=== PATIENT | female | born 1970 | race Caucasian/White ===

== ENCOUNTER 2018-04-16 10:32 | Day surgery (SDC) | payer OTHER, SELFPAY ==
[2018-04-16] VITALS (7 sets, daily range): BP systolic 108–130; BP diastolic 72–88; PULSE 58–79; RESP 14–18; TEMP 36.5–37.2; O2SAT 98–100; BMI 19.9
[2018-04-16 11:06] LABS: Mean Corp Hgb Conc 34.2 g/gl (32-36); Mean Corpuscular Hgb 32.3 pg (27.0-32.0); Mean Corpuscular Volume 94.3 fL (81-99); Mean Platelet Vol. 10.4 fl (6.2-12.0); Platelet Count 204 K/mm3 (150-450); RBC Distribution Width CV 12.5 % (11.6-14.6); RBC Distribution Width SD 42.7 fl (35.1-43.9); Red Blood Count 4.03 M/mm3 (4.2-5.4); Scan Indicated on CBC? Y/N NO; White Blood Count 3.3 K/mm3 (4.4-11.0)
[2018-04-16 11:07] LABS: Internal QC Validated? YES +Cl - CLEAR BKGD; Pregnancy, Urine Negative Negative
[2018-04-16 11:29] LABS: Free T3 2.4 pg/mL (2.18-3.98); T4 Free Direct 0.84 ng/dL (0.76-1.46); Thyroid Stim Hormone (TSH) 2.23 uIU/mL (0.358-3.74)
[2018-04-16] MEDS: Cefazolin 2 GM in 0.9% Normal Saline 100 ML IV (13:00)
--- NOTE | 2018-04-16 13:54 | PCM.DC.D&C ---
Discharge Diet: No Restrictions Discharge Activity: Return to Normal Activity, May Shower May resume sexual activity in: 6 weeks Lifting Restrictions: 20-25 Call your doctor if your incision/area has: Continuous Slow Oozing, Increased Pain/ Swelling, Increased Redness, Foul Smelling Discharge, Swelling at the incision site Call your doctor if you observe: Fever of 101 or Higher, Inability to urinate, Using more than one pad per hour Cleanse incision/area with: Soap & Water, - - do not pick off skin glue- ok to shower and let soap and water run over incision sites Allergies/Adverse Reactions: Allergies nickel Allergy (Verified 04/09/18 12:06) Rash Penicillins Allergy (Verified 04/09/18 12:06) Rash Medications to take at Discharge Ascorbic Acid [Vitamin C] 1,000 mg PO DAILY 04/09/18 Cholecalciferol (Vitamin D3) [Vitamin D3] 2,000 unit PO DAILY 04/09/18 Turmeric/Turmeric Root Extract [Turmeric 500 mg Capsule] 1 each PO DAILY 04/09/18 Nitrofurantoin Monohyd/M-Cryst [Macrobid 100 mg Capsule] 100 mg PO BID #6 cap 04/16/18 The following prescriptions were given: Nitrofurantoin Monohyd/M-Cryst [Macrobid 100 mg Capsule] 100 mg PO BID #6 cap Primary Care Physician: Lianne Cheema [Primary Care Provider] - Test Results: Test results from this visit will be discussed in further detail at your follow-up appointment, if applicable. Please Follow Up With: Reba Nelson MD When: as scheduled in 2 weeks
--- NOTE | 2018-04-16 13:59 | OP.PCM_ITS ---
Operative Report Date of Procedure: 04/16/18 Surgeon: Dr. Reba Nelson Senior National Account Manager: None Preop diagnosis: AUB Post op diagnosis: Same Procedure performed: Hysteroscopy, Merced Ablation (retropubic sling placement and cystoscopy- please see her dictation) Drains: None Implantable devices: none Complications: none EBL: minimal anesthesia: general After informed consent was obtained patient taken to the operating room she is placed in supine position she is given anesthesia simply self insert she is prepped draped normal sterile fashion. Bladder was drained prior to the start of the procedure- 430cc clear yellow urine. At this time the weighted speculum was placed the posterior fornix of the vagina then a single-tooth tenaculum was used to grasp the anterior lip of the cervix. At this time the uterus was sounded to approximately 8.5 cm the endocervical canal sounded to 4.5 cm. Next cervix was dilated in incremental fashion. Once adequate dilatation was achieved the hysteroscope was inserted using normal saline as distention medium. On hysteroscopy there were no gross abnormalities. Both tubal ostia were visualized. At this time the Merced device was opened. The Merced was set at 4.5 cm. The device was activated. Prior to activation the field test was performed and cavity was intact. The device was then fired and activated for 120 seconds. Once the 120 seconds was completed the device was removed intact and the tenaculum was removed. Good hemostasis was appreciated. Weighted speculum was removed. Vaginal sweep was performed is negative. There were no complications. Anticipated normal postoperative course for this patient. Instrument and lap count were correct ?2. - Retropubic sling then placed by Dr. Magda Finn with my assistance- please see separate dictation for this procedure. Vaginal sweep negative.
--- NOTE | 2018-04-16 16:01 | SUR.PHASEII ---
PT VOIDED 300CC WITHOUT DIFFICULTY
--- NOTE | 2018-04-16 16:29 | OP.PCM_ITS ---
Report of Operation Date of Procedure: 04/16/18 Pre-Operative Diagnosis: Stress urinary incontinence Post-Operative Diagnosis: same Surgery/Procedure Performed:: Tension free retropubic midurethral sling with Brando mesh Description of Surgical Findings:: Normal vagina and bladder and uretral meatus language tutor: Reba Nelson Type of Anesthesia:: General Anesthesiologist: Kathy Nick Special Medications: none Specimen's removed: none Drains: iraheta Estimated Blood Loss (mL): 20 cc Fluids Replaced: LR Description of Procedure: The tension-free vaginal tape mid urethral sling procedure was then performed by me after the completion of Dr. López is portion of the case. The mid urethra was identified and the vaginal epithelium under it was grasped with Tracie clamps and the vaginal epithelium was infiltrated with 1% Xylocaine with dilute epinephrine solution. An incision was made under the mid urethra and dissected laterally under the pubic ramus on both sides. The midline at the symphysis pubis was marked and then 2 cm on each side was marked with a marking pen. I hydrodissected behind the symphysis with 30 cc of injectable saline on both sides of the midline. A catheter guide was used to shift the bladder to the patient's left side and the right trocar was placed with the retropubic trocar. This was walked up behind the symphysis aiming towards the ipsilateral shoulder until I exited in the skin 2 cm to left of the midline directly cephalad to the pubic ramus. The bladder was taken to the opposite side and the left trocar was advanced in a similar fashion behind the symphysis pubis and out through the skin where it had been marked with a marker. A cystoscopy was then performed at this time. The bladder was intact. There were no perforations. Both ureteral jets were noted. Cystoscopy was ended and the Iraheta placed to straight drain. The sling was secured up against the mid urethra using the Metzenbaum scissors as a spacer so as not to impinge upon the urethra. The protective sheath was removed from the mesh. The excess mesh was trimmed at the suprapubic incisions and those incisions were closed with skin glue. The vaginal epithelium overlying the mesh was reapproximated with 2- 0 Vicryl suture. The mesh was lying flat against the mid urethra and no buttonholing of the vagina in either vaginal fornix was noted. Vagina was packed with iodoform gauze after a vaginal sweep was completed by me. Grafts/Implants Used: Caldara midurethral sling mesh - Complications none - Admit VTE Documentation VTE Present on Admission: No VTE Mechan Device Prophylaxis: SCD's VTE Pharm Prophylaxis ordered?: No Reason prophylaxis not ordered:: Procedure Not Indicated
== END 2018-04-16 15:59 | disposition home or self-care (01) ==
LOC: SDC 10:33 → AC 10:35
PROVIDERS: Obstetrics & Gynecology; Family Provider Nurse Practitioner; PCP Nurse Practitioner; Visit Provider Obstetrics & Gynecology
PROC: 0U5B8ZZ Destruction of Endometrium, Via Natural or Artificial Opening Endoscopic (ICD-10-PCS; CPT 58558; principal; 2018-04-16 12:40)
PROC: 0TJB8ZZ Inspection of Bladder, Via Natural or Artificial Opening Endoscopic (ICD-10-PCS; CPT 57288; 2018-04-16 12:40)
DX: N39.3 Stress incontinence (female) (male) (principal); N93.9 Abnormal uterine and vaginal bleeding, unspecified
CPT/HCPCS: 57288; 58563; 81025; 84439; 84443; 84481; 85027; J7120; C1771; J2405

== ENCOUNTER 2019-09-24 15:47 | Emergency (ER) | payer OTHER, SELFPAY ==
[2019-09-24 15:48] VITALS: BP 96/64; PULSE 104; RESP 16; TEMP 37.2; O2SAT 98; BMI 19.5
--- NOTE | 2019-09-24 16:39 | ED.DCSUM_ITS ---
- ER Visit Summary Date of Service: 09/24/19 Chief Complaint: Nausea and vomiting History of Present Illness: The patient is a 48 F who presents with nausea and vomiting that began today. Patient states she woke up and felt nauseated. Patient states she started vomiting shortly after. Patient denies any hematemesis or coffee-ground emesis. Patient denies any diarrhea, melena, or hematochezia. Patient states she took a Zofran at home which has helped with her vomiting. Patient states she does have some mild diffuse abdominal pain. Patient describes it as aching. Patient also admits to some low back pain. Physical Examination: Vital signs are stable. Patient is afebrile. Patient is in no acute distress. Oral mucosa is pink and moist. Neck is supple. Trachea is midline. There is no JVD. Heart was regular rate and rhythm. Lungs are clear and equal bilaterally. Abdomen is soft. Bowel sounds are normal. There is mild diffuse tenderness. There is no rebound or guarding noted. There is no lumbar spine or paraspinal tenderness. There is good range of motion. Strength is 5/5 bilateral knee upper and lower extremities. There are no sensory deficits noted. Test Results: CBC and comprehensive metabolic profile were within normal limits. Serum hCG was negative. Urinalysis does not show any evidence of urinary tract infection. Emergency Department Course and Treatment: Patient was given IV fluids and Toradol here. Patient was feeling better on reevaluation. Patient was instructed to start with liquid diet and advance to a bland diet and then to a regular diet as she starts to feel better. Patient and her spouse understood and were agreeable with the plan. All questions were answered. Disposition: Discharge home Impression: Nausea and vomiting This note was generated with Aledade dictation software. It may contain incorrect words, spelling, and punctuation that were not noted in review of the chart prior to signing ED Disposition - Plan for ED Patient: Disposition: Home or Assisted Living Diagnosis: Nausea and vomiting Instructions: VOMITING (7y-Adult) Prescriptions: Ondansetron [Zofran Odt] 4 mg PO Q8H PRN PRN #10 tab PRN Reason: Nausea Prescription Printed Referrals: Lianne Cheema, [employer]MENT RENTAL CLERK-C [Primary Care Provider] - 5-7 Days
[2019-09-24] MEDS: Ketorolac 30 MG/ML Syringe IV (16:59)
[2019-09-24] MEDS: 0.9% Normal Saline 1,000 ML 1000 ML IV (16:59)
[2019-09-24 17:27] LABS: Absolute Lymphocyte Count 0.17 X10^3/uL (0.83-4.51); Absolute Neutrophil Count 9.3 X10^3/uL (2.0-7.7); Basophil# 0.02 X10^3/uL; Basophil% 0.2 % (0-1); Eosinophil# 0.01 X10^3/uL; Eosinophils% 0.1 % (0-5); Hemoglobin 14.3 g/dL (12.0-15.0); Lymphocyte # 0.17 X10^3/ul (4.0); Lymphocyte % 1.7 % (19-41); Mean Corpuscular Hgb 31.8 pg (27.0-32.0); Mean Corpuscular Volume 93.5 fL (81-99); Mean Platelet Vol. 10.3 fl (6.2-12.0); Monocyte# 0.22 X10^3/uL; Monocyte% 2.3 % (0-10); NRBC Flagged by Analyzer 0 % (0-5); Neutrophil # 9.29 X10^3/uL (2.7-7.7); Neutrophil % 95.3 % (47-70); POSITIVE DIFFERENTIAL YES; Platelet Count 226 K/mm3 (150-450); RBC Distribution Width CV 11.8 % (11.6-14.6); RBC Distribution Width SD 40.5 fl (35.1-43.9); Red Blood Count 4.49 M/mm3 (4.2-5.4); White Blood Count 9.8 K/mm3 (4.4-11.0)
[2019-09-24 17:34] LABS: Differential Indicated SCAN CRITERIA MET
[2019-09-24 17:35] LABS: AST(SGOT) 16 U/L (15-37); Alanine Aminotransfer ALT/SGPT 29 U/L (13-56); Albumin, Serum 3.6 g/dL (3.2-5.0); Alkaline Phosphatase 47 U/L (45-117); Anion Gap 1 (5-15); BUN 18 mg/dL (7-18); BUN/Creat Ratio 21.3 RATIO (10-20); Calcium,Total 8.2 mg/dL (8.5-10.1); Chloride 106 mmol/L (98-107); Creatinine, Serum 0.85 mg/dL (0.55-1.02); EST Glomerular Filtration Rate 76 mL/min (>60); Est Glom Filt Rate - Afr Amer 92 mL/min (>60); Estimated Creatinine Clearance 62.69 ml/min; Globulin 3.5 g/dL (2.2-4.2); Glucose 104 mg/dL (74-106); Potassium 3.5 mmol/L (3.5-5.1); Protein, Total 7.1 g/dL (6.4-8.2); Sodium Level 139 mmol/L (136-145)
[2019-09-24 17:54] LABS: Internal QC Validated? YES +Cl - CLEAR BKGD; Pregnancy, Serum, hCG Quali. NEGATIVE Negative
[2019-09-24 18:12] LABS: Platelet Estimate ADEQUATE (ADEQ); Red Cell Morphology NORM C+C NORMAL (NORM C&C)
[2019-09-24 18:22] LABS: Bacteria 0 SEEN /hpf (None Seen); Red Blood Cells-Urine 0 SEEN /hpf (0-5)
[2019-09-24 18:32] LABS: Color, Urine Yellow (Yellow); Glucose, Dipstick Normal (Normal); Ketone-Dipstick Negative (Negative); Leukocyte Esterase-Dipstick 100 /ul (Negative); Nitrite-Dipstick Negative (Negative); Occult Blood-Urine Negative /ul (Negative); Protein-Dipstick Negative (Negative); Urine Clarity Sl. Cloudy (Clear); Urine Urobilinogen Normal (Normal)
[2019-09-24 18:39] LABS: Urine Bilirubin Dipstick 1 mg/dL (Negative)
[2019-09-24 18:46] LABS: Mucous, Urine 1+ /hpf (<or=2+); Squamous Epithelial Cells - UA 0-5 SEEN /hpf (5-10); White Blood Cells 0-5 SEEN /hpf (0-5)
[2019-09-24 19:16] VITALS: BP 91/62; PULSE 86; RESP 16; TEMP 37; O2SAT 98
== END 2019-09-24 19:18 | disposition home or self-care (01) ==
PROVIDERS: Emergency Provider Emergency Medicine; Family Provider Nurse Practitioner; PCP Nurse Practitioner
DX: R11.2 Nausea with vomiting, unspecified (principal); M54.9 Dorsalgia, unspecified; R51 Headache; R53.1 Weakness; R10.9 Unspecified abdominal pain
CPT/HCPCS: 80053; 81001; 84703; 85025; 96361; 96374; 99283; J7030

== ENCOUNTER 2021-12-05 08:54 | Outpatient (CLI) | payer OTHER, SELFPAY ==
[2021-12-05 10:23] LABS: Hematocrit 38.5 % (37-47); Hemoglobin 13.6 g/dL (12.0-15.0); Mean Corp Hgb Conc 35.3 g/dL (32-36); Mean Corpuscular Hgb 32.8 pg (27.0-32.0); Mean Corpuscular Volume 92.8 fL (81-99); Mean Platelet Vol. 10.8 fl (6.2-12.0); Platelet Count 230 K/mm3 (150-450); RBC Distribution Width CV 12.4 % (11.6-14.6); RBC Distribution Width SD 42.5 fl (35.1-43.9); Red Blood Count 4.15 M/mm3 (4.2-5.4); White Blood Count 4.3 K/mm3 (4.4-11.0)
[2021-12-05 11:12] LABS: Vitamin D,25 Hydroxy 71.7 ng/mL
[2021-12-05 11:14] LABS: ALB/GLOB Ratio 1.2 RATIO (0.9-2.4); AST(SGOT) 18 U/L (15-37); Alanine Aminotransfer ALT/SGPT 25 U/L (13-56); Albumin, Serum 3.7 g/dL (3.2-5.0); Alkaline Phosphatase 47 U/L (45-117); Anion Gap 3 (5-15); BUN 10 mg/dL (7-18); Calcium,Total 9.2 mg/dL (8.5-10.1); Chloride 105 mmol/L (98-107); Cholesterol 148 mg/dL (200); Creatinine, Serum 0.71 mg/dL (0.55-1.02); EST Glomerular Filtration Rate 92 mL/min (>60); Est Glom Filt Rate - Afr Amer 111 mL/min (>60); Globulin 3.1 g/dL (2.2-4.2); Glucose 87 mg/dL (74-106); High Density Lipoprotein 68 mg/dL; Potassium 4.1 mmol/L (3.5-5.1); Protein, Total 6.8 g/dL (6.4-8.2); Sodium Level 140 mmol/L (136-145); Thyroid Stim Hormone (TSH) 2.09 uIU/mL (0.358-3.74); Triglycerides 47 mg/dL; Very Low Density Lipoprotein 9 mg/dL (5-40)
== END 2021-12-05 23:59 | disposition home or self-care (01) ==
LOC: MTLAB 08:56
PROVIDERS: PCP Nurse Practitioner; Referring Provider Nurse Practitioner; Visit Provider Nurse Practitioner
DX: Z00.00 Encounter for general adult medical examination without abnormal findings (principal); Z13.29 Encounter for screening for other suspected endocrine disorder; Z13.220 Encounter for screening for lipoid disorders; Z13.0 Encounter for screening for diseases of the blood and blood-forming organs and certain disorders involving the immune mechanism; E55.9 Vitamin D deficiency, unspecified
CPT/HCPCS: 36415; 80053; 80061; 82306; 84443; 85027

== ENCOUNTER → 2024-06-23 | Outpatient (CLI) | payer OTHER, SELFPAY ==
[2024-06-29 10:09] LABS: HPV APTIMA, High Risk Negative (Negative)
== END | disposition home or self-care (01) ==
LOC: LABSPEC 10:48
PROVIDERS: PCP Nurse Practitioner Family; Referring Provider Nurse Practitioner Family; Visit Provider Nurse Practitioner Family
DX: Z12.4 Encounter for screening for malignant neoplasm of cervix (principal)
CPT/HCPCS: 87624; 88175; G0145

== ENCOUNTER → 2024-12-24 | Outpatient (CLI) | payer OTHER, SELFPAY ==
--- NOTE | 2024-12-24 12:38 | BI_ITS ---
EXAM: SCRN MAMM (CAD)W/MICKEY BILAT DATE: 12/24/2024 CLINICAL HISTORY: F, Age 54 y/o , SCREENING MAMMOGRAM FOR BREAST CANCER No family history. BREAST CANCER RISK ASSESSMENT: Not assessed. TECHNIQUE: Bilateral screening digital breast tomosynthesis with 2D and 3D images. Computer aided detection. COMPARISON: Prior exam(s) dated May 22, 2023.. FINDINGS: TISSUE DENSITY: The breast tissue is heterogenously dense, which may obscure small masses. Bilateral Breast Mammographic Findings: No significant masses, calcifications or other abnormalities are identified. No suspicious masses, areas of developing architectural distortion, or suspicious calcifications. There has been no significant interval change. BI/SCRN MAMM (CAD)W/MICKEY BILAT IMPRESSION: Right Breast: BIRADS 1 NEGATIVE. Left Breast: BIRADS 1 NEGATIVE. OVERALL FINAL ASSESSMENT: BIRADS 1 NEGATIVE RECOMMENDATION: Routine annual follow-up in 1 Year A letter with findings and recommendations will be mailed to the patient. Reading Location: [place] [id number]
== END | disposition home or self-care (01) ==
LOC: OPBI 12:37
PROVIDERS: PCP Nurse Practitioner Family; Referring Provider Nurse Practitioner Family; Visit Provider Nurse Practitioner Family
DX: Z12.31 Encounter for screening mammogram for malignant neoplasm of breast (principal)
CPT/HCPCS: 77063; 77067

== ENCOUNTER → 2025-01-13 | Outpatient (CLI) | payer OTHER, SELFPAY ==
--- NOTE | 2025-01-13 16:15 | BD_ITS ---
PROCEDURE: DEXA BONE DENSITY STUDY REASON FOR EXAM: None provided TECHNIQUE: DEXA scan of the lumbar spine and bilateral hips, using a Hologic Horizon W unit. REFERENCE LINKS: ISCD Adult Positions COMPARISON: None FINDINGS: LUMBAR SPINE: Bone mineral denisty, L1-L4: 0.925 g/cm??? T-score: -1.1 LEFT FEMORAL NECK: Bone mineral denisty: 0.621 g/cm??? T-score: -2.1 LEFT TOTAL HIP: Bone mineral denisty: 0.808 g/cm??? T-score: -1.1 RIGHT FEMORAL NECK: Bone mineral denisty: 0.634 g/cm??? T-score: -1.9 RIGHT TOTAL HIP: Bone mineral denisty: 0.832 g/cm??? T-score: -0.9 FRAX*: 10 Year Probability of Fracture: Major Osteoporotic Fracture(1): 12.0% Hip Fracture(2): 0.9% *FRAX is a trademark of the [employer]'s [place] for Metabolic Bone Disease, World Health Organization (WHO) Collaborating [place]. 1-Major Osteoporotic Fracture: Clinical Spine, Forearm, Hip or Shoulder. 2-The 10-year probability of fracture may be lower than reported if the patient has received treatment. The National Osteoporosis Foundation recommends that medical therapy be considered in postmenopausal women and men, age 50 and older, with a: * hip or vertebral fracture * T-score less than or equal to -2.5 in the spine or hip * T-score between -1.0 and -2.5 and FRAX equal to or less than 3 percent for hip fracture or equal to or less than 20 percent for major osteoporotic fracture. World Health Organization criteria for BMD interpretation classify patients as Normal (T-score at or above -1.0), Osteopenic (T-score between -1.0 and -2.5), or Osteoporotic (T-score at or below -2.5). BD/Dexa Bone Density Study IMPRESSION: 1. Osteopenia. 2. No prior exams are available for comparison. 3. Additional description as above. Reading Location: [id number]
== END | disposition home or self-care (01) ==
LOC: OPBD 16:14
PROVIDERS: PCP Nurse Practitioner Family; Referring Provider Nurse Practitioner Family; Visit Provider Nurse Practitioner Family
DX: Z78.0 Asymptomatic menopausal state (principal)
CPT/HCPCS: 77080

== ENCOUNTER 2025-04-07 08:45 | Day surgery (SDC) | payer OTHER, SELFPAY ==
[2025-04-07] VITALS (7 sets, daily range): BP systolic 94–115; BP diastolic 58–85; PULSE 57–67; RESP 16; TEMP 36.4–36.6; O2SAT 100; BMI 22.6
--- NOTE | 2025-04-07 08:57 | PCM.HP.STD ---
[facility] - General General Date of Admission: 04/07/25 Date of Service: 04/07/25 Chief Complaint: Personal history of polyps HPI Narrative IVANNA LACY, is a 54 F who presents today for surveillance colonoscopy. She had a colonoscopy back in 2021 in which she had 1 adenomatous polyp removed at that time. Is a very large adenomatous polyps that is why she is coming back in 3 years. [facility] Medical History Wears glasses Post-menopausal Home Medications Medication Instructions Recorded Last Taken Type ascorbic acid (vitamin C) 1,000 mg 1,000 mg PO DAILY 04/09/18 Unknown History tablet (Vitamin C) cholecalciferol (vitamin D3) 50 2,000 unit PO DAILY 04/09/18 Unknown History mcg (2,000 unit) capsule (Vitamin D3) magnesium sulfate 100 mg capsule 500 mg PO DAILY 02/23/24 Unknown History vitamin K2 45 mcg capsule 45 mcg PO DAILY 02/23/24 Unknown History estradiol 0.075 mg/24 hr weekly 1 patch transdermal QWEEK #12 04/16/24 Unknown Rx transdermal patch patches progesterone micronized 100 mg 100 mg PO QPM #90 caps 04/16/24 Unknown Rx capsule (Prometrium) Allergy/AdvReac Type Severity Reaction Status Date / Time nickel Allergy Rash Verified 04/05/25 10:54 Penicillins Allergy Rash Verified 04/05/25 10:54 Family History Father COPD (chronic obstructive pulmonary disease) Mother CVA (cerebral vascular accident) Hypertension Surgical History History of bunionectomy H/O section H/O prior ablation treatment Social History adopted: No household members: spouse number of children: 2 current occupational status: employed and unemployed sexually active: Yes Smoking Status: Never smoker alcohol intake: current alcohol intake frequency: a few times a month substance use type: does not use what type of physical activity do you participate in: running and weight training seatbelt use: always do you feel safe at home: Yes 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[employer], [employer] ROS Constitutional Constitutional: Denies fatigue, fever(s), poor appetite, weight gain or weight loss Gastrointestinal Gastrointestinal: Denies belching, bloating, change in bowel habits, change in stool character, chewing difficulty, coffee ground emesis, constipation, cramping, diarrhea, dyspepsia, dysphagia, early satiety, excessive flatus, fecal incontinence, heartburn, hematemesis, hematochezia, hemorrhoids, loose stools, melena, nausea, odynophagia, rectal bleeding, tenesmus, vomiting or weight changes Physical Exam Const alert, oriented x3, no apparent distress and healthy appearing General Appearance: cooperative GI normal to inspection, nondistended, normoactive bowel sounds, soft to palpation, non-tender and non-distended Percussion: normal to percussion Rectal Exam: deferred Assessment & Plan Assessment/Plan (1) Encounter for screening colonoscopy: PLAN: She will undergo colonoscopy. She was explained alternatives, risk and benefits include not withstanding bleeding, infection, sepsis, perforation, need for emergent urgent . She will have an ASA of 3.
[2025-04-07] MEDS: Lactated Ringers 1,000 ML 15 ML IV (09:21)
--- NOTE | 2025-04-07 09:48 | PRE.ANES_ITS ---
ASA Classification* ASA Classification ASA Classification: 1 Assessment & Plan Anesthesia* Anesthesia Assessment Anesthesia Assessment: Discussed sedation and/or anesthesia options, risks, benefits, and alternatives with patient/parents/legal guardian/POA. Questions invited. The patient/parents/legal guardian/POA seems to understand and agrees to proceed with anesthesia plan. Reviewed the physical assessment, medical history, allergy history and patient home medications list prior to surgery/procedure/anesthetic and documented any changes. Performed airway and anesthesia risk assessments. Anesthesia Type Anesthesia Type: MAC History Source History Obtained from:: Patient and Chart Anesthesia Focused Assessment* Temperature: 97.9 F Pulse Rate: 61 Blood Pressure: 115/85 Respiratory Rate: 16 Pulse Ox: 100 Airway Assessment Mouth opens: >3 cm Mallampati Score: II Teeth Condition: Intact Neck Range of motion (ROM): Full ROM Labs Anesthesia Preop lab: CBC WBC 4.3 K/mm3 (4.4-11.0) L 12/05/21 09:18 12/05/21 RBC 4.15 M/mm3 (4.2-5.4) L 12/05/21 09:18 12/05/21 Hgb 13.6 g/dL (12.0-15.0) 12/05/21 09:18 12/05/21 Hct 38.5 % (37-47) 12/05/21 09:18 12/05/21 Plt Count 230 K/mm3 (150-450) 12/05/21 09:18 12/05/21 CHEMISTRY Potassium 4.1 mmol/L (3.5-5.1) 12/05/21 09:18 12/05/21 Sodium 140 mmol/L (136-145) 12/05/21 09:18 12/05/21 BUN 10 mg/dL (7-18) 12/05/21 09:18 12/05/21 Creatinine 0.71 mg/dL (0.55-1.02) 12/05/21 09:18 12/05/21 Glucose 87 mg/dL (74-106) 12/05/21 09:18 12/05/21 TSH 2.09 uIU/mL (0.358-3.74) 12/05/21 09:18 COAG Urine Test Negative Negative 04/16/18 10:46 04/16/18 Pre-Assessment Diagnosis/Proposed Procedure Planned Operative Procedure(s): COLONOSCOPY Anesthesia History Anesthesia History - photoresist contact printer: 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 When Was Last Pacemaker Check QUESTION #4 FULL TEXT: You/Your Family Experience fever (hyperthermia) with Anesthesia Last Oral Intake Last Oral intake: Last Oral Intake NPO since 05:45 04/07/25 09:14 Meds taken in AM with sips of water? Meds patient instructed to take am of surgery PONV PONV - photoresist contact printer: PONV - photoresist contact printer Female Yes 04/05/25 10:55 HX of Motion Sickness No 04/05/25 10:55 HX of N/V After Surgery Yes 04/05/25 10:55 Non-Smoker Yes 04/05/25 10:55 Duration of Surgery greater No 04/05/25 10:55 than 60 minutes Number of Risk Factors 3 04/05/25 10:55 PONV Score Moderate Risk 04/05/25 10:55 Height & Weight Height & Weight: Anesthesia: Height & Weight Height 5 ft 2 in 04/07/25 09:14 Weight: 56.245 kg 04/07/25 09:14 Body Mass Index (BMI) 22.6 04/07/25 09:14 Respiratory Assessment Respiratory Assessment - photoresist contact printer: Respiratory Tract Infection Hx - photoresist contact printer Hx Respiratory Tract Infection No 04/05/25 10:55 STOP Sleep Apnea STOP Sleep Apnea - photoresist contact printer: STOP Sleep Apnea - photoresist contact printer Hx Hypertension No 04/05/25 10:55 Hx Sleep Apnea No 04/05/25 10:55 CPAP BIPAP Do you snore loudly (louder No 04/05/25 10:55 than talking or can be heard Do you often feel tired/ No 04/05/25 10:55 fatigued/ sleepy during daytime? Has anyone observed you stop No 04/05/25 10:55 breathing during sleep? STOP Results Negative 04/05/25 10:55 QUESTION #5 FULL TEXT : Do you snore loudly (louder than talking or can be heard through closed doors)? Tobacco Use History Tobacco Use History - photoresist contact printer: Tobacco Use History - photoresist contact printer Tobacco Use Smoking Status Never smoker 04/05/25 10:55 Hx Tobacco Use No 04/05/25 10:55 Years Smoking Packs Smoked per Day Smoking Cessation Date was within the last 15 years Hx Smoking Cessation Date Hx Smoking Cessation Counseling Hematologic Medial History Hematologic Hx - photoresist contact printer: Hematologic Medical Hx - stores despatch hand Hx of Blood Transfusion No 04/05/25 10:55 Hx of Transfusion in last 3 No 04/05/25 10:55 Months Date of Last Transfusion (if within last 3 months) Ever experience any problems No 04/05/25 10:55 with transfusion(s)? Specify any problems Hx of Preganancy in last 3 No 04/05/25 10:55 Months Nurse Filling Out Transfusion [email or web address] 04/05/25 10:55 & Questions: Date: 04/05/25 04/05/25 10:55 Time: 10:58 04/05/25 10:55 Patient unable to answer at this time (ie. confused, unrespo /Reproduction History /Reproductive History - photoresist contact printer: /Reproductive Hx- photoresist contact printer Hx Now No 04/05/25 10:55 Gestational Age (in weeks): EDC: Hx Hx Para Hx Section SAB No 04/05/25 10:55 Active Medications Active Medications: Current Medications Generic Name Dose Route Start Last Admin Trade Name Freq PRN Reason Stop Dose Admin Lactated Ringer's 1,000 mls @ 15 mls/hr 04/07/25 09:00 04/07/25 09:21 IV 15 mls/hr .Q48H ZIGGY Administration PFSH Medical History Wears glasses Post-menopausal Home Medications Medication Instructions Recorded Last Taken Type ascorbic acid (vitamin C) 1,000 mg 1,000 mg PO DAILY 0 04/09/18 Unknown History tablet (Vitamin C) cholecalciferol (vitamin D3) 50 2,000 unit PO DAILY Unknown History mcg (2,000 unit) capsule (Vitamin D3) magnesium sulfate 100 mg capsule 500 mg PO DAILY 02/22 Unknown History vitamin K2 45 mcg capsule 45 mcg PO DAILY 02/23/24 Unk nown History estradiol 0.075 mg/24 hr weekly 1 patch transdermal QW UNALAKLEET #12 04/16/24 Unknown Rx transdermal patch patches progesterone micronized 100 mg 100 mg PO QPM #90 caps 04/16/24 Unknown Rx capsule (Prometrium) Allergy/AdvReac Type Severity Reaction Status Date / Time nickel Allergy Rash Verified 04/07/25 09:14 Penicillins Allergy Rash Verified 04/07/25 09:14 Family History Father COPD (chronic obstructive pulmonary disease) Mother CVA (cerebral vascular accident) Hypertension Surgical History History of bunionectomy H/O section H/O prior ablation treatment Social History adopted: No household members: spouse number of children: 2 current occupational status: employed and unemployed sexually active: Yes Smoking Status: Never smoker alcohol intake: current alcohol intake frequency: a few times a month substance use type: does not use what type of physical activity do you participate in: running and weight training seatbelt use: always do you feel safe at home: Yes 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[employer] Review of Systems (Anesthesia) ROS Narrative System reviewed and no additional complaints, except as documented.
--- NOTE | 2025-04-07 09:58 | PCM.PRE.AN2 ---
ASA Classification* ASA Classification ASA Classification: 2 Assessment & Plan Anesthesia* Anesthesia Assessment Anesthesia Assessment: Discussed sedation and/or anesthesia options, risks, benefits, and alternatives with patient/parents/legal guardian/POA. Questions invited. The patient/parents/legal guardian/POA seems to understand and agrees to proceed with anesthesia plan. Reviewed the physical assessment, medical history, allergy history and patient home medications list prior to surgery/procedure/anesthetic and documented any changes. Performed airway and anesthesia risk assessments. Anesthesia Type Anesthesia Type: General and MAC History Source History Obtained from:: Patient and Chart Anesthesia Focused Assessment* Temperature: 97.9 F Pulse Rate: 61 Blood Pressure: 115/85 Respiratory Rate: 16 Pulse Ox: 100 Airway Assessment Mouth opens: >3 cm Mallampati Score: II Teeth Condition: Intact Neck Range of motion (ROM): Full ROM Labs Anesthesia Preop lab: CBC WBC 4.3 K/mm3 (4.4-11.0) L 12/05/21 09:18 12/05/21 RBC 4.15 M/mm3 (4.2-5.4) L 12/05/21 09:18 12/05/21 Hgb 13.6 g/dL (12.0-15.0) 12/05/21 09:18 12/05/21 Hct 38.5 % (37-47) 12/05/21 09:18 12/05/21 Plt Count 230 K/mm3 (150-450) 12/05/21 09:18 12/05/21 CHEMISTRY Potassium 4.1 mmol/L (3.5-5.1) 12/05/21 09:18 12/05/21 Sodium 140 mmol/L (136-145) 12/05/21 09:18 12/05/21 BUN 10 mg/dL (7-18) 12/05/21 09:18 12/05/21 Creatinine 0.71 mg/dL (0.55-1.02) 12/05/21 09:18 12/05/21 Glucose 87 mg/dL (74-106) 12/05/21 09:18 12/05/21 TSH 2.09 uIU/mL (0.358-3.74) 12/05/21 09:18 12/05/21 COAG Urine Test Negative Negative 04/16/18 10:46 04/16/18 Pre-Assessment Diagnosis/Proposed Procedure Planned Operative Procedure(s): COLONOSCOPY Anesthesia History Anesthesia History - netezza developer: Anesthesia History - netezza developer Hx Hospitalization No 04/05/25 10:55 Any Problems With Anesthesia Yes: NAUSEA 04/05/25 10:55 Cholinesterase deficiency No 04/05/25 10:55 You/Your Family Experience No 04/05/25 10:55 fever (hyperthermia) with Relationship Recent Exposure to Contagious No 04/07/25 09:14 Disease Does patient have nerve No 04/05/25 10:55 stimulator Patient instructed to have device shut off --Does patient have Pacemaker No 04/07/25 09:14 or ICD? When Was Last Pacemaker Check QUESTION #4 FULL TEXT: You/Your Family Experience fever (hyperthermia) with Anesthesia Last Oral Intake Last Oral intake: Last Oral Intake NPO since 05:45 04/07/25 09:14 Meds taken in AM with sips of water? Meds patient instructed to take am of surgery PONV PONV - netezza developer: PONV - netezza developer Female Yes 04/05/25 10:55 HX of Motion Sickness No 04/05/25 10:55 HX of N/V After Surgery Yes 04/05/25 10:55 Non-Smoker Yes 04/05/25 10:55 Duration of Surgery greater No 04/05/25 10:55 than 60 minutes Number of Risk Factors 3 04/05/25 10:55 PONV Score Moderate Risk 04/05/25 10:55 Height & Weight Height & Weight: Anesthesia: Height & Weight Height 5 ft 2 in 04/07/25 09:14 Weight: 56.245 kg 04/07/25 09:14 Body Mass Index (BMI) 22.6 04/07/25 09:14 Respiratory Assessment Respiratory Assessment - netezza developer: Respiratory Tract Infection Hx - netezza developer Hx Respiratory Tract Infection No 04/05/25 10:55 STOP Sleep Apnea STOP Sleep Apnea - netezza developer: STOP Sleep Apnea - netezza developer Hx Hypertension No 04/05/25 10:55 Hx Sleep Apnea No 04/05/25 10:55 CPAP BIPAP Do you snore loudly (louder No 04/05/25 10:55 than talking or can be heard Do you often feel tired/ No 04/05/25 10:55 fatigued/ sleepy during daytime? Has anyone observed you stop No 04/05/25 10:55 breathing during sleep? STOP Results Negative 04/05/25 10:55 QUESTION #5 FULL TEXT : Do you snore loudly (louder than talking or can be heard through closed doors)? 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 Specify any problems Hx of Preganancy in last 3 No 04/05/25 10:55 Months Nurse Filling Out Transfusion [email or web address] 04/05/25 10:55 & Questions: Date: 04/05/25 04/05/25 10:55 Time: 10:58 04/05/25 10:55 Patient unable to answer at this time (ie. confused, unrespo /Reproduction History /Reproductive History - netezza developer: /Reproductive Hx- netezza developer Hx Now No 04/05/25 10:55 Gestational Age (in weeks): EDC: Hx Hx Para Hx Section SAB No 04/05/25 10:55 Active Medications Active Medications: Current Medications Generic Name Dose Route Start Last Admin Trade Name Freq PRN Reason Stop Dose Admin Lactated Ringer's 1,000 mls @ 15 mls/hr 04/07/25 09:00 04/07/25 09:21 IV 15 mls/hr .Q48H ZIGGY Administration PFSH Medical History Wears glasses Post-menopausal Home Medications Medication Instructions Recorded Last Taken Type ascorbic acid (vitamin C) 1,000 mg 1,000 mg PO DAILY 04/09/18 Unknown History tablet (Vitamin C) cholecalciferol (vitamin D3) 50 2,000 unit PO DAILY 04/09/18 Unknown History mcg (2,000 unit) capsule (Vitamin D3) magnesium sulfate 100 mg capsule 500 mg PO DAILY 02/23/24 Unknown History vitamin K2 45 mcg capsule 45 mcg PO DAILY 02/23/24 Unknown History estradiol 0.075 mg/24 hr weekly 1 patch transdermal QWEEK #12 04/16/24 Unknown Rx transdermal patch patches progesterone micronized 100 mg 100 mg PO QPM #90 caps 04/16/24 Unknown Rx capsule (Prometrium) Allergy/AdvReac Type Severity Reaction Status Date / Time nickel Allergy Rash Verified 04/07/25 09:14 Penicillins Allergy Rash Verified 04/07/25 09:14 Family History Father COPD (chronic obstructive pulmonary disease) Mother CVA (cerebral vascular accident) Hypertension Surgical History History of bunionectomy H/O section H/O prior ablation treatment Social History adopted: No household members: spouse number of children: 2 current occupational status: employed and unemployed sexually active: Yes Smoking Status: Never smoker alcohol intake: current alcohol intake frequency: a few times a month substance use type: does not use what type of physical activity do you participate in: running and weight training seatbelt use: always do you feel safe at home: Yes 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[employer] Review of Systems (Anesthesia) ROS Narrative System reviewed and no additional complaints, except as documented.
--- NOTE | 2025-04-07 10:27 | OP.COLON_ITS ---
Patient Name: Judith Siddiqi Procedure Date: 04/07/2025 9:47 AM Date of : 1970 Age: 54 Procedure: Colonoscopy Indications: High risk colon cancer surveillance: Personal history of colonic polyps Providers: Gavino Medina DO Medicines: Monitored Anesthesia Care Patient Profile: This is a 54 year old female. Refer to note in patient chart for documentation of history and physical. Last Colonoscopy: 3 years ago. Complications: No immediate complications. Procedure: Pre-Anesthesia Assessment: - Prior to the procedure, a History and Physical was performed, and patient medications and allergies were reviewed. The patient is competent. The risks and benefits of the procedure and the sedation options and risks were discussed with the patient. All questions were answered and informed consent was obtained. Patient identification and proposed procedure were verified by the physician in the pre-procedure area. Mental Status Examination: alert and oriented. Airway Examination: normal oropharyngeal airway and neck mobility. Respiratory Examination: clear to auscultation. CV Examination: normal. Prophylactic Antibiotics: The patient does not require prophylactic antibiotics. Prior Anticoagulants: The patient has taken no anticoagulant or antiplatelet agents. ASA Grade Assessment: II - A patient with mild systemic disease. After reviewing the risks and benefits, the patient was deemed in satisfactory condition to undergo the procedure. The anesthesia plan was to use monitored anesthesia care (MAC). Immediately prior to administration of medications, the patient was re-assessed for adequacy to receive sedatives. The heart rate, respiratory rate, oxygen saturations, blood pressure, adequacy of pulmonary ventilation, and response to care were monitored throughout the procedure. The physical status of the patient was re-assessed after the procedure. After I obtained informed consent, the scope was passed under direct vision. Throughout the procedure, the patient's blood pressure, pulse, and oxygen saturations were monitored continuously. The adult colonoscope was introduced through the anus and advanced to the cecum, identified by appendiceal orifice and ileocecal valve. The colonoscopy was performed without difficulty. The patient tolerated the procedure well. The quality of the bowel preparation was adequate. The ileocecal valve, appendiceal orifice, and rectum were photographed. Scope In: 10:05:56 AM Scope Withdrawal Time 0 hours 7 minutes 28 seconds Scope Out: 10:23:02 AM Total Procedure Duration Time 0 hours 17 minutes 6 seconds Findings: The perianal and digital rectal examinations were normal. The colon (entire examined portion) appeared normal. No additional abnormalities were found on retroflexion. Impression: - The entire examined colon is normal. - No specimens collected. Recommendation: - Discharge patient to home. - Resume previous diet. - Repeat colonoscopy in 5 years for surveillance. - Continue present medications. Procedure Code(s): --- Professional --- G0105, Colorectal cancer screening; colonoscopy on individual at high risk CPT copyright 2021 [employer]. All rights reserved. The codes documented in this report are preliminary and upon mammal keeper review may be revised to meet current compliance requirements. Gavino Medina DO 04/07/2025 10:27:15 AM This report has been signed electronically. Number of Addenda: 0 Note Initiated On: 04/07/2025 9:47 AM
--- NOTE | 2025-04-07 10:28 | OP.CCLET_ITS ---
04/07/2025 Merry Yadav Re : Colonoscopy procedure for Judith Siddiqi Dear Jermain This procedure was performed on March. My impressions and recommendations are as follows: Impressions : - The entire examined colon is normal. - No specimens collected. Recommendations : - Discharge patient to home. - Resume previous diet. - Repeat colonoscopy in 5 years for surveillance. - Continue present medications. My findings are described in the full procedure note, which is enclosed. If I can be of further assistance, please feel free to contact me at . Sincerely, Gavino Medina, 04/07/2025 10:27:15 AM This report has been signed electronically.
--- NOTE | 2025-04-07 10:29 | PCM.POST.ANE ---
Anesthesia: Postop Eval I Current Vital Signs Temperature: 97.6 F Pulse Rate: 67 Blood Pressure: 103/64 Respiratory Rate: 16 Pulse Ox: 100 Oxygen Delivery Method: Room Air Assessment Airway patent: Yes Spontaneous unlabored respirations: Yes Mental status: Asleep nausea: No Vomiting: No Anesthesia Complication: No Fluid Hydration Crystalloid volume administer (ml): 500 Total IV fluid infused: 500 Progress Note Anesthesia document: Postop Eval 1 completed: Yes
--- NOTE | 2025-04-07 10:39 | PCM.POSTANE2 ---
Anesthesia Postop Eval I Sum Postop Eval Completion status Anesthesia document: Postop Eval 1 completed: Yes Anesthesia Postop Eval I Summary Anesthesia Postop Eval I Summary: Anesthesia Postop Eval I: Assessment Summary Airway patent Yes 04/07/25 10:30 [email or web address] Spontaneous unlabored Yes 04/07/25 10:30 [email or web address] respirations Mental status Asleep 04/07/25 10:30 [email or web address] nausea No 04/07/25 10:30 [email or web address] Vomiting No 04/07/25 10:30 [email or web address] Anesthesia Postop Eval I: Fluid Summary Crystalloid volume administer 500 04/07/25 10:30 [email or web address] (ml) Colloids volume administered ( ml) Blood Product volume administered (ml) Total IV fluid infused 500 04/07/25 10:30 [email or web address] Anesthesia Postop Eval I: Summary Notes Anesthesia Complication No 04/07/25 10:30 [email or web address] Anesthesia Complication Comment: Post-operative progress note Anesthesia: Postop Eval II Evaluation Mental status: Awake and Calm Pain Level: 1 nausea: No Vomiting: No Complications Anesthesia Complication: No
--- OUTSIDE RECORDS SUMMARY | 2025-04-07 10:51 | XMS RPT_ITS | CCD ---
Author Organization [facility] CliniSywv Care Team Providers Care Garment Folder Name Role Phone Lianne Glaser E Unavailable Eric Dejesus Unavailable Unavailable Aristides Irenea Unavailable Unavailable Unavailable Unavailable EditaAnsonen Unavailable Lianne Glaser CNP E Unavailable Edita Danielito Unavailable Eric Gayle LPN Unavailable Unavailable Unavailable Unavailable Ciesa Lianne Unavailable Ciesa OFFICE SERVICE COORDINATOR, Sejal Primary Care Provider Ciesa OFFICE SERVICE COORDINATOR, Sejal Primary Care Provider Ciesa OFFICE SERVICE COORDINATOR, Sejal Primary Care Provider REBA MULLINS Referring Unavail able CIESA, SEJAL Primary Care Unavailable CIESA, SEJAL Primary Care Unavailable REBA MULLINS Attending Unavail able CIESA, SEJAL Primary Care Unavailable CIESA, SEJAL Primary Care Unavailable SNOW COKER Attending Unavailable Madeleine Aly CNP Unavailable Madeleine Aly CNP Unavailable Camryn Gresham LPN Unavailable Unavailable Ciesa, Lianne Unavailable Jermain CAR SERVICER-CMadeleine Primary Care Provider Marina ADAIR-Eryn Henry Attending Provider Marina CAR SERVICER-CEryn Referring Provider Jermain ADAIR-Madeleine Henry Attending Provider Jermain ADAIR-Madeleine Henry Referring Provider Madeleine Aly Referring Unavailable JermainMadeleine toledo Primary Care Unavailable Karon Mackay Attending Unavailable Jermain, Madeleine Primary Care Unavailable Eryn Gray Attending Unavailable Lianne Glaser NP Referring Unavailable Madeleine Aly Referring Unavailable JermainZoyn Attending Unavailable Jermain, Madeleine Primary Care Unavailable Eryn Gray Referring Unavailable Eryn Gray Attending Unavailable Jermain, Madeleine Primary Care Unavailable Jermain, Madeleine Primary Care Unavailable Eryn Gray Referring Unavailable Eryn Gray Attending Unavailable Jermain Madeleine Primary Care Unavailable Jermain Madeleine Referring Unavailable AdamGavino Attending Unavailable Allergies Allergy Classification Reported Allergen(s) Allergy Type Date of Onset Reaction(s) Facility (20 sources) nickel; Translations: [Nickel] Drug Allergy 4 Rash [facility] Work Phone: (8 sources) Penicillin G; Translations: [Penicillin G Sodium *PENICILLINS*] Drug Allergy [facility] Work Phone: Comment on above: rash (13 sources) Penicillins; Translations: [PENICILLINS] Allergy to substance 2 Rash [facility] Work Phone: Medications Current Medications Medication Drug Class(es) Dates Sig (Normalized) Sig (Original) ascorbic acid 1000 mg oral tablet (19 sources) Vitamin C Start: 04-09-2018 take 1 tablet by mouth once daily Ascorbic Acid (Vitamin C) (Vitamin C) 1,000 MG tablet Active 1000 mg PO DAILY April 09, 2018 12:00am Start: 04-07-2017 take 2 tablets by mo [facility] once daily Vitamin C 1000 MG Oral Tablet 2 (two) Tablet daily for 0 days Quantity: 60 {Tablet} Refills: 0 Ordered: 07-Apr-2017 Lianne Glaser Start : 07-Apr-2017 Active take 1 tablet by [facility] three times daily ascorbic acid, vitamin C, (VITAMIN C) 500 mg tablet Take 500 mg by mouth three times daily. 0 Active Comment on above: Take 500 mg by mouth three times daily. 168 hr estradiol 0.58755 mg/hr transdermal system (4 sources) Estrogen Start: 02-23-20 End: 04-16-20 24 Estradiol 0.075 mg/24 hr patch weekly Active 1 NMA TD EVERY WEEK April 16, 2024 3:25pm fluconazole 150 mg oral tablet (1 source) Azole Antifungal Start: 02-14-20 End: 02-14-20 take 1 tablet by mouth once fluconazole (DIFLUCAN) 150 mg tablet Indications: Vaginal itching , Vaginal burning Take 1 tablet by mouth one time only for 1 dose. 1 tablet 0 02/13/2023 02/13/2023 Active Comment on above: Take 1 tablet by [facility] one time only for 1 dose. magnesium sulfate 100 mg oral capsule (2 sources) Start: 02-23-20 take 5 capsules by mouth once daily Magnesium Sulfate 100 mg capsule Active 500 mg PO DAILY February 23, 2024 12:00am progesterone 100 mg oral capsule (4 sources) Progesterone Start: 02-23-20 End: 04-16-20 take 1 capsule by mouth once daily in the evening Progesterone Micronized (Prometrium) 100 mg capsule Active 100 mg PO EVERY EVENING April 16, 2024 3:24pm Turmeric-Turmeric Root Extract (3 sources) Start: 04-09-20 Turmeric-Turmeric Root Extract Active 1 EACH PO DAILY April 09, 2018 12:06pm Start: 04-09-2018 take 1 capsule by mo [facility] once daily Turmeric-Turmeric Root Extract 1 EACH capsule Active 1 NMA PO DAILY April 09, 2018 12:00am valACYclovir 1000 mg oral tablet (3 sources) Herpesvirus Nucleoside Analog DNA Polymerase Inhibitor, Herpes Simplex Virus Nucleoside Analog DNA Polymerase Inhibitor, Herpes Zoster Virus Nucleoside Analog DNA Polymerase Inhibitor Start: 02-24-2024 End: 01-04-2025 Valacyclovir (Valtrex) 1 gram tablet Active 1000 mg PO TWICE A DAY 6 January 04, 2025 8:49am Vitamin K2 45 mcg capsule (2 sources) Start: 02-23-2024 Vitamin K2 45 mcg capsule Active 45 ug PO DAILY February 23, 2024 12:00am Completed/Discontinued Medications Medication Drug Class(es) Dates Sig (Normalized) Sig (Original) acyclovir 400 mg oral tablet (6 sources) Herpesvirus Nucleoside Analog DNA Polymerase Inhibitor, Herpes Simplex Virus Nucleoside Analog DNA Polymerase Inhibitor, Herpes Zoster Virus Nucleoside Analog DNA Polymerase Inhibitor Start: 08-05-2022 take 1 tablet by mouth twice daily acyclovir (ZOVIRAX) 400 mg tablet Take 1 tablet by mouth twice daily. 60 tablet 0 08/05/2022 Active Comment on above: Take 1 tablet by [facility] twice daily. cholecalciferol 0.025 mg oral capsule (14 sources) Vitamin D Start: 12-12-2021 take 1 capsule by mouth every week cholecalciferol (vitamin D3) 25 mcg (1,000 unit) oral capsule 1 (one) Capsule 3x per week for 0 days Quantity: 30 {Capsule} Refills: 0 Ordered: 09-Jul-2023 Camryn Gresham LPN Start : 12-Dec-2021 Active Start: 12-14-2019 End: 12-12-2021 take 1 capsule by mouth two times weekly Vitamin D3 Super Strength 50 MCG (2000 UT) Oral Capsule 1 (one) Capsule twice weekly for 0 days Quantity: 30 {Capsule} Refills: 0 Ordered: 12-Dec-2021 Lianne Glaser Start : 14-Dec-2019 End : 12-Dec-2021 Inactive Start: 06-18-2019 take 1 capsule by [facility] two times weekly Vitamin D3 Super Strength 2000 UNIT Oral Capsule 1 (one) Capsule twice weekly for 0 days Quantity: 30 {Capsule} Refills: 0 Ordered: 18-Jun-2019 Lianne Glaser CNP, CNP, Mary E Start : 18-Jun-2019 Active Start: 04-22-2017 take 1 capsule by [facility] once daily Cholecalciferol (Vitamin D3) (Vitamin D3) 2,000 UNIT capsule Active 2000 U PO DAILY April 09, 2018 12:00am cholecalciferol, vitamin D3, (VITAMIN D3 ORAL) (8 sources) cholecalciferol, vitamin D3, (VITAMIN D3 ORAL) Take by mouth once daily. 0 Active Comment on above: Take by mouth once d aily. clobetasol propionate 0.5 mg/ml topical cream (3 sources) Corticosteroid Start: 022 Clobetasol Propionate 0.05 % External Cream 1 (one) Application bid for 0 days Quantity: 1 {Each} Refills: 0 Ordered: 28-Nov-2021 Eric Gayle LPN Start : 28-Nov-2021 Active Comments: 1 large tube Comment on above: 1 large tube HERBAL DRUGS ORAL (8 sources) HERBAL DRUGS ORA L Take by mouth. Elderberry 0 Active Comment on above: Take by mouth. Elder higgins Lactobacillus acidophilus (8 sources) Lactobacillus acidophilus (PROBIOTIC ORAL) Take by mouth once daily. 0 Active Comment on above: Take by mouth once d aily. norethindrone acetate 5 mg oral tablet (8 sources) Start: End: take 1 tablet by mouth once daily Norethindrone Acetate 5 MG Oral Tablet 1 (one) Tablet daily for 0 days Quantity: 30 {Tablet} Refills: 0 Ordered: 15-Jun-2019 Eric Gayle LPN Start : 07-Apr-2017 End : 15-Jun-2019 Inactive ondansetron 4 mg disintegrating oral tablet (3 sources) Serotonin-3 Receptor Antagonist Start: End: take 1 tablet by mouth every eight hours as needed for nausea Ondansetron 4 MG tablet Discontinued 4 mg PO EVERY 8 HOURS NEEDED as needed for Nausea September 24, 2019 1:00am June 23, 2024 9:35am polyethylene glycol 3350 67495 mg powder for oral solution (8 sources) Osmotic Laxative Start: take 0.5 dose by mouth once daily MiraLax Oral Powder 1 (one) Gram 1/2 dose daily for 0 days Quantity: 1 {QS} Refills: 0 Ordered: 07-Apr-2017 Lianne Glaser Start : 07-Apr-2017 Active Tumeric (6 sources) Tumeric daily Ac tive TURMERIC ROOT EXTRACT ORAL (8 sources) TURMERIC ROOT EX TRACT ORAL Indications: Post-op pain Take by mouth. 0 Active Comment on above: Take by mouth. 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 Immunizations and screening for infectious disease (15 sources) Need for prophylactic vaccination and inoculation against influenza; Translations: [Needs influenza immunization] 12-14-2019 Episodic Malaise and fatigue (20 sources) Fatigue; Translations: [Fatigue] Resolved: 12-14-2019 10-27-2017 Episodic Menopausal disorders (12 sources) Perimenopausal state; Translations: [Perimenopause] 12-14-2019 Chronic Comment on above: discussed options, s upport given. plan HRT with patch and prometrium. Nausea and vomiting (3 sources) Nausea and vomiting; Translations: [Nausea with vomiting, unspecified] 09-25-2019 Episodic Nutritional deficiencies (20 sources) Vitamin D deficiency; Translations: [Vitamin D insufficiency] 10-27-2017 Chronic Other and unspecified benign neoplasm (4 sources) Tubular adenoma of colon; Translations: [Tubular adenoma of colon] 07-09-2023 Episodic Comment on above: colonoscopy Dr. Shaw 09/2021, repeat in 3 yrs (due 09/2024) Other circulatory disease (20 sources) Raynaud's phenomenon ; Translations: [Raynaud's phenomenon] 10-27-2017 Chronic Other complications of ; puerperium affecting management of mother (3 sources) Advanced maternal age ; Translations: [ with maternal age 40 years or more] 04-21-2024 Episodic Other female genital disorders (2 sources) Dyspareunia; Translations: [Dyspareunia] 02-24-2024 Chronic Comment on above: likely secondary to atrophy, if no improvement recommend PFPT Other female genital disorders (1 source) Pruritus of vagina; Translations: [Other specified noninflammatory disorders of vagina] Episodic Other female genital disorders (1 source) Burning sensation of vagina; Translations: [Unspecified condition associated with female genital organs and menstrual cycle] Episodic Other liver diseases (10 sources) Elevated liver enzymes level; Translations: [Elevated liver enzymes] Resolved: 10-27-2017 06-15-2019 Episodic Comment on above: elevated slightly , denies etho, tylenol or nsaid overuse, will repeat if elevated consider Live US, hepatitis, alpha feto prot labs Other non-traumatic joint disorders (3 sources) Knee pain; Translations: [Bilateral knee pain] 06-15-2019 Episodic Other non-traumatic joint disorders (8 sources) Pain in right knee; Translations: [Bilateral knee pain] Resolved: 07-09-2023 12-14-2019 Episodic Comment on above: Saw Edita steroid p atch, this helped, uses aspercreme Other nutritional; endocrine; and metabolic disorders (20 sources) Body mass index less than 20; Translations: [BMI less than 19,adult] Resolved: 10-27-2017 06-15-2019 Episodic Other skin disorders (16 sources) Night sweats; Translations: [Night sweats] Resolved: 12-14-2019 10-27-2017 Episodic Polyhydramnios and other problems of amniotic cavity (3 sources) Oligohydramnios; Translations: [Oligohydramnios, unspecified trimester, not applicable or unspecified] 04-21-2024 Episodic Residual codes; unclassified (3 sources) Needs influenza immunization; Translations: [Need for prophylactic vaccination and inoculation against influenza (Renamed from Need for immunization against influenza)] 06-15-2019 Episodic Residual codes; unclassified (3 sources) Perimenopausal state; Translations: [Perimenopause] 06-15-2019 Episodic Residual codes; unclassified (20 sources) Non-smoker; Translations: [Nonsmoker] 12-14-2019 Episodic Residual codes; unclassified (4 sources) Flushing; Translations: [Hot flashes] 07-09-2023 Episodic Comment on above: Dr. Quick - has a ppt 09/2023night sweats, few times per month. irreg periods. Residual codes; unclassified (1 source) Asymptomatic menopausal state; Translations: [Asymptomatic menopausal state] Onset: 01-20-2025 Episodic Respiratory failure; insufficiency; arrest (adult) (10 sources) Respiratory failure; insufficiency; arrest (adult) Unclassified (20 sources) Body mass index (BMI) of 19.0-19.9 in adult Unclassified (20 sources) Nonsmoker; Translations: [Non-smoker] 06-15-2019 Unclassified (20 sources) Unclassified (11 sources) Vitamin D insufficiency Unclassified (7 sources) Perimenopause Unclassified (7 sources) Bilateral knee pain Past or Other Problems Problem Classification Problem Date Documented Date Episodic/Chronic Coronary atherosclerosis and other heart disease (3 sources) Coronary atherosclerosis and other heart disease Deficiency and other anemia (6 sources) Deficiency and other anemia Other infections; including parasitic (8 sources) History of sexually transmitted disease; Translations: [Personal history of other infectious and parasitic diseases] Onset: 07-25-2012 09-10-2021 Episodic Other screening for suspected conditions (not mental disorders or infectious disease) (20 sources) Patient encounter status; Translations: [Encounter for screening for lipid disorder (Renamed from Screening for hyperlipidemia)] Onset: 05-22-2023 12-14-2019 Episodic Other upper respiratory infections (2 sources) Sore throat symptom; Translations: [Acute pharyngitis, unspecified] Onset: 07-22-2022 Episodic Unclassified (7 sources) Nickel allergy Unclassified (20 sources) Patient encounter status; Translations: [Encounter for routine adult physical exam with abnormal findings] 04-07-2017 Unclassified (6 sources) BMI less than 19,adult Unclassified (8 sources) Live births 06-15-2019 Comment on above: 2 Unclassified (8 sources) miscarriage/abortions 06-15-2019 Comment on above: 3 Unclassified (8 sources) Pregnancies 06-15-2019 Comment on above: 5 Unclassified (6 sources) Elevated liver enzymes Unclassified (5 sources) Encounter for general adult medical examination with abnormal findings Unclassified (6 sources) Screening for endocrine disorder Unclassified (3 sources) Encounter for screening for lipid disorder (Renamed from Screening for hyperlipidemia) Unclassified (1 source) Physical exam Results Test Name Value Interpretation Reference Range Facility Bone density reportOrdered B y: José Miguel Galilea on 01-14-2025 Study report Skeletal system DXA [facility] Imaging Services [address] [place] [address] [id number] Dexa Bone Density Study MR#: [id number] Acct: [id number] Name: JUDITH LACY Rep #: [id number] : 1970 F 54 From: Sydnee Calero MD PCP: SCOT Yadav Status: JOCELYNE PORTER Study:Dexa Bone Density Study Date of Exam: 01/13/25 Exam# [id number] Ordering Dr: Elaine Aly PROCEDURE: DEXA BONE DENSITY STUDY REASON FOR EXAM: None provided TECHNIQUE: DEXA scan of the lumbar spine and bilateral hips, using a HoloReferMe Horizon W unit. REFERENCE LINKS: ISCD Adult Positions COMPARISON: None FINDINGS: LUMBAR SPINE: Bone mineral denisty, L1-L4: 0.925 g/cm? T-score: -1.1 LEFT FEMORAL NECK: Bone mineral denisty: 0.621 g/cm? T-score: -2.1 LEFT TOTAL HIP: Bone mineral denisty: 0.808 g/cm? T-score: -1.1 RIGHT FEMORAL NECK: Bone mineral denisty: 0.634 g/cm? T-score: -1.9 RIGHT TOTAL HIP: Bone mineral denisty: 0.832 g/cm? T-score: -0.9 FRAX*: 10 Year Probability of Fracture: Major Osteoporotic Fracture(1): 12.0% Hip Fracture(2): 0.9% *FRAX is a trademark of the [employer]'s [place] for Metabolic Bone Disease, World Health Organization (WHO) Collaborating [place]. 1-Major Osteoporotic Fracture: Clinical Spine, Forearm, Hip or Shoulder. 2-The 10-year probability of fracture may be lower than reported if the patient has received treatment. The National Osteoporosis Foundation recommends that medical therapy be considered in postmenopausal women and men, age 50 and older, with a: * hip or vertebral fracture * T-score less than or equal to -2.5 in the spine or hip * T-score between -1.0 and -2.5 and FRAX equal to or less than 3 percent for hipfracture or equal to or less than 20 percent for major osteoporotic fracture. World Health Organization criteria for BMD interpretation classify patients as Normal (T-score at or above -1.0), Osteopenic (T-score between -1.0 and -2.5), or Osteoporotic (T-score at or below -2.5). BD/Dexa Bone Density Study IMPRESSION: 1. Osteopenia. 2. No prior exams are available for comparison. 3. Additional description as above. Reading Location: [id number] CC: SCOT Aly ~ Tire Changer: Signed [facility] Dexa Bone Density Studyon Dexa Bone Density Study [facility] Imaging Services [address] [place] [address] [id number] Dexa Bone Density Study MR#: [id number] Acct: [id number] Name: SHEYLA LACYBARRY Munoz Rep #: [id number] : 1970 F 54 From: José Miguel Calero MD PCP: SCOT Yadav Status: REG CLI Study: Dexa Bone Density Study Date of Exam: 01/13/25 Exam# [id number] Ordering Dr: Madeleine Aly PROCEDURE: DEXA BONE DENSITY STUDY REASON FOR EXAM: None provided TECHNIQUE: DEXA scan of the lumbar spine and bilateral hips, using a Hologic Horizon W unit. REFERENCE LINKS: ISCD Adult Positions COMPARISON: None FINDINGS: LUMBAR SPINE: Bone mineral denisty, L1-L4: 0.925 g/cm??? T-score: -1.1 LEFT FEMORAL NECK: Bone mineral denisty: 0.621 g/cm??? T-score: -2.1 LEFT TOTAL HIP: Bone mineral denisty: 0.808 g/cm??? T-score: -1.1 RIGHT FEMORAL NECK: Bone mineral denisty: 0.634 g/cm??? T-score: -1.9 RIGHT TOTAL HIP: Bone mineral denisty: 0.832 g/cm??? T-score: -0.9 FRAX*: 10 Year Probability of Fracture: Major Osteoporotic Fracture(1): 12.0% Hip Fracture(2): 0.9% *FRAX is a trademark of the [employer]'s [place] for Metabolic Bone Disease, World Health Organization (WHO) Collaborating [place]. 1-Major Osteoporotic Fracture: Clinical Spine, Forearm, Hip or Shoulder. 2-The 10-year probability of fracture may be lower than reported if the patient has received treatment. The National Osteoporosis Foundation recommends that medical therapy be considered in postmenopausal women and men, age 50 and older, with a: * hip or vertebral fracture * T-score less than or equal to -2.5 in the spine or hip * T-score between -1.0 and -2.5 and FRAX equal to or less than 3 percent for hip fracture or equal to or less than 20 percent for major osteoporotic fracture. World Health Organization criteria for BMD interpretation classify patients as Normal (T-score at or above -1.0), Osteopenic (T-score between -1.0 and -2.5), or Osteoporotic (T-score at or below -2.5). BD/Dexa Bone Density Study IMPRESSION: 1. Osteopenia. 2. No prior exams are available for comparison. 3. Additional description as above. Reading Location: [id number] CC: SCOT Aly Tire Changer: Signed Normal [facility] Breast imaging reportOrdered By: Terrence Moreno on 12-29-2024 Study report [facility] Imaging Services [address] [place] [address] SCRN MAMM (CAD)W/MICKEY BILAT MR#: [id number] Acct: [id number] Name: JUDITH LACY Rep #: [id number] : 1970 F 54 From: Magan Moreno MD PCP: SCOT Yadav Status: REG C LI Study:SCRN MAMM (CAD)W/MICKEY BILAT Date of Exa m: 12/24/24 Exam# [id number] Ordering Dr: Eryn Gray EXAM: SCRN MAMM (CAD)W/MICKEY BILAT DATE: 12/24/2024 CLINICAL HISTORY: F, Age 54 y/o , SCREENING MAMMOGRAM FOR BREAST CANCER No family history. BREAST CANCER RISK ASSESSMENT: Not assessed. TECHNIQUE: Bilateral screening digital breast tomosynthesis with 2D and 3D images. Computeraided detection. COMPARISON: Prior exam(s) dated May 22, 2023.. FINDINGS: TISSUE DENSITY: The breast tissue is heterogenously dense, which may obscure small masses. Bilateral Breast Mammographic Findings: No significant masses, calcifications or other abnormalities are identified. No suspicious masses, areas of developing architectural distortion, or suspicious calcifications. There has been no significant interval change. BI/SCRN MAMM (CAD)W/MICKEY BILAT IMPRESSION: Right Breast: BIRADS 1 NEGATIVE. Left Breast: BIRADS 1 NEGATIVE. OVERALL FINAL ASSESSMENT: BIRADS 1 NEGATIVE RECOMMENDATION: Routine annual follow-up in 1 Year A letter with findings and recommendations will be mailed to the patient. Reading Location: [facility] CC: SCOT Gray; SCOT Aly ~ Tire Changer: Signed [facility] SCRN MAMM (CAD)W/MICKEY BILATo n 12-24-2024 SCRN MAMM (CAD)W/MICKEY BILAT [facility] Imaging Services [address] [place] [address] SCRN MAMM (CAD)W/MICKEY BILAT MR#: [id number] Acct: [id number] Name: JUDITH LACY Rep #: [id number] : 1970 F 54 From: Terrence sandhu MD PCP: SCOT Yadav Status: REG CLI Study: SCRN MAMM (CAD)W/MICKEY BILAT Date of Exam: 12/14 10/09 Exam# [id number] Ordering Dr: Eryn Gray EXAM: SCRN MAMM (CAD)W/MICKEY BILAT DATE: 12/24/2024 CLINICAL HISTORY: F, Age 54 y/o , SCREENING MAMMOGRAM FOR BREAST CANCER No family history. BREAST CANCER RISK ASSESSMENT: Not assessed. TECHNIQUE: Bilateral screening digital breast tomosynthesis with 2D and 3D images. Computer aided detection. COMPARISON: Prior exam(s) dated May 22, 2023.. FINDINGS: TISSUE DENSITY: The breast tissue is heterogenously dense, which may obscure small masses. Bilateral Breast Mammographic Findings: No significant masses, calcifications or other abnormalities are identified. No suspicious masses, areas of developing architectural distortion, or suspicious calcifications. There has been no significant interval change. BI/SCRN MAMM (CAD)W/MICKEY BILAT IMPRESSION: Right Breast: BIRADS 1 NEGATIVE. Left Breast: BIRADS 1 NEGATIVE. OVERALL FINAL ASSESSMENT: BIRADS 1 NEGATIVE RECOMMENDATION: Routine annual follow-up in 1 Year A letter with findings and recommendations will be mailed to the patient. Reading Location: [facility] CC: SCOT Gray; SCOT Aly Tire Changer: Signed Normal [facility] PAP IG HPV APTIMA 16/18,45on 10-15-2024 ADEQ Comment Normal . [facility] Comment on above: Order Comment: Speci men Comment: [id number] Specimen Comment: Source.............Cervix;Endocervix Specimen Comment: Other..............Post Menopausal Specimen Comment: No. of containers..01 ThinPrep Vial Result Comment: Sati sfactory for evaluation. Endocervical and/or squamous metaplastic cells (endocervical component) are present. Performed By: #### L [id number] #### [facility] [address] [place], [address] COMM . Normal . [facility] Comment on above: Order Comment: Speci men Comment: [id number] Specimen Comment: Source.............Cervix;Endocervix Specimen Comment: Other..............Post Menopausal Specimen Comment: No. of containers..01 ThinPrep Vial Performed By: #### L [id number] #### [facility] [address] [place], [place], [id number] COMMENT Comment Normal . [facility] Comment on above: Order Comment: Speci men Comment: [id number] Specimen Comment: Source.............Cervix;Endocervix Specimen Comment: Other..............Post Menopausal Specimen Comment: No. of containers..01 ThinPrep Vial Result Comment: This liquid based ThinPrep(R) pap test was screened with the use of an image guided system. Performed By: #### L [id number] #### [facility] [address] [place], [place], [id number] DIAG Comment Normal . [facility] Comment on above: Order Comment: Speci men Comment: [id number] Specimen Comment: Source.............Cervix;Endocervix Specimen Comment: Other..............Post Menopausal Specimen Comment: No. of containers..01 ThinPrep Vial Result Comment: NEGA TIVE FOR INTRAEPITHELIAL LESION OR MALIGNANCY. Performed By: #### L 7400.0280 #### [facility] [address] [place], [place], [address] HPV APTIMA, HR Negative Normal Negative [facility] Comment on above: Order Comment: Speci men Comment: [id number] Specimen Comment: Source.............Cervix;Endocervix Specimen Comment: Other..............Post Menopausal Specimen Comment: No. of containers..01 ThinPrep Vial Result Comment: This nucleic acid amplification test detects fourteen high- risk HPV types (16,18,31,33,35,39,45,51,52,56,58,59,66,68) without differentiation. Performed By: #### L 7400.0280 #### [facility] [address] [place], [place], [address] HPV Tammie Rfx Comment Normal . [facility] Comment on above: Order Comment: Speci men Comment: [id number] Specimen Comment: Source.............Cervix;Endocervix Specimen Comment: Other..............Post Menopausal Specimen Comment: No. of containers..01 ThinPrep Vial Result Comment: Crit erkim not met, HPV Genotype not performed. Performed at: - [address] [id number] Warehouse Packaging Supervisor: Georgia Elliott MD, Phone: [phone] Performed at: =[facility] [id number] Warehouse Packaging Supervisor: Georgia Elliott MD, Phone: [phone] Performed By: #### L 7400.0280 #### [facility] [address] [place], [address] PAPSMR Comment Normal . [facility] Comment on above: Order Comment: Speci men Comment: [id number] Specimen Comment: Source.............Cervix;Endocervix Specimen Comment: Other..............Post Menopausal Specimen Comment: No. of containers..01 ThinPrep Vial Result Comment: The Pap smear is a screening test designed to aid in the detection of premalignant and malignant conditions of the uterine cervix. It is not a diagnostic procedure and should not be used as the sole means of detecting cervical cancer. Both false-positive and false-negative reports do occur. Performed By: #### L 7400.0280 #### [facility] [address] [place], [address] PERFORM Comment Normal . [facility] Comment on above: Order Comment: Speci men Comment: [id number] Specimen Comment: Source.............Cervix;Endocervix Specimen Comment: Other..............Post Menopausal Specimen Comment: No. of containers..01 ThinPrep Vial Result Comment: Ginna White, [employer] (ASCP) Performed By: #### L 7400.0280 #### [facility] [address] [place], [address] Filer Helper Office Visit Reporton 06-23-2024 Filer Helper Office Visit Report [facility] [address], [address] [place] [address] OFFICE VISIT Date of Service: 06/23/24 MR#: [id number] Acct: [id number] Name: JUDITH LACY Rep #: [id number] : 1970 Provider: SCOT Ruelas Age/Sex: 53/F [facility] Status: Signed Intake Vital Signs 09/24/19 15:48 04/16/24 15:05 06/23/24 08:25 Height 5 ft 2 in 5 ft 2 in 5 ft 2 in Weight: 113 lb BMI 20.6 BP 115/73 Intake Visit Reasons: Annual (PATIENT SERVICES REP) Chief Complaint: annual Scenic Designer Required: No Is patient in pain?: No Allergies nickel Allergy (Verified 06/23/24 09:33) Rash Penicillins Allergy (Verified 06/23/24 09:33) Rash Medications ???Medication ???Instructions ???Recorded ???Confirmed ???Type ascorbic acid (vitamin C) 1,000 mg 1,000 mg PO DAILY 04/09/18 06/23/24 History tablet (Vitamin C) cholecalciferol (vitamin D3) 50 2,000 unit PO DAILY 04/09/18 06/23/24 History mcg (2,000 unit) capsule (Vitamin D3) turmeric 450 mg-turmeric root 1 ea PO DAILY 04/09/18 06/23/24 History extract 50 mg capsule magnesium sulfate 100 mg capsule 500 mg PO DAILY 02/23/24 06/23/24 History vitamin K2 45 mcg capsule 45 mcg PO DAILY 02/23/24 06/23/24 History valacyclovir 1 gram tablet 1,000 mg PO BID 3 days #6 tabs 02/24/24 06/23/24 Rx (Valtrex) estradiol 0.075 mg/24 hr weekly 1 patch transdermal QWEEK #12 04/16/24 06/23/24 Rx transdermal patch patches progesterone micronized 100 mg 100 mg PO QPM #90 caps 04/16/24 06/23/24 Rx capsule (Prometrium) Is last menstrual period known: No Post menopausal: Yes Date of menopause: 01/13/23 Patient : No : No Control Method: menopause PFSH Surgical History H/O section H/O prior ablation treatment Family History Father COPD (chronic obstructive pulmonary disease) Mother CVA (cerebral vascular accident) Hypertension Social History adopted: No household members: spouse number of children: 2 current occupational status: employed and unemployed sexually active: Yes Smoking Status: Never smoker alcohol intake: current alcohol intake frequency: a few times a month substance use type: does not use what type of physical activity do you participate in: running and weight training seatbelt use: always do you feel safe at home: Yes 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[employer], [place] History 4 Elective abortions Hx Para 2 Spontaneous abortions Hx # Term Pregnancies Ectopic pregnancies Hx # Pregnancies Multiple births # of living children 2 Past Pregnancies Del. Date Name GA/Weeks Outcome Route Bth Weight Infant Gen Labor Lgth Anesthesia Del Locatn Provider FOB Unknown Luz - [address] [facility] [address] Mackay Unknown Reynold [address] [facility] [address] Quick [facility] Encounter for routine gynecological examination Details: JUDITH LACY is a 53 year old who presents for annual exam. She reports no issues or concerns today. Previous patient of [facility]. Last PAP: 2018; Negative Cytology/Negative HPV. (+) HPV in 2010. Negative since. S/P ablation. No menses since 01/2023. History of abnormal PAP: no Last mammogram: 05/2023; negative History of abnormal mammogram: no Colon cancer screening: Yes; 3 years ago-5 year follow up d/t polyp. Other preventative health care screenings: Madeleine Aly PCP- [facility] Female Reproductive History Questions: metorrhagia: No, sexually active: Yes (vasectomy), dyspareunia: No and PCB: No Date of menopause: 01/13/23 Menopausal Symptoms: No hot flashes, No night sweats, No weight change, No mood changes, No difficulty concentrating, No sleep problems and No change in libido Menopausal Treatment: Yes HRT ROS Const Constitutional: Denies night sweats Eyes Eyes: Denies change in vision ENT ENT: Denies dizziness Resp Resp: Denies cough GI GI: Denies abdominal pain, constipation or nausea : Denies difficulty voiding, dysuria, hematuria, hot flashes, menorrhagia, nipple discharge, pelvic pain, sexual dysfunction, urinary urgency, vaginal discharge, vaginal dryness, vaginal odor or vaginal pruritus Skin Skin/Breast: Denies alopecia, rash, breast mass, breast pain, breast skin changes or nipple discharge Neuro Neuro: Denies dizziness Psych Psych: Denies anxiety, change in libido, depression or difficulty concentrating Endo Endo: Denies cold intolerance, excessive sweating or heat intolerance Exam Const General: cooperative, healthy appearing, comfortable, no acute distress, well groomed and well hydrated Nutritional Appearance: well nourished (more content not included)... Normal [facility] Filer Helper Office Visit Reporton 04-16-2024 Filer Helper Office Visit Report [facility] [address] [place] [address] OFFICE VISIT Date of Service: 04/16/24 MR#: [id number] Acct: [id number] Name: JUDITH LACY Rep #: [id number] : 1970 Provider: Dr. Karon motley MD Age/Sex: 53/F Location[facility] Status: Signed Intake Vital Signs 02/23/24 15:14 04/16/24 15:02 04/16/24 15:05 Height 5 ft 2 in 5 ft 2 in 5 ft 2 in Weight: 108 lb 2 oz BMI 19.8 BP 118/72 Intake Visit Reasons: 2 M FU Chief Complaint: 2Mo f/u Scenic Designer Required: No Is patient in pain?: No Allergies nickel Allergy (Verified 04/16/24 15:01) Rash Penicillins Allergy (Verified 04/16/24 15:01) Rash Medications ???Medication ???Instructions ???Recorded ???Confirmed ???Type ascorbic acid (vitamin C) 1,000 mg 1,000 mg PO DAILY 04/09/18 04/16/24 History tablet (Vitamin C) cholecalciferol (vitamin D3) 50 2,000 unit PO DAILY 04/09/18 04/16/24 History mcg (2,000 unit) capsule (Vitamin D3) turmeric 450 mg-turmeric root 1 ea PO DAILY 04/09/18 04/16/24 History extract 50 mg capsule ondansetron 4 mg disintegrating 4 mg PO Q8H PRN PRN Nausea #10 tabs 09/24/19 04/16/24 Rx tablet magnesium sulfate 100 mg capsule 500 mg PO DAILY 02/23/24 04/16/24 History vitamin K2 45 mcg capsule 45 mcg PO DAILY 02/23/24 04/16/24 History valacyclovir 1 gram tablet 1,000 mg PO BID 3 days #6 tabs 02/24/24 04/16/24 Rx (Valtrex) estradiol 0.075 mg/24 hr weekly 1 patch transdermal QWEEK #12 04/16/24 04/16/24 Rx transdermal patch patches progesterone micronized 100 mg 100 mg PO QPM #90 caps 04/16/24 04/16/24 Rx capsule (Prometrium) Is last menstrual period known: No Post menopausal: Yes Patient : No : No PFSH Surgical History H/O section H/O prior ablation treatment Family History Father COPD (chronic obstructive pulmonary disease) Mother CVA (cerebral vascular accident) Hypertension Social History adopted: No household members: spouse number of children: 2 current occupational status: employed and unemployed sexually active: Yes Smoking Status: Never smoker alcohol intake: current alcohol intake frequency: a few times a month substance use type: does not use what type of physical activity do you participate in: running and weight training seatbelt use: always do you feel safe at home: Yes 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[employer], [place] [facility] 2 M FU Details: JUDITH LACY is a 53 year old who presents for follow-up with climacteric. She has had a resolution of hot flashes and night sweats and overall improvement in mood and energy and dyspareunia is also improving. She has felt a significant [id number] improvement and is overall very happy and satisfied with treatment. She denies any significant side effects. History 4 Elective abortions Hx Para 2 Spontaneous abortions Hx # Term Pregnancies Ectopic pregnancies Hx # Pregnancies Multiple births # of living children 2 Past Pregnancies Del. Date Name GA/Weeks Outcome Route Bth Weight Gen Labor Lgth Anesthesia Del Locatn Provider FOB Unknown Luz - 2012 Unknown Reynold 2014 ROS Const Constitutional: Denies fatigue, fever(s), headache(s), increased appetite, poor appetite, weight gain or weight loss GI GI: Reports as per HPI; Denies abdominal pain, constipation, nausea or vomiting : Reports as per HPI; Denies difficulty voiding, dysuria, hematuria, pelvic pain, urinary frequency, urinary incontinence, urinary hesitancy, urinary urgency, vaginal discharge, vaginal dryness, vaginal odor, vaginal pruritus or other Exam Const General: cooperative, healthy appearing, comfortable, no acute distress and well developed Orientation: alert HENNM Head: normal to inspection and normocephalic Ears: hearing grossly normal bilaterally and external ears normal Nose: external nose normal and nares normal Face and sinus: normal facial exam Neck Neck: normal visual inspection, no lymphadenopathy and trachea midline Thyroid: thyroid normal Resp Effort Inspection: normal respiratory effort Musc Other: gross motor intact no deficits, full bilateral strength Skin General: no rashes or lesions noted Neuro Motor: muscle tone normal throughout Coding Level of Care Code Off vis,est,level 3 Diagnoses Dyspareunia Climacteric N95.1 Assessment and Plan Assessment and Plan (1) Dyspareunia: Status: Acute Comment: likely secondary to atrophy, if no improvement recommend PFPT (2) Cli (more content not included)... Normal [facility] CALCIFEDIOL (01700)Ordered B y: Family Consumer Science Fcs Teacher on 07-09-2023 25-hydroxyvitamin D [Mass/Vol] 72.5 ng/mL Normal 30.0-100.0 [facility]; [facility] Work Phone: Comment on above: Vitamin D deficiency has been defined by the [place] ofMedicine and an Endocrine Society practice guideline as alevel of serum 25-OH vitamin D less than 20 ng/mL (1,2).The Endocrine Society went on to further define vitamin Dinsufficiency as a level between 21 and 29 ng/mL (2).1. IOM ([place] of Medicine). 2010. Dietary reference intakes for calcium and D. [place]: The National Academies Press.2. Kash MF, Donya NC, Miranda LLOYD, et al. Evaluation, treatment, and prevention of vitamin D deficiency: an Endocrine Society clinical practice guideline. JCEM. 2010; 96(7):1911-30. PATIENT WAS FASTINGP ERFORMED BY: [facility] Suzqst9078 [facility] [id number] CBC, PLATELETS & AUT DIFF (9 [id number])Ordered By: Family Consumer Science Fcs Teacher on 07-09-2023 Basophils (Bld) [#/Vol] 0.1 10*3/uL Normal 0.0-0.2 [facility]; [facility] Work Phone: Comment on above: PATIENT WAS FASTINGP ERFORMED BY: ARDEN Labcoabdi CarballoYhfwoj8653 [address]ara RoadDublin [place] [id number] Basophils/100 WBC (Bld) 1 % Normal [facility]; [facility] Work Phone: Comment on above: PATIENT WAS FASTINGP ERFORMED BY: CB [facility] Adgcor2872 [address]Dublin [place] [id number] Eosinophils (Bld) [#/Vol] 0.1 10*3/uL Normal 0.0-0.4 [facility]; [facility] Work Phone: Comment on above: PATIENT WAS FASTINGP ERFORMED BY: [facility] Briqch2992 [address] RoadDublin [place] [id number] Eosinophils/100 WBC (Bld) 2 % Normal [facility]; [facility] Work Phone: Comment on above: PATIENT WAS FASTINGP ERFORMED BY: [facility] Xqfmgt4207 [address]Dublin [place] [id number] Erythrocyte distribution width (RBC) [Ratio] 12.1 % Normal 11.7-15.4 [facility]; [facility] Work Phone: Comment on above: PATIENT WAS FASTINGP ERFORMED BY: [facility] Paghaj1273 [address] RoadDublin [place] [id number] Hematocrit (Bld) [Volume fraction] 43.3 % Normal 34.0-46.6 [facility]; [facility] Work Phone: Comment on above: PATIENT WAS FASTINGP ERFORMED BY: [facility] Jmnkcg3001 [address] RoadDublin [place] [id number] Hemoglobin (Bld) [Mass/Vol] 14.7 g/dL Normal 11.1-15.9 [facility]; [facility] Work Phone: Comment on above: PATIENT WAS FASTINGP ERFORMED BY: CB [facility] Tdpwko6071 [address]Dublin [place] [id number] Immature granulocytes (Bld) [#/Vol] 0.0 10*3/uL Normal 0.0-0.1 [facility]; [facility] Work Phone: Comment on above: PATIENT WAS FASTINGP ERFORMED BY: ARDEN Wolfgang Carballolin6370 [address]blin [place] [id number] Immature granulocytes/100 WBC (Bld) 0 % Normal [facility]; [facility] Work Phone: Comment on above: PATIENT WAS FASTINGP ERFORMED BY: [facility] [facility] [place] [id number] Lymphocytes (Bld) [#/Vol] 1.6 10*3/uL Normal 0.7-3.1 [facility]; [facility] Work Phone: Comment on above: PATIENT WAS FASTINGP ERFORMED BY: ARDEN [facility] Ayelau[address] [facility] [id number] Lymphocytes/100 WBC (Bld) 38 % Normal [facility]; [facility] Work Phone: Comment on above: PATIENT WAS FASTINGP ERFORMED BY: [facility] [facility] [id number] MCH (RBC) [Entitic mass] 31.4 pg Normal 26.6-33.0 [facility]; [facility] Work Phone: Comment on above: PATIENT WAS FASTINGP ERFORMED BY: [facility] [facility] [place] [id number] MCHC (RBC) [Mass/Vol] 33.9 g/dL Normal 31.5-35.7 [facility]; [facility] Work Phone: Comment on above: PATIENT WAS FASTINGP ERFORMED BY: [facility] [facility] [place] [id number] MCV (RBC) [Entitic vol] 93 fL Normal 79-97 [facility]; [facility] Work Phone: Comment on above: PATIENT WAS FASTINGP ERFORMED BY: [facility] [facility] [place] [id number] Monocytes (Bld) [#/Vol] 0.2 10*3/uL Normal 0.1-0.9 [facility]; [facility] Work Phone: Comment on above: PATIENT WAS FASTINGP ERFORMED BY: ARDEN Michaelmomo Oujnvm3215 [address] RoadDublin [place] [id number] Monocytes/100 WBC (Bld) 5 % Normal [facility]; [facility] Work Phone: Comment on above: PATIENT WAS FASTINGP ERFORMED BY: ARDEN [facility] Mlghro6149 [address]Dublin [place] [id number] Neutrophils (Bld) [#/Vol] 2.3 10*3/uL Normal 1.4-7.0 [facility]; [facility] Work Phone: Comment on above: PATIENT WAS FASTINGP ERFORMED BY: ARDEN Edouard6[address]Dublin [place] [id number] Neutrophils/100 WBC (Bld) 54 % Normal [facility]; [facility] Work Phone: Comment on above: PATIENT WAS FASTINGP ERFORMED BY: ARDEN Robertson Qszfrp7957 [address]Dublin [place] [id number] Platelets (Bld) [#/Vol] 250 10*3/uL Normal 150-450 [facility]; [facility] Work Phone: Comment on above: PATIENT WAS FASTINGP ERFORMED BY: ARDEN Lab[facility] Winsdn3559 [address]Dublin [place] [id number] RBC (Bld) [#/Vol] 4.68 10*6/uL Normal 3.77-5.28 Compr ehens[facility]; [facility] Work Phone: Comment on above: PATIENT WAS FASTINGP ERFORMED BY: ARDEN [facility] Bxtqwj4601 [address] RoadDublin [place] [id number] WBC (Bld) [#/Vol] 4.3 10*3/uL Normal 3.4-10.8 Compre hens[facility]; [facility] Work Phone: Comment on above: PATIENT WAS FASTINGP ERFORMED BY: ARDEN [facility] Lxnxik7384 [address] RoadDublin [place] [id number] LIPID PANEL (50929)Ordered B y: Family [employer] Fcs Teacher on 07-09-2023 Cholesterol [Mass/Vol] 180 mg/dL Normal 100-199 [facility]; [facility] Work Phone: Comment on above: PATIENT WAS FASTINGP ERFORMED BY: ARDEN Labcoabdi CarballoCyisle37[address] RoadDublin [place] [id number] Cholesterol in HDL [Mass/Vol] 73 mg/dL Normal [facility]; [facility] Work Phone: Comment on above: PATIENT WAS FASTINGP ERFORMED BY: ARDEN Labcoabdi CarballoKpucvc7433 [address] RoadDublin [place] [id number] Triglyceride [Mass/Vol] 42 mg/dL Normal 0-149 [facility]; [facility] Work Phone: Comment on above: PATIENT WAS FASTINGP ERFORMED BY: ARDEN Labmomo CarballoFeazvl4011 [address]Dublin [place] [id number] LIPID PANEL (37871) 9 mg/dL Normal 5-40 [facility]; [facility] Work Phone: Comment on above: PATIENT WAS FASTINGP ERFORMED BY: ARDEN Labmomo CarballoSfnxtl8669 [address] RoadDublin [place] [id number] LIPID PANEL (19657) 98 mg/dL Normal 0-99 [facility]; [facility] Work Phone: Comment on above: PATIENT WAS FASTINGP ERFORMED BY: ARDEN Labcoabdi Gcwzqx2120 [address] RoadDublin [place] [id number] LIPID PANEL (24040) 1.3 {ratio} Normal 0.0-3.2 [facility]; [facility] Work Phone: Comment on above: LDL/HDL Ratio Men Wo men 1/2 Avg.Risk 1.0 1.5 Avg.Risk 3.6 3.2 2X Avg.Risk 6.2 5.0 3X Avg.Risk 8.0 6.1 PATIENT WAS FASTINGP ERFORMED BY: ARDEN Labcoabdi Zihdqz[address] [facility] CenterDublin [place] [id number] METABOLIC PANEL, COMPREHENSI VE (59430)Ordered By: Family Consumer Science Fcs Teacher on 07-09-2023 Albumin [Mass/Vol] 4.9 g/dL Normal 3.8-4.9 [facility]; [facility] Work Phone: Comment on above: PATIENT WAS FASTINGP ERFORMED BY: ARDEN [facility] Elpfmd3633 [address]Dublin [place] [id number] Albumin/Globulin [Mass ratio] 1.9 {ratio} Normal 1.2-2.2 [facility]; [facility] Work Phone: Comment on above: PATIENT WAS FASTINGP ERFORMED BY: ARDEN [facility] Swwlne6385 [address] RoadDublin [place] [id number] ALP [Catalytic activity/Vol] 59 U/L Normal 44-121 [facility]; [facility] Work Phone: Comment on above: PATIENT WAS FASTINGP ERFORMED BY: ARDEN [facility] Binvdj4371 [address] RoadDublin [place] [id number] ALT [Catalytic activity/Vol] 23 U/L Normal 0-32 [facility]; [facility] Work Phone: Comment on above: PATIENT WAS FASTINGP ERFORMED BY: ARDEN [facility] Tyltof4938 [address] RoadDublin [place] [id number] AST [Catalytic activity/Vol] 22 U/L Normal 0-40 [facility]; [facility] Work Phone: Comment on above: PATIENT WAS FASTINGP ERFORMED BY: ARDEN [facility] Lexipo8[address]Dublin [place] [id number] Bilirubin [Mass/Vol] 0.9 mg/dL Normal 0.0-1.2 [facility]; [facility] Work Phone: Comment on above: PATIENT WAS FASTINGP ERFORMED BY: ARDEN [facility] Xmdjje4238 [address] RoadDublin [place] [id number] Calcium [Mass/Vol] 9.9 mg/dL Normal 8.7-10.2 [facility]; [facility] Work Phone: Comment on above: PATIENT WAS FASTINGP ERFORMED BY: [facility] Yyhuce0635 [address] RoadDublin [place] [id number] Chloride [Moles/Vol] 101 mmol/L Normal 96-106 [facility]; [facility] Work Phone: Comment on above: PATIENT WAS FASTINGP ERFORMED BY: [facility] Mbipun2904 [address]Dublin [place] [id number] CO2 [Moles/Vol] 27 mmol/L Normal 20-29 Comprehen sive [facility]; [facility] Work Phone: Comment on above: PATIENT WAS FASTINGP ERFORMED BY: [facility] Fabwvs7939 [address] Roadblin [place] [id number] Creatinine [Mass/Vol] 0.86 mg/dL Normal 0.57-1.00 [facility]; [facility] Work Phone: Comment on above: PATIENT WAS FASTINGP ERFORMED BY: [facility] Ccttht7[address] RoadCommunity Healthin [place] [id number] GFR/1.73 sq M.predicted among non-blacks MDRD (S/P/Bld) [Vol rate/Area] 82 mL/min/{1.73_m2} Normal Comprehensiv [facility]; [facility] Work Phone: Comment on above: PATIENT WAS FASTINGP ERFORMED BY: [facility] Rhmeud[address] [facility] Hospitalblin [place] [id number] Globulin (S) [Mass/Vol] 2.6 g/dL Normal 1.5-4.5 [facility]; [facility] Work Phone: Comment on above: PATIENT WAS FASTINGP ERFORMED BY: [facility] Zsjnmr8858 [address] RoadDublin [place] [id number] Glucose [Mass/Vol] 87 mg/dL Normal 70-99 [facility]; [facility] Work Phone: Comment on above: PATIENT WAS FASTINGP ERFORMED BY: [facility] Ttuukl3641 [address] RoadDublin [place] [id number] Potassium [Moles/Vol] 4.5 mmol/L Normal 3.5-5.2 [facility]; [facility] Work Phone: Comment on above: PATIENT WAS FASTINGP ERFORMED BY: ARDEN [facility] Rdbhov7443 [address] RoadDublin [place] [id number] Protein [Mass/Vol] 7.5 g/dL Normal 6.0-8.5 [facility]; [facility] Work Phone: Comment on above: PATIENT WAS FASTINGP ERFORMED BY: CB [facility] Ggbtzy7208 [address] RoadDublin [place] [id number] Sodium [Moles/Vol] 142 mmol/L Normal 134-144 [facility]; [facility] Work Phone: Comment on above: PATIENT WAS FASTINGP ERFORMED BY: CB [facility] [id number] Jara RoadDublin [place] [id number] Urea nitrogen [Mass/Vol] 13 mg/dL Normal 6-24 [facility]; [facility] Work Phone: Comment on above: PATIENT WAS FASTINGP ERFORMED BY: CB [facility] [id number] Jara RoadDublin [place] [id number] Urea nitrogen/Creatini ne [Mass ratio] 15 mg/mg Normal 9-23 [facility]; [facility] Work Phone: Comment on above: PATIENT WAS FASTINGP ERFORMED BY: ARDEN [facility] [id number] Jara RoadDublin [place] [id number] TSH (THYROID STIMULATING HOR BETTINA) ([id number])Ordered By: Family [employer] Fcs Teacher on 07-09-2023 TSH Qn 2.200 {uIU/mL} Normal 0.450-4.500 Comprehen sive [facility]; [facility] Work Phone: Comment on above: PATIENT WAS FASTINGP ERFORMED BY: CB [facility] [id number] Jara RoadDublin [place] [id number] URINALYSIS ([id number])Ordered By : Family Consumer [employer] Fcs Teacher on 07-09-2023 Appearance (U) Clear Normal Comprehens [facility]; [facility] Work Phone: Comment on above: PATIENT WAS FASTINGP ERFORMED BY: CB [facility] [id number] [address]Dublin [place] [id number] Bilirubin Ql (U) Negative Normal Comprehe nsive [facility]; [facility] Work Phone: Comment on above: PATIENT WAS FASTINGP ERFORMED BY: ARDEN Edouard6[address] [facility] [id number] Color (U) Yellow Normal [facility]; [facility] Work Phone: Comment on above: PATIENT WAS FASTINGP ERFORMED BY: ARDEN Edouard6[address] [facility] [id number] Glucose Ql (U) Negative Normal Comprehens [facility]; [facility] Work Phone: Comment on above: PATIENT WAS FASTINGP ERFORMED BY: ARDEN Edouard6[address] [facility] [id number] Hemoglobin Ql (U) Negative Normal Compreh ens[facility]; [facility] Work Phone: Comment on above: PATIENT WAS FASTINGP ERFORMED BY: ARDEN Edouard6[address] [facility] [id number] Ketones Ql (U) Negative Normal Comprehens [facility]; [facility] Work Phone: Comment on above: PATIENT WAS FASTINGP ERFORMED BY: ARDEN Carballolin6370 [facility] [id number] Leukocyte esterase Test strip Ql (U) Negative Normal [facility]; [facility] Work Phone: Comment on above: PATIENT WAS FASTINGP ERFORMED BY: ARDEN Carballolin6370 [facility] [id number] Microscopic observation LM Nom (Urine sed) MICNIP Normal [facility]; [facility] Work Phone: Comment on above: Microscopic not hakan cated and not performed. PATIENT WAS FASTINGP ERFORMED BY: ARDEN Goss [id number] [facility] [id number] Nitrite Ql (U) Negative Normal Comprehens [facility]; [facility] Work Phone: Comment on above: PATIENT WAS FASTINGP ERFORMED BY: ARDEN Carballolin6[address]Dublin [place] [id number] pH (U) 7.0 [pH] Normal 5.0-7.5 [facility]; [facility] Work Phone: Comment on above: PATIENT WAS FASTINGP ERFORMED BY: ARDEN [facility] [id number] J[address] RoadDublin [place] [id number] Protein Ql (U) Negative Normal Comprehens [facility]; [facility] Work Phone: Comment on above: PATIENT WAS FASTINGP ERFORMED BY: RADEN [facility] [id number] [address] RoadDublin [place] [id number] Specific gravity (U) [Rel density] 1.009 1 Normal 1.005-1.030 [facility]; [facility] Work Phone: Comment on above: PATIENT WAS FASTINGP ERFORMED BY: [facility] [id number] [address]Dublin [place] [id number] Urobilinogen (U) [Mass/Vol] 0.2 mg/dL Normal 0.2-1.0 [facility]; [facility] Work Phone: Comment on above: PATIENT WAS FASTINGP ERFORMED BY: [facility] [id number] J[address] RoadDublin [place] [id number] VITAMIN B12 AND FOLATES (826 07)Ordered By: Family [employer] Fcs Teacher on 07-09-2023 Cobalamin (Vitamin B12) [Mass/Vol] 679 pg/mL Normal 232-1245 [facility]; [facility] Work Phone: Comment on above: PATIENT WAS FASTINGP ERFORMED BY: [facility] Ayempb7046 J[address] RoadDublin [place] [id number] Folate [Mass/Vol] ng/mL Normal Compreh ensive [facility]; [facility] Work Phone: Comment on above: A serum folate ever ntration of less than 3.1 ng/mL isconsidered to represent clinical deficiency. PATIENT WAS FASTINGP ERFORMED BY: [facility] Hjcufu4819 [address] RoadDublin [place] [id number] [facility] [facility] [id number] Author: Coordinator, Mammography Service: ? Author Type: Physician Type: Letter Filed: 05/26/2023 11:35 PM Note Text: May 23, 2023 PID: [id number] Judith Lacy [address] [place] [address] Dear Ms. Lacy, We are pleased to inform you that the results of your recent breast imaging exam on 05/22/2023 are normal. Your mammogram demonstrates that you have dense breast tissue, which could hide abnormalities. Dense breast tissue, in and of itself, is a relatively common condition. Therefore, this information is not provided to cause undue concern; rather, it is to raise your awareness and promote discussion with your health care provider regarding the presence of dense breast tissue in addition to other risk factors. Early detection of cancer is very important. We also understand recommendations regarding breast cancer screening are controversial. Please discuss with your primary care provider which strategy is best for you and whether a mammogram is right for you. Your imaging studies and report will be kept on file at [facility] as part of your permanent medical record and are available for your continuing care. Thank you for allowing us to help in meeting your health care needs. Sincerely, Dr. Wilosn Interpreting Radiologist [facility] (Normal over 40) Normal [facility] SCREENING W TOMOon 05-22 [facility] SCREENING W MICKEY * * *Final Report* * * DATE OF EXAM: May 22 2023 10:18AM [id number] [id number] - [facility] SCREENING W MICKEY / PROCEDURE REASON: Encounter for screening mammogram for malignant neoplasm of breast * * * * Physician Interpretation * * * * RESULT: #[id number] - [facility] SCREENING W MICKEY BILATERAL DIGITAL SCREENING MAMMOGRAM TOMOSYNTHESIS WITH CAD: 05/22/2023 HISTORY: Encounter For Screening Mammogram For Malignant Neoplasm Of Breast / /Screening Mammogram with MICKEY - patient reports NO breast symptoms /priors available for comparison. RESULT: TECHNIQUE: The study was acquired using full field digital technology and interpreted from soft copy. Digital Breast Tomosynthesis (DBT) images were obtained and used to assist in the interpretation of this examination. Current study was also evaluated with a Computer Aided Detection (CAD). Comparison is made to exams dated: 04/11/2022 mammogram, 01/26/2021 mammogram - [facility], 06/28/2019 mammogram, and 06/01/2018 mammogram - [facility]. The tissue of both breasts is heterogeneously dense. This may lower the sensitivity of mammography. No significant masses, calcifications, or other findings are seen in either breast. There has been no significant interval change. IMPRESSION: NEGATIVE There is no mammographic evidence of malignancy. A 1 year screening mammogram is recommended. Demetris wong/marine:05/23/2023 08:59:29 [employer] Team Leader(s): RT Galina(R)(M), [facility] letter sent: Normal over 40 Mammogram BI-RADS: 1 Negative Multiple national specialty organizations have released breast cancer screening guidelines for women at average risk for developing breast cancer - guidelines that are based on both evidence and opinion, yet differ on when to start and how often to screen for breast cancer. With representation from Breast Imaging, Internal Medicine, Women's Health, Family Medicine, and Medical/Surgical Oncology, the [facility] has carefully reviewed the data and reached the following consensus: 1) All women should engage in shared decision-making with their providers to decide when to start and how often to screen; 2) All women should have the opportunity to start screening mammography at age 40; 3) For women ages 45-55, we recommend annual screening mammograms; 4) For women ages 55 and over, we support both the transition from an annual to a biennial interval if this aligns more with patient's values and preferences, or continuation with annual screening; 5) All women should discuss with their providers when to stop screening mammograms. Tire Changer: Marine Transcribe Date/Time: May 22 2023 9:52A Dictated by: DEMETRIS WILSON MD This examination was interpreted and the report reviewed and electronically signed by: DEMETRIS WILSON MD on May 23 2023 8:59AM EST [id number] Normal [facility] ic CNOVon 02-20-2023 CNOV Office Visit (UCWSTR ) JUDITH LACY ([id number]) 1970 F Date Time Provider Department 02/20/23 7:45 AM GEOVANY RAMIREZ UCWSTR During your visit today, we recorded the following information about you: Temperature Pulse Respiration Blood pressure 97.3 degrees 58/minute 18/minute 110/78 Weight 51.4 kg Geovany Ramirez MD 02/20/2023 8:02 AM Signed Patient presents with: Sore Throat: ST x 1 day HPI: Feeling sore throat since yesterday. Has seasonal allergies. Positive symptoms: sore throat, sneezing, Negative symptoms: Cough, Nasal Congestion, Rhinorrhea, Fever, Body Aches, OTC: routine nasonex and claritin MEDICATIONS: Current Outpatient Medications Medication Sig acyclovir (ZOVIRAX) 400 mg tablet Take 1 tablet by mouth twice daily. HERBAL DRUGS ORAL Take by mouth. Elderberry cholecalciferol, vitamin D3, (VITAMIN D3 ORAL) Take by mouth once daily. Lactobacillus acidophilus (PROBIOTIC ORAL) Take by mouth once daily. TURMERIC ROOT EXTRACT ORAL Take by mouth. ascorbic acid, vitamin C, (VITAMIN C) 500 mg tablet Take 500 mg by mouth three times daily. No current facility-administered medications for this visit. ALLERGIES: ALLERGIES Allergen Reactions Nickel Rash Penicillins Rash VITALS: BP 110/78 Pulse (!) 58 Temp 36.3 ?C (97.3 ?F) (Tympanic) Resp 18 Wt 51.4 kg (113 lb 6.4 oz) LMP 03/24/2018 SpO2 99% BMI 20.74 kg/m? PHYSICAL EXAM: GEN: Pleasant, in no acute distress. HEENT: PERRL, EOMI, conjunctiva clear Ears: canals clear. TMs without erythema, bulge, or effusion Sinuses: non-tender frontal sinus, non-tender maxillary sinuses Throat: moist mucous membranes, posterior pharyngeal erythema, no exudate Neck: supple, no thyromegaly, no lymphadenopathy HEART: regular rate and rhythm, no murmurs LUNGS: clear to auscultation, no wheezes or crackles, no increased WOB ASSESSMENT/PLAN: 1. Sore throat - ICD9: 462, ICD10: J02.9 - STREP A MOLECULAR (POC) - negative. - suspect viral pharyngitis - Discussed supportive care treatment with lozenges, gargles, and analgesia. Geovany Ramirez MD Allergies As of Date: 02/20/2023 Noted Allergy Reaction NICKEL 04/14/2014 2 - Rash PENICILLINS 07/25/2012 2 - Rash Date Reviewed: 02/20/2023 Reviewed by: Faye House LPN - Fully Assessed Reason for Visit: Sore Throat [200] Cmt: ST x 1 day Primary Visit Diagnosis:Sore throat [J02.9] Order(s):STREP A MOLECULAR (POC) [[id number]] Order #: [id number]. #:[id number] Prescriptions as of 02/20/2023 - acyclovir (ZOVIRAX) 400 mg tablet Take 1 tablet by mouth twice daily. - HERBAL DRUGS ORAL Take by mouth. Elderberry - cholecalciferol, vitamin D3, (VITAMIN D3 ORAL) Take by mouth once daily. - Lactobacillus acidophilus (PROBIOTIC ORAL) Take by mouth once daily. - TURMERIC ROOT EXTRACT ORAL Take by mouth. - ascorbic acid, vitamin C, (VITAMIN C) 500 mg tablet Take 500 mg by mouth three times daily. Problem List As Of Date 02/20/2023 Noted Resolved Advanced maternal age in [POF3864] 07/25/2012 08/21/2015 History of herpes genitalis [Z86.19] 07/25/2012 History of asthma [Z87.09] 07/25/2012 08/21/2015 Immunization due [Z23] 07/25/2012 02/25/2013 Group B streptococcus urinary tract infection c*02/25/2013 12/20/2014 Short interval between pregnancies complicating*04/14/2014 12/20/2014 History of prior with IUGR [Z*04/14/2014 08/21/2015 History of maternal third degree perineal lacer*04/14/2014 08/21/2015 Advanced maternal age in multigravida [O09.529] 06/28/2015 08/21/2015 Encounter Status:Closed by GEOVANY RAMIREZ on 02/20/23 Normal [facility] STREP A MOLECULAR (POC)on Procedural Control Valid [facility] Strep A (POCT) Negative Negative [facility] CNOVon 08-12-2022 CNOV Office Visit (OBGYWM ) JUDITH LACY ([id number]) 1970 F Date Time Provider Department 08/12/22 1:20 PM REBA MULLINS OBGYWM During your visit today, we recorded the following information about you: Blood pressure Weight 104/64 49.4 kg Reba Nelson MD 08/12/2022 1:49 PM Signed Risk Control Product Liability Director offered: Patient declinesTrinity Carrillo is a 51 year old who presents for an annual gynecologic exam with complaints, concerns she is going through menopause. . Menses: irregular. LMP April 2022 Contraception: vasectomy HPV vaccine: No Last Pap: 06/30/2019 normal HPV: 06/30/2019 negative History of abnormal pap: yes Last mammogram: 2021normal Sexually active: Yes History of STDS: HSV Patient concerns for STD exposure: No. Pain with intercourse: No Postcoital bleeding: No Hot flashes: No Night sweats: occasionally Vaginal dryness: Yes Exercise: runs Diet: balanced OB History T2 L2 SAB2 IAB0 Ectopic0 Multiple0 Live Births2 Seam Stay Stitcher History LMP: 03/24/2018, Ablation Age at Menarche: Age at First : Age at Menopause: Seam Stay Stitcher History Comments: Sexual Activity: Yes; Male Contraception: No contraception data on record PAST MEDICAL HISTORY Diagnosis Date Abnormal Pap smear of cervix 2010 +HPV Asthma NO ASTHMA ATTACKS SINCE AGE 19 FRACTURE 1985 COLLARBONE Herpes simplex without mention of complication PAST SURGICAL HISTORY Procedure Laterality Date BUNIONECTOMY, [place]-TYPE LEFT FOOT DELIVERY ONLY 07/12/2015 , low transverse COLONOSCOPY FLX DX W/COLLJ SPEC WHEN PFRMD 09/26/2021 tubular adenoma >10 mm, repeat in 3 years COLPOSCOPY CERVIX UPPER/ADJACENT VAGINA 09/15/2010 Colposcopy FAMILY HISTORY Problem Relation Age of Onset Arthritis Mother Asthma Mother Heart Mother Hypertension Mother Osteoporosis Mother Alzheimer's Disease Maternal Grandmother Emphysema Paternal Grandfather SOCIAL HISTORY Social History Tobacco Use Smoking status: Never Smokeless tobacco: Never Vaping Use Vaping Use: Never used Substance Use Topics Alcohol use: No Drug use: No REVIEW OF SYSTEMS Abdomen: No abdominal pain, nausea, vomiting, diarrhea, or constipation. No bloating, early satiety, indigestion, or increased flatulence. Bladder: No dysuria, gross hematuria, urinary frequency, urinary urgency, or incontinence. Breast: No breast lumps, nipple d/c, overlying skin changes, redness or skin retraction. Allergies and current medication updated:Yes EXAM: BP 104/64 Wt 109 lb (49.4kg) LMP 03/24/2018 GENERAL: pleasant, female in no apparent distress HEENT: Normocephalic, atraumatic, mucus membranes moist, and no lesions NECK: Supple, full range of motion, no adenopathy, and thyroid normal DERMATOLOGY: Normal, without lesions, non-icteric, and non-hirsute BREAST: soft, non-tender, symmetric, no dominant mass, normal nipple-areolar complex, no lymphadenopathy, and no nipple discharge ABDOMEN: soft, non-tender, and no masses PELVIC: external genitalia normal, normal Bartholin's glands, urethra, [place]'s glands, no vulvar lesions, no cervical lesions, good vaginal support, physiologic discharge present, normal appearing perineal body and perianal region BIMANUAL: uterus normal size, shape and consistency, no adnexal masses, and non-tender RECTOVAGINAL: deferred. NEURO: alert and oriented x3,exam grossly non-focal EXTREMITIES: normal ASSESSMENT/PLAN: 1) Health maintenance: Pap/HPV up to date. Mammogram up to date . Nutrition, exercise and routine health maintenance exams reviewed. Calcium/Vitamin D supplementation information provided. 2) Contraception: vasectomy. Contraceptive options reviewed and information provided. 3) STD screening: Declined STD check. 4) Follow up one year or sooner as needed Reba Nelson MD Allergies As of Date: 08/12/2022 Noted Allergy Reaction NICKEL 04/14/2014 2 - Rash PENICILLINS 07/25/2012 2 - Rash Date Reviewed: 08/12/2022 Reviewed by: Alexsandra Wright Ma - Fully Assessed Reason for Visit: Yearly Exam [187] Primary Visit Diagnosis:Encounter for gynecological examination (general) (routine) without abnormal findings [Z01.419] Other Visit Diagnosis:Encounter for screening mammogram for malignant neoplasm of breast [Z12.31] Order(s):[facility] SCREENING W MICKEY [[id number]] Order #: [id number] FUTURE Prescriptions as of 08/12/2022 - acyclovir (ZOVIRAX) 400 mg tablet Take 1 tablet by mouth twice daily. - HERBAL DRUGS ORAL Take by mouth. Elderberry - cholecalciferol, vitamin D3, (VITAMIN D3 ORAL) Take by mouth once daily. - Lactobacillus acidophilus (PROBIOTIC ORAL) Take by mouth once daily. - TURMERIC ROOT EXTRACT ORAL Take by mouth. - ascorbic acid, vitamin C, (VITAMIN C) 500 mg tablet Take 500 mg by mouth three t (more content not included)... Normal [facility] CNOVon 07-22-2022 CNOV Office Visit (UCWSTR ) JUDITH LACY ([id number]) 1970 F Date Time Provider Department 07/22/22 10:45 AM SNOW COKER [facility] During your visit today, we recorded the following information about you: Temperature Pulse Respiration Blood pressure 97.7 degrees 75/minute 20/minute 100/64 Weight 50.7 kg Snow Coker APRN.CNP 07/22/2022 10:58 AM Signed Subjective The history is provided by the patient. No senior editor was used. MICHAEL Judith Lacy is a 51 year old female who presents today for CC of post nasal drainage, sinus congestion and pressure for a month. She also has a scartchy throat, worse at night. She has used allergy meds otc cough and cold medications without relief. BP 100/64 Pulse 75 Temp 36.5 ?C (97.7 ?F) Resp 20 Wt 50.7 kg (111 lb 12.8 oz) LMP 03/24/2018 SpO2 98% BMI 20.45 kg/m? Social History Tobacco Use Smoking status: Never Smokeless tobacco: Never Vaping Use Vaping Use: Never used Substance Use Topics Alcohol use: No Drug use: No PAST MEDICAL HISTORY Diagnosis Date Abnormal Pap smear of cervix 2010 +HPV Asthma NO ASTHMA ATTACKS SINCE AGE 19 FRACTURE 1985 COLLARBONE Herpes simplex without mention of complication I have confirmed and edited as necessary, the [facility] Review of Systems Constitutional: Negative for chills and fever. HENT: Positive for congestion, sinus pain and sore throat. Negative for ear pain. Facial pain Respiratory: Negative for cough, sputum production, shortness of breath and wheezing. Cardiovascular: Negative for chest pain. Musculoskeletal: Negative for myalgias. Neurological: Positive for headaches (sinus). Objective Physical Exam Vitals and nursing note reviewed. HENT: Head: Normocephalic and atraumatic. Right Ear: Ear canal and external ear normal. A middle ear effusion is present. Tympanic membrane is bulging. Left Ear: Tympanic membrane, ear canal and external ear normal. Nose: No mucosal edema, congestion or rhinorrhea. Right Sinus: Maxillary sinus tenderness and frontal sinus tenderness present. Left Sinus: No maxillary sinus tenderness or frontal sinus tenderness. Mouth/Throat: Pharynx: Uvula midline. No oropharyngeal exudate or posterior oropharyngeal erythema. Cardiovascular: Rate and Rhythm: Normal rate and regular rhythm. Heart sounds: Normal heart sounds. Pulmonary: Effort: Pulmonary effort is normal. Breath sounds: Normal breath sounds. Lymphadenopathy: Head: Right side of head: No submental, submandibular or tonsillar adenopathy. Left side of head: No submental, submandibular or tonsillar adenopathy. Cervical: No cervical adenopathy. Skin: General: Skin is warm and dry. Neurological: Mental Status: She is alert. Psychiatric: Mood and Affect: Affect normal. ASSESSMENT/PLAN: 1. Acute non-recurrent pansinusitis - ICD9: 461.8, ICD10: J01.40 - Will begin treatment with Doxycycline - Supportive care with plenty of fluids, rest, and analgesia prn. - Follow up in one week if symptoms persist or worsen. Diagnosis and treatment plan were discussed and questions were answered to the patient's satisfaction. Pt acknowledged understanding of concepts and follow up plan. Specific signs and symptoms that would indicate the need for higher level of care were discussed in detail warranting prompt ER evaluation. VIDHI Bergman APRN.CNP 07/22/2022 10:53 AM Signed -Increase fluid intake. --Rest as much as possible. - Nasal saline spray, peter pot, flonase Take the entire course of antibiotics as prescribed. DO NOT stop taking it early, even if you are feeling better. -Monitor for signs of worsening infection: increased temperature, pain in face, ear pain or headaches or increase in nasal congestion/mucous that is not improving. -Educated patient on side effects of medication. Doxycycline as ordered, take with food, can upset stomach Allergies As of Date: 07/22/2022 Noted Allergy Reaction NICKEL 04/14/2014 2 - Rash PENICILLINS 07/25/2012 2 - Rash Date Reviewed: 07/22/2022 Reviewed by: Daisy Townsend MA - Fully Assessed Reason for Visit: Sore Throat [200] Cmt: Sinus x 1 month Primary Visit Diagnosis:Acute non-recurrent pansinusitis [J01.40] Order(s):doxycycline monohydrate 100 mg tabletTake 1 tablet by mouth twice daily for 5 days.Disp: 10 tabletRfl: 0 Prescriptions as of 07/22/2022 - doxycycline monohydrate 100 mg tablet Take 1 tablet by mouth twice daily for 5 days. - HERBAL DRUGS ORAL Take by mouth. Elderberry - cholecalciferol, vitamin D3, (VITAMIN D3 ORAL) Take by mouth once daily. - Lactobacillus acidophilus (PROBIOTIC ORAL) Take by mouth once daily. - TURMERIC ROOT EXTRACT ORAL Take by mouth. - ascorbic acid, vitamin C, (VITAMIN C) 500 mg tablet Take 500 mg by mouth three times daily. Problem List As (more content not included)... Normal [facility] SHELBY SCREENING W TOMOon 04-11 [facility] ic Basophil percentageon 2021 Bilirubin [Mass/Vol] 0.80 mg/dL 0.20-1.00 [facility] Work Phone: Comment on above: For patients on eltr ombopag therapy, use of Dimension [place] TBIL is not recommended. Chloride [Moles/Vol] 105 mmol/L 98-107 [facility] Work Phone: Cholesterol [Mass/Vol] 148 mg/dL <200 [facility] Work Phone: Comment on above: <200 mg/dL Desirable 200-240 mg/dL Borderline >240 mg/dL High Risk Glucose [Mass/Vol] 87 mg/dL 74-106 [facility] Work Phone: Potassium [Moles/Vol] 4.1 mmol/L 3.5-5.1 [facility] Work Phone: Protein [Mass/Vol] 6.8 g/dL 6.4-8.2 [facility] Work Phone: Sodium [Moles/Vol] 140 mmol/L 136-145 [facility] Work Phone: Triglyceride [Mass/Vol] 47 mg/dL [facility] Work Phone: Comment on above: The drugs N-Acetylcy steine and Metamizole may falsely depress this assay.Serum Triglycerides Reference Interval Normal <150 mg/dL Borderline high 150 - 199 mg/dL High 200 - 499 mg/dL Very High > or = 500 mg/dL WBC (Bld) [#/Vol] 4.3 10*3/uL 4.4-11.0 [facility] Work Phone: Blood erythrocytes count (nu mber/volume)on 12-05-2021 RBC (Bld) [#/Vol] 4.15 10*6/uL 4.2-5.4 [facility] Work Phone: Blood hemoglobin measurement (mass/volume)on 12-05-2021 Hemoglobin (Bld) [Mass/Vol] 13.6 g/dL 12.0-15.0 [facility] Work Phone: Blood platelet mean volumeon 12-05-2021 Platelet mean volume (Bld) [Entitic vol] 10.8 fL 6.2-12.0 [facility] Work Phone: Determination of erythrocyte mean corpuscular volume (MCV)on 12-05-2021 MCV (RBC) [Entitic vol] 92.8 fL 81-99 [facility] Work Phone: Hematocrit Auto (Bld) [Volum e fraction]on 12-05-2021 Hematocrit (Bld) [Volume fraction] 38.5 % 37-47 [facility] Work Phone: Laboratory - Chemistry and C hemistry - challengeon 12-05-2021 ALP [Catalytic activity/Vol] 47 U/L 45-117 [facility] Work Phone: ALT [Catalytic activity/Vol] 25 U/L 13-56 [facility] Work Phone: CO2 [Moles/Vol] 32.0 mmol/L 21.0-32.0 [facility] Work Phone: Globulin (S) [Mass/Vol] 3.1 g/dL 2.2-4.2 [facility] Work Phone: Urea nitrogen/Creatini ne [Mass ratio] 14.0 mg/mg 10-20 [facility] Work Phone: Laboratory - Hematology and Cell countson 12-05-2021 Erythrocyte distribution width (RBC) [Entitic vol] 42.5 fL 35.1-43.9 [facility] Work Phone: Erythrocyte distribution width (RBC) [Ratio] 12.4 % 11.6-14.6 [facility] Work Phone: MCH (RBC) [Entitic mass] 32.8 pg 27.0-32.0 [facility] Work Phone: MCHC Auto (RBC) [Mass/Vol]on 12-05-2021 MCHC (RBC) [Mass/Vol] 35.3 g/dL 32-36 [facility] Work Phone: No Panel Informationon 12-05 Estimated GFR (MDRD) Amer 111 mL/min >60 [facility] Work Phone: Comment on above: GFR Calc Estimated GFR (MDRD) Non-Af Amer 92 mL/min >60 [facility] Work Phone: Comment on above: Non- GFR Calc Thyroid Stimulating Hormone (TSH) 2.09 uIU/mL 0.358-3.74 [facility] Work Phone: Vitamin D 25-Hydroxy 71.7 ng/mL [facility] Work Phone: Comment on above: Vitamin D 25(OH) Sta tus Range Deficiency <20 ng/mL (50nmol/L) Insufficiency 20 - 30 ng/mL (50 - 75 nmol/L) Sufficiency 30 - 100 ng/mL (75 - 250 nmol/L) Toxicity >100 ng/mL (>250 nmol/L) Platelets bldon 12-05-2021 Platelets (Bld) [#/Vol] 230 10*3/uL 150-450 [facility] Work Phone: Serum or plasma albumin karlie urement (mass/volume)on 12-05-2021 Albumin [Mass/Vol] 3.7 g/dL 3.2-5.0 [facility] Work Phone: Serum or plasma albumin/glob ulin mass ratioon 12-05-2021 Albumin/Globulin [Mass ratio] 1.2 {ratio} 0.9-2.4 [facility] Work Phone: Serum or plasma calcium karlie urement (mass/volume)on 12-05-2021 Calcium [Mass/Vol] 9.2 mg/dL 8.5-10.1 [facility] Work Phone: Serum or plasma cholesterol in HDL measurement (mass/volume)on 12-05-2021 Cholesterol in HDL [Mass/Vol] 68 mg/dL [facility] Work Phone: Comment on above: The drugs N-Acetylcy steine and Metamizole may falsely depress this assay. Reference Range HDL <40 mg/dL Low HDL Cholesterol HDL >or= 60 mg/dL High HDL Cholesterol Serum or plasma cholesterol in VLDL measurement (mass/volume)on 12-05-2021 Cholesterol in VLDL [Mass/Vol] 9 mg/dL 5-40 [facility] Work Phone: Serum or plasma creatinine m easurement (mass/volume)on 12-05-2021 Creatinine [Mass/Vol] 0.71 mg/dL 0.55-1.02 [facility] Work Phone: Comment on above: The validity of the calculated GFR & GFRAA in patients over 70 years has not been determined. Clinical correlation is essential. Serum or plasma low density lipoprotein (LDL) cholesterol measurement (mass/volume)on 12-05-2021 Cholesterol in LDL [Mass/Vol] 71 mg/dL 0-130 [facility] Work Phone: Serum or plasma urea nitroge n measurement (mass/volume)on 12-05-2021 Urea nitrogen [Mass/Vol] 10 mg/dL 7-18 [facility] Work Phone: Thin prep Papanicolaou smear with manual screeningon 12-05-2021 Thin prep Papanicolaou smear with manual screening 18 U/L 15-37 [facility] Work Phone: Thin prep Papanicolaou smear with manual screening 3 5-15 [facility] Work Phone: CALCIFEDIOL ([id number])Ordered B y: Family [employer] Fcs Teacher on 06-16-2019 25-Hydroxyvitamin D2+25-Hydroxyvita min D3 [Mass/Vol] 110.0 ng/mL Abnormal 30.0-100.0 [facility] Work Phone: Comment on above: Vitamin D deficiency has been defined by the [place] ofMedicine and an Endocrine Society practice guideline as alevel of serum 25-OH vitamin D less than 20 ng/mL (1,2).The Endocrine Society went on to further define vitamin Dinsufficiency as a level between 21 and 29 ng/mL (2).1. IOM ([place] of Medicine). 2010. Dietary reference intakes for calcium and D. [place]: The National Academies Press.2. Kash MF, Donya NC, Miranda LLOYD, et al. Evaluation, treatment, and prevention of vitamin D deficiency: an Endocrine Society clinical practice guideline. JCEM. 2010; 96(7):1911-30. PATIENT WAS FASTINGP ERFORMED BY: [facility] Abcjtb7372 [address] RoadDublin [place] [id number] CBC & PLATELETS (AUTO) ([id number])Ordered By: Family Consumer Science Fcs Teacher on 06-16-2019 Erythrocyte distribution width (RBC) [Ratio] 13.0 % Normal 12.3-15.4 [facility] Work Phone: Comment on above: PATIENT WAS FASTINGP ERFORMED BY: [facility] Gaincc4504 [address] RoadDublin [place] [id number] Hematocrit (Bld) [Volume fraction] 41.3 % Normal 34.0-46.6 [facility] Work Phone: Comment on above: PATIENT WAS FASTINGP ERFORMED BY: [facility] Dhtfsv3136 [address] RoadDublin [place] [id number] Hemoglobin (Bld) [Mass/Vol] 14.1 g/dL Normal 11.1-15.9 [facility] Work Phone: Comment on above: PATIENT WAS FASTINGP ERFORMED BY: [facility] Ulndel1904 [address] RoadDublin [place] [id number] MCH (RBC) [Entitic mass] 31.5 pg Normal 26.6-33.0 [facility] Work Phone: Comment on above: PATIENT WAS FASTINGP ERFORMED BY: [facility] Wygcky8746 [address] RoadDublin [place] [id number] MCHC (RBC) [Mass/Vol] 34.1 g/dL Normal 31.5-35.7 [facility] Work Phone: Comment on above: PATIENT WAS FASTINGP ERFORMED BY: [facility] Ofgbat5557 [address] RoadDublin [place] [id number] MCV (RBC) [Entitic vol] 92 fL Normal 79-97 [facility] Work Phone: Comment on above: PATIENT WAS FASTINGP ERFORMED BY: CB [facility] Kuzitp5170 [address] RoadDublin [place] [id number] Platelets (Bld) [#/Vol] 210 {x10E3/uL} Normal 150-450 [facility] Work Phone: Comment on above: PATIENT WAS FASTINGP ERFORMED BY: CB [facility] Ttvnsd5705 [address] RoadDublin [place] [id number] Platelets (Bld) [#/Vol] 210 10*3/uL Normal 150-450 [facility]; [facility] Work Phone: Comment on above: PATIENT WAS FASTINGP ERFORMED BY: CB [facility] Cfpbmt3312 [address] RoadDublin [place] [id number] RBC (Bld) [#/Vol] 4.48 {x10E6/uL} Normal 3.77-5.28 [facility] Work Phone: Comment on above: PATIENT WAS FASTINGP ERFORMED BY: CB [facility] Xgvoww2012 [address]Dublin [place] [id number] RBC (Bld) [#/Vol] 4.48 10*6/uL Normal 3.77-5.28 [facility]; [facility] Work Phone: Comment on above: PATIENT WAS FASTINGP ERFORMED BY: CB [facility] Lguklz5570 [address] RoadDublin [place] [id number] WBC (Bld) [#/Vol] 4.5 {x10E3/uL} Normal 3.4-10.8 [facility] Work Phone: Comment on above: PATIENT WAS FASTINGP ERFORMED BY: CB [facility] Lcwppv1907 [address] RoadDublin [place] [id number] WBC (Bld) [#/Vol] 4.5 10*3/uL Normal 3.4-10.8 [facility]; [facility] Work Phone: Comment on above: PATIENT WAS FASTINGP ERFORMED BY: CB [facility] Rntrje3039 [address] RoadDublin [place] [id number] LIPID PANEL ([id number])Ordered B y: Family [employer] Fcs Teacher on 06-16-2019 Cholesterol [Mass/Vol] 167 mg/dL Normal 100-199 [facility] Work Phone: Comment on above: PATIENT WAS FASTINGP ERFORMED BY: ARDEN [facility] Ykjkdi1171 [address] RoadDublin [place] [id number] Cholesterol in HDL [Mass/Vol] 66 mg/dL Normal [facility] Work Phone: Comment on above: PATIENT WAS FASTINGP ERFORMED BY: ARDEN [facility] Pygubn1667 [address] RoadDublin [place] [id number] Cholesterol in LDL [Mass/Vol] 90 mg/dL Normal 0-99 [facility] Work Phone: Comment on above: PATIENT WAS FASTINGP ERFORMED BY: ARDEN LabCoabdi CarballoFcusph5619 [address] RoadDublin [place] [id number] Cholesterol in LDL/Cholesterol in HDL [Mass ratio] 1.4 {ratio} Normal 0.0-3.2 [facility] Work Phone: Comment on above: LDL/HDL Ratio Men Wo men 1/2 Avg.Risk 1.0 1.5 Avg.Risk 3.6 3.2 2X Avg.Risk 6.2 5.0 3X Avg.Risk 8.0 6.1 PATIENT WAS FASTINGP ERFORMED BY: ARDEN LabCoabdi Zuomhq[address] [facility]in [place] [id number] Cholesterol in VLDL [Mass/Vol] 11 mg/dL Normal 5-40 [facility] Work Phone: Comment on above: PATIENT WAS FASTINGP ERFORMED BY: ARDEN [facility] Nnylkc5576 [address] RoadDublin [place] [id number] Triglyceride [Mass/Vol] 53 mg/dL Normal 0-149 [facility] Work Phone: Comment on above: PATIENT WAS FASTINGP ERFORMED BY: ARDEN [facility] Obygxz5255 [address]Dublin [place] [id number] Metabolic Panel, Comprehensi ve ([id number])Ordered By: Family [employer] Fcs Teacher on 06-16-2019 Albumin [Mass/Vol] 4.5 g/dL Normal 3.5-5.5 [facility] Work Phone: Comment on above: PATIENT WAS FASTINGP ERFORMED BY: ARDEN Edouard6370 [address]Dublin [place] [id number] Albumin/Globulin [Mass ratio] 1.9 {ratio} Normal 1.2-2.2 [facility] Work Phone: Comment on above: PATIENT WAS FASTINGP ERFORMED BY: ARDEN Edouard6370 [address]Dublin [place] [id number] ALP [Catalytic activity/Vol] 42 [iU]/L Normal 39-117 [facility] Work Phone: Comment on above: PATIENT WAS FASTINGP ERFORMED BY: ARDEN Edouard6[address] [place] [id number] ALP [Catalytic activity/Vol] 42 U/L Normal 39-117 [facility]; [facility] Work Phone: Comment on above: PATIENT WAS FASTINGP ERFORMED BY: ARDEN Edouard6[address] [place] [id number] ALT [Catalytic activity/Vol] 17 [iU]/L Normal 0-32 [facility] Work Phone: Comment on above: PATIENT WAS FASTINGP ERFORMED BY: ARDEN Carballolin6370 [address]Dublin [place] [id number] ALT [Catalytic activity/Vol] 17 U/L Normal 0-32 [facility]; [facility] Work Phone: Comment on above: PATIENT WAS FASTINGP ERFORMED BY: ADREN Robertson Kjfyos0315 [address]Dublin [place] [id number] AST [Catalytic activity/Vol] 20 [iU]/L Normal 0-40 [facility] Work Phone: Comment on above: PATIENT WAS FASTINGP ERFORMED BY: ARDEN Carballolin6370 [address] [place] [id number] AST [Catalytic activity/Vol] 20 U/L Normal 0-40 [facility]; [facility] Work Phone: Comment on above: PATIENT WAS FASTINGP ERFORMED BY: [facility] Mephlr2388 [address] RoadDublin [place] [id number] Bilirubin [Mass/Vol] 0.7 mg/dL Normal 0.0-1.2 [facility] Work Phone: Comment on above: PATIENT WAS FASTINGP ERFORMED BY: [facility] Keahyl3077 [address] RoadDublin [place] [id number] Calcium [Mass/Vol] 9.0 mg/dL Normal 8.7-10.2 [facility] Work Phone: Comment on above: PATIENT WAS FASTINGP ERFORMED BY: [facility] Jniysz6300 [address] RoadDublin [place] [id number] Chloride [Moles/Vol] 102 mmol/L Normal 96-106 [facility] Work Phone: Comment on above: PATIENT WAS FASTINGP ERFORMED BY: [facility] Jlkayd6969 [address] RoadDublin [place] [id number] CO2 [Moles/Vol] 27 mmol/L Normal 20-29 [facility] Work Phone: Comment on above: PATIENT WAS FASTINGP ERFORMED BY: [facility] Lxpxqw0072 [address] RoadDublin [place] [id number] Creatinine [Mass/Vol] 0.77 mg/dL Normal 0.57-1.00 [facility] Work Phone: Comment on above: PATIENT WAS FASTINGP ERFORMED BY: [facility] Kbvhol6310 [address] [place] [id number] GFR/1.73 sq M predicted among blacks CKD-EPI (S/P/Bld) [Vol rate/Area] 106 mL/min/1.73 Normal [facility] Work Phone: Comment on above: PATIENT WAS FASTINGP ERFORMED BY: CB [facility] Uuqbeh7391 [address]Dublin [place] [id number] GFR/1.73 sq M predicted among non-blacks CKD-EPI (S/P/Bld) [Vol rate/Area] 92 mL/min/1.73 Normal [facility] Work Phone: Comment on above: PATIENT WAS FASTINGP ERFORMED BY: ARDEN LabCoabdi Xelgto1974 [address] RoadDublin [place] [id number] Globulin (S) [Mass/Vol] 2.4 g/dL Normal 1.5-4.5 [facility] Work Phone: Comment on above: PATIENT WAS FASTINGP ERFORMED BY: ARDEN [facility] Taxdgi8243 [address] [facility]blin [place] [id number] Glucose [Mass/Vol] 82 mg/dL Normal 65-99 [facility] Work Phone: Comment on above: PATIENT WAS FASTINGP ERFORMED BY: ARDEN LabMomo CarballoLltpzu8484 Jara RoadCommunity Healthin [place] [id number] Potassium [Moles/Vol] 4.4 mmol/L Normal 3.5-5.2 [facility] Work Phone: Comment on above: PATIENT WAS FASTINGP ERFORMED BY: ARDEN LabMomo CarballoGejcjo5304 [address] [facility] [id number] Protein [Mass/Vol] 6.9 g/dL Normal 6.0-8.5 [facility] Work Phone: Comment on above: PATIENT WAS FASTINGP ERFORMED BY: ARDEN LabCoabdi Tmiycm7743 [address] [facility] Hospitalblin [place] [id number] Sodium [Moles/Vol] 142 mmol/L Normal 134-144 [facility] Work Phone: Comment on above: PATIENT WAS FASTINGP ERFORMED BY: ARDEN LabCoabdi CarballoUzfekf7942 [address] [facility]in [place] [id number] Urea nitrogen [Mass/Vol] 15 mg/dL Normal 6-24 [facility] Work Phone: Comment on above: PATIENT WAS FASTINGP ERFORMED BY: ARDEN [facility] Gixclc8400 [address] RoadDublin [place] [id number] Urea nitrogen/Creatini ne [Mass ratio] 19 mg/mg Normal 9-23 [facility] Work Phone: Comment on above: PATIENT WAS FASTINGP ERFORMED BY: ARDEN [facility] Jzooth6683 [facility] [id number] TSH (THYROID STIMULATING HOR BETTINA) ([id number])Ordered By: Family [employer] Fcs Teacher on 06-16-2019 TSH Qn 2.050 {uIU/mL} Normal 0.450-4.500 [facility] Work Phone: Comment on above: PATIENT WAS FASTINGP ERFORMED BY: ARDEN [facility] Nqqjxr4822 [address] [facility] [id number] CALCIFEDIOL ([id number])Ordered B y: Family [employer] Fcs Teacher on 10-27-2017 25-Hydroxyvitamin D2+25-Hydroxyvita min D3 [Mass/Vol] 34.2 ng/mL Normal 30.0-100.0 [facility] Work Phone: Comment on above: Vitamin D deficiency has been defined by the [place] of[facility] and an Endocrine Society practice guideline as alevel of serum 25-OH vitamin D less than 20 ng/mL (1,2).The Endocrine Society went on to further define vitamin Dinsufficiency as a level between 21 and 29 ng/mL (2).1. IOM ([place] of Medicine). 2010. Dietary reference intakes for calcium and D. [place]: The National Academies Press.2. Kash MF, Donya NC, Miranda LLOYD, et al. Evaluation, treatment, and prevention of vitamin D deficiency: an Endocrine Society clinical practice guideline. JCEM. 2010; 96(7):1911-30. PATIENT NOT FASTINGP ERFORMED BY: ARDEN [facility] Yejide2331 [facility] [id number] Metabolic Panel, Comprehensi ve ([id number])Ordered By: Family Consumer [employer] Fcs Teacher on 10-27-2017 Albumin [Mass/Vol] 4.7 g/dL Normal 3.5-5.5 [facility] Work Phone: Comment on above: PATIENT NOT FASTINGP ERFORMED BY: ARDEN [facility] Fhgqbw4350 [facility] [id number] Albumin/Globulin [Mass ratio] 1.9 {ratio} Normal 1.2-2.2 [facility] Work Phone: Comment on above: PATIENT NOT FASTINGP ERFORMED BY: CB [facility] Mdesoz3824 [address] RoadDublin [place] [id number] ALP [Catalytic activity/Vol] 42 [iU]/L Normal 39-117 [facility] Work Phone: Comment on above: PATIENT NOT FASTINGP ERFORMED BY: ARDEN LabCarrp Atiqgf1719 [address] RoadDublin [place] [id number] ALP [Catalytic activity/Vol] 42 U/L Normal 39-117 [facility]; [facility] Work Phone: Comment on above: PATIENT NOT FASTINGP ERFORMED BY: ARDEN [facility] Zjhpis6782 [address] RoadDublin [place] [id number] ALT [Catalytic activity/Vol] 11 [iU]/L Normal 0-32 [facility] Work Phone: Comment on above: PATIENT NOT FASTINGP ERFORMED BY: ARDEN LabCarrp Jzhxqf2277 [address] RoadDublin [place] [id number] ALT [Catalytic activity/Vol] 11 U/L Normal 0-32 [facility]; [facility] Work Phone: Comment on above: PATIENT NOT FASTINGP ERFORMED BY: [facility] Lmztbj7817 [address] RoadDublin [place] [id number] AST [Catalytic activity/Vol] 17 [iU]/L Normal 0-40 [facility] Work Phone: Comment on above: PATIENT NOT FASTINGP ERFORMED BY: [facility] Ucwmbk5435 [address] RoadDublin [place] [id number] AST [Catalytic activity/Vol] 17 U/L Normal 0-40 [facility]; [facility] Work Phone: Comment on above: PATIENT NOT FASTINGP ERFORMED BY: CB [facility] Zznvrk9564 [address] RoadDublin [place] [id number] Bilirubin [Mass/Vol] 0.9 mg/dL Normal 0.0-1.2 [facility] Work Phone: Comment on above: PATIENT NOT FASTINGP ERFORMED BY: [facility] Jlxkqx8047 [address] RoadDublin [place] [id number] Calcium [Mass/Vol] 9.3 mg/dL Normal 8.7-10.2 [facility] Work Phone: Comment on above: PATIENT NOT FASTINGP ERFORMED BY: CB [facility] Bjxxyi6694 [address] RoadDublin [place] [id number] Chloride [Moles/Vol] 104 mmol/L Normal 96-106 [facility] Work Phone: Comment on above: PATIENT NOT FASTINGP ERFORMED BY: CB [facility] Efcelw6620 [address] RoadDublin [place] [id number] CO2 [Moles/Vol] 24 mmol/L Normal 18-29 [facility] Work Phone: Comment on above: PATIENT NOT FASTINGP ERFORMED BY: CB [facility] Ismavn4239 [address] RoadDublin [place] [id number] Creatinine [Mass/Vol] 0.79 mg/dL Normal 0.57-1.00 [facility] Work Phone: Comment on above: PATIENT NOT FASTINGP ERFORMED BY: CB [facility] Fsmibc1307 [address] RoadDublin [place] [id number] GFR/1.73 sq M predicted among blacks CKD-EPI (S/P/Bld) [Vol rate/Area] 105 mL/min/1.73 Normal [facility] Work Phone: Comment on above: PATIENT NOT FASTINGP ERFORMED BY: CB [facility] Drxomn9745 [address] RoadDublin [place] [id number] GFR/1.73 sq M predicted among non-blacks CKD-EPI (S/P/Bld) [Vol rate/Area] 91 mL/min/1.73 Normal [facility] Work Phone: Comment on above: PATIENT NOT FASTINGP ERFORMED BY: CB [facility] Iqcelb0529 [address] RoadDublin [place] [id number] Globulin (S) [Mass/Vol] 2.5 g/dL Normal 1.5-4.5 [facility] Work Phone: Comment on above: PATIENT NOT FASTINGP ERFORMED BY: CB [facility] Exanfr9922 [address] RoadDublin [place] [id number] Glucose [Mass/Vol] 87 mg/dL Normal 65-99 [facility] Work Phone: Comment on above: PATIENT NOT FASTINGP ERFORMED BY: ARDEN [facility] Qukoid4851 [address] Roadbl[address] [place] [id number] Potassium [Moles/Vol] 4.0 mmol/L Normal 3.5-5.2 [facility] Work Phone: Comment on above: PATIENT NOT FASTINGP ERFORMED BY: ARDEN [facility] Hhcscw9381 [address] [facility]in [place] [id number] Protein [Mass/Vol] 7.2 g/dL Normal 6.0-8.5 [facility] Work Phone: Comment on above: PATIENT NOT FASTINGP ERFORMED BY: ARDEN [facility] Brsxyq0038 [address] RoadCommunity Healthin [place] [id number] Sodium [Moles/Vol] 142 mmol/L Normal 134-144 [facility] Work Phone: Comment on above: PATIENT NOT FASTINGP ERFORMED BY: ARDEN [facility] Hrhzlu9903 Ajra [facility]in [place] [id number] Urea nitrogen [Mass/Vol] 11 mg/dL Normal 6-24 [facility] Work Phone: Comment on above: PATIENT NOT FASTINGP ERFORMED BY: ARDEN [facility] Uuxigv7470 [address] [facility]in [place] [id number] Urea nitrogen/Creatini ne [Mass ratio] 14 mg/mg Normal 9-23 [facility] Work Phone: Comment on above: PATIENT NOT FASTINGP ERFORMED BY: [facility] Ojekro3452 [address] [facility] [place] [id number] FSH AND LH ([id number])Ordered By : Family Consumer Science Fcs Teacher on 04-22-2017 Follitropin Qn 9.0 m[IU]/mL Normal Comprehe nsive [facility] Work Phone: Comment on above: Adult Female: Follic ular phase 3.5 - 12.5 Ovulation phase 4.7 - 21.5 Luteal phase 1.7 - 7.7 Postmenopausal 25.8 - 134.8 PATIENT NOT FASTINGP ERFORMED BY: ARDEN [facility] Dgszdb4482 [address] RoadDublin [place] [id number] Lutropin Qn 4.9 m[IU]/mL Normal Comprehensi [facility] Work Phone: Comment on above: Adult Female: Follic ular phase 2.4 - 12.6 Ovulation phase 14.0 - 95.6 Luteal phase 1.0 - 11.4 Postmenopausal 7.7 - 58.5 PATIENT NOT FASTINGP ERFORMED BY: ARDEN [facility] Jaofwl3755 [address] RoadDublin [place] [id number] HEPATIC FUNCTION PANEL ([id number])Ordered By: Family Consumer Science Fcs Teacher on 04-22-2017 Albumin [Mass/Vol] 4.9 g/dL Normal 3.5-5.5 [facility] Work Phone: Comment on above: PATIENT NOT FASTINGP ERFORMED BY: ARDEN [facility] Bjvklg4416 [address] RoadDublin [place] [id number] ALP [Catalytic activity/Vol] 43 [iU]/L Normal 39-117 [facility] Work Phone: Comment on above: PATIENT NOT FASTINGP ERFORMED BY: [facility] Kfuysf8682 [address] RoadDublin [place] [id number] ALP [Catalytic activity/Vol] 43 U/L Normal 39-117 [facility]; [facility] Work Phone: Comment on above: PATIENT NOT FASTINGP ERFORMED BY: [facility] Vvvryz6607 [address]Dublin [place] [id number] ALT [Catalytic activity/Vol] 20 [iU]/L Normal 0-32 [facility] Work Phone: Comment on above: PATIENT NOT FASTINGP ERFORMED BY: CB [facility] Skvyjh1685 [address] RoadDublin [place] [id number] ALT [Catalytic activity/Vol] 20 U/L Normal 0-32 [facility]; [facility] Work Phone: Comment on above: PATIENT NOT FASTINGP ERFORMED BY: [facility] Srvvmz5836 [address] RoadDublin [place] [id number] AST [Catalytic activity/Vol] 23 [iU]/L Normal 0-40 [facility] Work Phone: Comment on above: PATIENT NOT FASTINGP ERFORMED BY: ARDEN LabCoabdi Bciexy2665 [address] RoadDublin [place] [id number] AST [Catalytic activity/Vol] 23 U/L Normal 0-40 [facility]; [facility] Work Phone: Comment on above: PATIENT NOT FASTINGP ERFORMED BY: ARDEN [facility] Azfvft7180 [address] RoadDublin [place] [id number] Bilirubin [Mass/Vol] 0.9 mg/dL Normal 0.0-1.2 [facility] Work Phone: Comment on above: PATIENT NOT FASTINGP ERFORMED BY: ARDEN [facility] Ozxqpm3570 [address] RoadDublin [place] [id number] Bilirubin.direct [Mass/Vol] 0.21 mg/dL Normal 0.00-0.40 [facility] Work Phone: Comment on above: PATIENT NOT FASTINGP ERFORMED BY: ARDEN [facility] Zhdveq7944 [address] RoadDublin [place] [id number] Protein [Mass/Vol] 7.5 g/dL Normal 6.0-8.5 [facility] Work Phone: Comment on above: PATIENT NOT FASTINGP ERFORMED BY: ARDEN [facility] Wvqous8896 [address] RoadDublin [place] [id number] AMMONIA ([id number])Ordered By: S ystem Driver [employer] on 04-07-2017 Ammonia (P) [Mass/Vol] 37 ug/dL Normal 19-87 [facility] Work Phone: Comment on above: PATIENT WAS FASTINGP ERFORMED BY: CB [facility] Weluhj2129 [address] RoadDublin [place] [id number] CALCIFEDIOL ([id number])Ordered B y: Family Consumer Science Fcs Teacher on 04-07-2017 25-Hydroxyvitamin D2+25-Hydroxyvita min D3 [Mass/Vol] 34.6 ng/mL Normal 30.0-100.0 [facility] Work Phone: Comment on above: Vitamin D deficiency has been defined by the [place] ofMedicine and an Endocrine Society practice guideline as alevel of serum 25-OH vitamin D less than 20 ng/mL (1,2).The Endocrine Society went on to further define vitamin Dinsufficiency as a level between 21 and 29 ng/mL (2).1. IOM ([place] of Medicine). 2010. Dietary reference intakes for calcium and D. [place]: The National Academies Press.2. Kash MF, Donya QUINTEROS, Miranda LLOYD, et al. Evaluation, treatment, and prevention of vitamin D deficiency: an Endocrine Society clinical practice guideline. JCEM. 2010; 96(7):1911-30. PATIENT WAS FASTINGP ERFORMED BY: [facility] Tseaio6997 [address]ara RoadDublin [place] [id number] CBC, Platelets & Auto Diff ( [id number])Ordered By: Family Consumer Science Fcs Teacher on 04-07-2017 Basophils (Bld) [#/Vol] 0.0 {x10E3/uL} Normal 0.0-0.2 [facility] Work Phone: Comment on above: PATIENT WAS FASTINGP ERFORMED BY: [facility] Ndlopc8078 Jara RoadDublin [place] [id number] Basophils (Bld) [#/Vol] 0.0 10*3/uL Normal 0.0-0.2 [facility]; [facility] Work Phone: Comment on above: PATIENT WAS FASTINGP ERFORMED BY: [facility] Nxcocj9084 [address]ara RoadDublin [place] [id number] Basophils/100 WBC (Bld) 0 % Normal [facility] Work Phone: Comment on above: PATIENT WAS FASTINGP ERFORMED BY: [employer] Hywlys1352 [address] RoadDublin [place] [id number] Eosinophils (Bld) [#/Vol] 0.1 {x10E3/uL} Normal 0.0-0.4 [facility] Work Phone: Comment on above: PATIENT WAS FASTINGP ERFORMED BY: [facility] Hccick2557 [address] RoadDublin [place] [id number] Eosinophils (Bld) [#/Vol] 0.1 10*3/uL Normal 0.0-0.4 [facility]; [facility] Work Phone: Comment on above: PATIENT WAS FASTINGP ERFORMED BY: ARDEN [facility] Jfuaxq3018 Jara RoadCommunity Healthin [place] [id number] Eosinophils/100 WBC (Bld) 2 % Normal [facility] Work Phone: Comment on above: PATIENT WAS FASTINGP ERFORMED BY: [facility] Utisdv3978 [address] [facility] [id number] Erythrocyte distribution width (RBC) [Ratio] 12.8 % Normal 12.3-15.4 [facility] Work Phone: Comment on above: PATIENT WAS FASTINGP ERFORMED BY: [facility] Eadxdq9036 [address] [facility] [id number] Hematocrit (Bld) [Volume fraction] 41.5 % Normal 34.0-46.6 [facility] Work Phone: Comment on above: PATIENT WAS FASTINGP ERFORMED BY: [facility] Ukfume3611 [address] [facility] [id number] Hemoglobin (Bld) [Mass/Vol] 14.0 g/dL Normal 11.1-15.9 [facility] Work Phone: Comment on above: PATIENT WAS FASTINGP ERFORMED BY: [facility] Ilieya9574 [address] [facility] [id number] Immature granulocytes (Bld) [#/Vol] 0.0 {x10E3/uL} Normal 0.0-0.1 [facility] Work Phone: Comment on above: PATIENT WAS FASTINGP ERFORMED BY: [facility] Jyyjvo4096 [address] [facility] [place] [id number] Immature granulocytes (Bld) [#/Vol] 0.0 10*3/uL Normal 0.0-0.1 [facility]; [facility] Work Phone: Comment on above: PATIENT WAS FASTINGP ERFORMED BY: [facility] Ihmmvt3854 Jara Roadblin [place] [id number] Immature granulocytes/100 WBC (Bld) 0 % Normal [facility] Work Phone: Comment on above: PATIENT WAS FASTINGP ERFORMED BY: [facility] Hsdrkr2826 [address] RoadDublin [place] [id number] Lymphocytes (Bld) [#/Vol] 1.4 {x10E3/uL} Normal 0.7-3.1 [facility] Work Phone: Comment on above: PATIENT WAS FASTINGP ERFORMED BY: [facility] Plvawa1746 [address] RoadDublin [place] [id number] Lymphocytes (Bld) [#/Vol] 1.4 10*3/uL Normal 0.7-3.1 [facility]; [facility] Work Phone: Comment on above: PATIENT WAS FASTINGP ERFORMED BY: [facility] HospitalZmdhbx4546 J[address] RoadDublin [place] [id number] Lymphocytes/100 WBC (Bld) 23 % Normal [facility] Work Phone: Comment on above: PATIENT WAS FASTINGP ERFORMED BY: [facility] HospitalXogqjw4036 J[address] RoadDublin [place] [id number] MCH (RBC) [Entitic mass] 31.9 pg Normal 26.6-33.0 [facility] Work Phone: Comment on above: PATIENT WAS FASTINGP ERFORMED BY: [facility] Lnshce9810 [address] RoadDublin [place] [id number] MCHC (RBC) [Mass/Vol] 33.7 g/dL Normal 31.5-35.7 [facility] Work Phone: Comment on above: PATIENT WAS FASTINGP ERFORMED BY: [facility] Yqfvge9670 [address] RoadDublin [place] [id number] MCV (RBC) [Entitic vol] 95 fL Normal 79-97 [facility] Work Phone: Comment on above: PATIENT WAS FASTINGP ERFORMED BY: [facility] Zntcjn7220 [address] RoadDublin [place] [id number] Monocytes (Bld) [#/Vol] 0.2 {x10E3/uL} Normal 0.1-0.9 [facility] Work Phone: Comment on above: PATIENT WAS FASTINGP ERFORMED BY: CB [facility] Xlzrhv8654 [address] RoadDublin [place] [id number] Monocytes (Bld) [#/Vol] 0.2 10*3/uL Normal 0.1-0.9 [facility]; [facility] Work Phone: Comment on above: PATIENT WAS FASTINGP ERFORMED BY: CB [facility] Lzxtpa7502 [address] RoadDublin [place] [id number] Monocytes/100 WBC (Bld) 4 % Normal [facility] Work Phone: Comment on above: PATIENT WAS FASTINGP ERFORMED BY: ARDEN [facility] Kdxzse7262 [address] RoadDublin [place] [id number] Neutrophils (Bld) [#/Vol] 4.1 {x10E3/uL} Normal 1.4-7.0 [facility] Work Phone: Comment on above: PATIENT WAS FASTINGP ERFORMED BY: [facility] Kddzjv4065 [address] RoadDublin [place] [id number] Neutrophils (Bld) [#/Vol] 4.1 10*3/uL Normal 1.4-7.0 [facility]; [facility] Work Phone: Comment on above: PATIENT WAS FASTINGP ERFORMED BY: [facility] Ahlomh1718 [address] RoadDublin [place] [id number] Neutrophils/100 WBC (Bld) 71 % Normal [facility] Work Phone: Comment on above: PATIENT WAS FASTINGP ERFORMED BY: CB [facility] Flonqi8424 [address] RoadDublin [place] [id number] Platelets (Bld) [#/Vol] 254 {x10E3/uL} Normal 150-379 [facility] Work Phone: Comment on above: PATIENT WAS FASTINGP ERFORMED BY: CB [facility] Scfjpr3031 [address] RoadDublin [place] [id number] Platelets (Bld) [#/Vol] 254 10*3/uL Normal 150-379 [facility]; [facility] Work Phone: Comment on above: PATIENT WAS FASTINGP ERFORMED BY: ARDEN LabCoabdi Nnetlt3190 J[address] RoadDublin [place] [id number] RBC (Bld) [#/Vol] 4.39 {x10E6/uL} Normal 3.77-5.28 [facility] Work Phone: Comment on above: PATIENT WAS FASTINGP ERFORMED BY: ARDEN [facility] Olnpxa0117 [address] RoadDublin [place] [id number] RBC (Bld) [#/Vol] 4.39 10*6/uL Normal 3.77-5.28 [facility]; [facility] Work Phone: Comment on above: PATIENT WAS FASTINGP ERFORMED BY: ARDEN LabCoabdi Icyscg3077 J[address] RoadDublin [place] [id number] WBC (Bld) [#/Vol] 5.8 {x10E3/uL} Normal 3.4-10.8 [facility] Work Phone: Comment on above: PATIENT WAS FASTINGP ERFORMED BY: ARDEN [facility] Enifyu8272 [address] RoadDublin [place] [id number] WBC (Bld) [#/Vol] 5.8 10*3/uL Normal 3.4-10.8 [facility]; [facility] Work Phone: Comment on above: PATIENT WAS FASTINGP ERFORMED BY: ARDEN [facility] Sgdbti6858 J[address] RoadDuin [place] [id number] Ferritin ([id number])Ordered By: Family Consumer Science Fcs Teacher on 04-07-2017 Ferritin [Mass/Vol] 31 ng/mL Normal 15-150 [facility] Work Phone: Comment on above: PATIENT WAS FASTINGP ERFORMED BY: ARDEN [facility] Bvedbr8894 [address] RoadDublin [place] [id number] Iron (33359)Ordered By: Syst em Driver [employer] on 04-07-2017 Iron [Mass/Vol] 105 ug/dL Normal 27-159 Comprehen [facility] Internal [facility] Work Phone: Comment on above: PATIENT WAS FASTINGP ERFORMED BY: ARDEN MichaelMomo CarballoBodriz7689 J[address] RoadDublin [place] [id number] Lipid Panel (07461)Ordered B y: Family Consumer Science Fcs Teacher on 04-07-2017 Cholesterol [Mass/Vol] 151 mg/dL Normal 100-199 [facility] Work Phone: Comment on above: PATIENT WAS FASTINGP ERFORMED BY: ARDEN Carballolin6370 [address] RoadDublin [place] [id number] Cholesterol in HDL [Mass/Vol] 52 mg/dL Normal [facility] Work Phone: Comment on above: PATIENT WAS FASTINGP ERFORMED BY: ARDEN Carballolin6370 [address] RoadDublin [place] [id number] Cholesterol in LDL [Mass/Vol] 88 mg/dL Normal 0-99 [facility] Work Phone: Comment on above: PATIENT WAS FASTINGP ERFORMED BY: ARDEN Carballolin6370 [address] RoadDublin [place] [id number] Cholesterol in LDL/Cholesterol in HDL [Mass ratio] 1.7 {ratio_units} Normal 0.0-3.2 [facility] Work Phone: Comment on above: LDL/HDL Ratio Men Wo men 1/2 Avg.Risk 1.0 1.5 Avg.Risk 3.6 3.2 2X Avg.Risk 6.2 5.0 3X Avg.Risk 8.0 6.1 PATIENT WAS FASTINGP ERFORMED BY: ARDEN Carballolin[address] [employer] SystemsDublin [place] [id number] Cholesterol in VLDL [Mass/Vol] 11 mg/dL Normal 5-40 [facility] Work Phone: Comment on above: PATIENT WAS FASTINGP ERFORMED BY: ARDEN LabMomo CarballoNqbffu6256 [address] RoadDublin [place] [id number] Triglyceride [Mass/Vol] 55 mg/dL Normal 0-149 [facility] Work Phone: Comment on above: PATIENT WAS FASTINGP ERFORMED BY: ARDEN Carballolin6370 [address] RoadDublin [place] [id number] Metabolic Panel, Comprehensi ve ([id number])Ordered By: Family Consumer Science Fcs Teacher on 04-07-2017 Albumin [Mass/Vol] 4.6 g/dL Normal 3.5-5.5 [facility] Work Phone: Comment on above: PATIENT WAS FASTINGP ERFORMED BY: ARDEN [facility] Mpqizd4373 [address] RoadDublin [place] [id number] Albumin/Globulin [Mass ratio] 1.8 {ratio} Normal 1.2-2.2 [facility] Work Phone: Comment on above: PATIENT WAS FASTINGP ERFORMED BY: ARDEN [facility] Uzfyhy1911 [address] RoadDublin [place] [id number] ALP [Catalytic activity/Vol] 33 [iU]/L Abnormal 39-117 [facility] Work Phone: Comment on above: PATIENT WAS FASTINGP ERFORMED BY: ARDEN LabCoabdi CarballoAubkcp4744 [address] RoadDublin [place] [id number] ALP [Catalytic activity/Vol] 33 U/L Abnormal 39-117 [facility]; [facility] Work Phone: Comment on above: PATIENT WAS FASTINGP ERFORMED BY: ARDEN [facility] Fotxbc8189 [address] RoadDublin [place] [id number] ALT [Catalytic activity/Vol] 57 [iU]/L Abnormal 0-32 [facility] Work Phone: Comment on above: PATIENT WAS FASTINGP ERFORMED BY: ARDEN [facility] Rzwjox1562 [address] RoadDublin [place] [id number] ALT [Catalytic activity/Vol] 57 U/L Abnormal 0-32 [facility]; [facility] Work Phone: Comment on above: PATIENT WAS FASTINGP ERFORMED BY: CB [facility] Rteizz5052 [address] RoadDublin [place] [id number] AST [Catalytic activity/Vol] 40 [iU]/L Normal 0-40 [facility] Work Phone: Comment on above: PATIENT WAS FASTINGP ERFORMED BY: ARDEN [facility] Ybwhji1822 [address] RoadDublin [place] [id number] AST [Catalytic activity/Vol] 40 U/L Normal 0-40 [facility]; [facility] Work Phone: Comment on above: PATIENT WAS FASTINGP ERFORMED BY: CB [facility] Fmtzrw5224 [address] RoadDublin [place] [id number] Bilirubin [Mass/Vol] 0.7 mg/dL Normal 0.0-1.2 [facility] Work Phone: Comment on above: PATIENT WAS FASTINGP ERFORMED BY: CB [facility] Srbarh6367 [address] RoadDublin [place] [id number] Calcium [Mass/Vol] 9.9 mg/dL Normal 8.7-10.2 [facility] Work Phone: Comment on above: PATIENT WAS FASTINGP ERFORMED BY: [facility] Shdynt8705 [address] RoadDublin [place] [id number] Chloride [Moles/Vol] 100 mmol/L Normal 96-106 [facility] Work Phone: Comment on above: PATIENT WAS FASTINGP ERFORMED BY: [facility] Txnzlv6116 [address] RoadDublin [place] [id number] CO2 [Moles/Vol] 24 mmol/L Normal 18-29 [facility] Internal Medicine Work Phone: Comment on above: PATIENT WAS FASTINGP ERFORMED BY: [facility] Mesmku6624 [address] RoadDublin [place] [id number] Creatinine [Mass/Vol] 0.84 mg/dL Normal 0.57-1.00 [facility] Work Phone: Comment on above: PATIENT WAS FASTINGP ERFORMED BY: CB [facility] Wtysar6316 [address] RoadDublin [place] [id number] GFR/1.73 sq M predicted among blacks CKD-EPI (S/P/Bld) [Vol rate/Area] 97 mL/min/1.73 Normal [facility] Work Phone: Comment on above: PATIENT WAS FASTINGP ERFORMED BY: [facility] Ylatru4154 [address] RoadDublin [place] [id number] GFR/1.73 sq M predicted among non-blacks CKD-EPI (S/P/Bld) [Vol rate/Area] 84 mL/min/1.73 Normal [facility] Work Phone: Comment on above: PATIENT WAS FASTINGP ERFORMED BY: ARDEN [facility] Hdftht1399 [address] RoadDublin [place] [id number] Globulin (S) [Mass/Vol] 2.5 g/dL Normal 1.5-4.5 [facility] Work Phone: Comment on above: PATIENT WAS FASTINGP ERFORMED BY: [facility] Gdecyn7636 [address] RoadDublin [place] [id number] Glucose [Mass/Vol] 82 mg/dL Normal 65-99 [facility] Work Phone: Comment on above: PATIENT WAS FASTINGP ERFORMED BY: [facility] Jnbucr5581 [address] RoadDublin [place] [id number] Potassium [Moles/Vol] 4.5 mmol/L Normal 3.5-5.2 [facility] Work Phone: Comment on above: PATIENT WAS FASTINGP ERFORMED BY: [facility] Wytwvb9810 [address] RoadDublin [place] [id number] Protein [Mass/Vol] 7.1 g/dL Normal 6.0-8.5 [facility] Work Phone: Comment on above: PATIENT WAS FASTINGP ERFORMED BY: [facility] Ryngah3633 [address] RoadDublin [place] [id number] Sodium [Moles/Vol] 142 mmol/L Normal 134-144 [facility] Work Phone: Comment on above: PATIENT WAS FASTINGP ERFORMED BY: [facility] Mobobs2687 [address] RoadDublin [place] [id number] Urea nitrogen [Mass/Vol] 9 mg/dL Normal 6-24 [facility] Work Phone: Comment on above: PATIENT WAS FASTINGP ERFORMED BY: [facility] Pwjxwn4319 [address] RoadDublin [place] [id number] Urea nitrogen/Creatini ne [Mass ratio] 11 mg/mg Normal 9-23 [facility] Work Phone: Comment on above: PATIENT WAS FASTINGP ERFORMED BY: [facility] Uccdyk8087 [facility] [id number] TSH ([id number])Ordered By: Ese munoz Driver [employer] on 04-07-2017 TSH Qn 1.370 {uIU/mL} Normal 0.450-4.500 [facility] Work Phone: Comment on above: PATIENT WAS FASTINGP ERFORMED BY: [facility] Vqnhzc1473 [facility] [id number] Vital Signs Date Time Vital Sign Value Performing Clinician Facility 07-09-2023 10:50-0400 Body height 157.48 cm Camryn Gresham LPN [facility]; [facility] Work Phone: 07-09-2023 10:50-0400 Body mass index (BMI) [Ratio] 20.16 kg/m2 Camryn Gresham LPN [facility]; [facility] Work Phone: 07-09-2023 10:50-0400 Body surface area Derived from formula 1.48 m2 Camryn Gresham LPN [facility]; [facility] Work Phone: 07-09-2023 10:50-0400 Body temperature 98.1 [degF] Camryn Gresham LPN [facility]; [facility] Work Phone: 07-09-2023 10:50-0400 Body weight 50.01 kg Camryn Gresham LPN [facility]; [facility] Work Phone: 07-09-2023 10:50-0400 Diastolic blood pressure 82 mm[Hg] Camryn Gresham MARKETING PROPOSAL COORDINATOR [facility]; [facility] Work Phone: Comment on above: Patient Position: Sitting; Cuff Location : Left Arm; Cuff Size: Standard 07-09-2023 10:50-0400 Heart rate 65 /min Camryn Gresham LPN [facility]; [facility] Work Phone: Comment on above: Pattern: Regular 07-09-2023 10:50-0400 Respiratory rate 16 /min Camryn Mp LAGUERRE [facility]; [facility] Work Phone: Comment on above: Pattern: Unlabored 07-09-2023 10:50-0400 SaO2% (BldA) [Mass fraction] 99 % Camryn Gresham SHADE [facility]; [facility] Work Phone: Comment on above: Room air 07-09-2023 10:50-0400 Systolic blood pressure 118 mm[Hg] Camrynjoel Gresham SHADE [facility]; [facility] Work Phone: Comment on above: Patient Position: Sitting; Cuff Location : Left Arm; Cuff Size: Standard 02-20-2023 07:46-0400 Body temperature 97.3 [degF] Geovany Ramirez MD Work Phone: [facility] 02-20-2023 07:46-0400 Body weight 51.44 kg Geovany Ramirez MD Work Phone: [facility] 02-20-2023 07:46-0400 Diastolic blood pressure 78 mm[Hg] Geovany Ramirez MD Work Phone: [facility] 02-20-2023 07:46-0400 Heart rate 58 /min Geovany Ramirez MD Work Phone: [facility] 02-20-2023 07:46-0400 Respiratory rate 18 /min Geovany Ramirez MD Work Phone: [facility] 02-20-2023 07:46-0400 SaO2% (BldA) [Mass fraction] 99 % Geovany Ramirez MD Work Phone: [facility] 02-20-2023 07:46-0400 Systolic blood pressure 110 mm[Hg] Geovany Ramirez MD Work Phone: [facility] 08-12-2022 13:06-0500 Body weight 49.44 kg Reba Quick MD Work Phone: [facility] 08-12-2022 13:06-0500 Diastolic blood pressure 64 mm[Hg] Reba Quick MD Work Phone: [facility] 08-12-2022 13:06-0500 Systolic blood pressure 104 mm[Hg] Reba Quick MD Work Phone: [facility] 12-12-2021 08:08-0400 Body height 157.48 cm Eric Gayle LPN [facility]; [facility] Work Phone: Comment on above: unable to check VS at home 12-12-2021 08:08-0400 Body mass index (BMI) [Ratio] 19.94 kg/m2 Eric Gayle LPN [facility]; [facility] Work Phone: Comment on above: unable to check VS at home 12-12-2021 08:08-0400 Body surface area Derived from formula 1.48 m2 Eric Gayle LPN [facility]; [facility] Work Phone: Comment on above: unable to check VS at home 12-12-2021 08:08-0400 Body weight 49.44 kg Eric Gayle LPN [facility]; [facility] Work Phone: Comment on above: unable to check VS at home 11-28-2021 12:27-0400 Body height 157.48 cm Camryn Gresham LPN [facility]; [facility] Work Phone: 11-28-2021 12:27-0400 Body mass index (BMI) [Ratio] 19.94 kg/m2 Camryn Gresham LPN [facility]; [facility] Work Phone: 11-28-2021 12:27-0400 Body surface area Derived from formula 1.48 m2 Camryn Gresham LPN [facility]; [facility] Work Phone: 11-28-2021 12:27-0400 Body temperature 97.1 [degF] Camryn Gresham LPN [facility]; [facility] Work Phone: 11-28-2021 12:27-0400 Body weight 49.44 kg Camryn Gresham LPN [facility]; [facility] Work Phone: 11-28-2021 12:27-0400 Diastolic blood pressure 68 mm[Hg] Camryn Mp SHADE [facility]; [facility] Work Phone: Comment on above: Patient Position: Sitting; Cuff Location : Left Arm; Cuff Size: Standard 11-28-2021 12:27-0400 Heart rate 59 /min Camryn Gresham LPN [facility]; [facility] Work Phone: Comment on above: Pattern: Regular 11-28-2021 12:27-0400 Respiratory rate 16 /min Camryn Mp LPN [facility]; [facility] Work Phone: Comment on above: Pattern: Unlabored 11-28-2021 12:27-0400 SaO2% (BldA) [Mass fraction] 99 % Camryn Mp LPN [facility]; [facility] Work Phone: Comment on above: Room air 11-28-2021 12:27-0400 Systolic blood pressure 96 mm[Hg] Camryn Gresham LPN [facility]; [facility] Work Phone: Comment on above: Patient Position: Sitting; Cuff Location : Left Arm; Cuff Size: Standard 12-14-2019 10:29-0400 Body height 157.48 cm Eric Gayle LPN [facility]; [facility] Work Phone: 12-14-2019 10:29-0400 Body mass index (BMI) [Ratio] 19.39 kg/m2 Eric Gayle LPN [facility]; [facility] Work Phone: 12-14-2019 10:29-0400 Body surface area Derived from formula 1.46 m2 Eric Gayle LPN [facility]; [facility] Work Phone: 12-14-2019 10:29-0400 Body temperature 98.4 [degF] Eric Gayle LPN [facility]; [facility] Work Phone: Comment on above: Method: Oral 12-14-2019 10:29-0400 Body weight 48.08 kg Eric Gayle LPN [facility]; [facility] Work Phone: 06-15-2019 11:05-0400 BMI (Body Mass Index) 19.78 kg/m2 Lianne Glaser [facility] Internal Medicine Work Phone: 06-15-2019 11:05-0400 BMI (Body Mass Index) 19.94 kg/m2 Eric Gayle LPN [facility] Internal Medicine Work Phone: 06-15-2019 11:05-0400 Body Temperature 97.9 [degF] Eric Gayle LPN [facility] Internal Medicine Work Phone: Comment on above: Method: Temporal 06-15-2019 11:05-0400 Body weight 49.05 kg Lianne Glaser [facility] Internal Medicine Work Phone: 06-15-2019 11:05-0400 Body weight 49.45 kg Eric Gayle LPN [facility] Internal [facility] Work Phone: 06-15-2019 11:05-0400 BP Diastolic 64 mm[Hg] Eric Gayle LPN [facility] Work Phone: Comment on above: Patient Position: Sitting; Cuff Location : Left Arm; Cuff Size: Standard 06-15-2019 11:05-0400 BP Systolic 106 mm[Hg] Eric Gayle LPN [facility] Work Phone: Comment on above: Patient Position: Sitting; Cuff Location : Left Arm; Cuff Size: Standard 06-15-2019 11:05-0400 BSA (Body Surface Area) 1.47 m2 Lianne Santiagoreina [facility] Work Phone: 06-15-2019 11:05-0400 BSA (Body Surface Area) 1.48 m2 Eric Gayle LPN [facility] Work Phone: 06-15-2019 11:05-0400 Height 157.48 cm Eric Gayle LPN [facility] Internal [facility] Work Phone: 06-15-2019 11:05-0400 Pulse (Heart Rate) 60 /min Eric Gayle LPN [facility] Work Phone: Comment on above: Pattern: Regular 06-15-2019 11:05-0400 Pulse Oximetry 99 % Lianne Baumantione [facility] Internal [facility] Work Phone: Comment on above: Room air 06-15-2019 11:05-0400 Respiratory Rate 16 /min Eric Gayle MARKETING PROPOSAL COORDINATOR [facility] Work Phone: Comment on above: Pattern: Unlabored 06-15-2019 11:05-0400 SaO2% (BldA) [Mass fraction] 99 % Eric Gayle MARKETING PROPOSAL COORDINATOR [facility]; [facility] Work Phone: Comment on above: Room air 10-27-2017 10:15-0500 BMI (Body Mass Index) 19.78 kg/m2 Marsha Slarb MARKETING PROPOSAL COORDINATOR [facility] Work Phone: 10-27-2017 10:15-0500 Body weight 49.05 kg Marsha Slarb MARKETING PROPOSAL COORDINATOR [facility] Work Phone: 10-27-2017 10:15-0500 BP Diastolic 72 mm[Hg] Marsha Slarb MARKETING PROPOSAL COORDINATOR [facility] Work Phone: Comment on above: Patient Position: Sitting; Cuff Location : Left Arm; Cuff Size: Standard 10-27-2017 10:15-0500 BP Systolic 106 mm[Hg] Marsha Slarb MARKETING PROPOSAL COORDINATOR [facility] Work Phone: Comment on above: Patient Position: Sitting; Cuff Location : Left Arm; Cuff Size: Standard 10-27-2017 10:15-0500 BSA (Body Surface Area) 1.47 m2 Marsha Slarb MARKETING PROPOSAL COORDINATOR [facility] Work Phone: 10-27-2017 10:15-0500 Height 157.48 cm Marsha Slarb MARKETING PROPOSAL COORDINATOR [facility] Work Phone: 10-27-2017 10:15-0500 Pulse (Heart Rate) 61 /min Marsha Slarb MARKETING PROPOSAL COORDINATOR [facility] Work Phone: Comment on above: Pattern: Regular 10-27-2017 10:15-0500 Pulse Oximetry 98 % Lianne Glaser [facility] Work Phone: Comment on above: Room air 10-27-2017 10:15-0500 Respiratory Rate 17 /min Marsha Slarb MARKETING PROPOSAL COORDINATOR [facility] Work Phone: Comment on above: Pattern: Unlabored 10-27-2017 10:15-0500 SaO2% (BldA) [Mass fraction] 98 % Marsha Slarb MARKETING PROPOSAL COORDINATOR [facility]; [facility] Work Phone: Comment on above: Room air 04-22-2017 08:42-0400 BMI (Body Mass Index) 19.62 kg/m2 Marsha Slarb MARKETING PROPOSAL COORDINATOR [facility] Work Phone: 04-22-2017 08:42-0400 Body Temperature 97.8 [degF] Marsha Slarb MARKETING PROPOSAL COORDINATOR [facility] Work Phone: 04-22-2017 08:42-0400 Body weight 48.65 kg Marsha Slarb MARKETING PROPOSAL COORDINATOR [facility] Work Phone: 04-22-2017 08:42-0400 BP Diastolic 72 mm[Hg] Marsha Slarb MARKETING PROPOSAL COORDINATOR [facility] Work Phone: Comment on above: Patient Position: Sitting; Cuff Location : Left Arm; Cuff Size: Standard 04-22-2017 08:42-0400 BP Systolic 110 mm[Hg] Marsha Slarb MARKETING PROPOSAL COORDINATOR [facility] Work Phone: Comment on above: Patient Position: Sitting; Cuff Location : Left Arm; Cuff Size: Standard 04-22-2017 08:42-0400 BSA (Body Surface Area) 1.47 m2 Marsha Slarb MARKETING PROPOSAL COORDINATOR [facility] Work Phone: 04-22-2017 08:42-0400 Height 157.48 cm Marsha Slarb MARKETING PROPOSAL COORDINATOR [facility] Work Phone: 04-22-2017 08:42-0400 Pulse (Heart Rate) 66 /min Marsha Slarb MARKETING PROPOSAL COORDINATOR [facility] Work Phone: Comment on above: Pattern: Regular 04-22-2017 08:42-0400 Pulse Oximetry 99 % Lianne Glaser [facility] Work Phone: Comment on above: Room air 04-22-2017 08:42-0400 Respiratory Rate 15 /min Marsha Slarb MARKETING PROPOSAL COORDINATOR [facility] Work Phone: Comment on above: Pattern: Unlabored 04-22-2017 08:42-0400 SaO2% (BldA) [Mass fraction] 99 % Marsha Slarb MARKETING PROPOSAL COORDINATOR [facility]; [facility] Work Phone: Comment on above: Room air 04-07-2017 10:45-0400 BMI (Body Mass Index) 19.39 kg/m2 Marsha Slarb MARKETING PROPOSAL COORDINATOR [facility] Work Phone: 04-07-2017 10:45-0400 Body Temperature 97.6 [degF] Marsha Slarb MARKETING PROPOSAL COORDINATOR [facility] Work Phone: 04-07-2017 10:45-0400 Body weight 48.08 kg Marsha Slarb MARKETING PROPOSAL COORDINATOR [facility] Work Phone: 04-07-2017 10:45-0400 BP Diastolic 68 mm[Hg] Marsha Slarb MARKETING PROPOSAL COORDINATOR [facility] Work Phone: Comment on above: Patient Position: Sitting; Cuff Location : Left Arm; Cuff Size: Standard 04-07-2017 10:45-0400 BP Systolic 110 mm[Hg] Marsha Slarb MARKETING PROPOSAL COORDINATOR [facility] Work Phone: Comment on above: Patient Position: Sitting; Cuff Location : Left Arm; Cuff Size: Standard 04-07-2017 10:45-0400 BSA (Body Surface Area) 1.46 m2 Marsha Slarb MARKETING PROPOSAL COORDINATOR [facility] Work Phone: 04-07-2017 10:45-0400 Height 157.48 cm Marsha Slarb MARKETING PROPOSAL COORDINATOR [facility] Work Phone: 04-07-2017 10:45-0400 Pulse (Heart Rate) 56 /min Marsha Slarb MARKETING PROPOSAL COORDINATOR [facility] Work Phone: Comment on above: Pattern: Regular 04-07-2017 10:45-0400 Pulse Oximetry 99 % Lianne Glaser [facility] Work Phone: Comment on above: Room air 04-07-2017 10:45-0400 Respiratory Rate 16 /min Marsha Slarb MARKETING PROPOSAL COORDINATOR [facility] Work Phone: Comment on above: Pattern: Unlabored 04-07-2017 10:45-4740 SaO2% (BldA) [Mass fraction] 99 % Marsha Irene LPN [facility]; [facility] Work Phone: Comment on above: Room air Encounters Encounter Date Encounter Type Care Provider Facility Start: 04-07-2025 ambulatory Madeleine Aly Facility :[facility] Start: 01-13-2025 End: 01-13-2025 ambulatory Madeleine Aly CAR SERVICER-C Work Phone: [facility] Work Phone: Start: 01-13-2025 End: 01-13-2025 Patient encounter procedure Madeleine Aly CAR SERVICER-C -Outpatient Bone Densitometry Work Phone: Start: 01-13-2025 End: 01-13-2025 ambulatory Madeleine Aly Facility:[facility] Start: 12-24-2024 End: 12-24-2024 ambulatory Madeleine Aly CAR SERVICER-C Work Phone: [facility] Work Phone: Start: 12-24-2024 End: 12-24-2024 Patient encounter procedure Eryn Gray CAR SERVICER-C -Outpatient Breast Imaging Work Phone: Start: 12-24-2024 End: 12-24-2024 ambulatory Eryn Gray Facility:[facility] Start: 06-23-2024 End: 06-23-2024 ambulatory Madeleine Aly Facility:[facility] Start: 06-23-2024 End: 06-23-2024 ambulatory Madeleine Aly Facility:[facility] Start: 04-16-2024 End: 04-16-2024 ambulatory Madeleine Aly Facility:[facility] Start: 07-09-2023 End: 07-09-2023 Office outpatient visit 15 minutes Madeleine Aly OFFICE SERVICE COORDINATOR Work Phone: [facility] Start: 05-23-2023 Documentation procedure Mammog kate Coordinator [facility] Start: 05-23-2023 Letter encounter Mammography Coordinator [facility] Start: 05-22-2023 End: 05-22-2023 ambulatory REBA QUICK Facility:[facility] Start: 05-22-2023 End: 05-22-2023 Subsequent hospital visit by physician Screen Mammo [facility] Mammogram Comment on above: Encounter for screen ing mammogram for malignant neoplasm of breast [Z12.31] Start: 02-20-2023 End: 02-20-2023 ambulatory LIANNE GLASER Facility:[facility] Start: 02-20-2023 End: 02-20-2023 Patient encounter procedure Geovany Ramirez MD Work Phone: [facility] Comment on above: Sore throat (Primary Dx) Start: 02-13-2023 ambulatory Reba Quick MD Work Phone: OB/Gynecology Comment on above: Yeast infection Start: 08-12-2022 End: 08-12-2022 ambulatory REBA QUICK Facility:[facility] Start: 08-12-2022 End: 08-12-2022 Patient encounter procedure Reba Quick MD Work Phone: OB/Gynecology Comment on above: Encounter for gyneco logical examination (general) (routine) without abnormal findings (Primary Dx); Encounter for screening mammogram for malignant neoplasm of breast Start: 08-12-2022 End: 08-12-2022 Patient encounter status Reba Quick MD Work Phone: OB/Gynecology Start: 08-05-2022 ambulatory Reba Quick MD Work Phone: OB/Gynecology Comment on above: Outbreak Start: 07-22-2022 End: 07-22-2022 ambulatory LIANNE GLASER Facility:[facility] Start: 04-11-2022 Documentation procedure Mammog kate Coordinator [facility] Start: 04-11-2022 Letter encounter Mammography Coordinator [facility] Start: 04-11-2022 End: 04-11-2022 Subsequent hospital visit by physician Screen Mammo [facility] Mammogram Comment on above: Encounter for screen ing mammogram for malignant neoplasm of breast [Z12.31] Start: 12-12-2021 End: 12-12-2021 Office outpatient visit 10 minutes Lianne Glaser Work Phone: [facility] Start: 12-05-2021 End: 12-05-2021 Patient encounter procedure [facility] Start: 11-28-2021 End: 11-28-2021 Periodic preventive med est patient 40-64yrs Lianne Glaser Work Phone: [facility] Start: 11-28-2021 End: 11-28-2021 Physical examination Eric Gayle LPN [facility]; [facility] Work Phone: Start: 12-14-2019 End: 12-14-2019 Office outpatient visit 15 minutes Lianne Glaser OFFICE SERVICE COORDINATOR Work Phone: [facility] Start: 06-15-2019 End: 06-15-2019 Initial preventive medicine new patient 40-64yrs Lianne Baumantione [facility] Start: 06-15-2019 End: 06-15-2019 Patient encounter status Madeleine Aly OFFICE SERVICE COORDINATOR Work Phone: [facility] Start: 06-15-2019 Review Lianne Anette [facility] Start: 10-27-2017 End: 10-27-2017 Office outpatient visit 15 minutes Lianne [facility] Start: 04-22-2017 End: 04-22-2017 Office outpatient visit 15 minutes Lianne Sarikaantione [facility] Start: 04-07-2017 End: 04-07-2017 Office outpatient new 45 minutes Lianne Sarikaantione [facility] Start: 04-07-2017 End: 04-07-2017 Physical examination Lianne Glaser OFFICE SERVICE COORDINATOR Work Phone: [facility]; [facility] Work Phone: Patient encounter status Lianne Glaser OFFICE SERVICE COORDINATOR Work Phone: [facility]; [facility] Work Phone: Patient encounter status Eric Gayle LPN [facility]; [facility] Work Phone: Patient encounter status Camryn Gresham LPN [facility]; [facility] Work Phone: Physical examination Eric Gayle LPN [facility]; [facility] Work Phone: Physical examination Eric Gayle MARKETING PROPOSAL COORDINATOR [facility]; [facility] Work Phone: Physical examination Camryn Gresham MARKETING PROPOSAL COORDINATOR [facility]; [facility] Work Phone: Procedures Date Procedure Procedure Detail Performing Clinician Start: 01-13-2025 Dual energy X-ray absorptiometry Madeleine Aly CAR SERVICER-C Work Phone: Start: 12-24-2024 Screening mammography C malika Aly CAR SERVICER-C Work Phone: Start: 05-22-2023 Screening digital br east tomosynthesis bi Reba Quick MD Work Phone: Start: 02-20-2023 STREP A MOLECULAR (POC) Geovany Ramirez MD Work Phone: Start: 04-11-2022 SHELBY SCREENING W MICKEY Fish MD Work Phone: Start: 04-11-2022 Mammography Screen [facility]st [facility] Start: 09-26-2021 Colonoscopy Screen [facility]st [facility] Start: 09-24-2019 End: 09-24-2019 Emergency Department Summary Comments: See Note; NOTES: [facility] Medical Records Department [address] [place] [id number] Emergency Department Summary 09/24/19 1639 MR#: [id number] Acct: [id number] Name: JUDITH LACY Rep #: [id number] : 1970 48 From: Tobias Vasquez DO PCP: SCOT Weir Status: REG ER - ER Visit Summary Date of Service: 09/24/19 Chief Complaint: Nausea and vomiting History of Present Illness: The patient is a 48 F who presents with nausea and vomiting that began today. Patient states she woke up and felt nauseated. Patient states she started vomiting shortly after. Patient denies any hematemesis or coffee-ground emesis. Patient denies any diarrhea, melena, or hematochezia. Patient states she took a Zofran at home which has helped with her vomiting. Patient states she does have some mild diffuse abdominal pain. Patient describes it as aching. Patient also admits to some low back pain. Physical Examination: Vital signs are stable. Patient is afebrile. Patient is in no acute distress. Oral mucosa is pink and moist. Neck is supple. Trachea is midline. There is no JVD. Heart was regular rate and rhythm. Lungs are clear and equal bilaterally. Abdomen is soft. Bowel sounds are normal. There is mild diffuse tenderness. There is no rebound or guarding noted. There is no lumbar spine or paraspinal tenderness. There is good range of motion. Strength is 5/5 bilateral knee upper and lower extremities. There are no sensory deficits noted. Test Results: CBC and comprehensive metabolic profile were within normal limits. Serum hCG was negative. Urinalysis does not show any evidence of urinary tract infection. Emergency Department Course and Treatment: Patient was given IV fluids and Toradol here. Patient was feeling better on reevaluation. Patient was instructed to start with liquid diet and advance to a bland diet and then to a regular diet as she starts to feel better. Patient and her spouse understood and were agreeable with the plan. All questions were answered. Disposition: Discharge home Impression: Nausea and vomiting This note was generated with flo.do dictation software. It may contain incorrect words, spelling, and punctuation that were not noted in review of the chart prior to signing ED Disposition - Plan for ED Patient: Disposition: Home or Assisted Living Diagnosis: Nausea and vomiting Instructions: VOMITING (7y-Adult) Prescriptions: Ondansetron [Zofran Odt] 4 mg PO Q8H PRN PRN #10 tab PRN Reason: Nausea Prescription Printed Referrals: Lianne Glaser NP-C [Primary Care Provider] - 5-7 Days What to do if you have Problems For any increased pain, shortness of breath, bleeding, nausea or vomiting, chest pain, or any unexpected problems, contact your Primary Care Provider. Call [facility] ([phone]) or report to the closest Emergency Room. Call 911 if necessary. 09/24/19 3899 <Electronically signed by Tobias Vasquez DO> Date Tobias Vasquez DO Cosigner Signature (If Indicated): Date CC: SCOT Glaser Lianne Sarikaantione OFFICE SERVICE COORDINATOR Work Phone: Start: 04-16-2018 End: 04-16-2018 Operative Report Comments: See Note; NOTES: [facility] Medical Records Department [address] [place] [address] Operative Report 04/16/18 1624 MR#: [id number] Acct: [id number] Name: JUDITH LACY Rep #: [id number] : 1970 47 From: Magda Finn MD PCP: Lianne Glaser NP Status: [facility] [place] [facility] of Operation Date of Procedure: 04/16/18 Pre-Operative Diagnosis: Stress urinary incontinence Post-Operative Diagnosis: same Surgery/Procedure Performed:: Tension free retropubic midurethral sling with Brando mesh Description of Surgical Findings:: Normal vagina and bladder and uretral meatus glass finisher: Reba Nelson Type of Anesthesia:: General Anesthesiologist: Kathy iNck Special Medications: none Specimen's removed: none Drains: ramon Estimated Blood Loss (mL): 20 cc Fluids Replaced: LR Description of Procedure: The tension-free vaginal tape mid urethral sling procedure was then performed by me after the completion of Dr. Quick is portion of the case. The mid urethra was identified and the vaginal epithelium under it was grasped with Tracie clamps and the vaginal epithelium was infiltrated with 1% Xylocaine with dilute epinephrine solution. An incision was made under the mid urethra and dissected laterally under the pubic ramus on both sides. The midline at the symphysis pubis was marked and then 2 cm on each side was marked with a marking pen. I hydrodissected behind the symphysis with 30 cc of injectable saline on both sides of the midline. A catheter guide was used to shift the bladder to the patient's left side and the right trocar was placed with the retropubic trocar. This was walked up behind the symphysis aiming towards the ipsilateral shoulder until I exited in the skin 2 cm to left of the midline directly cephalad to the pubic ramus. The bladder was taken to the opposite side and the left trocar was advanced in a similar fashion behind the symphysis pubis and out through the skin where it had been marked with a marker. A cystoscopy was then performed at this time. The bladder was intact. There were no perforations. Both ureteral jets were noted. Cystoscopy was ended and the Ramon placed to straight drain. The sling was secured up against the mid urethra using the Metzenbaum scissors as a spacer so as not to impinge upon the urethra. The protective sheath was removed from the mesh. The excess mesh was trimmed at the suprapubic incisions and those incisions were closed with skin glue. The vaginal epithelium overlying the mesh was reapproximated with 2-0 Vicryl suture. The mesh was lying flat against the mid urethra and no buttonholing of the vagina in either vaginal fornix was noted. Vagina was packed with iodoform gauze after a vaginal sweep was completed by me. Grafts/Implants Used: Caldara midurethral sling mesh - Complications none - Admit VTE Documentation VTE Present on Admission: No VTE Mechan Device Prophylaxis: SCD's VTE Pharm Prophylaxis ordered?: No Reason prophylaxis not ordered:: Procedure Not Indicated 04/16/18 1629 <Electronically signed by Magda Finn MD> Date Magda Finn MD CC: Lianne Glaser NP; Reba Nelson MD; Magda Finn MD Signed Lianne Glaser Start: 04-16-2018 End: 04-16-2018 Operative Report Comments: See Note; NOTES: [facility] Medical Records Department [address] [place] [address] Operative Report 04/16/18 1356 MR#: [id number] Acct: [id number] Name: JUDITH LACY Rep #: [id number] : 1970 47 From: Reba Nelson MD PCP: Lianne Glaser NP Status: REG SDC Y Location: [place] [address] Operative Report Date of Procedure: 04/16/18 Surgeon: Dr. Reba Nelson Continuous Improvement Coordinator: None Preop diagnosis: AUB Post op diagnosis: Same Procedure performed: Hysteroscopy, Merced Ablation (retropubic sling placement and cystoscopy- please see her dictation) Drains: None Implantable devices: none Complications: none EBL: minimal anesthesia: general After informed consent was obtained patient taken to the operating room she is placed in supine position she is given anesthesia simply self insert she is prepped draped normal sterile fashion. Bladder was drained prior to the start of the procedure- 430cc clear yellow urine. At this time the weighted speculum was placed the posterior fornix of the vagina then a single-tooth tenaculum was used to grasp the anterior lip of the cervix. At this time the uterus was sounded to approximately 8.5 cm the endocervical canal sounded to 4.5 cm. Next cervix was dilated in incremental fashion. Once adequate dilatation was achieved the hysteroscope was inserted using normal saline as distention medium. On hysteroscopy there were no gross abnormalities. Both tubal ostia were visualized. At this time the Merced device was opened. The Merced was set at 4.5 cm. The device was activated. Prior to activation the field test was performed and cavity was intact. The device was then fired and activated for 120 seconds. Once the 120 seconds was completed the device was removed intact and the tenaculum was removed. Good hemostasis was appreciated. Weighted speculum was removed. Vaginal sweep was performed is negative. There were no complications. Anticipated normal postoperative course for this patient. Instrument and lap count were correct 2. - Retropubic sling then placed by Dr. Magda Finn with my assistance- please see separate dictation for this procedure. Vaginal sweep negative. 04/16/18 1359 <Electronically signed by Reba Nelson MD> Date Reba Nelson MD CC: Lianne Glaser CAR SERVICER; Reba Nelson MD Signed Lianne Glaser Start: 04-16-2018 End: 04-16-2018 Discharge Instruction Comments: See Note; NOTES: [facility] Medical Records Department [address] [place] [address] Instructions for Home/Discharge Instructions 04/16/18 1354 MR#: [id number] Acct: [id number] Name: JUDITH LACY Rep #: [id number] : 1970 47 From: Reba Nelson MD PCP: Lianne Glaser NP [place] [facility] [place] Diet: No Restrictions Discharge Activity: Return to Normal Activity, May Shower May resume sexual activity in: 6 weeks Lifting Restrictions: 20-25 Call your doctor if your incision/area has: Continuous Slow Oozing, Increased Pain/ Swelling, Increased Redness, Foul Smelling Discharge, Swelling at the incision site Call your doctor if you observe: Fever of 101 or Higher, Inability to urinate, Using more than one pad per hour Cleanse incision/area with: Soap AND Water, - - do not pick off skin glue- ok to shower and let soap and water run over incision sites Allergies/Adverse Reactions: Allergies nickel Allergy (Verified 04/09/18 12:06) Rash Penicillins Allergy (Verified 04/09/18 12:06) Rash Medications to take at Discharge Ascorbic Acid [Vitamin C] 1,000 mg PO DAILY 04/09/18 Cholecalciferol (Vitamin D3) [Vitamin D3] 2,000 unit PO DAILY 04/09/18 Turmeric/Turmeric Root Extract [Turmeric 500 mg Capsule] 1 each PO DAILY 04/09/18 Nitrofurantoin Monohyd/M-Cryst [Macrobid 100 mg Capsule] 100 mg PO BID #6 cap 04/16/18 The following prescriptions were given: Nitrofurantoin Monohyd/M-Cryst [Macrobid 100 mg Capsule] 100 mg PO BID #6 cap Primary Care Physician: Lianne Glaser [Primary Care Provider] - Test Results: Test results from this visit will be discussed in further detail at your follow-up appointment, if applicable. Please Follow Up With: Reba Nelson MD When: as scheduled in 2 weeks 04/16/18 1353 <Electronically signed by Reba Nelson MD> Date Reba Nelson MD CC: Lianne Glaser CAR SERVICER Lianne Glaser Bunionectomy Eric Dejesus Comment on above: 2004 Bunionectomy with osteotomy of first metatarsal Eric Gayle LPN Comment on above: 2004 Bunionectomy with osteotomy of first metatarsal Eric Gayle MARKETING PROPOSAL COORDINATOR Comment on above: 2004 Bunionectomy with osteotomy of first metatarsal Camryn Gresham LPN Comment on above: 2004 section Eric kahn Comment on above: 2014 section Eric morton MARKETING PROPOSAL COORDINATOR Comment on above: 2014 section Eric morton MARKETING PROPOSAL COORDINATOR Comment on above: 2014 section Camrynjoel mullins MARKETING PROPOSAL COORDINATOR Comment on above: 2014 Mammography Eric Dejesus Comment on above: 11/2016 Mammography Eric Gayle LP N Comment on above: 11/2016 Mammography Eric Gayle LP N Comment on above: 11/2016 Mammography Camryn Mp L PN Comment on above: 11/2016 Microscopic examinat ion of cervical Papanicolaou smear Eric Dejesus Comment on above: 2013 Microscopic examinat ion of cervical Papanicolaou smear Eric Gayle LPN Comment on above: 2013 Microscopic examinat ion of cervical Papanicolaou smear Eric Gayle LPN Comment on above: 2013 Microscopic examinat ion of cervical Papanicolaou smear Camryn Gresham LPN Comment on above: 2013 Plan of Treatment Date Care Activity Detail Author Start: 04-27-2025 Urine microalbumin profile [facility] Start: 09-26-2024 Colonoscopy COLONOSCOPY [facility] Start: 09-26-2024 COLORECTAL CANCER SCREENING COLORECTAL CANCER SCREENING [facility] Start: 06-28-2024 HPV TESTING HPV TESTING [facility] Start: 06-28-2024 PAP TESTING PAP TESTING [facility] Start: 05-22-2024 Mammography Mammogram Screening [facility] Start: 07-09-2023 Procedure Education Eprescribe d prescriptions (G8553) [facility]; [facility] Work Phone: Start: 07-09-2023 Provider Instruction s for Treatment [facility]; [facility] Work Phone: Start: 07-09-2023 Cyanocobalamin vitam in b-12 VITAMIN B12 AND FOLATES (40929) [facility]; [facility] Work Phone: Start: 07-09-2023 25 hydroxy includes fractions if performed CALCIFEDIOL (84493) [facility]; [facility] Work Phone: Start: 07-09-2023 Urinalysis qual/semiquant except immunoassays URINALYSIS (03221) [facility]; [facility] Work Phone: Start: 07-09-2023 Lipid panel LIPID PANEL (66226) [facility]; [facility] Work Phone: Start: 07-09-2023 Assay of thyroid stimulating hormone tsh TSH (THYROID STIMULATING HORMONE) (54542) [facility]; [facility] Work Phone: Start: 07-09-2023 Blood count complete auto&auto difrntl wbc CBC, PLATELETS & AUT DIFF (95794) [facility]; [facility] Work Phone: Start: 07-09-2023 Comprehensive metabo lic panel METABOLIC PANEL, COMPREHENSIVE (65464) [facility]; [facility] Work Phone: Start: 05-16-2023 Covid-19 Vaccine ( season) Covid-19 Vaccine ( season) [facility] Start: 05-16-2023 Influenza vaccination [facility] Start: 04-11-2023 Mammography MAMMOGRAM [facility] Start: 09-15-2022 DEPRESSION ASSESSMENT DEPRESSION ASS ESSMENT [facility] Start: 05-16-2022 Influenza vaccination INFLUENZA (#1) [facility] Start: 12-12-2021 Procedure Education Eprescribe d prescriptions (G8553) [facility] Work Phone: Start: 12-12-2021 Provider Instruction s for Treatment Follow up in 6 months put pt on list to call for future [facility] Work Phone: Start: 11-28-2021 25 hydroxy includes fractions if performed CALCIFEDIOL ([id number]) [facility]; [facility] Work Phone: Comment on above: 12-05 Start: 11-28-2021 Blood count complete automated CBC & PLATELETS (AUTO) ([id number]) [facility]; [facility] Work Phone: Comment on above: 12-05 Start: 11-28-2021 Assay of thyroid stimulating hormone tsh TSH (THYROID STIMULATING HORMONE) ([id number]) [facility]; [facility] Work Phone: Comment on above: 12-05 Start: 11-28-2021 Lipid panel LIPID PANEL ([id number]) [facility]; [facility] Work Phone: Comment on above: 12-05- Start: 11-28-2021 Comprehensive metabo lic panel Metabolic Panel, Comprehensive ([id number]) [facility]; [facility] Work Phone: Comment on above: 12-05 Start: 11-28-2021 Procedure Education Eprescribe d prescriptions (G8553) [facility]; [facility] Work Phone: Start: 11-28-2021 Provider Instruction s for Treatment [facility]; [facility] Work Phone: Start: 11-25-2021 SHINGRIX VACCINE (1 of 2) SHINGRIX VACCINE (1 of 2) [facility] Start: 09-15-2021 DEPRESSION ASSESSMENT DEPRESSION ASS ESSMENT [facility] Start: 06-20-2021 COVID-19 VACCINE (3 - Booster for Moderna series) COVID-19 VACCINE (3 - Booster for Moderna series) [facility] Start: 03-15-2021 COVID-19 VACCINE (3 - Booster for Moderna series) COVID-19 VACCINE (3 - Booster for Moderna series) [facility] Start: 03-15-2021 Covid-19 Vaccine (3 - Moderna series) Covid-19 Vaccine (3 - Moderna series) [facility] Start: 12-14-2019 Procedure Education Eprescribe d prescriptions (G8553) [facility]; [facility] Work Phone: Start: 12-14-2019 Provider Instruction s for Treatment [facility]; [facility] Work Phone: Start: 06-16-2019 25 hydroxy includes fractions if performed CALCIFEDIOL ([id number]) [facility] Work Phone: Start: 06-16-2019 Comprehensive metabo lic panel Metabolic Panel, Comprehensive ([id number]) [facility] Work Phone: Start: 06-16-2019 TSH Qn TSH (THYROID STIMULATING HORMONE) (14527) [facility] Work Phone: Start: 06-16-2019 Blood count complete automated CBC & PLATELETS (AUTO) ([id number]) [facility] Work Phone: Start: 06-16-2019 Lipid panel LIPID PANEL (42074) [facility] Work Phone: Start: 06-16-2019 25 hydroxy includes fractions if performed CALCIFEDIOL ([id number]) [facility] Work Phone: Start: 06-16-2019 Blood count complete automated CBC & PLATELETS (AUTO) (31046) [facility] Work Phone: Start: 06-16-2019 Comprehensive metabo lic panel Metabolic Panel, Comprehensive (94282) [facility] Work Phone: Start: 06-16-2019 Lipid panel LIPID PANEL (60914) [facility] Work Phone: Start: 06-16-2019 TSH Qn TSH (THYROID STIMULATING HORMONE) ([id number]) [facility] Work Phone: Start: 06-15-2019 Procedure Education Eprescribe d prescriptions (G8553) [facility] Work Phone: Start: 06-15-2019 Provider Instruction s for Treatment Follow up - Make appt after diagnostic tests [facility] Work Phone: Start: 10-27-2017 Procedure Education Eprescribe d prescriptions (G8553) [facility] Work Phone: Start: 10-27-2017 Provider Instruction s for Treatment Follow up in 1 year or as needed [facility] Work Phone: Start: 04-22-2017 Procedure Education Eprescribe d prescriptions (G8553) [facility] Work Phone: Start: 04-22-2017 Provider Instruction s for Treatment Follow up in 6 months [facility] Work Phone: Start: 04-07-2017 Procedure Education Eprescribe d prescriptions (G8553) [facility] Work Phone: Start: 04-07-2017 Provider Instruction s for Treatment Follow up in 2 weeks [facility] Work Phone: Start: 04-07-2017 Urinalysis qual/semiquant except immunoassays URINALYSIS (60350) [facility] Work Phone: Start: 11-25-2016 COLOGUARD (FIT-DNA) COLOGUARD (FIT-D NA) [facility] Start: 11-25-[address] COLONOGRAPHY [facility] Start: 11-25-2016 DIABETES SCREEN DIABETES SCREEN [facility] Start: 11-25-2016 Diabetes Screening Diabetes Screenin g [facility] Start: 11-25-2016 FECAL OCCULT BLOOD FECAL OCCULT BLOO D [facility] Start: 11-25-2016 Lipid 1996 panel - S omaira or Plasma Lipid Screening [facility] Start: 11-25-2016 LIPID SCREEN LIPID SCREEN [facility] Start: 11-25-2016 SIGMOIDOSCOPY SIGMOIDOSCOPY [facility] Start: 11-25-1989 HEPATITIS C SCREENING HEPATITIS C [facility] Start: 1983 Adult depression screening assessment DEPRESSION SCREENING [facility] Start: 1971 HEPATITIS B (1 of 3 - 3-dose series) HEPATITIS B (1 of 3 - 3-dose series) [facility] Start: 1970 Hepatitis B Vaccine (1 of 3 - 3-dose series) Hepatitis B Vaccine (1 of 3 - 3-dose series) [facility] End: 09-11-2023 SHELBY SCREENING W MICKEY SHELBY SCREENING W MICKEY Radiology Routine Encounter for screening mammogram for malignant neoplasm of breast 1 Occurrences starting 08/12/2022 until 09/11/2023 [facility] Work Phone: Comment on above: 1 Occurrences starti ng 08/12/2022 until 09/11/2023 [facility] Work Phone: [facility]; [facility] Work Phone: [facility] Immunizations Immunization Date Immunization Notes Care Provider Patty herndon 08-01-2020 influenza virus vaccine, unspecified formulation Mammography Coordinator [facility] 06-27-2018 influenza, injectabl e, quadrivalent, contains preservative Screen [facility] 07-31-2017 influenza, injectabl e, quadrivalent, contains preservative Screen [facility] Work Phone: 07-26-2016 influenza, injectabl e, quadrivalent, contains preservative Screen [facility] Work Phone: 06-13-2015 influenza, injectabl e, quadrivalent, contains preservative Screen [facility] 04-27-2015 tetanus toxoid, reduced diphtheria toxoid, and acellular pertussis vaccine, adsorbed Screen [facility] 02-04-2013 tetanus toxoid, reduced diphtheria toxoid, and acellular pertussis vaccine, adsorbed Screen [facility] Work Phone: 07-25-2012 influenza virus vaccine, unspecified formulation Screen [facility] Work Phone: Payers Date Payer Category Payer Self-pay [id number] 2023 Unknown [id number] 2018 Unknown 2018 Unknown [id number] 2018 Unknown MMO MMO [employer] [id number] 2018-Present [phone] [address] [place] [address] PPO [id number] 2016 Unknown [id number] Unknown [id number] Unknown [id number] Unknown [id number] Unknown [id number] Unknown [id number] Unknown [id number] Social History Date Type Detail Facility Alcohol use: Alcohol use: [facility] Work Phone: Start: 02-20-2023 End: 05-22-2023 Exercise Exercise [facility] [employer] [facility] Work Phone: Comment on above: 4 days a week heavy exercise Living Situation: Living Situation: [facility] Work Phone: Comment on above: And children Tobacco use: Tobacco use: [facility] Work Phone: Alcohol use: Alcohol use: [facility] Work Phone: Living Situation: Living Situation: [facility]; [facility] Work Phone: Comment on above: And children Tobacco use: Tobacco use: [facility] Work Phone: Start: 09-24-2019 Tobacco smoking status NHIS Unknown if ever smoked [facility] Work Phone: Start: 04-09-2018 Non-smoker [facility] Start: 1970 Sex Assigned At Female W [facility] Start: 07-25-2012 End: 02-23-2024 Tobacco smoking status NHIS Never smoked tobacco [facility] Work Phone: Start: 07-25-2012 End: 02-04-2013 Tobacco use and exposure Smokeless tobacco non-user [facility] Work Phone: Start: 10-08-2021 End: 02-20-2023 Alcohol intake Current non-drinker of alcohol (finding) [facility] Start: 1970 Sex Assigned At Not on file [facility] Start: 03-23-2022 End: 07-22-2022 Exposure to SARS-CoV-2 (event) Not sure [facility] Start: 02-20-2023 End: 05-22-2023 Tobacco use panel [facility] National Score (1-100), lower number is lower risk 52 [facility] Start: 12-30-2024 Sex Female (finding) [facility] Medical Equipment Procedure Code Equipment Code Equipment Origin al Text Equipment Identifier Dates SLING,VAG,JESSICA A DESARA FDA Start: 04-16-2018 SLING,VAG,JESSICA A DESARA FDA Start: 04-16-2018 SLING,VAG,JESSICA A DESARA FDA Start: 04-16-2018 Clinical Notes 06-28-2015 to 05-23-2023 Letter - Coordinator, Mammography - 05/23/2023 8:59 AM Aristides Ortega Mammo Tech - 05/22/2023 9:50 AM Tracey Ramirez MD - 02/20/2023 7:54 AM EDT Note Date & Type Note Facility 05-23-2023 Miscellaneous Notes May 23, 2023 PID: [id number] Judith Lacy [address] [place] [address] Dear Ms. Lacy, We are pleased to inform you that the results of your recent breast imaging exam on 05/22/2023 are normal. Your mammogram demonstrates that you have dense breast tissue, which could hide abnormalities. Dense breast tissue, in and of itself, is a relatively common condition. Therefore, this information is not provided to cause undue concern; rather, it is to raise your awareness and promote discussion with your health care provider regarding the presence of dense breast tissue in addition to other risk factors. Early detection of cancer is very important. We also understand recommendations regarding breast cancer screening are controversial. Please discuss with your primary care provider which strategy is best for you and whether a mammogram is right for you. Your imaging studies and report will be kept on file at [facility] as part of your permanent medical record and are available for your continuing care. Thank you for allowing us to help in meeting your health care needs. Sincerely, Dr. Wilson Interpreting Radiologist [facility] (Normal over 40) documented in this encounter [facility] 05-22-2023 Note HNO ID: [id number] Author: Aristides Herrera Mammo Tech Service: ? Author Type: Technologist Type: Progress Notes Filed: 05/22/2023 10:19 AM Note Text: Radiology Service Progress Note PATIENT NAME: Judith Lacy DATE OF SERVICE: May 22, 2023 TIME: 9:50 AM PATIENT IDENTITY VERIFICATION COMPLETED USING TWO (2) IDENTIFIERS: Name and Date of confirmed by patient verbally. FALL SCREENING: Has the patient had 2 falls in the last year or 1 fall with injury or currently using an Ambulatory Assistive Device (Walker, Cane, Wheelchair, Crutches, etc.)? No PATIENT GENDER DATA: Female. status: : No status: NO. PATIENT RELEVANT IMPLANT DATA REVIEWED: Not Applicable RADIOLOGY DEPARTMENT: Mammography PERIPHERAL IV DATA: Not applicable SIGNED BY: Berenice Mojica May 22, 2023 9:50 AM [facility] 05-22-2023 History of Presen t illness Narrative Radiology Service Progress Note PATIENT NAME: Judith Lacy DATE OF SERVICE: May 22, 2023 TIME: 9:50 AM PATIENT IDENTITY VERIFICATION COMPLETED USING TWO (2) IDENTIFIERS: Name and Date of confirmed by patient verbally. FALL SCREENING: Has the patient had 2 falls in the last year or 1 fall with injury or currently using an Ambulatory Assistive Device (Walker, Cane, Wheelchair, Crutches, etc.)? No PATIENT GENDER DATA: Female. status: : No status: NO. PATIENT RELEVANT IMPLANT DATA REVIEWED: Not Applicable RADIOLOGY DEPARTMENT: Mammography PERIPHERAL IV DATA: Not applicable SIGNED BY: Berenice Mojica May 22, 2023 9:50 AM documented in this encounter [facility] 02-20-2023 Note HNO ID: [id number] Author: Geovany Ramirez MD Service: ? Author Type: Physician Type: Progress Notes Filed: 02/20/2023 8:02 AM Note Text: Patient presents with: Sore Throat: ST x 1 day HPI: Feeling sore throat since yesterday. Has seasonal allergies. Positive symptoms: sore throat, sneezing, Negative symptoms: Cough, Nasal Congestion, Rhinorrhea, Fever, Body Aches, OTC: routine nasonex and claritin MEDICATIONS: Current Outpatient Medications Medication Sig acyclovir (ZOVIRAX) 400 mg tablet Take 1 tablet by mouth twice daily. HERBAL DRUGS ORAL Take by mouth. Elderberry cholecalciferol, vitamin D3, (VITAMIN D3 ORAL) Take by mouth once daily. Lactobacillus acidophilus (PROBIOTIC ORAL) Take by mouth once daily. TURMERIC ROOT EXTRACT ORAL Take by mouth. ascorbic acid, vitamin C, (VITAMIN C) 500 mg tablet Take 500 mg by mouth three times daily. No current facility-administered medications for this visit. ALLERGIES: ALLERGIES Allergen Reactions Nickel Rash Penicillins Rash VITALS: BP 110/78 Pulse (!) 58 Temp 36.3 ?C (97.3 ?F) (Tympanic) Resp 18 Wt 51.4 kg (113 lb 6.4 oz) LMP 03/24/2018 SpO2 99% BMI 20.74 kg/m? PHYSICAL EXAM: GEN: Pleasant, in no acute distress. HEENT: PERRL, EOMI, conjunctiva clear Ears: canals clear. TMs without erythema, bulge, or effusion Sinuses: non-tender frontal sinus, non-tender maxillary sinuses Throat: moist mucous membranes, posterior pharyngeal erythema, no exudate Neck: supple, no thyromegaly, no lymphadenopathy HEART: regular rate and rhythm, no murmurs LUNGS: clear to auscultation, no wheezes or crackles, no increased WOB ASSESSMENT/PLAN: 1. Sore throat - ICD9: 462, ICD10: J02.9 - STREP A MOLECULAR (POC) - negative. - suspect viral pharyngitis - Discussed supportive care treatment with lozenges, gargles, and analgesia. Geovany Ramirez MD [facility] 02-20-2023 History of Presen t illness Narrative Patient presents with: Sore Throat: ST x 1 day HPI: Feeling sore throat since yesterday. Has seasonal allergies. Positive symptoms: sore throat, sneezing, Negative symptoms: Cough, Nasal Congestion, Rhinorrhea, Fever, Body Aches, OTC: routine nasonex and claritin MEDICATIONS: Current Outpatient Medications Medication Sig acyclovir (ZOVIRAX) 400 mg tablet Take 1 tablet by mouth twice daily. HERBAL DRUGS ORAL Take by mouth. Elderberry cholecalciferol, vitamin D3, (VITAMIN D3 ORAL) Take by mouth once daily. Lactobacillus acidophilus (PROBIOTIC ORAL) Take by mouth once daily. TURMERIC ROOT EXTRACT ORAL Take by mouth. ascorbic acid, vitamin C, (VITAMIN C) 500 mg tablet Take 500 mg by mouth three times daily. No current facility-administered medications for this visit. ALLERGIES: ALLERGIES Allergen Reactions Nickel Rash Penicillins Rash VITALS: BP 110/78 Pulse (!) 58 Temp 36.3 C (97.3 F) (Tympanic) Resp 18 Wt 51.4 kg (113 lb 6.4 oz) LMP 03/24/2018 SpO2 99% BMI 20.74 kg/m PHYSICAL EXAM: GEN: Pleasant, in no acute distress. HEENT: PERRL, EOMI, conjunctiva clear Ears: canals clear. TMs without erythema, bulge, or effusion Sinuses: non-tender frontal sinus, non-tender maxillary sinuses Throat: moist mucous membranes, posterior pharyngeal erythema, no exudate Neck: supple, no thyromegaly, no lymphadenopathy HEART: regular rate and rhythm, no murmurs LUNGS: clear to auscultation, no wheezes or crackles, no increased WOB ASSESSMENT/PLAN: 1. Sore throat - ICD9: 462, ICD10: J02.9 - STREP A MOLECULAR (POC) - negative. - suspect viral pharyngitis - Discussed supportive care treatment with lozenges, gargles, and analgesia. Geovany Ramirez MD documented in this encounter [facility] 02-13-2023 Miscellaneous Notes Diflucan sent in. If symptoms persist or worsen needs appointment thanks documented in this encounter [facility] 08-12-2022 Note HNO ID: [id number] Author: Reba Quick MD Service: ? Author Type: Physician Type: Progress Notes Filed: 08/12/2022 1:49 PM Note Text: Risk Control Product Liability Director offered: Patient declines. Lorena is a 51 year old who presents for an annual gynecologic exam with complaints, concerns she is going through menopause. . Menses: irregular. LMP April 2022 Contraception: vasectomy HPV vaccine: No Last Pap: 06/30/2019 normal HPV: 06/30/2019 negative History of abnormal pap: yes Last mammogram: 2021normal Sexually active: Yes History of STDS: HSV Patient concerns for STD exposure: No. Pain with intercourse: No Postcoital bleeding: No Hot flashes: No Night sweats: occasionally Vaginal dryness: Yes Exercise: runs Diet: balanced OB History T2 L2 SAB2 IAB0 Ectopic0 Multiple0 Live Births2 Seam Stay Stitcher History LMP: 03/24/2018, Ablation Age at Menarche: Age at First : Age at Menopause: Seam Stay Stitcher History Comments: Sexual Activity: Yes; Male Contraception: No contraception data on record PAST MEDICAL HISTORY Diagnosis Date Abnormal Pap smear of cervix 2010 +HPV Asthma NO ASTHMA ATTACKS SINCE AGE 19 FRACTURE 1985 COLLARBONE Herpes simplex without mention of complication PAST SURGICAL HISTORY Procedure Laterality Date BUNIONECTOMY, [place]-TYPE LEFT FOOT DELIVERY ONLY 07/12/2015 , low transverse COLONOSCOPY FLX DX W/COLLJ SPEC WHEN PFRMD 09/26/2021 tubular adenoma >10 mm, repeat in 3 years COLPOSCOPY CERVIX UPPER/ADJACENT VAGINA 09/15/2010 Colposcopy FAMILY HISTORY Problem Relation Age of Onset Arthritis Mother Asthma Mother Heart Mother Hypertension Mother Osteoporosis Mother Alzheimer's Disease Maternal Grandmother Emphysema Paternal Grandfather SOCIAL HISTORY Social History Tobacco Use Smoking status: Never Smokeless tobacco: Never Vaping Use Vaping Use: Never used Substance Use Topics Alcohol use: No Drug use: No REVIEW OF SYSTEMS Abdomen: No abdominal pain, nausea, vomiting, diarrhea, or constipation. No bloating, early satiety, indigestion, or increased flatulence. Bladder: No dysuria, gross hematuria, urinary frequency, urinary urgency, or incontinence. Breast: No breast lumps, nipple d/c, overlying skin changes, redness or skin retraction. Allergies and current medication updated:Yes EXAM: BP 104/64 Wt 109 lb (49.4kg) LMP 03/24/2018 GENERAL: pleasant, female in no apparent distress HEENT: Normocephalic, atraumatic, mucus membranes moist, and no lesions NECK: Supple, full range of motion, no adenopathy, and thyroid normal DERMATOLOGY: Normal, without lesions, non-icteric, and non-hirsute BREAST: soft, non-tender, symmetric, no dominant mass, normal nipple-areolar complex, no lymphadenopathy, and no nipple discharge ABDOMEN: soft, non-tender, and no masses PELVIC: external genitalia normal, normal Bartholin's glands, urethra, [place]'s glands, no vulvar lesions, no cervical lesions, good vaginal support, physiologic discharge present, normal appearing perineal body and perianal region BIMANUAL: uterus normal size, shape and consistency, no adnexal masses, and non-tender RECTOVAGINAL: deferred. NEURO: alert and oriented x3,exam grossly non-focal EXTREMITIES: normal ASSESSMENT/PLAN: 1) Health maintenance: Pap/HPV up to date. Mammogram up to date . Nutrition, exercise and routine health maintenance exams reviewed. Calcium/Vitamin D supplementation information provided. 2) Contraception: vasectomy. Contraceptive options reviewed and information provided. 3) STD screening: Declined STD check. 4) Follow up one year or sooner as needed Reba Nelson MD [facility] 08-12-2022 History of Presen t illness Narrative Risk Control Product Liability Director offered: Patient declines. Lorena is a 51 year old who presents for an annual gynecologic exam with complaints, concerns she is going through menopause. . Menses: irregular. LMP April 2022 Contraception: vasectomy HPV vaccine: No Last Pap: 06/30/2019 normal HPV: 06/30/2019 negative History of abnormal pap: yes Last mammogram: 2021normal Sexually active: Yes History of STDS: HSV Patient concerns for STD exposure: No. Pain with intercourse: No Postcoital bleeding: No Hot flashes: No Night sweats: occasionally Vaginal dryness: Yes Exercise: runs Diet: balanced OB History T2 L2 SAB2 IAB0 Ectopic0 Multiple0 Live Births2 Seam Stay Stitcher History LMP: 03/24/2018, Ablation Age at Menarche: Age at First : Age at Menopause: Seam Stay Stitcher History Comments: Sexual Activity: Yes; Male Contraception: No contraception data on record PAST MEDICAL HISTORY Diagnosis Date Abnormal Pap smear of cervix 2010 +HPV Asthma NO ASTHMA ATTACKS SINCE AGE 19 FRACTURE 1985 COLLARBONE Herpes simplex without mention of complication PAST SURGICAL HISTORY Procedure Laterality Date BUNIONECTOMY, [place]-TYPE LEFT FOOT DELIVERY ONLY 07/12/2015 , low transverse COLONOSCOPY FLX DX W/COLLJ SPEC WHEN PFRMD 09/26/2021 tubular adenoma >10 mm, repeat in 3 years COLPOSCOPY CERVIX UPPER/ADJACENT VAGINA 09/15/2010 Colposcopy FAMILY HISTORY Problem Relation Age of Onset Arthritis Mother Asthma Mother Heart Mother Hypertension Mother Osteoporosis Mother Alzheimer's Disease Maternal Grandmother Emphysema Paternal Grandfather SOCIAL HISTORY Social History Tobacco Use Smoking status: Never Smokeless tobacco: Never Vaping Use Vaping Use: Never used Substance Use Topics Alcohol use: No Drug use: No REVIEW OF SYSTEMS Abdomen: No abdominal pain, nausea, vomiting, diarrhea, or constipation. No bloating, early satiety, indigestion, or increased flatulence. Bladder: No dysuria, gross hematuria, urinary frequency, urinary urgency, or incontinence. Breast: No breast lumps, nipple d/c, overlying skin changes, redness or skin retraction. Allergies and current medication updated:Yes EXAM: BP 104/64 Wt 109 lb (49.4kg) LMP 03/24/2018 GENERAL: pleasant, female in no apparent distress HEENT: Normocephalic, atraumatic, mucus membranes moist, and no lesions NECK: Supple, full range of motion, no adenopathy, and thyroid normal DERMATOLOGY: Normal, without lesions, non-icteric, and non-hirsute BREAST: soft, non-tender, symmetric, no dominant mass, normal nipple-areolar complex, no lymphadenopathy, and no nipple discharge ABDOMEN: soft, non-tender, and no masses PELVIC: external genitalia normal, normal Bartholin's glands, urethra, [place]'s glands, no vulvar lesions, no cervical lesions, good vaginal support, physiologic discharge present, normal appearing perineal body and perianal region BIMANUAL: uterus normal size, shape and consistency, no adnexal masses, and non-tender RECTOVAGINAL: deferred. NEURO: alert and oriented x3,exam grossly non-focal EXTREMITIES: normal ASSESSMENT/PLAN: 1) Health maintenance: Pap/HPV up to date. Mammogram up to date . Nutrition, exercise and routine health maintenance exams reviewed. Calcium/Vitamin D supplementation information provided. 2) Contraception: vasectomy. Contraceptive options reviewed and information provided. 3) STD screening: Declined STD check. 4) Follow up one year or sooner as needed Reba Nelson MD documented in this encounter [facility] 08-05-2022 Miscellaneous Notes ordered [facility]. Pharmacy updated. Rosie Smyth RN What pharmacy? Please see pt's mychart message and advise. Ana Capellan LPN documented in this encounter [facility] 07-22-2022 Note HNO ID: [id number] Author: Snow Coker APRN.OFFICE SERVICE COORDINATOR Service: ? Author Type: Nurse Practitioner Type: Progress Notes Filed: 07/22/2022 10:58 AM Note Text: Subjective The history is provided by the patient. No senior editor was used. HPI Judith Lacy is a 51 year old female who presents today for CC of post nasal drainage, sinus congestion and pressure for a month. She also has a scartchy throat, worse at night. She has used allergy meds otc cough and cold medications without relief. BP 100/64 Pulse 75 Temp 36.5 ?C (97.7 ?F) Resp 20 Wt 50.7 kg (111 lb 12.8 oz) LMP 03/24/2018 SpO2 98% BMI 20.45 kg/m? Social History Tobacco Use Smoking status: Never Smokeless tobacco: Never Vaping Use Vaping Use: Never used Substance Use Topics Alcohol use: No Drug use: No PAST MEDICAL HISTORY Diagnosis Date Abnormal Pap smear of cervix 2010 +HPV Asthma NO ASTHMA ATTACKS SINCE AGE 19 FRACTURE 1985 COLLARBONE Herpes simplex without mention of complication I have confirmed and edited as necessary, the [facility] Review of Systems Constitutional: Negative for chills and fever. HENT: Positive for congestion, sinus pain and sore throat. Negative for ear pain. Facial pain Respiratory: Negative for cough, sputum production, shortness of breath and wheezing. Cardiovascular: Negative for chest pain. Musculoskeletal: Negative for myalgias. Neurological: Positive for headaches (sinus). Objective Physical Exam Vitals and nursing note reviewed. HENT: Head: Normocephalic and atraumatic. Right Ear: Ear canal and external ear normal. A middle ear effusion is present. Tympanic membrane is bulging. Left Ear: Tympanic membrane, ear canal and external ear normal. Nose: No mucosal edema, congestion or rhinorrhea. Right Sinus: Maxillary sinus tenderness and frontal sinus tenderness present. Left Sinus: No maxillary sinus tenderness or frontal sinus tenderness. Mouth/Throat: Pharynx: Uvula midline. No oropharyngeal exudate or posterior oropharyngeal erythema. Cardiovascular: Rate and Rhythm: Normal rate and regular rhythm. Heart sounds: Normal heart sounds. Pulmonary: Effort: Pulmonary effort is normal. Breath sounds: Normal breath sounds. Lymphadenopathy: Head: Right side of head: No submental, submandibular or tonsillar adenopathy. Left side of head: No submental, submandibular or tonsillar adenopathy. Cervical: No cervical adenopathy. Skin: General: Skin is warm and dry. Neurological: Mental Status: She is alert. Psychiatric: Mood and Affect: Affect normal. ASSESSMENT/PLAN: 1. Acute non-recurrent pansinusitis - ICD9: 461.8, ICD10: J01.40 - Will begin treatment with Doxycycline - Supportive care with plenty of fluids, rest, and analgesia prn. - Follow up in one week if symptoms persist or worsen. Diagnosis and treatment plan were discussed and questions were answered to the patient's satisfaction. Pt acknowledged understanding of concepts and follow up plan. Specific signs and symptoms that would indicate the need for higher level of care were discussed in detail warranting prompt ER evaluation. Snow Coker APRN.OFFICE SERVICE COORDINATOR [facility] 04-11-2022 Miscellaneous Notes April 11, 2022 PID: [id number] Judith Lacy [address] [place] [address] Dear Ms. Lacy, We are pleased to inform you that the results of your recent breast imaging exam on 04/11/2022 are normal. Your mammogram demonstrates that you have dense breast tissue, which could hide abnormalities. Dense breast tissue, in and of itself, is a relatively common condition. Therefore, this information is not provided to cause undue concern; rather, it is to raise your awareness and promote discussion with your health care provider regarding the presence of dense breast tissue in addition to other risk factors. Early detection of cancer is very important. We also understand recommendations regarding breast cancer screening are controversial. Please discuss with your primary care provider which strategy is best for you and whether a mammogram is right for you. Your imaging studies and report will be kept on file at [facility] as part of your permanent medical record and are available for your continuing care. Thank you for allowing us to help in meeting your health care needs. Sincerely, Dr. Restrepo Interpreting Radiologist [facility] (Normal over 40) documented in this encounter [facility] 04-11-2022 History of Presen t illness Narrative Radiology Service Progress Note PATIENT NAME: Judith Lacy DATE OF SERVICE: April 11, 2022 TIME: 7:48 AM PATIENT IDENTITY VERIFICATION COMPLETED USING TWO (2) IDENTIFIERS: Name and Date of confirmed by patient verbally. FALL SCREENING: Has the patient had 2 falls in the last year or 1 fall with injury or currently using an Ambulatory Assistive Device (Walker, Cane, Wheelchair, Crutches, etc.)? No PATIENT GENDER DATA: Female. status: : No status: NO. PATIENT RELEVANT IMPLANT DATA REVIEWED: Not Applicable RADIOLOGY DEPARTMENT: Mammography PERIPHERAL IV DATA: Not applicable SIGNED BY: RT Ricardo(R) April 11, 2022 7:48 AM documented in this encounter [facility] 06-28-2015 History of Past i llness Narrative Problem Noted Date Resolved Date Advanced maternal age in multigravida 06/28/2015 08/21/2015 Short interval between pregn ancies complicating , antepartum 04/14/2014 12/20/2014 Overview: 04/14/2014Frieda delivered her previous child March 12, 2013. TKRN History of prior with IUGR 08/21/2015 Overview: 04/14/2014Frieda has a history of IUGR with her last . The weight of her child was 5 lbs. 15 oz. TKRN History of maternal third de gree perineal laceration, currently 04/14/2014 08/21/2015 Group B streptococcus urinar y tract infection complicating 02/25/2013 12/20/2014 Overview: 02/25/13 - treat in urine - KK Advanced maternal age in 07/25/2012 08/21/2015 Overview: Declined NIPT or NT Anatomy us: Normal- GENDER SURPRISE History of asthma 07/25/2012 08/21/2015 Overview: 04/14/2014 Pt has a history of asthma. She denies any asthma attacks since age 19. Immunization due 07/25/2012 02/25/2013 Overview: 07/25/2012 Tetanus vaccine is not up to date documented as of this encounter (statuses as of 04/12/2022) [facility] History of Past illness Narrative* Problem Noted Date Resolved Date Advanced maternal age in multigravida 06/28/2015 08/21/2015 Short interval between pregn ancies complicating , antepartum 04/14/2014 12/20/2014 Overview: 04/14/2014Frieda delivered her previous child March 12, 2013. TKRN History of prior with IUGR 08/21/2015 Overview: 04/14/2014Frieda has a history of IUGR with her last . The weight of her child was 5 lbs. 15 oz. TKRN History of maternal third de gree perineal laceration, currently 04/14/2014 08/21/2015 Group B streptococcus urinar y tract infection complicating 02/25/2013 12/20/2014 Overview: 02/25/13 - treat in urine - KK Advanced maternal age in 07/25/2012 08/21/2015 Overview: Declined NIPT or NT Anatomy us: Normal- GENDER SURPRISE History of asthma 07/25/2012 08/21/2015 Overview: 04/14/2014 Pt has a history of asthma. She denies any asthma attacks since age 19. Immunization due 07/25/2012 02/25/2013 Overview: 07/25/2012 Tetanus vaccine is not up to date documented as of this encounter (statuses as of 04/13/2022) [facility] History of Past illness Narrative* Problem Noted Date Resolved Date Advanced maternal age in multigravida 06/28/2015 08/21/2015 Short interval between pregn ancies complicating , antepartum 04/14/2014 12/20/2014 Overview: 04/14/2014Frieda delivered her previous child March 12, 2013. TKRN History of prior with IUGR 08/21/2015 Overview: 04/14/2014Frieda has a history of IUGR with her last . The weight of her child was 5 lbs. 15 oz. TKRN History of maternal third de gree perineal laceration, currently 04/14/2014 08/21/2015 Group B streptococcus urinar y tract infection complicating 02/25/2013 12/20/2014 Overview: 02/25/13 - treat in urine - KK Advanced maternal age in 07/25/2012 08/21/2015 Overview: Declined NIPT or NT Anatomy us: Normal- GENDER SURPRISE History of asthma 07/25/2012 08/21/2015 Overview: 04/14/2014 Pt has a history of asthma. She denies any asthma attacks since age 19. Immunization due 07/25/2012 02/25/2013 Overview: 07/25/2012 Tetanus vaccine is not up to date documented as of this encounter (statuses as of 08/05/2022) [facility] History of Past illness Narrative* Problem Noted Date Resolved Date Advanced maternal age in multigravida 06/28/2015 08/21/2015 Short interval between pregn ancies complicating , antepartum 04/14/2014 12/20/2014 Overview: 04/14/2014Frieda delivered her previous child March 12, 2013. TKRN History of prior with IUGR 08/21/2015 Overview: 04/14/2014Frieda has a history of IUGR with her last . The weight of her child was 5 lbs. 15 oz. TKRN History of maternal third de gree perineal laceration, currently 04/14/2014 08/21/2015 Group B streptococcus urinar y tract infection complicating 02/25/2013 12/20/2014 Overview: 02/25/13 - treat in urine - KK Advanced maternal age in 07/25/2012 08/21/2015 Overview: Declined NIPT or NT Anatomy us: Normal- GENDER SURPRISE History of asthma 07/25/2012 08/21/2015 Overview: 04/14/2014 Pt has a history of asthma. She denies any asthma attacks since age 19. Immunization due 07/25/2012 02/25/2013 Overview: 07/25/2012 Tetanus vaccine is not up to date documented as of this encounter (statuses as of 08/12/2022) [facility] History of Past illness Narrative* Problem Noted Date Resolved Date Advanced maternal age in multigravida 06/28/2015 08/21/2015 Short interval between pregn ancies complicating , antepartum 04/14/2014 12/20/2014 Overview: 04/14/2014Frieda delivered her previous child March 12, 2013. TKRN History of prior with IUGR 08/21/2015 Overview: 04/14/2014Frieda has a history of IUGR with her last . The weight of her child was 5 lbs. 15 oz. TKRN History of maternal third de gree perineal laceration, currently 04/14/2014 08/21/2015 Group B streptococcus urinar y tract infection complicating 02/25/2013 12/20/2014 Overview: 02/25/13 - treat in urine - KK Advanced maternal age in 07/25/2012 08/21/2015 Overview: Declined NIPT or NT Anatomy us: Normal- GENDER SURPRISE History of asthma 07/25/2012 08/21/2015 Overview: 04/14/2014 Pt has a history of asthma. She denies any asthma attacks since age 19. Immunization due 07/25/2012 02/25/2013 Overview: 07/25/2012 Tetanus vaccine is not up to date documented as of this encounter (statuses as of 02/13/2023) [facility] of Past illness Narrative* Problem Noted Date Resolved Date Advanced maternal age in multigravida 06/28/2015 08/21/2015 Short interval between pregn ancies complicating , antepartum 04/14/2014 12/20/2014 Overview: 04/14/2014Frieda delivered her previous child March 12, 2013. TKRN History of prior with IUGR 08/21/2015 Overview: 04/14/2014Frieda has a history of IUGR with her last . The weight of her child was 5 lbs. 15 oz. TKRN History of maternal third de gree perineal laceration, currently 04/14/2014 08/21/2015 Group B streptococcus urinar y tract infection complicating 02/25/2013 12/20/2014 Overview: 02/25/13 - treat in urine - KK Advanced maternal age in 07/25/2012 08/21/2015 Overview: Declined NIPT or NT Anatomy us: Normal- GENDER SURPRISE History of asthma 07/25/2012 08/21/2015 Overview: 04/14/2014 Pt has a history of asthma. She denies any asthma attacks since age 19. Immunization due 07/25/2012 02/25/2013 Overview: 07/25/2012 Tetanus vaccine is not up to date documented as of this encounter (statuses as of 02/20/2023) [facility] History of Past illness Narrative* Problem Noted Date Diagnosed Date Resolved Date Advanced maternal age in multigravida 06/28/2015 08/21/2015 Short interval between pregn ancies complicating , antepartum 04/14/201412/20 Overview: 04/14/2014Frieda delivered her previous child March 12, 2013. TKRN History of prior with IUGR 4 08/21/2015 Overview: 04/14/2014Frieda has a history of IUGR with her last . The weight of her child was 5 lbs. 15 oz. TKRN History of maternal third de gree perineal laceration, currently 04/14/2014 5 Group B streptococcus urinar y tract infection complicating 02/25/2013 12/20/2014 Overview: 02/25/13 - treat in urine - KK Advanced maternal age in 07/25/2012 08/21/2015 Overview: Declined NIPT or NT Anatomy us: Normal- GENDER SURPRISE History of asthma 07/25/2012 08/21/2015 Overview: 04/14/2014 Pt has a history of asthma. She denies any asthma attacks since age 19. Immunization due 07/25/2012 02/25/2013 Overview: 07/25/2012 Tetanus vaccine is not up to date documented as of this encounter (statuses as of 05/27/2023) [facility] History of Past illness Narrative* Problem Noted Date Diagnosed Date Resolved Date Advanced maternal age in multigravida 06/28/2015 08/21/2015 Short interval between pregn ancies complicating , antepartum 04/14/201412/20 Overview: 04/14/2014Frieda delivered her previous child March 12, 2013. TKRN History of prior with IUGR 4 08/21/2015 Overview: 04/14/2014Frieda has a history of IUGR with her last . The weight of her child was 5 lbs. 15 oz. TKRN History of maternal third de gree perineal laceration, currently 04/14/2014 5 Group B streptococcus urinar y tract infection complicating 02/25/2013 12/20/2014 Overview: 02/25/13 - treat in urine - KK Advanced maternal age in 07/25/2012 08/21/2015 Overview: Declined NIPT or NT Anatomy us: Normal- GENDER SURPRISE History of asthma 07/25/2012 08/21/2015 Overview: 04/14/2014 Pt has a history of asthma. She denies any asthma attacks since age 19. Immunization due 07/25/2012 02/25/2013 Overview: 07/25/2012 Tetanus vaccine is not up to date documented as of this encounter (statuses as of 07/20/2023) [facility] [place] noteNo assessment information availableWAultman Alliance [facility] Work Phone: Evaluation note* Diagnosis Encounter for screening mammogram for malignant neoplasm of breast Other screening mammogram [facility] [place] [facility] Diagnosis Encounter for gynecological examination (general) (routine) without abnormal findings- Primary Encounter for screening mammogram for malignant neoplasm of breast Other screening mammogram [facility] [place] [facility]* Diagnosis Vaginal itching- Primary Pruritus of genital organs Vaginal burning Other specified symptom associated with female genital organs [facility] [place] [facility]* Diagnosis Sore throat- Primary Acute pharyngitis [facility] [place] [facility]* Diagnosis Encounter for screening mammogram for malignant neoplasm of breast Other screening mammogram [facility] Name Dates Details How to access health informa tion online Indication:Nonsmoker Start:14-Dec-2019 Instruction Type:Patient Education How to access health informa tion online - Detail Indication:Nonsmoker Start:14-Dec-2019 Instruction Type:Patient Education Patient Instructions Indication:Nonsmoker Start:14-Dec-2019 Instruction Type:Provider Instructions for Treatment How to access health informa tion online Indication:Nonsmoker Start:15-Jun-2019 Instruction Type:Patient Education How to access health informa tion online - Detail Indication:Nonsmoker Start:15-Jun-2019 Instruction Type:Patient Education Patient Instructions Indication:Body mass index (BMI) of 19.0-19.9 in adult Start:15-Jun-2019 Instruction Type:Provider Instructions for Treatment How to access health informa tion online Indication:Raynaud's phenomenon Start:27-Oct-2017 Instruction Type:Patient Education How to access health informa tion online - Detail Indication:Raynaud's phenomenon Start:27-Oct-2017 Instruction Type:Patient Education Patient Instructions Indication:Raynaud's phenomenon Start:27-Oct-2017 Instruction Type:Provider Instructions for Treatment How to access health informa tion online Indication:Fatigue Start:22-Apr-2017 Instruction Type:Patient Education How to access health informa tion online - Detail Indication:Fatigue Start:22-Apr-2017 Instruction Type:Patient Education Patient Instructions Indication:Fatigue Start:22-Apr-2017 Instruction Type:Provider Instructions for Treatment How to access health informa tion online Indication:Fatigue Start:07-Apr-2017 Instruction Type:Patient Education How to access health informa tion online - Detail Indication:Fatigue Start:07-Apr-2017 Instruction Type:Patient Education Patient Instructions Indication:Fatigue Start:07-Apr-2017 Instruction Type:Provider Instructions for Treatment [facility] Work Phone: Instructions* Name Dates Details Patient Instructions Indication:Nonsmoker Start:12-Dec-2021 Instruction Type:Provider Instructions for Treatment How to Access Health Informa tion Online using Patient Portal and [employer]rd [employer] Apps Indication:Nonsmoker Start:12-Dec-2021 Instruction Type:Patient Education Patient Instructions Indication:Nonsmoker Start:28-Nov-2021 Instruction Type:Provider Instructions for Treatment How to Access Health Informa tion Online using Patient Portal and [employer]rd [employer] Apps Indication:Nonsmoker Start:28-Nov-2021 Instruction Type:Patient Education How to access health informa tion online Indication:Nonsmoker Start:14-Dec-2019 Instruction Type:Patient Education How to access health informa tion online - Detail Indication:Nonsmoker Start:14-Dec-2019 Instruction Type:Patient Education Patient Instructions Indication:Nonsmoker Start:14-Dec-2019 Instruction Type:Provider Instructions for Treatment How to access health informa tion online Indication:Nonsmoker Start:15-Jun-2019 Instruction Type:Patient Education How to access health informa tion online - Detail Indication:Nonsmoker Start:15-Jun-2019 Instruction Type:Patient Education Patient Instructions Indication:Body mass index (BMI) of 19.0-19.9 in adult Start:15-Jun-2019 Instruction Type:Provider Instructions for Treatment How to access health informa tion online Indication:Raynaud's phenomenon Start:27-Oct-2017 Instruction Type:Patient Education How to access health informa tion online - Detail Indication:Raynaud's phenomenon Start:27-Oct-2017 Instruction Type:Patient Education Patient Instructions Indication:Raynaud's phenomenon Start:27-Oct-2017 Instruction Type:Provider Instructions for Treatment How to access health informa tion online Indication:Fatigue Start:22-Apr-2017 Instruction Type:Patient Education How to access health informa tion online - Detail Indication:Fatigue Start:22-Apr-2017 Instruction Type:Patient Education Patient Instructions Indication:Fatigue Start:22-Apr-2017 Instruction Type:Provider Instructions for Treatment How to access health informa tion online Indication:Fatigue Start:07-Apr-2017 Instruction Type:Patient Education How to access health informa tion online - Detail Indication:Fatigue Start:07-Apr-2017 Instruction Type:Patient Education Patient Instructions Indication:Fatigue Start:07-Apr-2017 Instruction Type:Provider Instructions for Treatment [facility]; [facility] Work Phone: Instructions* Name Dates Details How to Access Health Informa tion Online using Patient Portal and [employer] Apps Indication:Body mass index (BMI) of 19.0-19.9 in adult Start:09-Jul-2023 Instruction Type:Patient Education Patient Instructions Indication:Body mass index (BMI) of 19.0-19.9 in adult Start:09-Jul-2023 Instruction Type:Provider Instructions for Treatment Patient Instructions Indication:Nonsmoker Start:12-Dec-2021 Instruction Type:Provider Instructions for Treatment How to Access Health Informa tion Online using Patient Portal and [employer] Apps Indication:Nonsmoker Start:12-Dec-2021 Instruction Type:Patient Education Patient Instructions Indication:Nonsmoker Start:28-Nov-2021 Instruction Type:Provider Instructions for Treatment How to Access Health Informa tion Online using Patient Portal and [employer] Apps Indication:Nonsmoker Start:28-Nov-2021 Instruction Type:Patient Education How to access health informa tion online Indication:Nonsmoker Start:14-Dec-2019 Instruction Type:Patient Education How to access health informa tion online - Detail Indication:Nonsmoker Start:14-Dec-2019 Instruction Type:Patient Education Patient Instructions Indication:Nonsmoker Start:14-Dec-2019 Instruction Type:Provider Instructions for Treatment How to access health informa tion online Indication:Nonsmoker Start:15-Jun-2019 Instruction Type:Patient Education How to access health informa tion online - Detail Indication:Nonsmoker Start:15-Jun-2019 Instruction Type:Patient Education Patient Instructions Indication:Body mass index (BMI) of 19.0-19.9 in adult Start:15-Jun-2019 Instruction Type:Provider Instructions for Treatment How to access health informa tion online Indication:Raynaud's phenomenon Start:27-Oct-2017 Instruction Type:Patient Education How to access health informa tion online - Detail Indication:Raynaud's phenomenon Start:27-Oct-2017 Instruction Type:Patient Education Patient Instructions Indication:Raynaud's phenomenon Start:27-Oct-2017 Instruction Type:Provider Instructions for Treatment How to access health informa tion online Indication:Fatigue Start:22-Apr-2017 Instruction Type:Patient Education How to access health informa tion online - Detail Indication:Fatigue Start:22-Apr-2017 Instruction Type:Patient Education Patient Instructions Indication:Fatigue Start:22-Apr-2017 Instruction Type:Provider Instructions for Treatment How to access health informa tion online Indication:Fatigue Start:07-Apr-2017 Instruction Type:Patient Education How to access health informa tion online - Detail Indication:Fatigue Start:07-Apr-2017 Instruction Type:Patient Education Patient Instructions Indication:Fatigue Start:07-Apr-2017 Instruction Type:Provider Instructions for Treatment [facility]; [facility] Work Phone: Instructions* Name Dates Details How to Access Health Informa tion Online using Patient Portal and [employer] Apps Indication:Body mass index (BMI) of 19.0-19.9 in adult Start:09-Jul-2023 Instruction Type:Patient Education Patient Instructions Indication:Body mass index (BMI) of 19.0-19.9 in adult Start:09-Jul-2023 Instruction Type:Provider Instructions for Treatment Patient Instructions Indication:Nonsmoker Start:12-Dec-2021 Instruction Type:Provider Instructions for Treatment How to Access Health Informa tion Online using Patient Portal and [employer] Apps Indication:Nonsmoker Start:12-Dec-2021 Instruction Type:Patient Education Patient Instructions Indication:Nonsmoker Start:28-Nov-2021 Instruction Type:Provider Instructions for Treatment How to Access Health Informa tion Online using Patient Portal and [employer] Apps Indication:Nonsmoker Start:16-Mar-2022 Instruction Type:Patient Education How to access health informa tion online Indication:Nonsmoker Start:14-Dec-2019 Instruction Type:Patient Education How to access health informa tion online - Detail Indication:Nonsmoker Start:14-Dec-2019 Instruction Type:Patient Education Patient Instructions Indication:Nonsmoker Start:14-Dec-2019 Instruction Type:Provider Instructions for Treatment How to access health informa tion online Indication:Nonsmoker Start:15-Jun-2019 Instruction Type:Patient Education How to access health informa tion online - Detail Indication:Nonsmoker Start:15-Jun-2019 Instruction Type:Patient Education Patient Instructions Indication:Body mass index (BMI) of 19.0-19.9 in adult Start:15-Jun-2019 Instruction Type:Provider Instructions for Treatment How to access health informa tion online Indication:Raynaud's phenomenon Start:27-Oct-2017 Instruction Type:Patient Education How to access health informa tion online - Detail Indication:Raynaud's phenomenon Start:27-Oct-2017 Instruction Type:Patient Education Patient Instructions Indication:Raynaud's phenomenon Start:27-Oct-2017 Instruction Type:Provider Instructions for Treatment How to access health informa tion online Indication:Fatigue Start:22-Apr-2017 Instruction Type:Patient Education How to access health informa tion online - Detail Indication:Fatigue Start:22-Apr-2017 Instruction Type:Patient Education Patient Instructions Indication:Fatigue Start:22-Apr-2017 Instruction Type:Provider Instructions for Treatment How to access health informa tion online Indication:Fatigue Start:07-Apr-2017 Instruction Type:Patient Education How to access health informa tion online - Detail Indication:Fatigue Start:07-Apr-2017 Instruction Type:Patient Education Patient Instructions Indication:Fatigue Start:07-Apr-2017 Instruction Type:Provider Instructions for Treatment [facility] Work Phone: reason for referral (narrative)* Diagnostic Procedure Only (Routine) - Closed Specialty Diagnoses / Procedures Referred By Jeannie martinez Referred To Contact [facility] Diagnoses Encounter for screening mammogram for malignant neoplasm of breast Procedures SHELBY SCREENING W MICKEY SCREENING BREAST DGTL MICKEY UNI/BILAT ADD ON SCREENING MAMMOGRAPHY BI 2-VIEW BREAST INC Reba Valdez MD [address] [place] [address] [facility] [address] [place] [address] Referral ID Status Reason Start Date Expiration Date V isits Requested Visits Authorized [id number] Closed Auto-Generate d Referral 07/02/2021 08/01/2022 1 1 [facility] for referral (narrative)* Diagnostic Procedure Only (Routine) - Pending Review Specialty Diagnoses / Procedures Referred By Contac t Referred To Contact [facility] Diagnoses Encounter for screening mammogram for malignant neoplasm of breast Procedures SHELBY SCREENING W MICKEY SCREENING DIGITAL BREAST TOMOSYNTHESIS BI SCREENING MAMMOGRAPHY BI 2-VIEW BREAST INC CAD Reba Mullins MD [address] [place] [address] [facility] [address] [place] [address] Referral ID Status Reason Start Date Expiration Date Visits Requested Visits Authorized [id number] Pending Review Auto-Generat ed Referral 09/11/2023 1 1 [facility] for referral (narrative)* Diagnostic Procedure Only (Routine) - Closed Specialty Diagnoses / Procedures Referred By Jeannie martinez Referred To Contact [facility] Diagnoses Encounter for screening mammogram for malignant neoplasm of breast Procedures SHELBY SCREENING W MICKEY SCREENING DIGITAL BREAST TOMOSYNTHESIS BI SCREENING MAMMOGRAPHY BI 2-VIEW BREAST INC CAD Reba Mullins MD [address] [place] [address] [facility] [address] [place] [address] Referral ID Status Reason Start Date Expiration Date V isits Requested Visits Authorized [id number] Closed Auto-Generate d Referral 08/12/2022 09/11/2023 1 1 [facility] for referral (narrative)No reason for referral information availableWAultman [facility] Work Phone: [facility] Narrative* Diagnostic Procedure Only (Routine) - Closed Specialty Diagnoses / Procedures Referred By Jeannie martinez Referred To Contact [facility] Diagnoses Encounter for screening mammogram for malignant neoplasm of breast Procedures SHELBY SCREENING W MICKEY SCREENING BREAST DGTL MICKEY UNI/BILAT ADD ON SCREENING MAMMOGRAPHY BI 2-VIEW BREAST INC CAD Reba Mullins MD [address] [place] [address] [facility] [address] [address] Referral ID Status Reason Start Date Expiration Date V isits Requested Visits Authorized [id number] Closed Auto-Generate d Referral 07/02/2021 08/01/2022 1 1 [facility] for visit Narrative* Diagnostic Procedure Only (Routine) - Closed Specialty Diagnoses / Procedures Referred By Jeannie martinez Referred To Contact [facility] Diagnoses Encounter for screening mammogram for malignant neoplasm of breast Procedures SHELBY SCREENING W MICKEY SCREENING DIGITAL BREAST TOMOSYNTHESIS BI SCREENING MAMMOGRAPHY BI 2-VIEW BREAST INC CAD Reba Mullins MD [address] [place] [address] [facility] [place] [address] Referral ID Status Reason Start Date Expiration Date V isits Requested Visits Authorized [id number] Closed Auto-Generate d Referral 08/12/2022 09/11/2023 1 1 [facility] Family History No Family History Records FoundUnknown Family Member Name Dates Details Father Comments:Depression Status:Active Maternal Grandfather Comments:Heart disease, ment ally unstable Status:Active Maternal Grandmother Comments:alzheimers Status:Active Mother Comments:HTN, CVA Status:Active Unknown Family Member Name Dates Details Father Comments:Depression Status:Active Maternal Grandfather Comments:Heart disease, ment ally unstable Status:Active Maternal Grandmother Comments:alzheimers Status:Active Mother Comments:HTN, CVA Status:Active Unknown Family Member Name Dates Details Father Comments:Depression Status:Active Maternal Grandfather Comments:Heart disease, ment ally unstable Status:Active Maternal Grandmother Comments:alzheimers Status:Active Mother Comments:HTN, CVA Status:Active Unknown Family Member Name Dates Details Father Comments:Depression Status:Active Maternal Grandfather Comments:Heart disease, ment ally unstable Status:Active Maternal Grandmother Comments:alzheimers Status:Active Mother Comments:HTN, CVA Status:Active Unknown Family Member Name Dates Details Father Comments:Depression Status:Active Maternal Grandfather Comments:Heart disease, ment ally unstable Status:Active Maternal Grandmother Comments:alzheimers Status:Active Mother Comments:HTN, CVA Status:Active Unknown Family Member Name Dates Details Father Comments:Depression Status:Active Maternal Grandfather Comments:Heart disease, ment ally unstable Status:Active Maternal Grandmother Comments:alzheimers Status:Active Mother Comments:HTN, CVA Status:Active Unknown Family Member Name Dates Details Father Comments:Depression Status:Active Maternal Grandfather Comments:Heart disease, ment ally unstable Status:Active Maternal Grandmother Comments:alzheimers Status:Active Mother Comments:HTN, CVA Status:Active Relationship Condition Age at Onset Recorded Date/T rosey father Chronic obstructive pulmonary disease Unk nown mother Cerebrovascular accident (CVA) Unknown Hypertension Unknown Instructions Name Dates Details How to access health informa tion online Indication:Nonsmoker Start:15-Jun-2019 Instruction Type:Patient Education How to access health informa tion online - Detail Indication:Nonsmoker Start:15-Jun-2019 Instruction Type:Patient Education Patient Instructions Indication:Nonsmoker Start:15-Jun-2019 Instruction Type:Provider Instructions for Treatment How to access health informa tion online Indication:Raynaud's phenomenon Start:27-Oct-2017 Instruction Type:Patient Education How to access health informa tion online - Detail Indication:Raynaud's phenomenon Start:27-Oct-2017 Instruction Type:Patient Education Patient Instructions Indication:Raynaud's phenomenon Start:27-Oct-2017 Instruction Type:Provider Instructions for Treatment How to access health informa tion online Indication:Fatigue Start:22-Apr-2017 Instruction Type:Patient Education How to access health informa tion online - Detail Indication:Fatigue Start:22-Apr-2017 Instruction Type:Patient Education Patient Instructions Indication:Fatigue Start:22-Apr-2017 Instruction Type:Provider Instructions for Treatment How to access health informa tion online Indication:Fatigue Start:07-Apr-2017 Instruction Type:Patient Education How to access health informa tion online - Detail Indication:Fatigue Start:07-Apr-2017 Instruction Type:Patient Education Patient Instructions Indication:Fatigue Start:07-Apr-2017 Instruction Type:Provider Instructions for Treatment Name Dates Details How to access health informa tion online Indication:Nonsmoker Start:15-Jun-2019 Instruction Type:Patient Education How to access health informa tion online - Detail Indication:Nonsmoker Start:15-Jun-2019 Instruction Type:Patient Education Patient Instructions Indication:Body mass index (BMI) of 19.0-19.9 in adult Start:15-Jun-2019 Instruction Type:Provider Instructions for Treatment How to access health informa tion online Indication:Raynaud's phenomenon Start:27-Oct-2017 Instruction Type:Patient Education How to access health informa tion online - Detail Indication:Raynaud's phenomenon Start:27-Oct-2017 Instruction Type:Patient Education Patient Instructions Indication:Raynaud's phenomenon Start:27-Oct-2017 Instruction Type:Provider Instructions for Treatment How to access health informa tion online Indication:Fatigue Start:22-Apr-2017 Instruction Type:Patient Education How to access health informa tion online - Detail Indication:Fatigue Start:22-Apr-2017 Instruction Type:Patient Education Patient Instructions Indication:Fatigue Start:22-Apr-2017 Instruction Type:Provider Instructions for Treatment How to access health informa tion online Indication:Fatigue Start:07-Apr-2017 Instruction Type:Patient Education How to access health informa tion online - Detail Indication:Fatigue Start:07-Apr-2017 Instruction Type:Patient Education Patient Instructions Indication:Fatigue Start:07-Apr-2017 Instruction Type:Provider Instructions for Treatment Name Dates Details How to access health informa tion online Indication:Nonsmoker Start:15-Jun-2019 Instruction Type:Patient Education How to access health informa tion online - Detail Indication:Nonsmoker Start:15-Jun-2019 Instruction Type:Patient Education Patient Instructions Indication:Body mass index (BMI) of 19.0-19.9 in adult Start:15-Jun-2019 Instruction Type:Provider Instructions for Treatment How to access health informa tion online Indication:Raynaud's phenomenon Start:27-Oct-2017 Instruction Type:Patient Education How to access health informa tion online - Detail Indication:Raynaud's phenomenon Start:27-Oct-2017 Instruction Type:Patient Education Patient Instructions Indication:Raynaud's phenomenon Start:27-Oct-2017 Instruction Type:Provider Instructions for Treatment How to access health informa tion online Indication:Fatigue Start:22-Apr-2017 Instruction Type:Patient Education How to access health informa tion online - Detail Indication:Fatigue Start:22-Apr-2017 Instruction Type:Patient Education Patient Instructions Indication:Fatigue Start:22-Apr-2017 Instruction Type:Provider Instructions for Treatment How to access health informa tion online Indication:Fatigue Start:07-Apr-2017 Instruction Type:Patient Education How to access health informa tion online - Detail Indication:Fatigue Start:07-Apr-2017 Instruction Type:Patient Education Patient Instructions Indication:Fatigue Start:07-Apr-2017 Instruction Type:Provider Instructions for Treatment Advance Directives No Advanced Directives Records Found Advance Directive Response Recorded Date/ Time Living Will Yes September 24 6:02pm Power of Paper Novelty Maker Yes September 24, 2019 6:02pm Documents on File Type Date Recorded Patient Tax Compliance Officer Expl anation Advance Directive(s) 09/26/2021 8:37 AM Advance Directive(s) 09/12/2021 3:46 PM Documents on File Type Date Recorded Patient Tax Compliance Officer Expl anation Advance Directive(s) 09/26/2021 8:37 AM Advance Directive(s) 09/12/2021 3:46 PM Advance Directive Response Recorded Date/ Time Living Will Yes September 24 6:02pm Do you have a Healthcare Power of Paper Novelty Maker? Yes September 24, 2019 6:02pm Summary Purpose Chief Complaint and Reason for Visit Chief Complaint Admit Date SCREENING December 24, 2024 12: 35pm Chief Complaint Admit Date SCREENING December 24, 2024 12: 35pm POST MENOPAUSAL STATE January 13, 2025 3:16 pm Additional Source Comments Goals (unrecognized section and content) Goals may be documented in a n alternate sectionGoals may be documented in an alternate sectionGoals may be documented in an alternate section Source Comments (unrecognize d section and content) In the event this informatio n is protected by the Federal Confidentiality of Alcohol and Drug Abuse Patient Records regulations: The Federal rules restrict any use of the information to criminally investigate or prosecute any alcohol or drug abuse patient.[facility] the event this information is protected by the Federal Confidentiality of Alcohol and Drug Abuse Patient Records regulations: The Federal rules restrict any use of the information to criminally investigate or prosecute any alcohol or drug abuse patient.[facility] the event this information is protected by the Federal Confidentiality of Alcohol and Drug Abuse Patient Records regulations: The Federal rules restrict any use of the information to criminally investigate or prosecute any alcohol or drug abuse patient.[facility] the event this information is protected by the Federal Confidentiality of Alcohol and Drug Abuse Patient Records regulations: The Federal rules restrict any use of the information to criminally investigate or prosecute any alcohol or drug abuse patient.[facility] the event this information is protected by the Federal Confidentiality of Alcohol and Drug Abuse Patient Records regulations: The Federal rules restrict any use of the information to criminally investigate or prosecute any alcohol or drug abuse patient.[facility] the event this information is protected by the Federal Confidentiality of Alcohol and Drug Abuse Patient Records regulations: The Federal rules restrict any use of the information to criminally investigate or prosecute any alcohol or drug abuse patient.[facility] Hospital[facility] the event this information is protected by the Federal Confidentiality of Alcohol and Drug Abuse Patient Records regulations: The Federal rules restrict any use of the information to criminally investigate or prosecute any alcohol or drug abuse patient.[facility] the event this information is protected by the Federal Confidentiality of Alcohol and Drug Abuse Patient Records regulations: The Federal rules restrict any use of the information to criminally investigate or prosecute any alcohol or drug abuse patient.[facility] Care Teams (unrecognized sec tion and content) Garment Folder Relationship Specialty Start Date End Date Lianne Glaser, OFFICE SERVICE COORDINATOR [address] [facility] [address] [place] [address] PCP - General Internal Medicine 08/20/21 Garment Folder Relationship Specialty Start Date End Date Lianne Glaser, OFFICE SERVICE COORDINATOR [address] [facility] [address] [place] [address] PCP - General Internal Medicine 08/20/21 Garment 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 Relationship Specialty Start Date End Date Lianne Glaser, OFFICE SERVICE COORDINATOR [address] [facility] [address] [place] [address] PCP - General Internal Medicine 08/20/21 Garment Folder Relationship Specialty Start Date End Date Lianne Glaser, OFFICE SERVICE COORDINATOR [address] [facility] [address] [place] [address] PCP - General Internal Medicine 08/20/21 Garment Folder Relationship Specialty Start Date End Date Lianne Glaser, OFFICE SERVICE COORDINATOR [address] [facility] [address] [place] [address] PCP - General Internal Medicine 08/20/21 Garment Folder Relationship Specialty Start Date End Date Lianne Glaser CNP [address] [facility] [address] [place] [address] PCP - General Internal Medicine 08/20/21 Garment Folder Relationship Specialty Start Date End Date Lianne Glaser CNP [address] [facility] [address] [place] [address] PCP - General Internal Medicine 08/20/21 Team Status: Active Member Role Status Dates SCOT Yadav Primary Care Provider Active Team Status: Inactive Member Role Status Dates SCOT Yadav Primary Care Provider Active Start: December 24, 2024 End: December 24, 2024 SCOT Springer Attending Provider Active Start: December 24, 2024 End: December 24, 2024 SCOT Springer Referring Provider Active Start: December 24, 2024 End: December 24, 2024 Team Status: Inactive Member Role Status Dates SCOT Yadav Primary Care Provider Active Start: January 13, 2025 End: January 13, 2025 SCOT Yadav Attending Provider Active Start: January 13, 2025 End: January 13, 2025 SCOT Yadav Referring Provider Active Start: January 13, 2025 End: January 13, 2025 Reason for Visit (unrecogniz ed section and content) Reason Comments Yearly Exam Reason Comments Sore Throat ST x 1 day INFORMATION SOURCE (unrecogn ized section and content) DATE CREATED AUTHOR 05/27/2023 [facility] DATE CREATED AUTHOR 'S PAULINO ZELAYA 04/06/2025 [facility] FOR RECORDS PERTAINING TO PATIENTS WHO ARE OR HAVE BEEN ENROLLED IN A CHEMICAL DEPENDENCY/SUBSTANCEABUSE PROGRAM, SOME INFORMATION MAY BE OMITTED. This clinical summary was aggregated from multiple sources. Caution should be exercised in using it in the provision of clinical care. This summary normalizes information from multiple sources, and as a consequence, information in this document may materially change the coding, format and clinical context of patient data. In addition, data may be omitted in some cases. CLINICAL DECISIONS SHOULD BE BASED ON THE PRIMARY CLINICAL RECORDS. [employer] provides no warranty or guarantee of the accuracy or completeness of information in this document.
== END 2025-04-07 11:09 | disposition home or self-care (01) ==
LOC: EN 08:51 → AC 08:52
PROVIDERS: PCP Nurse Practitioner Family; Referring Provider Nurse Practitioner Family; Visit Provider Internal Medicine Gastroenterology
PROC: 0DJD8ZZ Inspection of Lower Intestinal Tract, Via Natural or Artificial Opening Endoscopic (ICD-10-PCS; CPT 45378; principal; 2025-04-07 09:40)
DX: Z12.11 Encounter for screening for malignant neoplasm of colon (principal); Z86.0100 Personal history of colon polyps, unspecified
CPT/HCPCS: 45378; J2405

== ENCOUNTER → 2025-07-04 | Outpatient (CLI) | payer OTHER, SELFPAY ==
--- OUTSIDE RECORDS SUMMARY | 2025-07-04 17:51 | XMS RPT_ITS | CCD ---
Author Organization [facility] Team Providers Care Glass Bulb Machine Adjuster Name Role Phone Pamelaa Sejal Unavailable Eric Dejesus Unavailable Unavailable Aristides Irenea Unavailable Unavailable Unavailable Unavailable EditaAnsonen Unavailable Pamelaa RAFA, Sejal Unavailable EditaAnsonen Unavailable Eric Gayle LPN Unavailable Unavailable Unavailable Unavailable Ciesa, Lianne Unavailable Ciesa DELINQUENT TAX COLLECTOR, Sejal Primary Care Provider Ciesa DELINQUENT TAX COLLECTOR, Sejal Primary Care Provider Ciesa DELINQUENT TAX COLLECTOR, Sejal Primary Care Provider REBA MULLINS Referring Unavail able CIESA, SEJAL Primary Care Unavailable CIESA, SEJAL Primary Care Unavailable REBA MULLINS Attending Unavail able CIESA, SEJAL Primary Care Unavailable CIESA, SEJAL Primary Care Unavailable SNOW COKER Attending Unavailable Madeleine Aly CNP Unavailable Madeleine Aly CNP Unavailable Camryn Gresham LPN Unavailable Unavailable Ciesa, Lianne Unavailable Jermain ASSEMBLY INSPECTOR-CMadeleine Primary Care Provider Marina ASSEMBLY INSPECTOR-Eryn Henry Attending Provider Marina ASSEMBLY INSPECTOR-CEryn Referring Provider Jermain ADAIR-Madeleine Henry Attending Provider Jermain ADAIR-CMadeleine Referring Provider Friend DO, Dr. Mancia Attending Provider Friend Dr. Gavino PARKER Other Provider [phone] Madeleine Aly Primary Care Unavailable Gavino Medina Attending Unavailable Madeleine Aly Referring Unavailable JermainMadeleine Referring Unavailable Jermain, Madeleine Primary Care Unavailable Jermain Madeleine Attending Unavailable Eryn Gray Attending Unavailable Eryn Gray Referring Unavailable Jermain, Madeleine Primary Care Unavailable Jermain, Madeleine Primary Care Unavailable Beata ASSEMBLY INSPECTOR, Jasmin Attending Unavailable Jermain, Madeleine Referring Unavailable Jermain, Madeleine Primary Care Unavailable Gavino Medina Consulting Unavailable Gavino Medina Attending Unavailable Madeleine Aly Referring Unavailable Allergies Allergy Classification Reported Allergen(s) Allergy Type Date of Onset Reaction(s) Facility (20 sources) nickel; Translations: [Nickel] Drug Allergy 4 Rash [facility] Work Phone: (8 sources) Penicillin G; Translations: [Penicillin G Sodium *PENICILLINS*] Drug Allergy [facility] Work Phone: Comment on above: rash (14 sources) Penicillins; Translations: [PENICILLINS] Allergy to substance 2 Rash [facility] Work Phone: Medications Current Medications Medication Drug Class(es) Dates Sig (Normalized) Sig (Original) ascorbic acid 1000 mg oral tablet (20 sources) Vitamin C Start: 04-09-2018 take 1 tablet by mouth once daily Ascorbic Acid (Vitamin C) (Vitamin C) 1,000 MG tablet Active 1000 mg PO DAILY April 09, 2018 12:00am Start: 04-07-2017 take 2 tablets by mo [facility] once daily Vitamin C 1000 MG Oral Tablet 2 (two) Tablet daily for 0 days Quantity: 60 {Tablet} Refills: 0 Ordered: 07-Apr-2017 Anette Lianne Start : 07-Apr-2017 Active take [address] [facility] three times daily ascorbic acid, vitamin C, (VITAMIN C) 500 mg tablet Take 500 mg by mouth three times daily. 0 Active Comment on above: Take 500 mg by mouth three times daily. 168 hr estradiol 0.04749 mg/hr transdermal system (6 sources) Estrogen Start: 02-23-20 24 End: 04-16-20 Estradiol 0.075 mg/24 hr patch weekly Active 1 NMA TD EVERY WEEK 08 26April 16, 2024 3:25pm fluconazole 150 mg oral tablet (1 source) Azole Antifungal Start: 02-14-20 End: 02-14-20 take 1 tablet by mouth once fluconazole (DIFLUCAN) 150 mg tablet Indications: Vaginal itching , Vaginal burning Take 1 tablet by mouth one time only for 1 dose. 1 tablet 0 02/13/2023 02/13/2023 Active Comment on above: Take [address] [facility] one time only for 1 dose. magnesium sulfate 100 mg oral capsule (3 sources) Start: 02-23-20 take 5 capsules by mouth once daily Magnesium Sulfate 100 mg capsule Active 500 mg PO DAILY February 23, 2024 12:00am progesterone 100 mg oral capsule (6 sources) Progesterone Start: 02-23-20 End: 04-16-20 take 1 capsule by mouth once daily in the evening Progesterone Micronized (Prometrium) 100 mg capsule Active 100 mg PO EVERY EVENING April 16, 2024 3:24pm Turmeric-Turmeric Root Extract (4 sources) Start: 04-09-20 Turmeric-Turmeric Root Extract Active 1 EACH PO DAILY April 09, 2018 12:06pm Start: 04-09-2018 End: 04-05-2025 take 1 capsule by mouth once daily Turmeric-Turmeric Root Extract 1 EACH capsule Discontinued 1 NMA PO DAILY April 09, 2018 12:00am April 05, 2025 10:54am Start: 04-09-2018 take 1 capsule by mo [facility] once daily Turmeric-Turmeric Root Extract 1 EACH capsule Active 1 NMA PO DAILY April 09, 2018 12:00am Vitamin K2 45 mcg capsule (3 sources) Start: 02-23-2024 Vitamin K2 45 mcg [...] Comment on above: Take [address] [facility] twice daily. cholecalciferol 0.025 mg oral capsule (15 sources) Vitamin D Start: 12-12-2021 take 1 [...] Quantity: 30 {Capsule} Refills: 0 Ordered: 12-Dec-2021 Anette Lianne Start : 14-Dec-2019 End : 12-Dec-2021 Inactive Start: 06-18-2019 take 1 capsule by [facility] two times weekly Vitamin D3 Super Strength 2000 UNIT Oral Capsule 1 (one) Capsule twice weekly for 0 days Quantity: 30 {Capsule} Refills: 0 Ordered: 18-Jun-2019 Sarikaantione CRAIGLianne Sarikaantione RAFALianne Start : 18-Jun-2019 Active Start: 04-22-2017 take 1 capsule by [facility] once daily Cholecalciferol (Vitamin D3) (Vitamin D3) [...] 5 mg oral tablet (8 sources) Start: 017 End: take 1 tablet by mouth once daily Norethindrone Acetate 5 MG Oral Tablet 1 (one) Tablet daily for 0 days Quantity: 30 {Tablet} Refills: 0 Ordered: 15-Jun-2019 Eric Gayle LPN Start : 07-Apr-2017 End : 15-Jun-2019 Inactive ondansetron 4 mg disintegrating oral tablet (4 sources) Serotonin-3 Receptor Antagonist Start: End: take 1 tablet by mouth every eight hours as needed for nausea Ondansetron 4 MG tablet Discontinued 4 mg PO EVERY 8 HOURS NEEDED as needed for Nausea September 24, 2019 1:00am June 23, 2024 9:35am polyethylene glycol 3350 03322 mg powder for oral solution (8 sources) Osmotic Laxative Start: take 0.5 dose by mouth once daily MiraLax Oral Powder 1 (one) Gram 1/2 dose daily for 0 days Quantity: 1 {QS} Refills: 0 Ordered: 07-Apr-2017 Lianne Cheema Start : 07-Apr-2017 Active Tumeric (6 sources) Tumeric daily Ac tive TURMERIC ROOT EXTRACT ORAL (8 sources) TURMERIC ROOT EX TRACT ORAL Indications: Post-op pain Take by mouth. 0 Active Comment on above: Take by mouth. valACYclovir 1000 mg oral tablet (5 sources) Herpesvirus Nucleoside Analog DNA Polymerase Inhibitor, Herpes Simplex Virus Nucleoside Analog DNA Polymerase Inhibitor, Herpes Zoster Virus Nucleoside Analog DNA Polymerase Inhibitor Start: 024 End: Valacyclovir (Valtrex) 1 gram tablet Discontinued 1000 mg PO TWICE A DAY 6 3 6 January 04, 2025 8:49am April 05, 2025 10:54am Problems Active Problems Problem Classification Problem Date [...] [Fatigue] Resolved: 12-14-2019 10-27-2017 Episodic Menopausal disorders (13 sources) Perimenopausal state; Translations: [Perimenopause] 12-14-2019 Chronic Comment on above: discussed options, s upport given. plan HRT with patch and prometrium. Nausea and vomiting (4 sources) Nausea and vomiting; Translations: [Nausea with [...] of ; puerperium affecting management of mother (4 sources) Advanced maternal age ; Translations: [ with maternal age 40 years or more] 04-21-2024 Episodic Other female genital disorders (3 sources) Dyspareunia; Translations: [Dyspareunia] 02-24-2024 Chronic Comment [...] than 19,adult] Resolved: 10-27-2017 06-15-2019 Episodic Other screening for suspected conditions (not mental disorders or infectious disease) (20 sources) Patient encounter status; Translations: [Encounter for screening for lipid disorder (Renamed from Screening for hyperlipidemia)] Onset: 05-22-2023 12-14-2019 Episodic Other skin disorders (16 sources) Night sweats; Translations: [Night sweats] Resolved: 12-14-2019 10-27-2017 Episodic Polyhydramnios and other problems of amniotic cavity (4 sources) Oligohydramnios; Translations: [Oligohydramnios, unspecified trimester, not [...] sweats, few times per month. irreg periods. Respiratory failure; insufficiency; arrest (adult) (10 sources) [...] parasitic diseases] Onset: 07-25-2012 09-10-2021 Episodic Other upper respiratory infections (2 sources) Sore throat symptom; Translations: [Acute pharyngitis, unspecified] Onset: 07-22-2022 Episodic Residual codes; unclassified (1 source) Asymptomatic menopausal state; Translations: [Asymptomatic menopausal state] Onset: 01-20-2025 Episodic Unclassified (7 sources) Nickel allergy Unclassified [...] Test Name Value Interpretation Reference Range Facility Colonoscopy Reporton 025 Colonoscopy Report [facility] Medical Records Department [address] [place] [address] Colonoscopy Report MR#: [id number] Acct: [id number] Name: JUDITH LACY Rep #: [id number] : 1970 54 From: Gavino Medina DO PCP: SCOT Yadav Status:[facility] Patient Name: Judith Lacy Procedure Date: 04/07/2025 9:47 AM Date of : 1970 Age: 54 Procedure: Colonoscopy Indications: High risk colon cancer surveillance: Personal history of colonic polyps Providers: Gavino Medina DO Medicines: Monitored Anesthesia Care Patient Profile: This is a 54 year old female. Refer to note in patient chart for documentation of history and physical. Last Colonoscopy: 3 years ago. Complications: No immediate complications. Procedure: Pre-Anesthesia Assessment: - Prior to the procedure, a History and Physical was performed, and patient medications and allergies were reviewed. The patient is competent. The risks and benefits of the procedure and the sedation options and risks were discussed with the patient. All questions were answered and informed consent was obtained. Patient identification and proposed procedure were verified by the physician in the pre-procedure area. Mental Status Examination: alert and oriented. Airway Examination: normal oropharyngeal airway and neck mobility. Respiratory Examination: clear to auscultation. CV Examination: normal. Prophylactic Antibiotics: The patient does not require prophylactic antibiotics. Prior Anticoagulants: The patient has taken no anticoagulant or antiplatelet agents. ASA Grade Assessment: II - A patient with mild systemic disease. After reviewing the risks and benefits, the patient was deemed in satisfactory condition to undergo the procedure. The anesthesia plan was to use monitored anesthesia care (MAC). Immediately prior to administration of medications, the patient was re-assessed for adequacy to receive sedatives. The heart rate, respiratory rate, oxygen saturations, blood pressure, adequacy of pulmonary ventilation, and response to care were monitored throughout the procedure. The physical status of the patient was re-assessed after the procedure. After I obtained informed consent, the scope was passed under direct vision. Throughout the procedure, the patient's blood pressure, pulse, and oxygen saturations were monitored continuously. The adult colonoscope was introduced through the anus and advanced to the cecum, identified by appendiceal orifice and ileocecal valve. The colonoscopy was performed without difficulty. The patient tolerated the procedure well. The quality of the bowel preparation was adequate. The ileocecal valve, appendiceal orifice, and rectum were photographed. Scope In: 10:05:56 AM Scope Withdrawal Time 0 hours 7 minutes 28 seconds Scope Out: 10:23:02 AM Total Procedure Duration Time 0 hours 17 minutes 6 seconds Findings: The perianal and digital rectal examinations were normal. The colon (entire examined portion) appeared normal. No additional abnormalities were found on retroflexion. Impression: - The entire examined colon is normal. - No specimens collected. Recommendation: - Discharge patient to home. - Resume previous diet. - Repeat colonoscopy in 5 years for surveillance. - Continue present medications. Procedure Code(s): --- Professional --- G0105, Colorectal cancer screening; colonoscopy on individual at high risk CPT copyright 2021 [employer]. All rights reserved. The codes documented in this report are preliminary and upon candy roller review may be revised to meet current compliance requirements. Gavino Medina DO 04/07/2025 10:27:15 AM This report has been signed electronically. Number of Addenda: 0 Note Initiated On: 04/07/2025 9:47 AM 04/07/25 1027 Date Gavino Medina DO Cosigner Signature: Date (if indicated) CC: ASSEMBLY INSPECTOR-C Madeleine Aly; Gavino Medina DO Date Dictated: 04/07/25946 Date Transcribed: Operating Cost Clerk: ELDER Signed [facility] MR/[facility]OP[facility] 04-07-2025 MR/POSTOP.[facility] Medical Records Department [address] [place] [address] Anesthesia Postop Eval I 04/07/25 1029 MR#: [id number] Acct: [id number] Name: JUDITH LACY Rep #: [id number] : 1970 54 From: David Ross PCP: SCOT Yadav Status:REG SDC Y Race: C Location: [place] [address] Anesthesia: Postop Eval I Current Vital Signs Temperature: 97.6 F Pulse Rate: 67 Blood Pressure: 103/64 Respiratory Rate: 16 Pulse Ox: 100 Oxygen Delivery Method: Room Air Assessment Airway patent: Yes Spontaneous unlabored respirations: Yes Mental status: Asleep nausea: No Vomiting: No Anesthesia Complication: No Fluid Hydration Crystalloid volume administer (ml): 500 Total IV fluid infused: 500 Progress Note Anesthesia document: Postop Eval 1 completed: Yes 04/07/25 1030 Date David Chadwick Signature: Date CC: Signed Normal [facility] MR/[id number] 04-07-2025 MR/POSTOPAN2 [facility] Medical Records Department [address] [place] [address] Anesthesia Postop Eval II 04/07/25 103 MR#: [id number] Acct: [id number] Name: JUDITH LACY Rep #: [id number] : 1970 54 From: Graeme Santillan MD PCP: SCOT Yadav Status:REG [facility] Y Race: C Location: [place] [address] Anesthesia Postop Eval I Sum Postop Eval Completion status Anesthesia document: Postop Eval 1 completed: Yes Anesthesia Postop Eval I Summary Anesthesia Postop Eval I Summary: Anesthesia Postop Eval I: Assessment Summary Airway patent Yes 04/07/25 10:30 [email or web address] Spontaneous unlabored Yes 04/07/25 10:30 [email or web address] respirations Mental status Asleep 04/07/25 10:30 [email or web address] nausea No 04/07/25 10:30 [email or web address] Vomiting No 04/07/25 10:30 [email or web address] Anesthesia Postop Eval I: Fluid Summary Crystalloid volume administer 500 04/07/25 10:30 [email or web address] (ml) Colloids volume administered ( ml) Blood Product volume administered (ml) Total IV fluid infused 500 04/07/25 10:30 [email or web address] Anesthesia Postop Eval I: Summary Notes Anesthesia Complication No 04/07/25 10:30 [email or web address] Anesthesia Complication Comment: Post-operative progress note Anesthesia: Postop Eval II Evaluation Mental status: Awake and Calm Pain Level: 1 nausea: No Vomiting: No Complications Anesthesia Complication: No 04/07/25 1039 Date Graeme Santillan MD Cosigner Signature: Date CC: Signed Normal [facility] Bone density reportOrdered B y: José Miguel Khanss on 01-14-2025 Study report Skeletal system DXA [facility] Imaging Services [address] [place], [place] [address] Dexa Bone Density Study MR#: [id number] Acct: [id number] Name: JUDITH LACY Rep #: [id number] : 1970 F 54 From: Sydnee Calero MD PCP: SCOT Yadav Status: REG C LI Study:Dexa Bone Density Study Date of Exam: 01/13/25 Exam# [id number] Ordering Dr: Elaine Aly PROCEDURE: DEXA BONE [...] is a trademark of the [employer]'s [place] for Metabolic Bone Disease, World Health Organization (WHO) Collaborating [place]. 1-Major Osteoporotic Fracture: Clinical Spine, Forearm, Hip [...] 3. Additional description as above. Reading Location: [id number] CC: SCOT Aly ~ Operating Cost Clerk: Signed [facility] Dexa Bone Density Studyon Dexa Bone Density Study [facility] Imaging Services [address] [place] [id number] Dexa Bone Density Study MR#: [id number] Acct: [id number] Name: JUDITH LACY Rep #: [id number] : 1970 F 54 From: José Miguel Calero MD PCP: SCOT Yadav Status: REG CLI Study: Dexa Bone Density Study Date of Exam: 01/13/25 Exam# [id number] Ordering Dr: Madeleine Aly PROCEDURE: DEXA BONE [...] of the [employer] [place] for Metabolic Bone Disease, World Health Organization (WHO) Collaborating [place]. 1-Major Osteoporotic Fracture: Clinical Spine, Forearm, Hip [...] 3. Additional description as above. Reading Location: [id number] CC: SCOT Aly Operating Cost Clerk: Signed Normal [facility] Breast imaging reportOrdered By: Terrence Moreno on 12-29-2024 Study report [facility] Imaging Services [address] [place], [place] [address] SCRN MAMM (CAD)W/MICKEY BILAT MR#: [id number] Acct: [id number] Name: JUDITH LACY Rep #: [id number] : 1970 F 54 From: Magan Moreno MD PCP: SCOT Yadav Status: REG C Study:SCRN MAMM (CAD)W/MICKEY BILAT Date of Exa m: 12/24/24 Exam# [id number] Ordering Dr: Eryn Gray EXAM: SCRN MAMM [...] be mailed to the patient. Reading Location: [facility] CC: SCOT Gray; SCOT Aly ~ Operating Cost Clerk: Signed [facility] SCRN MAMM (CAD)W/MICKEY BILATo n 12-24-2024 SCRN MAMM (CAD)W/MICKEY BILAT [facility] Imaging Services [address] [place], [place] [address] SCRN MAMM (CAD)W/MICKEY BILAT MR#: [id number] Acct: [id number] Name: JUDITH LACY Rep #: [id number] : 1970 F 54 From: Terrecne sandhu MD PCP: SCOT Yadav Status: REG CLI Study: SCRN MAMM (CAD)W/MICKEY BILAT Date of Exam: 12/14 10/09 Exam# [id number] Ordering Dr: Eryn Gray EXAM: SCRN MAMM [...] be mailed to the patient. Reading Location: [place] [address] CC: SCOT Gray; SCOT Aly Operating Cost Clerk: Signed Normal [facility] CALCIFEDIOL ([id number])Ordered B y: Manager Strategy & Account on 07-09-2023 25-hydroxyvitamin D [Mass/Vol] 72.5 ng/mL Normal 30.0-100.0 [facility]; [facility] Work Phone: Comment on above: Vitamin D deficiency has been defined by the [place] of[place] and an Endocrine Society practice guideline as alevel of serum 25-OH vitamin D less than 20 ng/mL (1,2).The Endocrine Society went on to further define vitamin Dinsufficiency as a level between 21 and 29 ng/mL (2).1. IOM ([place] of [employer]). 2010. Dietary reference intakes for calcium and D. [place]: The National Academies Press.2. Kash MF, Donya QUINTEROS, Miranda LLOYD, et al. Evaluation, treatment, and prevention of vitamin D deficiency: an Endocrine Society clinical practice guideline. JCEM. 2010; 96(7):1911-30. PATIENT WAS FASTINGP ERFORMED BY: CB [facility] [id number] [place] [id number] CBC, PLATELETS & AUT DIFF (7 1496)Ordered By: Manager Strategy & Account on 07-09-2023 Basophils (Bld) [#/Vol] 0.1 10*3/uL Normal 0.0-0.2 [facility]; [facility] Work Phone: Comment on above: PATIENT WAS FASTINGP ERFORMED BY: [facility] [id number] [place] [id number] Basophils/100 WBC (Bld) 1 % Normal [facility]; [facility] Work Phone: Comment on above: PATIENT WAS FASTINGP ERFORMED BY: [facility] [id number] [address]Dublin [place] [id number] Eosinophils (Bld) [#/Vol] 0.1 10*3/uL Normal 0.0-0.4 [facility]; [facility] Work Phone: Comment on above: PATIENT WAS FASTINGP ERFORMED BY: [facility] [id number]Dublin [place] [id number] Eosinophils/100 WBC (Bld) 2 % Normal [facility]; [facility] Work Phone: Comment on above: PATIENT WAS FASTINGP ERFORMED BY: CB [facility] [id number] [address] [place] [id number] Erythrocyte distribution width (RBC) [Ratio] 12.1 % Normal 11.7-15.4 [facility]; [facility] Work Phone: Comment on above: PATIENT WAS FASTINGP ERFORMED BY: CB [facility] [id number] [address] [place] [id number] Hematocrit (Bld) [Volume fraction] 43.3 % Normal 34.0-46.6 [facility]; [facility] Work Phone: Comment on above: PATIENT WAS FASTINGP ERFORMED BY: ARDEN Wolfgang Edouard[address] [facility] [id number] Hemoglobin (Bld) [Mass/Vol] 14.7 g/dL Normal 11.1-15.9 [facility]; [facility] Work Phone: Comment on above: PATIENT WAS FASTINGP ERFORMED BY: [place] [id number] [facility] [id number] Immature granulocytes (Bld) [#/Vol] 0.0 10*3/uL Normal 0.0-0.1 [facility]; [facility] Work Phone: Comment on above: PATIENT WAS FASTINGP ERFORMED BY: [place] [id number] [facility] [id number] Immature granulocytes/100 WBC (Bld) 0 % Normal [facility]; [facility] Work Phone: Comment on above: PATIENT WAS FASTINGP ERFORMED BY: [place] [id number] [facility] [id number] Lymphocytes (Bld) [#/Vol] 1.6 10*3/uL Normal 0.7-3.1 [facility]; [facility] Work Phone: Comment on above: PATIENT WAS FASTINGP ERFORMED BY: [place] [id number] [facility] [id number] Lymphocytes/100 WBC (Bld) 38 % Normal [facility]; [facility] Work Phone: Comment on above: PATIENT WAS FASTINGP ERFORMED BY: [facility] [facility] [id number] MCH (RBC) [Entitic mass] 31.4 pg Normal 26.6-33.0 [facility]; [facility] Work Phone: Comment on above: PATIENT WAS FASTINGP ERFORMED BY: LabZachary [place] [id number] [facility] [id number] MCHC (RBC) [Mass/Vol] 33.9 g/dL Normal 31.5-35.7 [facility]; [facility] Work Phone: Comment on above: PATIENT WAS FASTINGP ERFORMED BY: ARDEN Wolfgang Edouard[address] [facility] [id number] MCV (RBC) [Entitic vol] 93 fL Normal 79-97 [facility]; [facility] Work Phone: Comment on above: PATIENT WAS FASTINGP ERFORMED BY: ARDEN iMchaelmomo [id number] [facility]araSaint [facility] [id number] Monocytes (Bld) [#/Vol] 0.2 10*3/uL Normal 0.1-0.9 [facility]; [facility] Work Phone: Comment on above: PATIENT WAS FASTINGP ERFORMED BY: ARDEN Carballolin[address] [facility] [id number] Monocytes/100 WBC (Bld) 5 % Normal [facility]; [facility] Work Phone: Comment on above: PATIENT WAS FASTINGP ERFORMED BY: ARDEN Michaelmomo CarballoNotlnq[address] [facility] [id number] Neutrophils (Bld) [#/Vol] 2.3 10*3/uL Normal 1.4-7.0 [facility]; [facility] Work Phone: Comment on above: PATIENT WAS FASTINGP ERFORMED BY: ARDEN [facility] [id number] [facility] [id number] Neutrophils/100 WBC (Bld) 54 % Normal [facility]; [facility] Work Phone: Comment on above: PATIENT WAS FASTINGP ERFORMED BY: ARDEN Labcoabdi [id number] [facility] [place] [id number] Platelets (Bld) [#/Vol] 250 10*3/uL Normal 150-450 [facility]; [facility] Work Phone: Comment on above: PATIENT WAS FASTINGP ERFORMED BY: ARDEN [facility] [id number] [address]Dublin [place] [id number] RBC (Bld) [#/Vol] 4.68 10*6/uL Normal 3.77-5.28 Compr [facility]; [facility] Work Phone: Comment on above: PATIENT WAS FASTINGP ERFORMED BY: ARDEN [facility] [id number] [address] RoadDublin [place] [id number] WBC (Bld) [#/Vol] 4.3 10*3/uL Normal 3.4-10.8 Compre [facility] Internal Medicine; [facility] Work Phone: Comment on above: PATIENT WAS FASTINGP ERFORMED BY: ARDEN [facility] Twscav8727 Jara RoadDublin [place] [id number] LIPID PANEL ([id number])Ordered B y: Manager Strategy & Account on 07-09-2023 Cholesterol [Mass/Vol] 180 mg/dL Normal 100-199 [facility]; [facility] Work Phone: Comment on above: PATIENT WAS FASTINGP ERFORMED BY: ARDEN [facility] Jdrcmr4862 Jara RoadDublin [place] [id number] Cholesterol in HDL [Mass/Vol] 73 mg/dL Normal [facility]; [facility] Work Phone: Comment on above: PATIENT WAS FASTINGP ERFORMED BY: ARDEN [facility] CarballoRoubhb5080 Jara RoadDublin [place] [id number] Triglyceride [Mass/Vol] 42 mg/dL Normal 0-149 [facility]; [facility] Work Phone: Comment on above: PATIENT WAS FASTINGP ERFORMED BY: ARDEN [facility] Mgotqz2896 Jara RoadDublin [place] [id number] LIPID PANEL ([id number]) 9 mg/dL Normal 5-40 [facility]; [facility] Work Phone: Comment on above: PATIENT WAS FASTINGP ERFORMED BY: ARDEN [facility] Zbhnqx6591 Jara RoadDublin [place] [id number] LIPID PANEL ([id number]) 98 mg/dL Normal 0-99 [facility]; [facility] Work Phone: Comment on above: PATIENT WAS FASTINGP ERFORMED BY: [facility] Ulioia9903 J[address] RoadDublin [place] [id number] LIPID PANEL ([id number]) 1.3 {ratio} Normal 0.0-3.2 [facility]; [facility] Work Phone: Comment on above: LDL/HDL Ratio Men Wo men 1/2 Avg.Risk 1.0 1.5 Avg.Risk 3.6 3.2 2X Avg.Risk 6.2 5.0 3X Avg.Risk 8.0 6.1 PATIENT WAS FASTINGP ERFORMED BY: [facility] Ufbamt2084 Jara RoadDublin [place] [id number] METABOLIC PANEL, COMPREHENSI VE ([id number])Ordered By: Manager Strategy & Account on 07-09-2023 Albumin [Mass/Vol] 4.9 g/dL Normal 3.8-4.9 [facility]; [facility] Work Phone: Comment on above: PATIENT WAS FASTINGP ERFORMED BY: [facility] Keebry5424 Jara RoadDublin [place] [id number] Albumin/Globulin [Mass ratio] 1.9 {ratio} Normal 1.2-2.2 [facility]; [facility] Work Phone: Comment on above: PATIENT WAS FASTINGP ERFORMED BY: [facility] Tgyaqc9059 Jara RoadDublin [place] [id number] ALP [Catalytic activity/Vol] 59 U/L Normal 44-121 [facility]; [facility] Work Phone: Comment on above: PATIENT WAS FASTINGP ERFORMED BY: [facility] Vklhat4926 J[address] RoadDublin [place] [id number] ALT [Catalytic activity/Vol] 23 U/L Normal 0-32 [facility]; [facility] Work Phone: Comment on above: PATIENT WAS FASTINGP ERFORMED BY: [facility] Nmnibs2598 Jara RoadDublin [place] [id number] AST [Catalytic activity/Vol] 22 U/L Normal 0-40 [facility]; [facility] Work Phone: Comment on above: PATIENT WAS FASTINGP ERFORMED BY: [facility] Ogbewc0163 Jara RoadDublin [place] [id number] Bilirubin [Mass/Vol] 0.9 mg/dL Normal 0.0-1.2 [facility]; [facility] Work Phone: Comment on above: PATIENT WAS FASTINGP ERFORMED BY: [facility] Ybzgoe2798 J[address] Roadblin [place] [id number] Calcium [Mass/Vol] 9.9 mg/dL Normal 8.7-10.2 [facility]; [facility] Work Phone: Comment on above: PATIENT WAS FASTINGP ERFORMED BY: [facility] Tbbuyr1079 [address] RoadDublin [place] [id number] Chloride [Moles/Vol] 101 mmol/L Normal 96-106 [facility]; [facility] Work Phone: Comment on above: PATIENT WAS FASTINGP ERFORMED BY: LabHawthorn Center6370 [address] RoadFormerly [facility] Centerin [place] [id number] CO2 [Moles/Vol] 27 mmol/L Normal 20-29 Comprehen sive Internal Medicine; [facility] Work Phone: Comment on above: PATIENT WAS FASTINGP ERFORMED BY: [facility] Gzmigq7988 Jara [facility] Hospitalblin [place] [id number] Creatinine [Mass/Vol] 0.86 mg/dL Normal 0.57-1.00 [facility]; [facility] Work Phone: Comment on above: PATIENT WAS FASTINGP ERFORMED BY: [facility] Xyfgsk1946 Jara [facility] Hospitalblin [place] [id number] GFR/1.73 sq M.predicted among non-blacks MDRD (S/P/Bld) [Vol rate/Area] 82 mL/min/{1.73_m2} Normal Comprehensiv e Internal Medicine; [facility] Work Phone: Comment on above: PATIENT WAS FASTINGP ERFORMED BY: [facility] Acyyeh0146 Jara RoadDublin [place] [id number] Globulin (S) [Mass/Vol] 2.6 g/dL Normal 1.5-4.5 [facility]; [facility] Work Phone: Comment on above: PATIENT WAS FASTINGP ERFORMED BY: ARDEN Labcoabdi Wpjyep6547 Jara RoadDublin [place] [id number] Glucose [Mass/Vol] 87 mg/dL Normal 70-99 [facility]; [facility] Work Phone: Comment on above: PATIENT WAS FASTINGP ERFORMED BY: CB [facility] Izsqot2563 [address] RoadDublin [place] [id number] Potassium [Moles/Vol] 4.5 mmol/L Normal 3.5-5.2 [facility]; [facility] Work Phone: Comment on above: PATIENT WAS FASTINGP ERFORMED BY: ARDEN [facility] Iikimd2830 J[address] RoadDublin [place] [id number] Protein [Mass/Vol] 7.5 g/dL Normal 6.0-8.5 [facility]; [facility] Work Phone: Comment on above: PATIENT WAS FASTINGP ERFORMED BY: ARDEN [facility] Nkxbzq3576 J[address] RoadDublin [place] [id number] Sodium [Moles/Vol] 142 mmol/L Normal 134-144 [facility]; [facility] Work Phone: Comment on above: PATIENT WAS FASTINGP ERFORMED BY: [facility] Vwksaa7126 [address] RoadDublin [place] [id number] Urea nitrogen [Mass/Vol] 13 mg/dL Normal 6-24 [facility]; [facility] Work Phone: Comment on above: PATIENT WAS FASTINGP ERFORMED BY: [facility] Nwqumc1429 [address] RoadDublin [place] [id number] Urea nitrogen/Creatini ne [Mass ratio] 15 mg/mg Normal 9-23 [facility]; [facility] Work Phone: Comment on above: PATIENT WAS FASTINGP ERFORMED BY: [facility] Trecvg7774 J[address] RoadDublin [place] [id number] TSH (THYROID STIMULATING HOR BETTINA) ([id number])Ordered By: Manager Strategy & Account on 07-09-2023 TSH Qn 2.200 {uIU/mL} Normal 0.450-4.500 Comprehen sive Internal Medicine; [facility] Work Phone: Comment on above: PATIENT WAS FASTINGP ERFORMED BY: ARDEN [facility] Gedpss4950 J[address] RoadDublin [place] [id number] URINALYSIS ([id number])Ordered By : Manager Strategy & Account on 07-09-2023 Appearance (U) Clear Normal Comprehens meghann Internal Medicine; [facility] Work Phone: Comment on above: PATIENT WAS FASTINGP ERFORMED BY: ARDEN [facility] Izpqfp0821 J[address] RoadDublin [place] [id number] Bilirubin Ql (U) Negative Normal Comprehe nsive Internal Medicine; [facility] Work Phone: Comment on above: PATIENT WAS FASTINGP ERFORMED BY: ARDEN Labcoabdi CarballoLzhykl9012 J[address] RoadDublin [place] [id number] Color (U) Yellow Normal [facility]; [facility] Work Phone: Comment on above: PATIENT WAS FASTINGP ERFORMED BY: ARDEN [facility] Rejlwx7674 [address] RoadDublin [place] [id number] Glucose Ql (U) Negative Normal Comprehens meghann [facility]; [facility] Work Phone: Comment on above: PATIENT WAS FASTINGP ERFORMED BY: ARDEN Labcoabdi CarballoJidkyo8284 [address] RoadDublin [place] [id number] Hemoglobin Ql (U) Negative Normal Compreh ensive Internal Medicine; [facility] Work Phone: Comment on above: PATIENT WAS FASTINGP ERFORMED BY: ARDEN [facility] Xiikav7307 [address] RoadDublin [place] [id number] Ketones Ql (U) Negative Normal Comprehens meghann Internal Medicine; [facility] Work Phone: Comment on above: PATIENT WAS FASTINGP ERFORMED BY: ARDEN [facility] Enmbmk4043 [address] RoadDublin [place] [id number] Leukocyte esterase Test strip Ql (U) Negative Normal [facility]; [facility] Work Phone: Comment on above: PATIENT WAS FASTINGP ERFORMED BY: ARDEN Edouard6370 [address] RoadDublin [place] [id number] Microscopic observation LM Nom (Urine sed) MICNIP Normal [facility]; [facility] Work Phone: Comment on above: Microscopic not hakan cated and not performed. PATIENT WAS FASTINGP ERFORMED BY: ARDEN Wolfgang Edouard6370 [address] RoadDublin [place] [id number] Nitrite Ql (U) Negative Normal Comprehens meghann Internal Medicine; [facility] Work Phone: Comment on above: PATIENT WAS FASTINGP ERFORMED BY: ARDEN Wolfgang Edouard6370 [address] RoadDublin [place] [id number] pH (U) 7.0 [pH] Normal 5.0-7.5 [facility]; [facility] Work Phone: Comment on above: PATIENT WAS FASTINGP ERFORMED BY: ARDEN Wolfgang Edouard6370 [address]bl[address] [place] [id number] Protein Ql (U) Negative Normal Comprehens meghann Internal Medicine; [facility] Work Phone: Comment on above: PATIENT WAS FASTINGP ERFORMED BY: ARDEN Wolfgang Edouard6[address] [facility] Hospitalblin [place] [id number] Specific gravity (U) [Rel density] 1.009 1 Normal 1.005-1.030 [facility]; [facility] Work Phone: Comment on above: PATIENT WAS FASTINGP ERFORMED BY: ARDEN Carballolin6370 [address]Dublin [place] [id number] Urobilinogen (U) [Mass/Vol] 0.2 mg/dL Normal 0.2-1.0 [facility]; [facility] Work Phone: Comment on above: PATIENT WAS FASTINGP ERFORMED BY: ARDEN Carballolin6370 [address] RoadDublin [place] [id number] VITAMIN B12 AND FOLATES ([id number])Ordered By: Manager Strategy & Account on 07-09-2023 Cobalamin (Vitamin B12) [Mass/Vol] 679 pg/mL Normal 232-1245 [facility]; [facility] Work Phone: Comment on above: PATIENT WAS FASTINGP ERFORMED BY: [facility] Zuduii8985 [facility] [id number] Folate [Mass/Vol] ng/mL Normal Compreh ensive Internal Medicine; [facility] Work Phone: Comment on above: A serum folate ever ntration of less than 3.1 ng/mL isconsidered to represent clinical deficiency. PATIENT WAS FASTINGP ERFORMED BY: [facility] Drazct4188 [facility] [id number] [facility] [id number] Author: Coordinator, Mammography Service: ? Author Type: Physician Type: Letter Filed: 05/26/2023 11:35 PM Note Text: May 23, 2023 PID: [id number] Judith MunozTrinity Lacy [address] [place] [address] Dear Ms. Lacy, We are pleased to [...] report will be kept on file at [facility] as part of your permanent medical record and are available for your continuing care. Thank you for allowing us to help in meeting your health care needs. Sincerely, Dr. Wilson Interpreting Radiologist [facility] (Normal over 40) Normal [facility] SHELBY SCREENING W TOMOon 05-22 SHELBY SCREENING W MICKEY * * *Final Report* * * DATE OF EXAM: May 22 2023 10:18AM MAE 0582 - SHELBY SCREENING W MICKEY / PROCEDURE REASON: Encounter for screening mammogram for malignant neoplasm of breast * * * * Physician Interpretation * * * * RESULT: #[id number] - SHELBY SCREENING W MICKEY BILATERAL DIGITAL SCREENING MAMMOGRAM [...] exams dated: 04/11/2022 mammogram, 01/26/2021 mammogram - [facility], 06/28/2019 mammogram, and 06/01/2018 mammogram - [facility]. The tissue of both breasts is heterogeneously dense. This may lower the sensitivity of mammography. No significant masses, calcifications, or other findings are seen in either breast. There has been no significant interval change. IMPRESSION: NEGATIVE There is no mammographic evidence of malignancy. A 1 year screening mammogram is recommended. Demetris wong/penmary:05/23/2023 08:59:29 Tele Marketing Executive(s): RT Galina(R)(M), [facility] letter sent: Normal over 40 Mammogram BI-RADS: [...] Health, Family Medicine, and Medical/Surgical Oncology, the [facility] has carefully reviewed the data and [...] their providers when to stop screening mammograms. Operating Cost Clerk: Marine Transcribe Date/Time: May 22 2023 9:52A Dictated by: DEMETRIS WILSON MD This examination was interpreted and the report reviewed and electronically signed by: DEMETRIS WILSON MD on May 23 2023 8:59AM EST [id number] Normal [facility] ic CNOVon 02-20-2023 CNOV Office Visit (UCWSTR ) BAMBIJUDITH Jane ([id number]) 1970 F Date Time Provider Department 02/20/23 7:45 AM GEOVANY RAMIREZ [facility] During your visit today, we recorded the [...] Diagnosis:Sore throat [J02.9] Order(s):STREP A MOLECULAR (POC) [0220317] Order #: [id number]. #:[id number] Prescriptions as of 02/20/2023 - acyclovir [...] 02/20/2023 Noted Resolved Advanced maternal age in [UJA2251] 07/25/2012 08/21/2015 History of herpes genitalis [Z86.19] [...] Status:Closed by GEOVANY RAMIREZ on 02/20/23 Normal [facility] STREP A MOLECULAR (POC)on Procedural Control Valid [facility] Strep A (POCT) Negative Negative [facility] CNOVon 08-12-2022 CNOV Office Visit (OBGYWM ) JUDITH LACY ([id number]) 1970 F Date Time Provider Department 08/12/22 1:20 PM REBA MULLINS OBJOSE During your visit today, we recorded the following information about you: Blood pressure Weight 104/64 49.4 kg Reba Nelson MD 08/12/2022 1:49 PM Signed Power Manager offered: Patient declines. 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 Normal [facility] CNOVon 07-22-2022 CNOV Office Visit (UCWSTR ) JUDITH LACY ([id number]) 1970 F Date Time Provider Department 07/22/22 10:45 AM SNOW COKER During your visit today, we recorded the following information about you: Temperature Pulse Respiration Blood pressure 97.7 degrees 75/minute 20/minute 100/64 Weight 50.7 kg Snow Coker APRN.CNP 07/22/2022 10:58 AM Signed Subjective The history is provided by the patient. No foreign languages professor was used. HPI Judith Lacy is a [...] have confirmed and edited as necessary, the [facility] Review of Systems Constitutional: Negative for [...] List As (more content not included)... Normal [facility] SHELBY SCREENING W TOMOon 04-11 [facility] ic Basophil percentageon 2021 Bilirubin [Mass/Vol] 0.80 mg/dL 0.20-1.00 [facility] Work Phone: Comment on above: For patients on eltr ombopag therapy, use of Dimension [place] TBIL is not recommended. Chloride [Moles/Vol] 105 mmol/L 98-107 [facility] Work Phone: Cholesterol [Mass/Vol] 148 mg/dL <200 [facility] Work Phone: Comment on above: <200 mg/dL Desirable 200-240 mg/dL Borderline >240 mg/dL High Risk Glucose [Mass/Vol] 87 mg/dL 74-106 [facility] Work Phone: Potassium [Moles/Vol] 4.1 mmol/L 3.5-5.1 [facility] Work Phone: Protein [Mass/Vol] 6.8 g/dL 6.4-8.2 [facility] Work Phone: Sodium [Moles/Vol] 140 mmol/L 136-145 [facility] Work Phone: Triglyceride [Mass/Vol] 47 mg/dL [facility] Work Phone: Comment on above: The drugs N-Acetylcy steine and Metamizole may falsely depress this assay.Serum Triglycerides Reference Interval Normal <150 mg/dL Borderline high 150 - 199 mg/dL High 200 - 499 mg/dL Very High > or = 500 mg/dL WBC (Bld) [#/Vol] 4.3 10*3/uL 4.4-11.0 [facility] Work Phone: Blood erythrocytes count (nu mber/volume)on 12-05-2021 RBC (Bld) [#/Vol] 4.15 10*6/uL 4.2-5.4 [facility]: Blood hemoglobin measurement (mass/volume)on 12-05-2021 Hemoglobin (Bld) [Mass/Vol] 13.6 g/dL 12.0-15.0 [facility] Work Phone: Blood platelet mean volumeon 12-05-2021 Platelet mean volume (Bld) [Entitic vol] 10.8 fL 6.2-12.0 [facility] Work Phone: Determination of erythrocyte mean corpuscular volume (MCV)on 12-05-2021 MCV (RBC) [Entitic vol] 92.8 fL 81-99 [facility] Work Phone: Hematocrit Auto (Bld) [Volum e fraction]on 12-05-2021 Hematocrit (Bld) [Volume fraction] 38.5 % 37-47 [facility] Work Phone: Laboratory - Chemistry and C hemistry - challengeon 12-05-2021 ALP [Catalytic activity/Vol] 47 U/L 45-117 [facility] Work Phone: ALT [Catalytic activity/Vol] 25 U/L 13-56 [facility] Work Phone: CO2 [Moles/Vol] 32.0 mmol/L 21.0-32.0 [facility] Work Phone: Globulin (S) [Mass/Vol] 3.1 g/dL 2.2-4.2 [facility] Work Phone: Urea nitrogen/Creatini ne [Mass ratio] 14.0 mg/mg 10-20 [facility] Work Phone: Laboratory - Hematology and Cell countson 12-05-2021 Erythrocyte distribution width (RBC) [Entitic vol] 42.5 fL 35.1-43.9 [facility] Work Phone: Erythrocyte distribution width (RBC) [Ratio] 12.4 % 11.6-14.6 [facility] Work Phone: MCH (RBC) [Entitic mass] 32.8 pg 27.0-32.0 [facility] Work Phone: MCHC Auto (RBC) [Mass/Vol]on 12-05-2021 MCHC (RBC) [Mass/Vol] 35.3 g/dL 32-36 [facility] Work Phone: No Panel Informationon 12-05 Estimated GFR (MDRD) Amer 111 mL/min >60 [facility] Work Phone: Comment on above: GFR Calc Estimated GFR (MDRD) Non-Af Amer 92 mL/min >60 [facility] Work Phone: Comment on above: Non- GFR Calc Thyroid Stimulating Hormone (TSH) 2.09 uIU/mL 0.358-3.74 [facility] Work Phone: Vitamin D 25-Hydroxy 71.7 ng/mL [facility] Work Phone: Comment on above: Vitamin D 25(OH) Sta tus Range Deficiency <20 ng/mL (50nmol/L) Insufficiency 20 - 30 ng/mL (50 - 75 nmol/L) Sufficiency 30 - 100 ng/mL (75 - 250 nmol/L) Toxicity >100 ng/mL (>250 nmol/L) Platelets bldon 12-05-2021 Platelets (Bld) [#/Vol] 230 10*3/uL 150-450 [facility] Work Phone: Serum or plasma albumin karlie urement (mass/volume)on 12-05-2021 Albumin [Mass/Vol] 3.7 g/dL 3.2-5.0 [facility] Work Phone: Serum or plasma albumin/glob ulin mass ratioon 12-05-2021 Albumin/Globulin [Mass ratio] 1.2 {ratio} 0.9-2.4 [facility] Work Phone: Serum or plasma calcium karlie urement (mass/volume)on 12-05-2021 Calcium [Mass/Vol] 9.2 mg/dL 8.5-10.1 [facility] Work Phone: Serum or plasma cholesterol in HDL measurement (mass/volume)on 12-05-2021 Cholesterol in HDL [Mass/Vol] 68 mg/dL [facility] Work Phone: Comment on above: The drugs N-Acetylcy steine and Metamizole may falsely depress this assay. Reference Range HDL <40 mg/dL Low HDL Cholesterol HDL >or= 60 mg/dL High HDL Cholesterol Serum or plasma cholesterol in VLDL measurement (mass/volume)on 12-05-2021 Cholesterol in VLDL [Mass/Vol] 9 mg/dL 5-40 [facility] Work Phone: Serum or plasma creatinine m easurement (mass/volume)on 12-05-2021 Creatinine [Mass/Vol] 0.71 mg/dL 0.55-1.02 [facility] Work Phone: Comment on above: The validity of the calculated GFR & GFRAA in patients over 70 years has not been determined. Clinical correlation is essential. Serum or plasma low density lipoprotein (LDL) cholesterol measurement (mass/volume)on 12-05-2021 Cholesterol in LDL [Mass/Vol] 71 mg/dL 0-130 [facility] Work Phone: Serum or plasma urea nitroge n measurement (mass/volume)on 12-05-2021 Urea nitrogen [Mass/Vol] 10 mg/dL 7-18 [facility] Work Phone: Thin prep Papanicolaou smear with manual screeningon 12-05-2021 Thin prep Papanicolaou smear with manual screening 18 U/L 15-37 [facility] Work Phone: Thin prep Papanicolaou smear with manual screening 3 5-15 [facility] Work Phone: CALCIFEDIOL ([id number])Ordered B y: Manager Strategy & Account on 06-16-2019 25-Hydroxyvitamin D2+25-Hydroxyvita min D3 [Mass/Vol] 110.0 ng/mL Abnormal 30.0-100.0 [facility] Work Phone: Comment on above: Vitamin D deficiency has been defined by the [place] ofMedicine and an Endocrine Society practice guideline as alevel of serum 25-OH vitamin D less than 20 ng/mL (1,2).The Endocrine Society went on to further define vitamin Dinsufficiency as a level between 21 and 29 ng/mL (2).1. IOM ([place] of Medicine). 2010. Dietary reference intakes for calcium and D. [place]: The National Academies Press.2. Kash MF, Donya QUINTEROS, Miranda LLOYD, et al. Evaluation, treatment, and prevention of vitamin D deficiency: an Endocrine Society clinical practice guideline. JCEM. 2010; 96(7):1911-30. PATIENT WAS FASTINGP ERFORMED BY: Ateeda [facility] Yquuaw0383 [address]bl[address] [place] [id number] CBC & PLATELETS (AUTO) ([id number])Ordered By: Manager Strategy & Account on 06-16-2019 Erythrocyte distribution width (RBC) [Ratio] 13.0 % Normal 12.3-15.4 [facility] Work Phone: Comment on above: PATIENT WAS FASTINGP ERFORMED BY: Perdoorp Fdxlgx6831 Localityin [place] [id number] Hematocrit (Bld) [Volume fraction] 41.3 % Normal 34.0-46.6 [facility] Work Phone: Comment on above: PATIENT WAS FASTINGP ERFORMED BY: Ateeda LabCelgen Biopharmarp Oxgcmx9421 [address] EB Holdingsblin [place] [id number] Hemoglobin (Bld) [Mass/Vol] 14.1 g/dL Normal 11.1-15.9 [facility] Work Phone: Comment on above: PATIENT WAS FASTINGP ERFORMED BY: Frolik6370 [address] LineaQuattroFormerly [facility] Centerin [place] [id number] MCH (RBC) [Entitic mass] 31.5 pg Normal 26.6-33.0 [facility] Work Phone: Comment on above: PATIENT WAS FASTINGP ERFORMED BY: CB [facility] Kjyzgk5814 [address] RoadDublin [place] [id number] MCHC (RBC) [Mass/Vol] 34.1 g/dL Normal 31.5-35.7 [facility] Work Phone: Comment on above: PATIENT WAS FASTINGP ERFORMED BY: CB [facility] Sgqesi7453 Jara RoadDublin [place] [id number] MCV (RBC) [Entitic vol] 92 fL Normal 79-97 [facility] Work Phone: Comment on above: PATIENT WAS FASTINGP ERFORMED BY: CB [facility] Koqhrq1719 [address] RoadDublin [place] [id number] Platelets (Bld) [#/Vol] 210 {x10E3/uL} Normal 150-450 [facility] Work Phone: Comment on above: PATIENT WAS FASTINGP ERFORMED BY: CB [facility] Chshfc4930 [address] RoadDublin [place] [id number] Platelets (Bld) [#/Vol] 210 10*3/uL Normal 150-450 [facility]; [facility] Work Phone: Comment on above: PATIENT WAS FASTINGP ERFORMED BY: CB [facility] Znuuac5274 [address] RoadDublin [place] [id number] RBC (Bld) [#/Vol] 4.48 {x10E6/uL} Normal 3.77-5.28 [facility] Work Phone: Comment on above: PATIENT WAS FASTINGP ERFORMED BY: CB [facility] Elwhie5904 [address] RoadDublin [place] [id number] RBC (Bld) [#/Vol] 4.48 10*6/uL Normal 3.77-5.28 [facility] Internal [facility]; [facility] Work Phone: Comment on above: PATIENT WAS FASTINGP ERFORMED BY: CB [facility] Yxpnfb7676 [address] RoadDublin [place] [id number] WBC (Bld) [#/Vol] 4.5 {x10E3/uL} Normal 3.4-10.8 [facility] prehensive Internal Medicine Work Phone: Comment on above: PATIENT WAS FASTINGP ERFORMED BY: ARDEN Margaretteabdi Aertqb3858 J[address] RoadDublin [place] [id number] WBC (Bld) [#/Vol] 4.5 10*3/uL Normal 3.4-10.8 [facility] Internal Medicine; [facility] Work Phone: Comment on above: PATIENT WAS FASTINGP ERFORMED BY: ARDEN LabMomo CarballoKnwifz5704 Jara RoadDublin [place] [id number] LIPID PANEL ([id number])Ordered B y: Manager Strategy & Account on 06-16-2019 Cholesterol [Mass/Vol] 167 mg/dL Normal 100-199 [facility] Work Phone: Comment on above: PATIENT WAS FASTINGP ERFORMED BY: ARDEN Carballolin6370 [address] RoadDublin [place] [id number] Cholesterol in HDL [Mass/Vol] 66 mg/dL Normal [facility] Work Phone: Comment on above: PATIENT WAS FASTINGP ERFORMED BY: ARDEN Carballolin[address] [facility] HospitalDublin [place] [id number] Cholesterol in LDL [Mass/Vol] 90 mg/dL Normal 0-99 [facility] Work Phone: Comment on above: PATIENT WAS FASTINGP ERFORMED BY: ARDEN LabMomo CarballoQkflou[address] [facility] HospitalDublin [place] [id number] Cholesterol in LDL/Cholesterol in HDL [Mass ratio] 1.4 {ratio} Normal 0.0-3.2 [facility] Work Phone: Comment on above: LDL/HDL Ratio Men Wo men 1/2 Avg.Risk 1.0 1.5 Avg.Risk 3.6 3.2 2X Avg.Risk 6.2 5.0 3X Avg.Risk 8.0 6.1 PATIENT WAS FASTINGP ERFORMED BY: ARDEN LabMomo Jieflx7525 [address] RoadDublin [place] [id number] Cholesterol in VLDL [Mass/Vol] 11 mg/dL Normal 5-40 [facility] Work Phone: Comment on above: PATIENT WAS FASTINGP ERFORMED BY: ARDEN [facility] Pdsrse0625 [address] RoadDublin [place] [id number] Triglyceride [Mass/Vol] 53 mg/dL Normal 0-149 [facility] Work Phone: Comment on above: PATIENT WAS FASTINGP ERFORMED BY: ARDEN [facility] Hlmnxu8523 Jara RoadDublin [place] [id number] Metabolic Panel, Comprehensi ve ([id number])Ordered By: Manager Strategy & Account on 06-16-2019 Albumin [Mass/Vol] 4.5 g/dL Normal 3.5-5.5 [facility] Work Phone: Comment on above: PATIENT WAS FASTINGP ERFORMED BY: ARDEN [facility] Oyilgk9908 [address]ara RoadDublin [place] [id number] Albumin/Globulin [Mass ratio] 1.9 {ratio} Normal 1.2-2.2 [facility] Work Phone: Comment on above: PATIENT WAS FASTINGP ERFORMED BY: ARDEN [facility] Glixeo4499 [address] RoadDublin [place] [id number] ALP [Catalytic activity/Vol] 42 [iU]/L Normal 39-117 [facility] Work Phone: Comment on above: PATIENT WAS FASTINGP ERFORMED BY: ARDEN [facility] Nvsmhc3735 [address] RoadDublin [place] [id number] ALP [Catalytic activity/Vol] 42 U/L Normal 39-117 [facility]; [facility] Work Phone: Comment on above: PATIENT WAS FASTINGP ERFORMED BY: CB [facility] Pwrxpf1203 [address] RoadDublin [place] [id number] ALT [Catalytic activity/Vol] 17 [iU]/L Normal 0-32 [facility] Work Phone: Comment on above: PATIENT WAS FASTINGP ERFORMED BY: CB [facility] Xeyusd6430 [address] RoadDublin [place] [id number] ALT [Catalytic activity/Vol] 17 U/L Normal 0-32 [facility]; [facility] Work Phone: Comment on above: PATIENT WAS FASTINGP ERFORMED BY: ARDEN LabBrea Tjjvwx5653 [address] RoadDublin [place] [id number] AST [Catalytic activity/Vol] 20 [iU]/L Normal 0-40 [facility] Work Phone: Comment on above: PATIENT WAS FASTINGP ERFORMED BY: ARDEN [facility]El[facility] Lftqkq8457 [address] RoadDublin [place] [id number] AST [Catalytic activity/Vol] 20 U/L Normal 0-40 [facility]; [facility] Work Phone: Comment on above: PATIENT WAS FASTINGP ERFORMED BY: ARDEN Pfeiffer Czdtiy6452 [address] RoadDublin [place] [id number] Bilirubin [Mass/Vol] 0.7 mg/dL Normal 0.0-1.2 [facility] Work Phone: Comment on above: PATIENT WAS FASTINGP ERFORMED BY: ARDEN Pfeiffer Snquuk4072 J[address] Roadblin [place] [id number] Calcium [Mass/Vol] 9.0 mg/dL Normal 8.7-10.2 [facility] Work Phone: Comment on above: PATIENT WAS FASTINGP ERFORMED BY: ARDEN Pfeiffer Xygfhy4871 [address] RoadDublin [place] [id number] Chloride [Moles/Vol] 102 mmol/L Normal 96-106 [facility] Work Phone: Comment on above: PATIENT WAS FASTINGP ERFORMED BY: ARDEN [facility] Zdyoam7605 [address] RoadDublin [place] [id number] CO2 [Moles/Vol] 27 mmol/L Normal 20-29 [facility] Work Phone: Comment on above: PATIENT WAS FASTINGP ERFORMED BY: ARDEN LabCo Lzaqyz7073 [address] RoadDublin [place] [id number] Creatinine [Mass/Vol] 0.77 mg/dL Normal 0.57-1.00 [facility] Work Phone: Comment on above: PATIENT WAS FASTINGP ERFORMED BY: ARDEN Pfeiffer Ryrkbm2599 [address] RoadDublin [place] [id number] GFR/1.73 sq M predicted among blacks CKD-EPI (S/P/Bld) [Vol rate/Area] 106 mL/min/1.73 Normal [facility] Work Phone: Comment on above: PATIENT WAS FASTINGP ERFORMED BY: [facility] Pqxkmn3431 [address] RoadDublin [place] [id number] GFR/1.73 sq M predicted among non-blacks CKD-EPI (S/P/Bld) [Vol rate/Area] 92 mL/min/1.73 Normal [facility] Work Phone: Comment on above: PATIENT WAS FASTINGP ERFORMED BY: LabMercy Mccune-Brooks HospitalDgbtsw6759 [address] [facility]in [place] [id number] Globulin (S) [Mass/Vol] 2.4 g/dL Normal 1.5-4.5 [facility] Work Phone: Comment on above: PATIENT WAS FASTINGP ERFORMED BY: LabMercy Mccune-Brooks HospitalHzkelh1497 [address] [facility] [id number] Glucose [Mass/Vol] 82 mg/dL Normal 65-99 [facility] Work Phone: Comment on above: PATIENT WAS FASTINGP ERFORMED BY: [facility]allin6370 [facility] [id number] Potassium [Moles/Vol] 4.4 mmol/L Normal 3.5-5.2 [facility] Work Phone: Comment on above: PATIENT WAS FASTINGP ERFORMED BY: [facility] Wwcbsz4106 [address] [facility]in [place] [id number] Protein [Mass/Vol] 6.9 g/dL Normal 6.0-8.5 [facility] Work Phone: Comment on above: PATIENT WAS FASTINGP ERFORMED BY: [facility] Urhfjc7909 [address] [facility]in [place] [id number] Sodium [Moles/Vol] 142 mmol/L Normal 134-144 [facility] Work Phone: Comment on above: PATIENT WAS FASTINGP ERFORMED BY: CB [facility] Rsdqdp8903 [address] RoadDublin [place] [id number] Urea nitrogen [Mass/Vol] 15 mg/dL Normal 6-24 [facility] Work Phone: Comment on above: PATIENT WAS FASTINGP ERFORMED BY: CB [facility] Pcwmah7415 [address] RoadDublin [place] [id number] Urea nitrogen/Creatini ne [Mass ratio] 19 mg/mg Normal 9-23 [facility] Work Phone: Comment on above: PATIENT WAS FASTINGP ERFORMED BY: CB [facility] Xzvixu7438 [address] RoadDublin [place] [id number] TSH (THYROID STIMULATING HOR BETTINA) ([id number])Ordered By: Manager Strategy & Account on 06-16-2019 TSH Qn 2.050 {uIU/mL} Normal 0.450-4.500 [facility] Work Phone: Comment on above: PATIENT WAS FASTINGP ERFORMED BY: CB [facility] Dbpuuv7896 [address] RoadDublin [place] [id number] CALCIFEDIOL ([id number])Ordered B y: Manager Strategy & Account on 10-27-2017 25-Hydroxyvitamin D2+25-Hydroxyvita min D3 [Mass/Vol] 34.2 ng/mL Normal 30.0-100.0 [facility] Work Phone: Comment on above: Vitamin D deficiency has been defined by the [place] ofMedicine and an Endocrine Society practice guideline as alevel of serum 25-OH vitamin D less than 20 ng/mL (1,2).The Endocrine Society went on to further define vitamin Dinsufficiency as a level between 21 and 29 ng/mL (2).1. IOM ([place] of Medicine). 2010. Dietary reference intakes for calcium and D. [place]: The National Academies Press.2. Kash MF, Donya NC, Miranda LLOYD, et al. Evaluation, treatment, and prevention of vitamin D deficiency: an Endocrine Society clinical practice guideline. JCEM. 2010; 96(7):1911-30. PATIENT NOT FASTINGP ERFORMED BY: CB [facility] Eresbi2022 [address] RoadDublin [place] [id number] Metabolic Panel, Comprehensi ve ([id number])Ordered By: Manager Strategy & Account on 10-27-2017 Albumin [Mass/Vol] 4.7 g/dL Normal 3.5-5.5 [facility] Work Phone: Comment on above: PATIENT NOT FASTINGP ERFORMED BY: CB [facility] Umegjl8081 [address] RoadDublin [place] [id number] Albumin/Globulin [Mass ratio] 1.9 {ratio} Normal 1.2-2.2 [facility] Work Phone: Comment on above: PATIENT NOT FASTINGP ERFORMED BY: CB [facility] Maumun5888 [address] RoadDublin [place] [id number] ALP [Catalytic activity/Vol] 42 [iU]/L Normal 39-117 [facility] Work Phone: Comment on above: PATIENT NOT FASTINGP ERFORMED BY: CB [facility] Tqnvwg4758 [address] RoadDublin [place] [id number] ALP [Catalytic activity/Vol] 42 U/L Normal 39-117 [facility]; [facility] Work Phone: Comment on above: PATIENT NOT FASTINGP ERFORMED BY: CB [facility] Ykoblp0152 [address] RoadDublin [place] [id number] ALT [Catalytic activity/Vol] 11 [iU]/L Normal 0-32 [facility] Work Phone: Comment on above: PATIENT NOT FASTINGP ERFORMED BY: CB [facility] Llbumj3817 [address] RoadDublin [place] [id number] ALT [Catalytic activity/Vol] 11 U/L Normal 0-32 [facility]; [facility] Work Phone: Comment on above: PATIENT NOT FASTINGP ERFORMED BY: CB [facility] Pumlst9848 [address] RoadDublin [place] [id number] AST [Catalytic activity/Vol] 17 [iU]/L Normal 0-40 [facility] Work Phone: Comment on above: PATIENT NOT FASTINGP ERFORMED BY: CB [facility] Qbyluo2290 [address] RoadDublin [place] [id number] AST [Catalytic activity/Vol] 17 U/L Normal 0-40 [facility]; [facility] Work Phone: Comment on above: PATIENT NOT FASTINGP ERFORMED BY: ARDEN [facility] Cheaeq0134 [address] RoadDublin [place] [id number] Bilirubin [Mass/Vol] 0.9 mg/dL Normal 0.0-1.2 [facility] Work Phone: Comment on above: PATIENT NOT FASTINGP ERFORMED BY: CB [facility] Vdxlky5983 [address] RoadDublin [place] [id number] Calcium [Mass/Vol] 9.3 mg/dL Normal 8.7-10.2 [facility] Work Phone: Comment on above: PATIENT NOT FASTINGP ERFORMED BY: ARDEN [facility] Ijxumc8007 [address] RoadDublin [place] [id number] Chloride [Moles/Vol] 104 mmol/L Normal 96-106 [facility] Work Phone: Comment on above: PATIENT NOT FASTINGP ERFORMED BY: ARDEN [facility] Feliit4731 [address] RoadDublin [place] [id number] CO2 [Moles/Vol] 24 mmol/L Normal 18-29 [facility] Work Phone: Comment on above: PATIENT NOT FASTINGP ERFORMED BY: ARDEN [facility] Owdspq2637 [address] RoadDublin [place] [id number] Creatinine [Mass/Vol] 0.79 mg/dL Normal 0.57-1.00 [facility] Work Phone: Comment on above: PATIENT NOT FASTINGP ERFORMED BY: CB [facility] Kcthqq4781 [address] RoadDublin [place] [id number] GFR/1.73 sq M predicted among blacks CKD-EPI (S/P/Bld) [Vol rate/Area] 105 mL/min/1.73 Normal [facility] Work Phone: Comment on above: PATIENT NOT FASTINGP ERFORMED BY: CB [facility] Pwvhjk6461 [address] RoadDublin [place] [id number] GFR/1.73 sq M predicted among non-blacks CKD-EPI (S/P/Bld) [Vol rate/Area] 91 mL/min/1.73 Normal [facility] Work Phone: Comment on above: PATIENT NOT FASTINGP ERFORMED BY: CB [facility] Xinezh3893 [address] RoadDublin [place] [id number] Globulin (S) [Mass/Vol] 2.5 g/dL Normal 1.5-4.5 [facility] Work Phone: Comment on above: PATIENT NOT FASTINGP ERFORMED BY: CB [facility] Edivsh3808 [address] RoadDublin [place] [id number] Glucose [Mass/Vol] 87 mg/dL Normal 65-99 [facility] Work Phone: Comment on above: PATIENT NOT FASTINGP ERFORMED BY: CB [facility] Xuxybz7728 [address] RoadDublin [place] [id number] Potassium [Moles/Vol] 4.0 mmol/L Normal 3.5-5.2 [facility] Work Phone: Comment on above: PATIENT NOT FASTINGP ERFORMED BY: CB [facility] Tqqwrf4681 [address] RoadDublin [place] [id number] Protein [Mass/Vol] 7.2 g/dL Normal 6.0-8.5 [facility] Work Phone: Comment on above: PATIENT NOT FASTINGP ERFORMED BY: CB [facility] Rlkpze6610 [address] RoadDublin [place] [id number] Sodium [Moles/Vol] 142 mmol/L Normal 134-144 [facility] Work Phone: Comment on above: PATIENT NOT FASTINGP ERFORMED BY: CB [facility] Fzvjvf0620 [address] RoadDublin [place] [id number] Urea nitrogen [Mass/Vol] 11 mg/dL Normal 6-24 [facility] Work Phone: Comment on above: PATIENT NOT FASTINGP ERFORMED BY: CB [facility] Gkouvl0752 [address] RoadDublin [place] [id number] Urea nitrogen/Creatini ne [Mass ratio] 14 mg/mg Normal 9-23 [facility] Work Phone: Comment on above: PATIENT NOT FASTINGP ERFORMED BY: ARDEN [facility] Jyaemw3909 [address] RoadDublin [place] [id number] FSH AND LH ([id number])Ordered By : Manager Strategy & Account on 04-22-2017 Follitropin Qn 9.0 m[IU]/mL Normal Comprehe nsive Internal Medicine Work Phone: Comment on above: Adult Female: Follic ular phase 3.5 - 12.5 Ovulation phase 4.7 - 21.5 Luteal phase 1.7 - 7.7 Postmenopausal 25.8 - 134.8 PATIENT NOT FASTINGP ERFORMED BY: ARDEN LabMomo CarballoRgliaz7747 [address] RoadDublin [place] [id number] Lutropin Qn 4.9 m[IU]/mL Normal Comprehensi ve Internal Medicine Work Phone: Comment on above: Adult Female: Follic ular phase 2.4 - 12.6 Ovulation phase 14.0 - 95.6 Luteal phase 1.0 - 11.4 Postmenopausal 7.7 - 58.5 PATIENT NOT FASTINGP ERFORMED BY: ARDEN LabBrearp Llscau1202 [address] RoadDublin [place] [id number] HEPATIC FUNCTION PANEL ([id number])Ordered By: Manager Strategy & Account on 04-22-2017 Albumin [Mass/Vol] 4.9 g/dL Normal 3.5-5.5 [facility] Work Phone: Comment on above: PATIENT NOT FASTINGP ERFORMED BY: ARDEN [facility] Kczoxk4393 [address] RoadDublin [place] [id number] ALP [Catalytic activity/Vol] 43 [iU]/L Normal 39-117 [facility] Work Phone: Comment on above: PATIENT NOT FASTINGP ERFORMED BY: ARDEN [facility] Kckdlv6463 [address] RoadDublin [place] [id number] ALP [Catalytic activity/Vol] 43 U/L Normal 39-117 [facility]; [facility] Work Phone: Comment on above: PATIENT NOT FASTINGP ERFORMED BY: ARDEN [facility] Fnhlsj1338 [address] RoadDublin [place] [id number] ALT [Catalytic activity/Vol] 20 [iU]/L Normal 0-32 [facility] Work Phone: Comment on above: PATIENT NOT FASTINGP ERFORMED BY: CB [facility] Lykyjs4833 [address] RoadDublin [place] [id number] ALT [Catalytic activity/Vol] 20 U/L Normal 0-32 [facility]; [facility] Work Phone: Comment on above: PATIENT NOT FASTINGP ERFORMED BY: CB [facility] Ejyxqe2977 [address] RoadDublin [place] [id number] AST [Catalytic activity/Vol] 23 [iU]/L Normal 0-40 [facility] Work Phone: Comment on above: PATIENT NOT FASTINGP ERFORMED BY: CB [facility] Yypzlj3970 [address] RoadDublin [place] [id number] AST [Catalytic activity/Vol] 23 U/L Normal 0-40 [facility]; [facility] Work Phone: Comment on above: PATIENT NOT FASTINGP ERFORMED BY: CB [facility] Hfsekk0188 [address] RoadDublin [place] [id number] Bilirubin [Mass/Vol] 0.9 mg/dL Normal 0.0-1.2 [facility] Work Phone: Comment on above: PATIENT NOT FASTINGP ERFORMED BY: CB [facility] Pahdgc6874 [address] RoadDublin [place] [id number] Bilirubin.direct [Mass/Vol] 0.21 mg/dL Normal 0.00-0.40 [facility] Work Phone: Comment on above: PATIENT NOT FASTINGP ERFORMED BY: CB [facility] Kmyvug8694 [address] RoadDublin [place] [id number] Protein [Mass/Vol] 7.5 g/dL Normal 6.0-8.5 [facility] Work Phone: Comment on above: PATIENT NOT FASTINGP ERFORMED BY: CB [facility] Rhgooi4268 [address] RoadDublin [place] [id number] AMMONIA ([id number])Ordered By: Ian ystem Circuit Recorder on 04-07-2017 Ammonia (P) [Mass/Vol] 37 ug/dL Normal 19-87 [facility] Work Phone: Comment on above: PATIENT WAS FASTINGP ERFORMED BY: ARDEN [facility] Wrrqgt8204 [facility] [id number] CALCIFEDIOL ([id number])Ordered B y: Manager Strategy & Account on 04-07-2017 25-Hydroxyvitamin D2+25-Hydroxyvita min D3 [Mass/Vol] 34.6 ng/mL Normal 30.0-100.0 [facility] Work Phone: Comment on above: Vitamin D deficiency has been defined by the [place] ofUniversity [facility] Centercine and an Endocrine Society practice guideline as alevel of serum 25-OH vitamin D less than 20 ng/mL (1,2).The Endocrine Society went on to further define vitamin Dinsufficiency as a level between 21 and 29 ng/mL (2).1. IOM ([employer] of Medicine). 2010. Dietary reference intakes for calcium and D. [place]: The National Academies Press.2. Kash MF, Donya QUINTEROS, Miranda LLOYD, et al. Evaluation, treatment, and prevention of vitamin D deficiency: an Endocrine Society clinical practice guideline. JCEM. 2010; 96(7):1911-30. PATIENT WAS FASTINGP ERFORMED BY: ARDEN Beanstalk Tax6370 [facility] [id number] CBC, Platelets & Auto Diff ( [id number])Ordered By: Manager Strategy & Account on 04-07-2017 Basophils (Bld) [#/Vol] 0.0 {x10E3/uL} Normal 0.0-0.2 [facility] Work Phone: Comment on above: PATIENT WAS FASTINGP ERFORMED BY: [facility] Zkvymg5851 [address] [facility]in [place] [id number] Basophils (Bld) [#/Vol] 0.0 10*3/uL Normal 0.0-0.2 [facility]; [facility] Work Phone: Comment on above: PATIENT WAS FASTINGP ERFORMED BY: [employer]70 [facility] [id number] Basophils/100 WBC (Bld) 0 % Normal [facility] Work Phone: Comment on above: PATIENT WAS FASTINGP ERFORMED BY: [facility] Zezpnl3215 [address] RoadDublin [place] [id number] Eosinophils (Bld) [#/Vol] 0.1 {x10E3/uL} Normal 0.0-0.4 [facility] Work Phone: Comment on above: PATIENT WAS FASTINGP ERFORMED BY: CB [facility] Whyies9023 [address] RoadDublin [place] [id number] Eosinophils (Bld) [#/Vol] 0.1 10*3/uL Normal 0.0-0.4 [facility]; [facility] Work Phone: Comment on above: PATIENT WAS FASTINGP ERFORMED BY: [facility] Drufgr6210 [address] RoadDublin [place] [id number] Eosinophils/100 WBC (Bld) 2 % Normal [facility] Work Phone: Comment on above: PATIENT WAS FASTINGP ERFORMED BY: [facility] Chwqci2139 [address] [facility]in [place] [id number] Erythrocyte distribution width (RBC) [Ratio] 12.8 % Normal 12.3-15.4 [facility] Work Phone: Comment on above: PATIENT WAS FASTINGP ERFORMED BY: [facility] Kkzlem5708 [address] [facility]in [place] [id number] Hematocrit (Bld) [Volume fraction] 41.5 % Normal 34.0-46.6 [facility] Work Phone: Comment on above: PATIENT WAS FASTINGP ERFORMED BY: [facility] Nwvyia7571 [address] RoadDublin [place] [id number] Hemoglobin (Bld) [Mass/Vol] 14.0 g/dL Normal 11.1-15.9 [facility] Work Phone: Comment on above: PATIENT WAS FASTINGP ERFORMED BY: [facility] Irqcdg3328 [address] RoadDublin [place] [id number] Immature granulocytes (Bld) [#/Vol] 0.0 {x10E3/uL} Normal 0.0-0.1 [facility] Work Phone: Comment on above: PATIENT WAS FASTINGP ERFORMED BY: [facility] Qxkkns9084 [address] RoadDublin [place] [id number] Immature granulocytes (Bld) [#/Vol] 0.0 10*3/uL Normal 0.0-0.1 [facility]; [facility] Work Phone: Comment on above: PATIENT WAS FASTINGP ERFORMED BY: [facility] Vtyjmv4351 [address] RoadDublin [place] [id number] Immature granulocytes/100 WBC (Bld) 0 % Normal [facility] Work Phone: Comment on above: PATIENT WAS FASTINGP ERFORMED BY: [facility] Uhnuji2240 [address] RoadDublin [place] [id number] Lymphocytes (Bld) [#/Vol] 1.4 {x10E3/uL} Normal 0.7-3.1 [facility] Work Phone: Comment on above: PATIENT WAS FASTINGP ERFORMED BY: [facility]6370 [address]Dublin [place] [id number] Lymphocytes (Bld) [#/Vol] 1.4 10*3/uL Normal 0.7-3.1 [facility]; [facility] Work Phone: Comment on above: PATIENT WAS FASTINGP ERFORMED BY: [facility] Krqvdh3078 [address] RoadDublin [place] [id number] Lymphocytes/100 WBC (Bld) 23 % Normal [facility] Work Phone: Comment on above: PATIENT WAS FASTINGP ERFORMED BY: [facility] Ftlcmb5327 [address] RoadDublin [place] [id number] MCH (RBC) [Entitic mass] 31.9 pg Normal 26.6-33.0 [facility] Work Phone: Comment on above: PATIENT WAS FASTINGP ERFORMED BY: [facility] Lrjoji2265 [address] RoadDublin [place] [id number] MCHC (RBC) [Mass/Vol] 33.7 g/dL Normal 31.5-35.7 [facility] Work Phone: Comment on above: PATIENT WAS FASTINGP ERFORMED BY: ARDEN [facility] Zrznov3899 [address] RoadDublin [place] [id number] MCV (RBC) [Entitic vol] 95 fL Normal 79-97 [facility] Work Phone: Comment on above: PATIENT WAS FASTINGP ERFORMED BY: [facility] Prtglt6369 [address] RoadDublin [place] [id number] Monocytes (Bld) [#/Vol] 0.2 {x10E3/uL} Normal 0.1-0.9 [facility] Work Phone: Comment on above: PATIENT WAS FASTINGP ERFORMED BY: [facility] Ludlwp8984 [address] RoadDublin [place] [id number] Monocytes (Bld) [#/Vol] 0.2 10*3/uL Normal 0.1-0.9 [facility]; [facility] Work Phone: Comment on above: PATIENT WAS FASTINGP ERFORMED BY: [facility] Dieedz5764 [address] RoadDublin [place] [id number] Monocytes/100 WBC (Bld) 4 % Normal [facility] Work Phone: Comment on above: PATIENT WAS FASTINGP ERFORMED BY: [facility] Uczrgh9128 [address] RoadDublin [place] [id number] Neutrophils (Bld) [#/Vol] 4.1 {x10E3/uL} Normal 1.4-7.0 [facility] Work Phone: Comment on above: PATIENT WAS FASTINGP ERFORMED BY: [facility] Thpzsn8822 [address] RoadDublin [place] [id number] Neutrophils (Bld) [#/Vol] 4.1 10*3/uL Normal 1.4-7.0 [facility]; [facility] Work Phone: Comment on above: PATIENT WAS FASTINGP ERFORMED BY: [facility] Yxwkxp9900 [address] RoadDublin [place] [id number] Neutrophils/100 WBC (Bld) 71 % Normal [facility] Work Phone: Comment on above: PATIENT WAS FASTINGP ERFORMED BY: ARDEN Edouard6370 [address] Howardin [place] [id number] Platelets (Bld) [#/Vol] 254 {x10E3/uL} Normal 150-379 [facility] Work Phone: Comment on above: PATIENT WAS FASTINGP ERFORMED BY: ARDEN [facility] Dfyqbh1021 [address] [facility]in [place] [id number] Platelets (Bld) [#/Vol] 254 10*3/uL Normal 150-379 [facility]; [facility] Work Phone: Comment on above: PATIENT WAS FASTINGP ERFORMED BY: ARDEN Margarette Nevenl4935 J[address] [facility]annyW[facility]Med [facility] [id number] RBC (Bld) [#/Vol] 4.39 {x10E6/uL} Normal 3.77-5.28 [facility] Work Phone: Comment on above: PATIENT WAS FASTINGP ERFORMED BY: ARDEN [facility] Rmsdjf5683 [facility] [id number] RBC (Bld) [#/Vol] 4.39 10*6/uL Normal 3.77-5.28 [facility]; [facility] Work Phone: Comment on above: PATIENT WAS FASTINGP ERFORMED BY: [facility] Rayetz5474 [facility] [id number] WBC (Bld) [#/Vol] 5.8 {x10E3/uL} Normal 3.4-10.8 [facility] Work Phone: Comment on above: PATIENT WAS FASTINGP ERFORMED BY: [facility] Txhcys3867 [address] [facility]in [place] [id number] WBC (Bld) [#/Vol] 5.8 10*3/uL Normal 3.4-10.8 [facility]; [facility] Work Phone: Comment on above: PATIENT WAS FASTINGP ERFORMED BY: ARDEN [facility] Lhwdsd5252 [address] RoadDublin [place] [id number] Ferritin ([id number])Ordered By: Manager Strategy & Account on 04-07-2017 Ferritin [Mass/Vol] 31 ng/mL Normal 15-150 [facility] Work Phone: Comment on above: PATIENT WAS FASTINGP ERFORMED BY: CB [facility] Kqmeje7993 [address] RoadDublin [place] [id number] Iron ([id number])Ordered By: Syst em Circuit Recorder on 04-07-2017 Iron [Mass/Vol] 105 ug/dL Normal 27-159 [facility] Work Phone: Comment on above: PATIENT WAS FASTINGP ERFORMED BY: ARDEN [facility] [id number] Jara RoadDublin [place] [id number] Lipid Panel ([id number])Ordered B y: Manager Strategy & Account on 04-07-2017 Cholesterol [Mass/Vol] 151 mg/dL Normal 100-199 [facility] Work Phone: Comment on above: PATIENT WAS FASTINGP ERFORMED BY: ARDEN [facility] [id number] Jara RoadDublin [place] [id number] Cholesterol in HDL [Mass/Vol] 52 mg/dL Normal [facility] Work Phone: Comment on above: PATIENT WAS FASTINGP ERFORMED BY: ARDEN [facility] [id number] J[address] RoadDublin [place] [id number] Cholesterol in LDL [Mass/Vol] 88 mg/dL Normal 0-99 [facility] Work Phone: Comment on above: PATIENT WAS FASTINGP ERFORMED BY: CB [facility] [id number] [address] RoadDublin [place] [id number] Cholesterol in LDL/Cholesterol in HDL [Mass ratio] 1.7 {ratio_units} Normal 0.0-3.2 [facility] Work Phone: Comment on above: LDL/HDL Ratio Men Wo men 1/2 Avg.Risk 1.0 1.5 Avg.Risk 3.6 3.2 2X Avg.Risk 6.2 5.0 3X Avg.Risk 8.0 6.1 PATIENT WAS FASTINGP ERFORMED BY: ARDEN Carballolin6370 [address] RoadDublin [place] [id number] Cholesterol in VLDL [Mass/Vol] 11 mg/dL Normal 5-40 [facility] Work Phone: Comment on above: PATIENT WAS FASTINGP ERFORMED BY: ARDEN Edouard[address] [facility] [place] [id number] Triglyceride [Mass/Vol] 55 mg/dL Normal 0-149 [facility] Work Phone: Comment on above: PATIENT WAS FASTINGP ERFORMED BY: ARDEN Edouard[address] [facility] [place] [id number] Metabolic Panel, Comprehensi ve ([id number])Ordered By: Manager Strategy & Account on 04-07-2017 Albumin [Mass/Vol] 4.6 g/dL Normal 3.5-5.5 [facility] Work Phone: Comment on above: PATIENT WAS FASTINGP ERFORMED BY: ARDEN Edouard[address] [facility] [id number] Albumin/Globulin [Mass ratio] 1.8 {ratio} Normal 1.2-2.2 [facility] Work Phone: Comment on above: PATIENT WAS FASTINGP ERFORMED BY: ARDEN Carballolin[address] [facility] [place] [id number] ALP [Catalytic activity/Vol] 33 [iU]/L Abnormal 39-117 [facility] Work Phone: Comment on above: PATIENT WAS FASTINGP ERFORMED BY: ARDEN Carballolin[address] [facility] [place] [id number] ALP [Catalytic activity/Vol] 33 U/L Abnormal 39-117 [facility]; [facility] Work Phone: Comment on above: PATIENT WAS FASTINGP ERFORMED BY: ARDEN Carballolin[address] [facility] [place] [id number] ALT [Catalytic activity/Vol] 57 [iU]/L Abnormal 0-32 [facility] Work Phone: Comment on above: PATIENT WAS FASTINGP ERFORMED BY: ARDEN Carballolin[address]Dublin [place] [id number] ALT [Catalytic activity/Vol] 57 U/L Abnormal 0-32 [facility]; [facility] Work Phone: Comment on above: PATIENT WAS FASTINGP ERFORMED BY: [facility] [id number] [address] RoadDublin [place] [id number] AST [Catalytic activity/Vol] 40 [iU]/L Normal 0-40 [facility] Work Phone: Comment on above: PATIENT WAS FASTINGP ERFORMED BY: [facility] [id number] RoadDublin [place] [id number] AST [Catalytic activity/Vol] 40 U/L Normal 0-40 [facility]; [facility] Work Phone: Comment on above: PATIENT WAS FASTINGP ERFORMED BY: [facility] [id number] J[address] RoadDublin [place] [id number] Bilirubin [Mass/Vol] 0.7 mg/dL Normal 0.0-1.2 [facility] Work Phone: Comment on above: PATIENT WAS FASTINGP ERFORMED BY: [facility] Pyagnk9088 [address] RoadDublin [place] [id number] Calcium [Mass/Vol] 9.9 mg/dL Normal 8.7-10.2 [facility] Work Phone: Comment on above: PATIENT WAS FASTINGP ERFORMED BY: [facility] Rihwpa8857 J[address] RoadDublin [place] [id number] Chloride [Moles/Vol] 100 mmol/L Normal 96-106 [facility] Work Phone: Comment on above: PATIENT WAS FASTINGP ERFORMED BY: [facility] [id number] [address] RoadDublin [place] [id number] CO2 [Moles/Vol] 24 mmol/L Normal 18-29 [facility] Work Phone: Comment on above: PATIENT WAS FASTINGP ERFORMED BY: [facility] Htnjwk3739 [address] RoadDublin [place] [id number] Creatinine [Mass/Vol] 0.84 mg/dL Normal 0.57-1.00 [facility] Work Phone: Comment on above: PATIENT WAS FASTINGP ERFORMED BY: ARDEN [facility] [id number] LineaQuattroblin [place] [id number] GFR/1.73 sq M predicted among blacks CKD-EPI (S/P/Bld) [Vol rate/Area] 97 mL/min/1.73 Normal [facility] Work Phone: Comment on above: PATIENT WAS FASTINGP ERFORMED BY: [facility]bl[address] [place] [id number] GFR/1.73 sq M predicted among non-blacks CKD-EPI (S/P/Bld) [Vol rate/Area] 84 mL/min/1.73 Normal [facility] Work Phone: Comment on above: PATIENT WAS FASTINGP ERFORMED BY: [facility] [id number] LineaQuattroWakeMed [facility] [id number] Globulin (S) [Mass/Vol] 2.5 g/dL Normal 1.5-4.5 [facility] Work Phone: Comment on above: PATIENT WAS FASTINGP ERFORMED BY: [facility] [facility] [id number] Glucose [Mass/Vol] 82 mg/dL Normal 65-99 [facility] Work Phone: Comment on above: PATIENT WAS FASTINGP ERFORMED BY: [facility]6370 [facility] [id number] Potassium [Moles/Vol] 4.5 mmol/L Normal 3.5-5.2 [facility] Work Phone: Comment on above: PATIENT WAS FASTINGP ERFORMED BY: [facility] [facility] [id number] Protein [Mass/Vol] 7.1 g/dL Normal 6.0-8.5 [facility] Work Phone: Comment on above: PATIENT WAS FASTINGP ERFORMED BY: [facility] [facility] [id number] Sodium [Moles/Vol] 142 mmol/L Normal 134-144 [facility] Work Phone: Comment on above: PATIENT WAS FASTINGP ERFORMED BY: [facility] Guwohg7040 [facility] [id number] Urea nitrogen [Mass/Vol] 9 mg/dL Normal 6- [facility] Work Phone: Comment on above: PATIENT WAS FASTINGP ERFORMED BY: CB [facility] [id number] [facility] [id number] Urea nitrogen/Creatini ne [Mass ratio] 11 mg/mg Normal 9- [facility] Work Phone: Comment on above: PATIENT WAS FASTINGP ERFORMED BY: [facility] [id number] [facility] [id number] TSH ([id number])Ordered By: Ese munoz Circuit Recorder on 04-07-2017 TSH Qn 1.370 {uIU/mL} Normal 0.450-4.500 [facility] Work Phone: Comment on above: PATIENT WAS FASTINGP ERFORMED BY: [facility] [id number] [facility] [id number] Vital Signs Date Time Vital Sign Value Performing Clinician Facility 04-07-2025 10:39-0400 Body temperature 97.7 [degF] Madeleine Aly ASSEMBLY INSPECTOR-C Work Phone: [facility] 04-07-2025 10:39-0400 Diastolic blood pressure 62 mm[Hg] Madeleine Aly ASSEMBLY INSPECTOR-C Work Phone: [facility] 04-07-2025 10:39-0400 Heart rate 59 /min Madeleine Aly ASSEMBLY INSPECTOR-C Work Phone: [facility] 04-07-2025 10:39-0400 Respiratory rate 16 /min Madeleine Aly ASSEMBLY INSPECTOR-C Work Phone: [facility] 04-07-2025 10:39-0400 SaO2% (BldA) [Mass fraction] 100 % Madeleine Aly ASSEMBLY INSPECTOR-C Work Phone: [facility] 04-07-2025 10:39-0400 Systolic blood pressure 94 mm[Hg] Madeleine Aly ASSEMBLY INSPECTOR-C Work Phone: [facility] 04-07-2025 09:14-0400 Body height 157.48 cm Madeleine Aly ASSEMBLY INSPECTOR-C Work Phone: [facility] 04-07-2025 09:14-0400 Body mass index (BMI) [Ratio] 22.6 kg/m2 Madeleine Aly ASSEMBLY INSPECTOR-C Work Phone: [facility] 04-07-2025 09:14-0400 Body weight 56.24 kg Madeleine Aly ASSEMBLY INSPECTOR-C Work Phone: [facility] 07-09-2023 10:50-0400 Body height 157.48 cm Camryn [...] Diastolic blood pressure 82 mm[Hg] Camryn Gresham LPN [facility]; [facility] Work Phone: Comment on above: Patient Position: Sitting; Cuff Location : Left Arm; Cuff Size: Standard 07-09-2023 10:50-0400 Heart rate 65 /min Camryn Gresham LPN [facility]; [facility] Work Phone: Comment on above: Pattern: Regular 07-09-2023 10:50-0400 Respiratory rate 16 /min Camryn Gresham SHADE [facility]; [facility] Work Phone: Comment on above: Pattern: Unlabored 07-09-2023 10:50-0400 SaO2% (BldA) [Mass fraction] 99 % Camryn Gresham SHADE [facility]; [facility] Work Phone: Comment on above: Room air 07-09-2023 10:50-0400 Systolic blood pressure 118 mm[Hg] Camryn Gresham SHADE [facility]; [facility] Work Phone: Comment on above: Patient Position: Sitting; Cuff Location : Left Arm; Cuff Size: Standard 02-20-2023 07:46-0400 Body temperature 97.3 [degF] Geovany Ramirez MD Work Phone: [facility] 02-20-2023 07:46-0400 Body weight 51.44 kg Geovany Ramirez MD Work Phone: [facility] 02-20-2023 07:46-0400 Diastolic blood pressure 78 mm[Hg] Geovany Ramirez MD Work Phone: [facility] 02-20-2023 07:46-0400 Heart rate 58 /min Geovany Ramirez MD Work Phone: [facility] 02-20-2023 07:46-0400 Respiratory rate 18 /min Geovany Ramirez MD Work Phone: [facility] 02-20-2023 07:46-0400 SaO2% (BldA) [Mass fraction] 99 % Geovany Ramirez MD Work Phone: [facility] 02-20-2023 07:46-0400 Systolic blood pressure 110 mm[Hg] Geovany Ramirez MD Work Phone: [facility] 08-12-2022 13:06-0500 Body weight 49.44 kg Reba Quick MD Work Phone: [facility] 08-12-2022 13:06-0500 Diastolic blood pressure 64 mm[Hg] Reba Quick MD Work Phone: [facility] 08-12-2022 13:06-0500 Systolic blood pressure 104 mm[Hg] Reba Quick MD Work Phone: [facility] 12-12-2021 08:08-0400 Body height 157.48 cm [...] Phone: 11-28-2021 12:27-0400 Body weight 49.44 kg Camrynjoel Gresham SHADE [facility]; [facility] Work Phone: 11-28-2021 12:27-0400 Diastolic blood pressure 68 mm[Hg] Camrynjoel Gresham SHADE [facility]; [facility] Work Phone: Comment on above: Patient Position: Sitting; Cuff Location : Left Arm; Cuff Size: Standard 11-28-2021 12:27-0400 Heart rate 59 /min Camrynjoel Gresham SHADE [facility]; [facility] Work Phone: Comment on above: Pattern: Regular 11-28-2021 12:27-0400 Respiratory rate 16 /min Camrynjoel Gresham SHADE [facility]; [facility] Work Phone: Comment on above: Pattern: Unlabored 11-28-2021 12:27-0400 SaO2% (BldA) [Mass fraction] 99 % Camryn Mp LPN [facility]; [facility] Work Phone: Comment on above: Room air 11-28-2021 12:27-0400 Systolic blood pressure 96 mm[Hg] Camrynjoel Gresham SHADE [facility]; [facility] Work Phone: Comment on above: Patient Position: Sitting; Cuff Location : Left Arm; Cuff Size: Standard 12-14-2019 10:290400 Body height 157.48 cm Eric Gayle LPN [...] BMI (Body Mass Index) 19.78 kg/m2 Lianne Cheema [facility] Work Phone: 06-15-2019 11:05-0400 BMI (Body Mass Index) 19.94 kg/m2 Eric Gayle LPN [facility] Work Phone: 06-15-2019 11:05-0400 Body Temperature 97.9 [degF] Eric Gayle LPN [facility] Work Phone: Comment on above: Method: Temporal 06-15-2019 11:05-0400 Body weight 49.05 kg Lianne Cheema [facility] Work Phone: 06-15-2019 11:05-0400 Body weight 49.45 kg Eric Gayle LPN [facility] Work Phone: 06-15-2019 11:05-0400 BP Diastolic 64 mm[Hg] Eric Gayle LPN [facility] Work Phone: Comment on above: Patient Position: Sitting; Cuff Location : Left Arm; Cuff Size: Standard 06-15-2019 11:05-0400 BP Systolic 106 mm[Hg] Eric Gayle LPN [facility] Work Phone: Comment on above: Patient Position: Sitting; Cuff Location : Left Arm; Cuff Size: Standard 06-15-2019 11:05-0400 BSA (Body Surface Area) 1.47 m2 Lianne Cheema [facility] Work Phone: 06-15-2019 11:05-0400 BSA (Body Surface Area) 1.48 m2 Eric Gayle LPN [facility] Work Phone: 06-15-2019 11:05-0400 Height 157.48 cm Eric Gayle LPN [facility] Work Phone: 06-15-2019 11:05-0400 Pulse (Heart Rate) 60 /min Eric Gayle LPN [facility] Work Phone: Comment on above: Pattern: Regular 06-15-2019 11:05-0400 Pulse Oximetry 99 % Lianne Cheema [facility] Work Phone: Comment on above: Room air 06-15-2019 11:05-0400 Respiratory Rate 16 /min Eric Gayle LPN [facility] Work Phone: Comment on above: Pattern: Unlabored 06-15-2019 11:05-0400 SaO2% (BldA) [Mass fraction] 99 % Eric Gayle BLOCKING MACHINE TENDER [facility]; [facility] Work Phone: Comment on above: Room air 10-27-2017 10:15-0500 BMI (Body Mass Index) 19.78 kg/m2 Marsha Slarb BLOCKING MACHINE TENDER [facility] Work Phone: 10-27-2017 10:15-0500 Body weight 49.05 kg Marsha Slarb BLOCKING MACHINE TENDER [facility] Work Phone: 10-27-2017 10:15-0500 BP Diastolic 72 mm[Hg] Marsha Slarb BLOCKING MACHINE TENDER [facility] Work Phone: Comment on above: Patient Position: Sitting; Cuff Location : Left Arm; Cuff Size: Standard 10-27-2017 10:15-0500 BP Systolic 106 mm[Hg] Marsha Slarb BLOCKING MACHINE TENDER [facility] Work Phone: Comment on above: Patient Position: Sitting; Cuff Location : Left Arm; Cuff Size: Standard 10-27-2017 10:15-0500 BSA (Body Surface Area) 1.47 m2 Marsha Slarb BLOCKING MACHINE TENDER [facility] Work Phone: 10-27-2017 10:15-0500 Height 157.48 cm Marsha Slarb BLOCKING MACHINE TENDER [facility] Work Phone: 10-27-2017 10:15-0500 Pulse (Heart Rate) 61 /min Marsha Anilrb BLOCKING MACHINE TENDER [facility] Work Phone: Comment on above: Pattern: Regular 10-27-2017 10:15-0500 Pulse Oximetry 98 % Lianne Baummichaelareina [facility] Work Phone: Comment on above: Room air 10-27-2017 10:15-0500 Respiratory Rate 17 /min Marsha Irene BLOCKING MACHINE TENDER [facility] Work Phone: Comment on above: Pattern: Unlabored 10-27-2017 10:15-0500 SaO2% (BldA) [Mass fraction] 98 % Marsha Marb BLOCKING MACHINE TENDER [facility]; [facility] Work Phone: Comment on above: Room air 04-22-2017 08:42-0400 BMI (Body Mass Index) 19.62 kg/m2 Marsha Marb BLOCKING MACHINE TENDER [facility] Work Phone: 04-22-2017 08:42-0400 Body Temperature 97.8 [degF] Marsha Slarb BLOCKING MACHINE TENDER [facility] Work Phone: 04-22-2017 08:42-0400 Body weight 48.65 kg Marsha Anilrb BLOCKING MACHINE TENDER [facility] Work Phone: 04-22-2017 08:42-0400 BP Diastolic 72 mm[Hg] Marsha Slarb BLOCKING MACHINE TENDER [facility] Work Phone: Comment on above: Patient Position: Sitting; Cuff Location : Left Arm; Cuff Size: Standard 04-22-2017 08:42-0400 BP Systolic 110 mm[Hg] Marsha Slarb BLOCKING MACHINE TENDER [facility] Work Phone: Comment on above: Patient Position: Sitting; Cuff Location : Left Arm; Cuff Size: Standard 04-22-2017 08:42-0400 BSA (Body Surface Area) 1.47 m2 Marsha Slarb BLOCKING MACHINE TENDER [facility] Work Phone: 04-22-2017 08:42-0400 Height 157.48 cm Marsha Irene BLOCKING MACHINE TENDER [facility] Work Phone: 04-22-2017 08:42-0400 Pulse (Heart Rate) 66 /min Marsha Marb BLOCKING MACHINE TENDER [facility] Work Phone: Comment on above: Pattern: Regular 04-22-2017 08:42-0400 Pulse Oximetry 99 % Lianne Cheema [facility] Work Phone: Comment on above: Room air 04-22-2017 08:42-0400 Respiratory Rate 15 /min Marsha Irene BLOCKING MACHINE TENDER [facility] Work Phone: Comment on above: Pattern: Unlabored 04-22-2017 08:42-0400 SaO2% (BldA) [Mass fraction] 99 % Marsha Marb BLOCKING MACHINE TENDER [facility]; [facility] Work Phone: Comment on above: Room air 04-07-2017 10:45-0400 BMI (Body Mass Index) 19.39 kg/m2 Marsha Marb BLOCKING MACHINE TENDER [facility] Work Phone: 04-07-2017 10:45-0400 Body Temperature 97.6 [degF] Marsha Slarb BLOCKING MACHINE TENDER [facility] Work Phone: 04-07-2017 10:45-0400 Body weight 48.08 kg Marsha Marb BLOCKING MACHINE TENDER [facility] Work Phone: 04-07-2017 10:45-0400 BP Diastolic 68 mm[Hg] Marsha Slarb BLOCKING MACHINE TENDER [facility] Work Phone: Comment on above: Patient Position: Sitting; Cuff Location : Left Arm; Cuff Size: Standard 04-07-2017 10:45-0400 BP Systolic 110 mm[Hg] Marsha Anilrb BLOCKING MACHINE TENDER [facility] Work Phone: Comment on above: Patient Position: Sitting; Cuff Location : Left Arm; Cuff Size: Standard 04-07-2017 10:45-0400 BSA (Body Surface Area) 1.46 m2 Marsha Slarb BLOCKING MACHINE TENDER [facility] Work Phone: 04-07-2017 10:45-0400 Height 157.48 cm Marsha Irene BLOCKING MACHINE TENDER [facility] Work Phone: 04-07-2017 10:45-0400 Pulse (Heart Rate) 56 /min Marsha Irene BLOCKING MACHINE TENDER [facility] Work Phone: Comment on above: Pattern: Regular 04-07-2017 10:45-0400 Pulse Oximetry 99 % Lianne Cheema [facility] Work Phone: Comment on above: Room air 04-07-2017 10:45-0400 Respiratory Rate 16 /min Marsha Irene LPN [facility] Work Phone: Comment on above: Pattern: Unlabored 04-07-2017 10:45-0400 SaO2% (BldA) [Mass fraction] 99 % Marsha Irene LPN [facility]; [facility] Work Phone: Comment on above: Room air Encounters Encounter Date Encounter Type Care Provider Facility Start: 07-04-2025 ambulatory Madeleine Aly Facility :[facility] [place] [facility] Start: 04-07-2025 Non-patient / Non-visit Gavino Lam nd DO -[facility] Start: 04-07-2025 End: 04-07-2025 Admission to same day surgery center Gavino Medina DO -Endoscopy Work Phone: Start: 04-07-2025 End: 04-07-2025 ambulatory Madeleine Aly ASSEMBLY INSPECTOR-C Work Phone: -Endoscopy Start: 01-13-2025 End: 01-13-2025 ambulatory Madeleine Aly ASSEMBLY INSPECTOR-C Work Phone: [facility] Work Phone: Start: 01-13-2025 End: 01-13-2025 Patient encounter procedure Madeleine Aly ASSEMBLY INSPECTOR-C -Outpatient Bone Densitometry Work Phone: Start: 01-13-2025 End: 01-13-2025 ambulatory Madeleine Aly Facility:[facility] Start: 12-24-2024 End: 12-24-2024 ambulatory Madeleine Aly ASSEMBLY INSPECTOR-C Work Phone: [facility] Work Phone: Start: 12-24-2024 End: 12-24-2024 Patient encounter procedure Eryn Gray ASSEMBLY INSPECTOR-C -Outpatient Breast Imaging Work Phone: Start: 12-24-2024 End: 12-24-2024 ambulatory Eryn Gray Facility:[facility] Start: 07-09-2023 End: 07-09-2023 Office outpatient visit 15 minutes Madeleine Aly DELINQUENT TAX COLLECTOR Work Phone: [facility] Start: 05-23-2023 Documentation procedure Mammog kate Coordinator [facility] Start: 05-23-2023 Letter encounter Mammography Coordinator [facility] Department Start: 05-22-2023 End: 05-22-2023 ambulatory REBA QUICK Facility:[facility] Start: 05-22-2023 End: 05-22-2023 Subsequent hospital visit by physician Screen Mammo [facility] Mammogram Comment on above: Encounter for screen ing mammogram for malignant neoplasm of breast [Z12.31] Start: 02-20-2023 End: 02-20-2023 ambulatory SEJAL PAMELAA Facility:[facility] Start: 02-20-2023 End: 02-20-2023 Patient encounter procedure Geovany Ramirez MD Work Phone: [facility] Comment on above: Sore throat (Primary Dx) Start: 02-13-2023 ambulatory Reba Quick MD Work Phone: OB/Gynecology Comment on above: Yeast infection Start: 08-12-2022 End: 08-12-2022 ambulatory REBA QUICK Facility:[facility] Start: 08-12-2022 End: 08-12-2022 Patient encounter procedure [...] above: Outbreak Start: 07-22-2022 End: 07-22-2022 ambulatory SEJAL CIESA Facility:[facility] Start: 04-11-2022 Documentation procedure Mammog kate Coordinator [facility] Start: 04-11-2022 Letter encounter Mammography Coordinator [facility] Department Start: 04-11-2022 End: 04-11-2022 Subsequent hospital visit by physician Screen Mammo [facility] M[facility]ogram Comment on above: Encounter for screen ing mammogram for malignant neoplasm of breast [Z12.31] Start: 12-12-2021 End: 12-12-2021 Office outpatient visit 10 minutes Lianne Cheema Work Phone: [facility] Start: 12-05-2021 End: 12-05-2021 Patient encounter procedure [facility] Start: 11-28-2021 End: 11-28-2021 Periodic preventive med est patient 40-64yrs Lianne Baumantione Work Phone: [facility] Start: 11-28-2021 End: 11-28-2021 Physical examination Eric Gayle LPN [facility]; [facility] Work Phone: Start: 12-14-2019 End: 12-14-2019 Office outpatient visit 15 minutes Lianne Cheema CNP Work Phone: [facility] Start: 06-15-2019 End: 06-15-2019 Initial preventive medicine new patient 40-64yrs Lianne Ochoa [facility] Start: 06-15-2019 End: 06-15-2019 Patient encounter status Madeleine Jermain DELINQUENT TAX COLLECTOR Work Phone: [facility] Start: 06-15-2019 Review Lianne zavaleta [facility] Start: 10-27-2017 End: 10-27-2017 Office outpatient visit 15 minutes Lianne Ochoa [facility] Start: 04-22-2017 End: 04-22-2017 Office outpatient visit 15 minutes Lianne Ochoa [facility] Start: 04-07-2017 End: 04-07-2017 Office outpatient new 45 minutes Lianne Ochoa [facility] Start: 04-07-2017 End: 04-07-2017 Physical examination Lianne Cheema CNP Work Phone: [facility]; [facility] Work Phone: Patient encounter status Sejal Anette CRAIG Work Phone: [facility]; [facility] Work Phone: Patient encounter status Eric Irwin BLOCKING MACHINE TENDER [facility]; [facility] Work Phone: Patient encounter status Camryn Gresham BLOCKING MACHINE TENDER [facility]; [facility] Work Phone: Physical examination Eric Gayle LPN [facility]; [facility] Work Phone: Physical examination Eric Gayle LPN [facility]; [facility] Work Phone: Physical examination Camryn Gresham LPN Co [facility]; [facility] Work Phone: Procedures Date Procedure Procedure Detail Performing Clinician Start: 04-07-2025 Colonoscopy Madeleine yu ASSEMBLY INSPECTOR-C Work Phone: Start: 01-13-2025 Dual energy X-ray absorptiometry Madeleine Aly ASSEMBLY INSPECTOR-C Work Phone: Start: 12-24-2024 Screening mammography C malika Aly ASSEMBLY INSPECTOR-C Work Phone: Start: 05-22-2023 Screening digital br east tomosynthesis bi Reba Quick MD Work Phone: Start: 02-20-2023 STREP A MOLECULAR (POC) Geovany Ramirez MD Work Phone: Start: 04-11-2022 SHELBY SCREENING W MICKEY Fish MD Work Phone: Start: 04-11-2022 Mammography Screen Wst r Start: 09-26-2021 Colonoscopy Screen Wst r Start: 09-24-2019 End: 09-24-2019 Emergency Department Summary Comments: See Note; NOTES: [facility] Medical Records Department [address] [place] [address] Emergency Department Summary 09/24/19 1639 MR#: [id number] Acct: [id number] Name: JUDITH LACY Rep #: [id number] : 1970 48 From: Luis Carlos Vasquez DO PCP: SCOT Weir Status: REG [...] and vomiting This note was generated with Forerun dictation software. It may contain incorrect words, spelling, and punctuation that were not noted in review of the chart prior to signing ED Disposition - Plan for ED Patient: Disposition: Home or Assisted Living Diagnosis: Nausea and vomiting Instructions: VOMITING (7y-Adult) Prescriptions: Ondansetron [Zofran Odt] 4 mg PO Q8H PRN PRN #10 tab PRN Reason: Nausea Prescription Printed Referrals: Lianne Cheema, GIOVANY-C [Primary Care Provider] - 5-7 Days What to do if you have Problems For any increased pain, shortness of breath, bleeding, nausea or vomiting, chest pain, or any unexpected problems, contact your Primary Care Provider. Call [email or web address] ([phone]) or report to the closest Emergency Room. Call 911 if necessary. 09/24/19 3847 <Electronically signed by Luis Carlos Vasquez DO> Date Luis Carlos Vasquez DO Cosigner Signature (If Indicated): Date CC: SCOT Cheema DELINQUENT TAX COLLECTOR Work Phone: Start: 04-16-2018 End: 04-16-2018 Operative Report Comments: See Note; NOTES: [facility] Medical Records Department [address] [place] [address] Operative Report 04/16/18 1624 MR#: [id number] Acct: [id number] Name: JUDITH LACY Rep #: [id number] : 1970 47 From: Magda Finn MD PCP: Lianne Cheema NP Status: [facility] Location: [facility] Report of Operation Date of Procedure: 04/16/18 Pre-Operative Diagnosis: Stress urinary incontinence Post-Operative Diagnosis: same Surgery/Procedure Performed:: Tension free retropubic midurethral sling with Brando mesh Description of Surgical Findings:: Normal vagina and bladder and uretral meatus judicial clerk: Reba Nelson Type of Anesthesia:: General Anesthesiologist: Kathy Nick Special Medications: none Specimen's removed: none Drains: [...] MD> Date Magda Finn MD CC: Lianne Cheema ASSEMBLY INSPECTOR; Reba Nelson MD; Magda Finn MD Signed Lianne Cheema Start: 04-16-2018 End: 04-16-2018 Operative Report Comments: See Note; NOTES: [facility] Medical Records Department [address] [place] [address] Operative Report 04/16/18 1356 MR#: [id number] Acct: [id number] Name: JUDITH LACY Rep #: [id number] : 1970 47 From: Reba Nelson MD PCP: Lianne Cheema NP Status: REG SDC Y Location: [place] [address] Operative Report Date of Procedure: 04/16/18 Surgeon: Dr. Reba Nelson [facility] Director: None Preop diagnosis: AUB Post op diagnosis: [...] MD> Date Reba Nelson MD CC: Lianne Cheema ASSEMBLY INSPECTOR; Reba Nelson MD Signed Lianne Cheema Start: 04-16-2018 End: 04-16-2018 Discharge Instruction Comments: See Note; NOTES: [facility] Medical Records Department [address] [place] [address] Instructions for Home/Discharge Instructions 04/16/18 1354 MR#: [id number] Acct: [id number] Name: JUDITH LACY Rep #: [id number] : 1970 47 From: Reba Nelson MD PCP: Anette ADAIR, Lianne Status: REG SDC Discharge Diet: No Restrictions Discharge Activity: Return [...] BID #6 cap Primary Care Physician: Lianne Cheema [Primary Care Provider] - Test Results: Test results from this visit will be discussed in further detail at your follow-up appointment, if applicable. Please Follow Up With: Reba Nelson MD When: as scheduled in 2 weeks 04/16/18 1356 <Electronically signed by Reba Nelson MD> Date Reba Nelson MD CC: Lianne Cheema ASSEMBLY INSPECTOR Lianne Cheema Bunionectomy Eric Dejesus Comment on above: 2004 Bunionectomy with osteotomy of first metatarsal Eric Gayle LPN Comment on above: 2004 Bunionectomy with osteotomy of first metatarsal Eric Gayle LPN Comment on above: 2004 Bunionectomy with osteotomy of first metatarsal Camryn Gresham LPN Comment on above: 2004 section Eric kahn Comment on above: 2014 section Eric morton LPN Comment on above: 2014 section Eric morton LPN Comment on above: 2014 section Camrynjoel mullins LPN Comment on above: 2014 Mammography Eric Dejesus Comment on above: 11/2016 Mammography Eric Gayle LP N Comment on above: 11/2016 Mammography Eric Gayle LP N Comment on above: 11/2016 Mammography Camryn Otoole PN Comment on above: 11/2016 Microscopic examinat [...] Detail Author Start: 04-27-2025 Urine microalbumin profile [facility] Start[facility]: 09-26-2024 Colonoscopy COLONOSCOPY [facility] Start: 09-26-2024 COLORECTAL CANCER SCREENING COLORECTAL CANCER SCREENING [facility] Start: 06-28-2024 HPV TESTING HPV TESTING [facility] Start: 06-28-2024 PAP TESTING PAP TESTING [facility] Start: 05-22-2024 Mammography Mammogram Screening [facility] Start: 07-09-2023 Procedure Education Eprescribe d prescriptions (G8553) [facility] Work Phone: Start: 07-09-2023 Provider Instruction s for Treatment [facility] Work Phone: Start: 07-09-2023 Cyanocobalamin vitam in b-12 VITAMIN B12 AND FOLATES (12404) [facility] Work Phone: Start: 07-09-2023 25 hydroxy includes fractions if performed CALCIFEDIOL (73968) [facility]; [facility] Work Phone: Start: 07-09-2023 Urinalysis qual/semiquant except immunoassays URINALYSIS (95622) [facility]; [facility] Work Phone: Start: 07-09-2023 Lipid panel LIPID PANEL (38177) [facility] Work Phone: Start: 07-09-2023 Assay of thyroid stimulating hormone tsh TSH (THYROID STIMULATING HORMONE) (25442) [facility]; [facility] Work Phone: Start: 07-09-2023 Blood count complete auto&auto difrntl wbc CBC, PLATELETS & AUT DIFF (51750) [facility]; [facility] Work Phone: Start: 07-09-2023 Comprehensive metabo lic panel METABOLIC PANEL, COMPREHENSIVE (33327) [facility]; [facility] Work Phone: Start: 05-16-2023 Covid-19 Vaccine ( season) Covid-19 Vaccine ( season) [facility] Start: 05-16-2023 Influenza vaccination C [facility] Start: 04-11-2023 Mammography MAMMOGRAM [facility] Start: 09-15-2022 DEPRESSION ASSESSMENT DEPRESSION ASS ESSMENT [facility] Start: 05-16-2022 Influenza vaccination INFLUENZA (#1) [facility] Start: 12-12-2021 Procedure Education Eprescribe d prescriptions (G8553) [facility]; [facility] Work Phone: Start: 12-12-2021 Provider Instruction s for Treatment Follow up in 6 months put pt on list to call for future [facility] Work Phone: Start: 11-28-2021 25 hydroxy includes fractions if performed CALCIFEDIOL (33400) [facility]; [facility] Work Phone: Comment on above: 12-05 Start: 11-28-2021 Blood count complete automated CBC & PLATELETS (AUTO) (85084) [facility]; [facility] Work Phone: Comment on above: 12-05 Start: 11-28-2021 Assay of thyroid stimulating hormone tsh TSH (THYROID STIMULATING HORMONE) (35552) [facility]; [facility] Work Phone: Comment on above: 12-05 Start: 11-28-2021 Lipid panel LIPID PANEL (20000) [facility]; [facility] Work Phone: Comment on above: 12-05- Start: 11-28-2021 Comprehensive metabo lic panel Metabolic Panel, Comprehensive (06348) [facility]; [facility] Work Phone: Comment on above: 12-05 Start: 11-28-2021 Procedure Education Eprescribe d prescriptions (G8553) [facility]; [facility] Work Phone: Start: 11-28-2021 Provider Instruction s for Treatment [facility]; [facility] Work Phone: Start: 11-25-2021 SHINGRIX VACCINE (1 of 2) SHINGRIX VACCINE (1 of 2) [facility] Start: 09-15-2021 DEPRESSION ASSESSMENT DEPRESSION ASS ESSMENT [facility] Start: 06-20-2021 COVID-19 VACCINE (3 - Booster for Moderna series) COVID-19 VACCINE (3 - Booster for Moderna series) [facility] Start: 03-15-2021 COVID-19 VACCINE (3 - Booster for Moderna series) COVID-19 VACCINE (3 - Booster for Moderna series) [facility] Start: 03-15-2021 Covid-19 Vaccine (3 - Moderna series) Covid-19 Vaccine (3 - Moderna series) [facility] Start: 12-14-2019 Procedure Education Eprescribe d prescriptions (G8553) [facility]; [facility] Work Phone: Start: 12-14-2019 Provider Instruction s for Treatment [facility]; [facility] Work Phone: Start: 06-16-2019 25 hydroxy includes fractions if performed CALCIFEDIOL (77496) [facility] Work Phone: Start: 06-16-2019 Comprehensive metabo lic panel Metabolic Panel, Comprehensive (82524) [facility] Work Phone: Start: 06-16-2019 TSH Qn TSH (THYROID STIMULATING HORMONE) (63464) [facility] Work Phone: Start: 06-16-2019 Blood count complete automated CBC & PLATELETS (AUTO) (44703) [facility] Work Phone: Start: 06-16-2019 Lipid panel LIPID PANEL (50104) [facility] Work Phone: Start: 06-16-2019 25 hydroxy includes fractions if performed CALCIFEDIOL (77983) [facility] Work Phone: Start: 06-16-2019 Blood count complete automated CBC & PLATELETS (AUTO) (37915) [facility] Work Phone: Start: 06-16-2019 Comprehensive metabo lic panel Metabolic Panel, Comprehensive (49901) [facility] Work Phone: Start: 06-16-2019 Lipid panel LIPID PANEL (12530) [facility] Work Phone: Start: 06-16-2019 TSH Qn TSH (THYROID STIMULATING HORMONE) (79217) [facility] Work Phone: Start: 06-15-2019 [...] Start: 04-07-2017 Urinalysis qual/semiquant except immunoassays URINALYSIS (36316) [facility] Work Phone: Start: 11-25-2016 COLOGUARD (FIT-DNA) COLOGUARD (FIT-D NA) [facility] Start: 11-25-[address] COLONOGRAPHY [facility] Start: 11-25-2016 DIABETES SCREEN DIABETES SCREEN [facility] Start: 11-25-2016 Diabetes Screening Diabetes Screenin g [facility] Start: 11-25-2016 FECAL OCCULT BLOOD FECAL OCCULT BLOO D [facility] Start: 11-25-2016 Lipid 1996 panel - S omaira or Plasma Lipid Screening [facility] Start: 11-25-2016 LIPID SCREEN LIPID SCREEN [facility] Start: 11-25-2016 SIGMOIDOSCOPY SIGMOIDOSCOPY [facility] Start: 11-25-1989 HEPATITIS C SCREENING HEPATITIS C SC SALMA [facility] Start: 1983 Adult depression screening assessment DEPRESSION SCREENING [facility] Start: 1970 HEPATITIS B (1 of 3 - 3-dose series) HEPATITIS B (1 of 3 - 3-dose series) [facility] Start: 1970 Hepatitis B Vaccine (1 of 3 - 3-dose series) Hepatitis B Vaccine (1 of 3 - 3-dose series) [facility] End: 09-11-2023 SHELBY SCREENING W MICKEY SHELBY SCREENING W MICKEY Radiology Routine Encounter for screening mammogram for malignant neoplasm of breast 1 Occurrences starting 08/12/2022 until 09/11/2023 [facility] Work Phone: Comment on above: 1 Occurrences starti ng 08/12/2022 until 09/11/2023 [facility] Work Phone: [facility] Work Phone: [facility] Immunizations Immunization Date Immunization Notes Care Provider Patty herndon 08-01-2020 influenza virus vaccine, unspecified formulation Mammography Coordinator [facility] 06-27-2018 influenza, injectabl e, quadrivalent, contains preservative Screen [facility] 07-31-2017 influenza, injectabl e, quadrivalent, contains preservative Screen [facility] Work Phone: 07-26-2016 influenza, injectabl e, quadrivalent, contains preservative Screen [facility] Work Phone: 06-13-2015 influenza, injectabl e, quadrivalent, contains preservative Screen [facility] 04-27-2015 tetanus toxoid, reduced diphtheria toxoid, and acellular pertussis vaccine, adsorbed Screen [facility] 02-04-2013 tetanus toxoid, reduced diphtheria toxoid, and acellular pertussis vaccine, adsorbed Screen [facility] Work Phone: 07-25-2012 influenza virus vaccine, unspecified formulation Screen [facility] Work Phone: Payers Date Payer Category Payer Self-pay [id number] 2024 Unknown [id number] 2018 Unknown 2018 Unknown [id number] 2018 Unknown MMO MMO [employer] [id number] 2018-Present [phone] [address] [place] [address] PPO [id number] 2016 Unknown [id number] Unknown [id number] Unknown [id number] Unknown [id number] Unknown [id number] Unknown [id number] Social History Date Type Detail Facility Alcohol use: Alcohol use: [facility] Work Phone: Start: 02-20-2023 End: 05-22-2023 Exercise Exercise [facility] Work Phone: Comment on above: [...] Work Phone: Start: 09-24-2019 Tobacco smoking status NEIS Unknown if ever smoked [facility] Work Phone: Start: 04-09-2018 Non-smoker [facility] Start: 1970 Sex Assigned At Female [facility] Start: 07-25-2012 End: 04-05-2025 Tobacco smoking status NHIS Never smoked tobacco [facility] Work Phone: Start: 07-25-2012 End: 02-04-2013 Tobacco use and exposure Smokeless tobacco non-user [facility] Work Phone: Start: 10-08-2021 End: 02-20-2023 Alcohol intake Current non-drinker of alcohol (finding) [facility] Start: 1970 Sex Assigned At Not on file [facility] Start: 03-23-2022 End: 07-22-2022 Exposure to SARS-CoV-2 (event) Not sure [facility] Start: 02-20-2023 End: 05-22-2023 Tobacco use panel [facility] National Score (1-100), lower number is lower risk 52 [facility] Start: 12-30-2024 Sex Female (finding) [facility] NEGATED: Highlighted row Not [facility] Medical Equipment Procedure Code Equipment Code Equipment Origin al Text Equipment Identifier Dates SLING,VAG,JESSICA A DESARA FDA Start: 04-16-2018 SLING,VAG,JESSICA A DESARA FDA Start: 04-16-2018 SLING,VAG,JESSICA A DESARA FDA Start: 04-16-2018 SLING,VAG,JESSICA A DESARA FDA Start: 04-16-2018 Goals Date Patient Goal Desired Activity /State Mental Status Date Assessment Result Facility 04-07-2025 Cognitive function Voice/Name [facility] Work Phone: Clinical Notes 06-28-2015 to 04-07-2025 Note Date & Type Note Facility 04-07-2025 Consult note [facility] 04-07-2025 History and physical note Note Date/Time April 07, 2025 8:59am [facility] Medical Records Department [address] [place] [address] History & Physical Exam 04/07/25 0857 MR#: [id number] Acct: [id number] Name: JUDITH LACY Rep #:[id number] : 1970 54 From: Gavino Medina DO PCP: SILVESTRE YadavC Status:REG S DC Location: [place] [address] HPI - General General Date of Admission: 04/07/25 Date of Service: 04/07/25 Chief Complaint: Personal history of polyps HPI Narrative JUDITH LACY, is a 54 F who presents today for surveillance colonoscopy. She had a colonoscopy back in 2021 in which she had 1 adenomatous polyp removed at that time. Is a very large adenomatous polyps that is why she is coming backin 3 years. [facility] Medical History Wears glasses Post-menopausal Home Medications ?Medication ?Instructions ?Recorded ?Last Taken ?Type ascorbic acid (vitamin C) 1,000 mg 1,000 mg PO DAILY 0 04/09/18 Unknown History tablet (Vitamin C) cholecalciferol (vitamin D3) 50 2,000 unit PO DAILY Unknown History mcg (2,000 unit) capsule (Vitamin D3) magnesium sulfate 100 mg capsule 500 mg PO DAILY 02/22 Unknown History vitamin K2 45 mcg capsule 45 mcg PO DAILY 02/23/24 Unk nown History estradiol 0.075 mg/24 hr weekly 1 patch transdermal QW [place] #12 04/16/24 Unknown Rx transdermal patch patches progesterone micronized 100 mg 100 mg PO QPM #90 caps 04/16/24 Unknown Rx capsule (Prometrium) Allergy/AdvReac Type Severity Reaction Status Date / Time nickel Allergy Rash Verified 04/05/25 10:54 Penicillins Allergy Rash Verified 04/05/25 10:54 Family History Father COPD (chronic obstructive pulmonary disease) Mother CVA (cerebral vascular accident) Hypertension Surgical History History of bunionectomy H/O section H/O prior ablation treatment Social History adopted: No household members: spouse [...] safe at home: Yes 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[employer], 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 Constitutional Constitutional: Denies fatigue, fever(s), poor appetite, weight gain or weight loss Gastrointestinal Gastrointestinal: Denies belching, bloating, change in bowel habits, change in stool character, chewing difficulty, coffee ground emesis, constipation, cramping, diarrhea, dyspepsia, dysphagia, early satiety, excessive flatus, fecalincontinence, heartburn, hematemesis, hematochezia, hemorrhoids, loose stools, melena, nausea, odynophagia, rectal bleeding, tenesmus, vomiting or weight changes Physical Exam Const alert, oriented x3, no apparent distress and healthy appearing General Appearance: cooperative GI normal to inspection, nondistended, normoactive bowel sounds, soft to palpation,non-tender and non-distended Percussion: normal to percussion Rectal Exam: deferred Assessment & Plan Assessment/Plan (1) Encounter for screening colonoscopy: PLAN: She will undergo colonoscopy. She was explained alternatives, risk and benefits include not withstanding bleeding, infection, sepsis, perforation, needfor emergent urgent . She will have an ASA of 3. 04/07/25 0859 <Electronically signed by Gavino Medina DO> Cosigner Signature (if applicable): CC: SCOT Aly; Gavino Medina DO~ Signed [facility] Work Phone: 1(727) 782-680007-24-2025 Evaluation note* Diagnosis Onset Date Resolution Status Admit Date Encounter for screening colonoscopy acute April 07, 2025 8:45am [facility] Work Phone: 1(593) 213-542707-24-2025 Consult note [facility] Medical Records Department [address] [place] [address] Anesthesia Postop Eval I 04/07/25 1029 MR#: [id number] Acct: [id number] Name: JUDITH LACY Rep #:[id number] : 1970 54 From: David Ross PCP: SILVESTRE YadavC Status:REG S DC Y Race: C Location: [place] [address] Anesthesia: Postop Eval I Current Vital Signs Temperature: 97.6 F Pulse Rate: 67 Blood Pressure: 103/64 Respiratory Rate: 16 Pulse Ox: 100 Oxygen Delivery Method: Room Air Assessment Airway patent: Yes Spontaneous unlabored respirations: Yes Mental status: Asleep nausea: No Vomiting: No Anesthesia Complication: No Fluid Hydration Crystalloid volume administer (ml): 500 Total IV fluid infused: 500 Progress Note Anesthesia document: Postop Eval 1 completed: Yes 04/07/25 1030 > Date _ David Ross Cosignapollo Signature: Date CC: ~ Signed [facility]07-24-2025 Procedure note [facility] Medical Records Department [address] [place] [address] Operative Report - CC Letter MR#: [id number] Acct: [id number] Name: JUDITH LACY Rep #:[id number] : 1970 54 From: Gavino Medina DO PCP: SCOT Yadav Status:REG S DC 04/07/2025 Scot Yadav Re : Colonoscopy procedure for Judith Lacy Miles Aly This procedure was performed on March. My impressions and recommendations are as follows: Impressions : - The entire examined colon is normal. - No specimens collected. Recommendations : - Discharge patient to home. - Resume previous diet. - Repeat colonoscopy in 5 years for surveillance. - Continue present medications. My findings are described in the full procedure note, which is enclosed. If I can be of further assistance, please feel free to contact me at . Sincerely, Gavino Medina DO 04/07/2025 10:27:15 AM This report has been signed electronically. 04/07/25 1027 Date _ Gavino Ruggiero Signature: Date (if indicated) CC: ASSEMBLY INSPECTORHermelindo Aly; Gavino Medina DO ~ Date Dictated: 04/07/25 0947 Date Transcribed: Operating Cost Clerk: RF Signed [facility]07-24-2025 Procedure note [facility] Medical Records Department [address] [place] [address] Colonoscopy Report MR#: [id number] Acct: [id number] Name: JUDITH LACY Rep #:[id number] : 1970 54 From: Gavino Medina DO PCP: SCOT Yadav Status:REG S DC Patient Name: Judith Lacy Procedure Date: 04/07/2025 9:47 AM Date of : 1970 Age: 54 Procedure: Colonoscopy Indications: High risk colon cancer surveillance: Personal history of colonic polyps Providers: Gavino Medina DO Medicines: Monitored Anesthesia Care Patient Profile: This is a 54 year old female. Refer to note in patient chart for documentation of history and physical. Last Colonoscopy: 3 years ago. Complications: No immediate complications. Procedure: Pre-Anesthesia Assessment: - Prior to the procedure, a History and Physical was performed, and patient medications and allergies were reviewed. The patient is competent. The risks and benefits of the procedure and the sedation options and risks were discussed with the patient. All questions were answered and informed consent was obtained. Patient identification and proposed procedure were verified by the physician in the pre-procedure area. Mental Status Examination: alert and oriented. Airway Examination: normal oropharyngeal airway and neck mobility. Respiratory Examination: clear to auscultation. CV Examination: normal. Prophylactic Antibiotics: The patient does not require prophylactic antibiotics. Prior Anticoagulants: The patient has taken no anticoagulant or antiplatelet agents. ASA Grade Assessment: II - A patient with mild systemic disease. After reviewing the risks and benefits, the patient was deemed in satisfactory condition to undergo the procedure. The anesthesia plan was to use monitored anesthesia care (MAC). Immediately prior to administration of medications, the patient was re-assessed for adequacy to receive sedatives. The heart rate, respiratory rate, oxygen saturations, blood pressure, adequacy of pulmonary ventilation, and response to care were monitored throughout the procedure. The physical status of the patient was re-assessed after the procedure. After I obtained informed consent, the scope was passed under direct vision. Throughout the procedure, the patient's blood pressure, pulse, and oxygen saturations were monitored continuously. The adult colonoscope was introduced through the anus and advanced to the cecum, identified by appendiceal orifice and ileocecal valve. The colonoscopy was performed without difficulty. The patient tolerated the procedure well. The quality of the bowel preparation was adequate. The ileocecal valve, appendiceal orifice, and rectum were photographed. Scope In: 10:05:56 AM Scope Withdrawal Time 0 hours 7 minutes 28 seconds Scope Out: 10:23:02 AM Total Procedure Duration Time 0 hours 17 minutes 6 seconds Findings: The perianal and digital rectal examinations were normal. The colon (entire examined portion) appeared normal. No additional abnormalities were found on retroflexion. Impression: - The entire examined colon is normal. - No specimens collected. Recommendation: - Discharge patient to home. - Resume previous diet. - Repeat colonoscopy in 5 years for surveillance. - Continue present medications. Procedure Code(s): --- Professional --- G0105, Colorectal cancer screening; colonoscopy on individual at high risk CPT copyright 2021 [employer]. All rights reserved. The codes documented in this report are preliminary and upon candy roller review may be revised to meet current compliance requirements. Gavino Medina DO 04/07/2025 10:27:15 AM This report has been signed electronically. Number of Addenda: 0 Note Initiated On: 04/07/2025 9:47 AM 04/07/25 1027 Date _ Gavino Velazquezigner Signature: Date (if indicated) CC: GIOVANY-Elaine Aly; Gavino Medina, ~ Date Dictated: 04/07/25946 Date Transcribed: Operating Cost Clerk: RF Signed [facility]07-24-2025 Consult note [facility] Medical Records Department [address] [place] [address] Pre-Anesthesia Evaluation 04/07/25957 MR#: [id number] Acct: [id number] Name: JUDITH LACY Rep #:[id number] : 1970 54 From: Graeme mendes MD PCP: SCOT Yadav Status:REG S DC Y Race: C Location: [place] [address] ASA Classification* ASA Classification ASA Classification: 2 Assessment & Plan Anesthesia* Anesthesia Assessment Anesthesia Assessment: Discussed sedation and/or anesthesia options, risks, benefits, and alternatives with patient/parents/legal guardian/POA. Questions invited. The patient/parents/legal guardian/POA seems to understand and agrees to proceedwith anesthesia plan. Reviewed the physical assessment, medical history, allergy history and patient home medications list prior to surgery/procedure/anesthetic and documented any changes. Performed airway and anesthesia risk assessments. Anesthesia Type Anesthesia Type: General and MAC History Source History Obtained from:: Patient and Chart Anesthesia Focused Assessment* Temperature: 97.9 F Pulse Rate: 61 Blood Pressure: 115/85 Respiratory Rate: 16 Pulse Ox: 100 Airway Assessment Mouth opens: >3 cm Mallampati Score: II Teeth Condition: Intact Neck Range of motion (ROM): Full ROM Labs Anesthesia Preop lab: CBC WBC 4.3 K/mm3 (4.4-11.0) L 12/05/21 09:18 12/05/21 RBC 4.15 M/mm3 (4.2-5.4) L 12/05/21 09:18 12/05/21 Hgb 13.6 g/dL (12.0-15.0) 12/05/21 09:18 12/05/21 Hct 38.5 % (37-47) 12/05/21 09:18 12/05/21 Plt Count 230 K/mm3 (150-450) 12/05/21 09:18 12/05/21 CHEMISTRY Potassium 4.1 mmol/L (3.5-5.1) 12/05/21 09:18 12/05/21 Sodium 140 mmol/L (136-145) 12/05/21 09:18 12/05/21 BUN 10 mg/dL (7-18) 12/05/21 09:18 12/05/21 Creatinine 0.71 mg/dL (0.55-1.02) 12/05/21 09:18 12/05/21 Glucose 87 mg/dL (74-106) 12/05/21 09:18 12/05/21 TSH 2.09 uIU/mL (0.358-3.74) 12/05/21 09:18 COAG Urine Test Negative Negative 04/16/18 10:46 04/16/18 Pre-Assessment Diagnosis/Proposed Procedure Planned Operative Procedure(s): COLONOSCOPY Anesthesia History Anesthesia History - vamper: Anesthesia History - vamper Hx Hospitalization No 04/05/25 10:55 Any Problems With Anesthesia Yes: NAUSEA 04/05/25 10:55 Cholinesterase deficiency No 04/05/25 10:55 You/Your Family Experience No 04/05/25 10:55 fever (hyperthermia) with Relationship Recent Exposure to Contagious No 04/07/25 09:14 Disease Does patient have nerve No 04/05/25 10:55 stimulator Patient instructed to have device shut off --Does patient have Pacemaker No 04/07/25 09:14 or ICD? When Was Last Pacemaker Check QUESTION #4 FULL TEXT: You/Your Family Experience fever (hyperthermia) with Anesthesia Last Oral Intake Last Oral intake: Last Oral Intake NPO since 05:45 04/07/25 09:14 Meds taken in AM with sips of water? Meds patient instructed to take am of surgery PONV PONV - vamper: PONV - vamper Female Yes 04/05/25 10:55 HX of Motion Sickness No 04/05/25 10:55 HX of N/V After Surgery Yes 04/05/25 10:55 Non-Smoker Yes 04/05/25 10:55 Duration of Surgery greater No 04/05/25 10:55 than 60 minutes Number of Risk Factors 3 04/05/25 10:55 PONV Score Moderate Risk 04/05/25 10:55 Height & Weight Height & Weight: Anesthesia: Height & Weight Height 5 ft 2 in 04/07/25 09:14 Weight: 56.245 kg 04/07/25 09:14 Body Mass Index (BMI) 22.6 04/07/25 09:14 Respiratory Assessment Respiratory Assessment - vamper: Respiratory Tract Infection Hx - vamper Hx Respiratory Tract Infection No 04/05/25 10:55 STOP Sleep Apnea STOP Sleep Apnea - vamper: STOP Sleep Apnea - vamper Hx Hypertension No 04/05/25 10:55 Hx Sleep Apnea No 04/05/25 10:55 CPAP BIPAP Do you snore loudly (louder No 04/05/25 10:55 than talking or can be heard Do you often feel tired/ No 04/05/25 10:55 fatigued/ sleepy during daytime? Has anyone observed you stop No 04/05/25 10:55 breathing during sleep? STOP Results Negative 04/05/25 10:55 QUESTION #5 FULL TEXT : Do you snore loudly (louder than talking or can be heard through closeddoors)? 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 Specify any problems Hx of Preganancy in last 3 No 04/05/25 10:55 Months Nurse Filling Out Transfusion CPOWERS2 04/05/25 10:55 & Questions: Date: 04/05/25 04/05/25 10:55 Time: 10:58 04/05/25 10:55 Patient unable to answer at this time (ie. confused, unrespo /Reproduction History /Reproductive History - vamper: /Reproductive Hx- vamper Hx Now No 04/05/25 10:55 Gestational Age (in weeks): EDC: Hx Hx Para Hx Section SAB No 04/05/25 10:55 Active Medications Active Medications: Current Medications Generic Name Dose Route Start Last Admin Trade Name Freq PRN Reason Stop Dose Admin Lactated Ringer's 1,000 mls @ 15 mls/hr 04/07/25 09:00 04/07/25 09:21 IV 15 mls/hr .Q48H ZIGGY Administration PFSH Medical History Wears glasses Post-menopausal Home Medications ?Medication ?Instructions ?Recorded ?Last Taken ?Type ascorbic acid (vitamin C) 1,000 mg 1,000 mg PO DAILY 0 04/09/18 Unknown History tablet (Vitamin C) cholecalciferol (vitamin D3) 50 2,000 unit PO DAILY Unknown History mcg (2,000 unit) capsule (Vitamin D3) magnesium sulfate 100 mg capsule 500 mg PO DAILY 02/22 Unknown History vitamin K2 45 mcg capsule 45 mcg PO DAILY 02/23/24 Unk nown History estradiol 0.075 mg/24 hr weekly 1 patch transdermal QW [place] TRIBE #12 04/16/24 Unknown Rx transdermal patch patches progesterone micronized 100 mg 100 mg PO QPM #90 caps 04/16/24 Unknown Rx capsule (Prometrium) Allergy/AdvReac Type Severity Reaction Status Date / Time nickel Allergy Rash Verified 04/07/25 09:14 Penicillins Allergy Rash Verified 04/07/25 09:14 Family History Father COPD (chronic obstructive pulmonary disease) Mother CVA (cerebral vascular accident) Hypertension Surgical History History of bunionectomy H/O section H/O prior ablation treatment Social History adopted: No household members: spouse [...] safe at home: Yes 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 04/07/25 0959 young MIRANDA> Date _ Desyicarmen Santillan MD Cosigner Signature: Date CC: ~ Signed [facility]07-24-2025 History and physical note [facility] Medical Records Department [address] [place] [address] History & Physical Exam 04/07/25 0857 MR#: [id number] Acct: [id number] Name: JUDITH LACY Rep #:[id number] : 1970 54 From: Gavino Medina DO PCP: SCOT Yadav Status:[facility] Location: [place] [address] HPI - General General Date of Admission: 04/07/25 Date of Service: 04/07/25 Chief Complaint: Personal history of polyps HPI Narrative JUDITH LACY, is a 54 F who presents today for surveillance colonoscopy. She had a colonoscopy back in 2021 in which she had 1 adenomatous polyp removed at that time. Is a very large adenomatous polyps that is why she is coming backin 3 years. [facility] Medical History Wears glasses Post-menopausal Home Medications ?Medication ?Instructions ?Recorded ?Last Taken ?Type ascorbic acid (vitamin C) 1,000 mg 1,000 mg PO DAILY 0 04/09/18 Unknown History tablet (Vitamin C) cholecalciferol (vitamin D3) 50 2,000 unit PO DAILY Unknown History mcg (2,000 unit) capsule (Vitamin D3) magnesium sulfate 100 mg capsule 500 mg PO DAILY 02/22 Unknown History vitamin K2 45 mcg capsule 45 mcg PO DAILY 02/23/24 Unk nown History estradiol 0.075 mg/24 hr weekly 1 patch transdermal QW [place] TRIBE #12 04/16/24 Unknown Rx transdermal patch patches progesterone micronized 100 mg 100 mg PO QPM #90 caps 04/16/24 Unknown Rx capsule (Prometrium) Allergy/AdvReac Type Severity Reaction Status Date / Time nickel Allergy Rash Verified 04/05/25 10:54 Penicillins Allergy Rash Verified 04/05/25 10:54 Family History Father COPD (chronic obstructive pulmonary disease) Mother CVA (cerebral vascular accident) Hypertension Surgical History History of bunionectomy H/O section H/O prior ablation treatment Social History adopted: No household members: spouse [...] safe at home: Yes 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, 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 Constitutional Constitutional: Denies fatigue, fever(s), poor appetite, weight gain or weight loss Gastrointestinal Gastrointestinal: Denies belching, bloating, change in bowel habits, change in stool character, chewing difficulty, coffee ground emesis, constipation, cramping, diarrhea, dyspepsia, dysphagia, earlysatiety, excessive flatus, fecalincontinence, heartburn, hematemesis, hematochezia, hemorrhoids, loose stools, melena, nausea, odynophagia, rectal bleeding, tenesmus, vomiting or weight changes Physical Exam Const alert, oriented x3, no apparent distress and healthy appearing General Appearance: cooperative GI normal to inspection, nondistended, normoactive bowel sounds, soft to palpation,non-tender and non-distended Percussion: normal to percussion Rectal Exam: deferred Assessment & Plan Assessment/Plan (1) Encounter for screening colonoscopy: PLAN: She will undergo colonoscopy. She was explained alternatives, risk and benefits include not withstanding bleeding, infection, sepsis, perforation, needfor emergent urgent . She will have an ASA of 3. 04/07/25 0859 Cosigner Signature (if applicable): CC: SCOT Aly; Gavino Medina DO~ Signed [facility]07-24-2025 [facility] Medical Records Department [address] [place] [address] History Physical Exam 04/07/25 0857 MR#: [id number] Acct: [id number] Name: JUDITH LACY Rep #: [id number] : 1970 54 From: Gavino Medina DO PCP: SCOT Yadav Status:REG [facility] Location: [place] [address] HPI - General General Date of Admission: 04/07/25 Date of Service: 04/07/25 Chief Complaint: Personal history of polyps HPI Narrative JUDITH LACY, is a 54 F who presents today for surveillance colonoscopy. She had a colonoscopy back in 2021 in which she had 1 adenomatous polyp removed at that time. Is a very large adenomatous polyps that is why she is coming back in 3 years. [facility] Medical History Wears glasses Post-menopausal Home Medications ???Medication ???Instructions ???Recorded ???Last Taken ???Type ascorbic acid (vitamin C) 1,000 mg 1,000 mg PO DAILY 04/09/18 Unkno wn History tablet (Vitamin C) cholecalciferol (vitamin D3) 50 2,000 unit PO DAILY 04/09/18 Unkno wn History mcg (2,000 unit) capsule (Vitamin D3) magnesium sulfate 100 mg capsule 500 mg PO DAILY 02/23/24 Unknown H istory vitamin K2 45 mcg capsule 45 mcg PO DAILY 02/23/24 Unknown H istory estradiol 0.075 mg/24 hr weekly 1 patch transdermal QWEEK #12 11/08 Unknown Rx transdermal patch patches progesterone micronized 100 mg 100 mg PO QPM #90 caps 04/16/24 Un known Rx capsule (Prometrium) Allergy/AdvReac Type Severity Reaction Status Date / Time nickel Allergy Rash Verified 04/05/25 10:54 Penicillins Allergy Rash Verified 04/05/25 10:54 Family History Father COPD (chronic obstructive pulmonary disease) Mother CVA (cerebral vascular accident) Hypertension Surgical History History of bunionectomy H/O section H/O prior ablation treatment Social History adopted: No household members: spouse [...] safe at home: Yes 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, 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 Constitutional Constitutional: Denies fatigue, fever(s), poor appetite, weight gain or weight loss Gastrointestinal Gastrointestinal: Denies belching, bloating, change in bowel habits, change in stool character, chewing difficulty, coffee ground emesis, constipation, cramping, diarrhea, dyspepsia, dysphagia, early satiety, excessive flatus, fecal incontinence, heartburn, hematemesis, hematochezia, hemorrhoids, loose stools, melena, nausea, odynophagia, rectal bleeding, tenesmus, vomiting or weight changes Physical Exam Const alert, oriented x3, no apparent distress and healthy appearing General Appearance: cooperative GI normal to inspection, nondistended, normoactive bowel sounds, soft to palpation, non-tender and non- distended Percussion: normal to percussion Rectal Exam: deferred Assessment Plan Assessment/Plan (1) Encounter for screening colonoscopy: PLAN: She will undergo colonoscopy. She was explained alternatives, risk and benefits include not withstanding bleeding, infection, sepsis, perforation, need for emergent urgent . She will have an ASA of 3. 04/07/25 0859 Cosigner Signature (if applicable): CC: ASSEMBLY INSPECTORHermelindo Aly; Gavino Friend, [facility] Miscellaneous Notes* Letter - Coordinator, Mammography - 05/23/2023 8:59 AM EDT May 23, 2023 PID: [id number] Judith Lacy [address] [place] [address] Dear Ms. Lacy, We are pleased to [...] dense breast tissue in addition to other riskfactors. Early detection of cancer is very important. We also understand recommendations regarding breast cancer screening are controversial. Please discuss with your primary care provider which strategy is best for you and whether a mammogram is right for you. Your imaging studies and report will be kept on file at [facility] as part of your permanent medical record and are available for your continuing care. Thank you for allowing us to help in meeting your health care needs. Sincerely, Dr. Wilson Interpreting Radiologist [facility] (Normal over 40) documented in this encounterOhiohealth [facility] City [facility]09-07-2023 NoteHNO ID: [id number] Author: Aristides Herrera, Mammo Tech Service: ? Author Type: Technologist [...] BY: Berenice Mojica May 22, 2023 9:50 [facility]09-07-2023 History of Present illness Narrative* Aristides Herrera Mammo Tech - 05/22/2023 9:50 AM EDT Radiology Service Progress Note PATIENT NAME: Judith Lacy DATE OF SERVICE: May 22, 2023 TIME: 9:50 AM PATIENT IDENTITY VERIFICATION COMPLETED USING TWO (2) IDENTIFIERS: Name and Date of confirmedby patient verbally. FALL SCREENING: Has the patient [...] 22, 2023 9:50 AM documented in this encounterOhiohealth [facility]06-08-2023 NoteHNO ID: [id number] Author: Geovany Ramirez MD Service: ? Author [...] with lozenges, gargles, and analgesia. Geovany Ramirez [facility]06-08-2023 History of Present illness Narrative* Geovany Ramirez MD - 02/20/2023 7:54 AM EDT Patient presents with: Sore Throat: ST x [...] analgesia. Geovany Ramirez MD documented in this encounterOhiohealth [facility]06-01-2023 Miscellaneous Notes* Telephone Encounter - Ginna Dong MD - 02/13/2023 9:31 AM EDT Diflucan sent in. If symptoms persist or worsen needs appointment thanks documented in this encounterOhiohealth [facility]11-28-2022 NoteHNO ID: [id number] Author: Reba Quick MD Service: ? Author Type: Physician Type: Progress Notes Filed: 08/12/2022 1:49 PM Note Text: Power Manager offered: Patient declines. Lorena is a 51 year old who presents for an annual gynecologic exam with complaints, concerns she is going through menopause. . Menses: irregular. LMP April 2022 Contraception: vasectomy HPV vaccine: No Last Pap: 06/30/2019 normal HPV: 06/30/2019 negative History of abnormal pap: yes Last mammogram: 2022normal Sexually active: Yes History of STDS: HSV Patient concerns for STD exposure: No. 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 Pharmacy updated. Rosie Smyth RN * Telephone Encounter - Reba Quick MD - 08/05/2022 8:09 AM EST What pharmacy? * Telephone Encounter - Ana Capellan LPN - 08/05/2022 7:40 AM EST Please see pt's mychart message and advise. Ana Capellan LPN documented in this encounterOhiohealth [facility] City [facility]11-07-2022 NoteHNO ID: [id number] Author: Snow Coker APRN.DELINQUENT TAX COLLECTOR Service: ? Author Type: Nurse Practitioner Type: Progress Notes Filed: 07/22/2022 10:58 AM Note Text: Subjective The history is provided by the patient. No foreign languages professor was used. HPI Judith Lacy is a [...] have confirmed and edited as necessary, the [facility] Review of Systems Constitutional: Negative for [...] detail warranting prompt ER evaluation. Snow Coker APRN.RAFATrumbull [facility]07-28-2022 Miscellaneous Notes* Letter - Mammography Coordinator - 04/11/2022 8:21 AM EDT April 11, 2022 PID: [id number] Judith Lacy [address] [place] [address] Dear Ms. Lacy, We are pleased to [...] dense breast tissue in addition to other riskfactors. Early detection of cancer is very important. We also understand recommendations regarding breast cancer screening are controversial. Please discuss with your primary care provider which strategy is best for you and whether a mammogram is right for you. Your imaging studies and report will be kept on file at [facility] as part of your permanent medical record and are available for your continuing care. Thank you for allowing us to help in meeting your health care needs. Sincerely, Dr. Restrepo Interpreting Radiologist [facility] (Normal over 40) documented in this encounterOhiohealth [facility]07-28-2022 History of Present illness Narrative* RT Ricardo(R) - 04/11/2022 7:50 AM EDT Radiology Service Progress Note PATIENT NAME: Judith Lacy DATE OF SERVICE: April 11, 2022 TIME: 7:48 AM PATIENT IDENTITY VERIFICATION COMPLETED USING TWO (2) IDENTIFIERS: Name and Date of confirmedby patient verbally. FALL SCREENING: Has the patient [...] 11, 2022 7:48 AM documented in this encounterOhiohealth [facility]10-14-2015 History of Past illness Narrative* Problem Noted Date Resolved Date Advanced maternal age in multigravida 06/28/2015 08/21/2015 Short interval between pregn ancies complicating , antepartum 04/14/2014 12/20/2014 Overview: 04/14/2014Shemy delivered her previous child March 12, 2013. TKRN History of prior with IUGR 08/21/2015 Overview: 04/14/2014Shemy has a history of IUGR with her [...] of this encounter (statuses as of 04/12/2022) [facility]10-[facility] History of Past illness Narrative* Problem Noted Date Resolved Date Advanced maternal age in multigravida 06/28/2015 08/21/2015 Short interval between pregn ancies complicating , antepartum 04/14/2014 12/20/2014 Overview: 04/14/2014Frieda delivered her previous child March 12, 2013. TKRN History of prior with IUGR 08/21/2015 Overview: 04/14/2014Shemy has a history of IUGR with her [...] of this encounter (statuses as of 04/13/2022) [facility] History of Past illness Narrative* Problem Noted Date Resolved Date Advanced maternal age in multigravida 06/28/2015 08/21/2015 Short interval between pregn ancies complicating , antepartum 04/14/2014 12/20/2014 Overview: 04/14/2014Frieda delivered her previous child March 12, 2013. TKRN History of prior with IUGR 08/21/2015 Overview: 04/14/2014Shemy has a history of IUGR with her [...] of this encounter (statuses as of 08/05/2022) [facility] History of Past illness Narrative* Problem Noted Date Resolved Date Advanced maternal age in multigravida 06/28/2015 08/21/2015 Short interval between pregn ancies complicating , antepartum 04/14/2014 12/20/2014 Overview: 04/14/2014Shemy delivered her previous child March 12, 2013. TKRN History of prior with IUGR 08/21/2015 Overview: 04/14/2014She has a history of IUGR with her [...] of this encounter (statuses as of 08/12/2022) [facility] History of Past illness Narrative* Problem Noted Date Resolved Date Advanced maternal age in multigravida 06/28/2015 08/21/2015 Short interval between pregn ancies complicating , antepartum 04/14/2014 12/20/2014 Overview: 04/14/2014Shemy delivered her previous child March 12, 2013. TKRN History of prior with IUGR 08/21/2015 Overview: 04/14/2014She has a history of IUGR with her [...] of this encounter (statuses as of 02/13/2023) [facility] [facility] History of Past illness Narrative* Problem Noted Date Resolved Date Advanced maternal age in multigravida 06/28/2015 08/21/2015 Short interval between pregn ancies complicating , antepartum 04/14/2014 12/20/2014 Overview: 04/14/2014Shemy delivered her previous child March 12, 2013. TKRN History of prior with IUGR 08/21/2015 Overview: 04/14/2014Shemy has a history of IUGR with her [...] of this encounter (statuses as of 02/20/2023) [facility] History of Past illness Narrative* Problem Noted Date Diagnosed Date Resolved Date Advanced maternal age in multigravida 06/28/2015 08/21/2015 Short interval between pregn ancies complicating , antepartum 04/14/201412/20 Overview: 04/14/2014Frieda delivered her previous child March 12, 2013. TKRN History of prior with IUGR 4 08/21/2015 Overview: 04/14/2014Shemy has a history of IUGR with her [...] of this encounter (statuses as of 05/27/2023) [facility] History of Past illness Narrative* Problem Noted Date Diagnosed Date Resolved Date Advanced maternal age in multigravida 06/28/2015 08/21/2015 Short interval between pregn ancies complicating , antepartum 04/14/201412/20 Overview: 04/14/2014Frieda delivered her previous child March 12, 2013. TKRN History of prior with IUGR 4 08/21/2015 Overview: 04/14/2014Shemy has a history of IUGR with her [...] of this encounter (statuses as of 07/20/2023) [facility] note Author Graeme gipson [facility] Note Date/Time April 07, 2025 9:59 am [facility] Medical Records Department [address] [place] [address] Pre-Anesthesia Evaluation 04/07/25 0958 MR#: [id number] Acct: [id number] Name: JUDITH LACY Rep #:[id number] : 1970 54 From: Graeme mendes MD PCP: Madeleine Aly ASSEMBLY INSPECTOR-C Status:REG S DC Y Race: C Location: [place] [address] ASA Classification* ASA Classification ASA Classification: 2 Assessment & Plan Anesthesia* Anesthesia Assessment Anesthesia Assessment: Discussed sedation and/or anesthesia options, risks, benefits, and alternatives with patient/parents/legal guardian/POA. Questions invited. The patient/parents/legal guardian/POA seems to understand and agrees to proceedwith anesthesia plan. Reviewed the physical assessment, medical history, allergy history and patient home medications list prior to surgery/procedure/anesthetic and documented any changes. Performed airway and anesthesia risk assessments. Anesthesia Type Anesthesia Type: General and MAC History Source History Obtained from:: Patient and Chart Anesthesia Focused Assessment* Temperature: 97.9 F Pulse Rate: 61 Blood Pressure: 115/85 Respiratory Rate: 16 Pulse Ox: 100 Airway Assessment Mouth opens: >3 cm Mallampati Score: II Teeth Condition: Intact Neck Range of motion (ROM): Full ROM Labs Anesthesia Preop lab: CBC WBC 4.3 K/mm3 (4.4-11.0) L 12/05/21 09:18 12/05/21 RBC 4.15 M/mm3 (4.2-5.4) L 12/05/21 09:18 12/05/21 Hgb 13.6 g/dL (12.0-15.0) 12/05/21 09:18 12/05/21 Hct 38.5 % (37-47) 12/05/21 09:18 12/05/21 Plt Count 230 K/mm3 (150-450) 12/05/21 09:18 12/05/21 CHEMISTRY Potassium 4.1 mmol/L (3.5-5.1) 12/05/21 09:18 12/05/21 Sodium 140 mmol/L (136-145) 12/05/21 09:18 12/05/21 BUN 10 mg/dL (7-18) 12/05/21 09:18 12/05/21 Creatinine 0.71 mg/dL (0.55-1.02) 12/05/21 09:18 12/05/21 Glucose 87 mg/dL (74-106) 12/05/21 09:18 12/05/21 TSH 2.09 uIU/mL (0.358-3.74) 12/05/21 09:18 COAG Urine Test Negative Negative 04/16/18 10:46 04/16/18 Pre-Assessment Diagnosis/Proposed Procedure Planned Operative Procedure(s): COLONOSCOPY Anesthesia History Anesthesia History - vamper: Anesthesia History - vamper Hx Hospitalization No 04/05/25 10:55 Any Problems With Anesthesia Yes: NAUSEA 04/05/25 10:55 Cholinesterase deficiency No 04/05/25 10:55 You/Your Family Experience No 04/05/25 10:55 fever (hyperthermia) with Relationship Recent Exposure to Contagious No 04/07/25 09:14 Disease Does patient have nerve No 04/05/25 10:55 stimulator Patient instructed to have device shut off --Does patient have Pacemaker No 04/07/25 09:14 or ICD? When Was Last Pacemaker Check QUESTION #4 FULL TEXT: You/Your Family Experience fever (hyperthermia) with Anesthesia Last Oral Intake Last Oral intake: Last Oral Intake NPO since 05:45 04/07/25 09:14 Meds taken in AM with sips of water? Meds patient instructed to take am of surgery PONV PONV - vamper: PONV - vamper Female Yes 04/05/25 10:55 HX of Motion Sickness No 04/05/25 10:55 HX of N/V After Surgery Yes 04/05/25 10:55 Non-Smoker Yes 04/05/25 10:55 Duration of Surgery greater No 04/05/25 10:55 than 60 minutes Number of Risk Factors 3 04/05/25 10:55 PONV Score Moderate Risk 04/05/25 10:55 Height & Weight Height & Weight: Anesthesia: Height & Weight Height 5 ft 2 in 04/07/25 09:14 Weight: 56.245 kg 04/07/25 09:14 Body Mass Index (BMI) 22.6 04/07/25 09:14 Respiratory Assessment Respiratory Assessment - vamper: Respiratory Tract Infection Hx - vamper Hx Respiratory Tract Infection No 04/05/25 10:55 STOP Sleep Apnea STOP Sleep Apnea - vamper: STOP Sleep Apnea - vamper Hx Hypertension No 04/05/25 10:55 Hx Sleep Apnea No 04/05/25 10:55 CPAP BIPAP Do you snore loudly (louder No 04/05/25 10:55 than talking or can be heard Do you often feel tired/ No 04/05/25 10:55 fatigued/ sleepy during daytime? Has anyone observed you stop No 04/05/25 10:55 breathing during sleep? STOP Results Negative 04/05/25 10:55 QUESTION #5 FULL TEXT : Do you snore loudly (louder than talking or can be heard through closed doors)? 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 Specify any problems Hx of Preganancy in last 3 No 04/05/25 10:55 Months Nurse Filling Out Transfusion [email or web address] 04/05/25 10:55 & Questions: Date: 04/05/25 04/05/25 10:55 Time: 10:58 04/05/25 10:55 Patient unable to answer at this time (ie. confused, unrespo /Reproduction History /Reproductive History - vamper: /Reproductive Hx- vamper Hx Now No 04/05/25 10:55 Gestational Age (in weeks): EDC: Hx Hx Para Hx Section SAB No 04/05/25 10:55 Active Medications Active Medications: Current Medications Generic Name Dose Route Start Last Admin Trade Name Freq PRN Reason Stop Dose Admin Lactated Ringer's 1,000 mls @ 15 mls/hr 04/07/25 09:00 04/07/25 09:21 IV 15 mls/hr .Q48H ZIGGY Administration PFSH Medical History Wears glasses Post-menopausal Home Medications ?Medication ?Instructions ?Recorded ?Last Taken ?Type ascorbic acid (vitamin C) 1,000 mg 1,000 mg PO DAILY 0 04/09/18 Unknown History tablet (Vitamin C) cholecalciferol (vitamin D3) 50 2,000 unit PO DAILY Unknown History mcg (2,000 unit) capsule (Vitamin D3) magnesium sulfate 100 mg capsule 500 mg PO DAILY 02/22 Unknown History vitamin K2 45 mcg capsule 45 mcg PO DAILY 02/23/24 Unk nown History estradiol 0.075 mg/24 hr weekly 1 patch transdermal QW [place] #12 04/16/24 Unknown Rx transdermal patch patches progesterone micronized 100 mg 100 mg PO QPM #90 caps 04/16/24 Unknown Rx capsule (Prometrium) Allergy/AdvReac Type Severity Reaction Status Date / Time nickel Allergy Rash Verified 04/07/25 09:14 Penicillins Allergy Rash Verified 04/07/25 09:14 Family History Father COPD (chronic obstructive pulmonary disease) Mother CVA (cerebral vascular accident) Hypertension Surgical History History of bunionectomy H/O section H/O prior ablation treatment Social History adopted: No household members: spouse [...] safe at home: Yes 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 04/07/25 0959 <Electronically signed by Graeme vidal MD> Date _ Graeme Santillan MD Cosigner Signature: Date CC: ~ Signed [facility] Work Phone: Consult note Author David Ross [facility] Note Date/Time April 07, 2025 10:[address] [place] [address] Medical Records Department [address] [place] [address] Anesthesia Postop Eval I 04/07/25 1029 MR#: [id number] Acct: [id number] Name: JUDITH LACY Rep #:[id number] : 1970 54 From: David Ross PCP: Madeleine Aly NP-Elaine Status:REG S DC Y Race: C Location: [place] [address] Anesthesia: Postop Eval I Current Vital Signs Temperature: 97.6 F Pulse Rate: 67 Blood Pressure: 103/64 Respiratory Rate: 16 Pulse Ox: 100 Oxygen Delivery Method: Room Air Assessment Airway patent: Yes Spontaneous unlabored respirations: Yes Mental status: Asleep nausea: No Vomiting: No Anesthesia Complication: No Fluid Hydration Crystalloid volume administer (ml): 500 Total IV fluid infused: 500 Progress Note Anesthesia document: Postop Eval 1 completed: Yes 04/07/25 1030 <Electronically signed by David Ross > Date _ David Chadwick Signature: Date CC: ~ Signed [facility] Work Phone: Consult note Author Graeme gipson [facility] Note Date/Time April 07, 2025 11:0 9am [facility] Medical Records Department [address] [place] [address] Anesthesia Postop Eval II 04/07/25 1039 MR#: [id number] Acct: [id number] Name: JUDITH LACY Rep #:[id number] : 1970 54 From: Graeme mendes MD PCP: Madeleine Aly ASSEMBLY INSPECTOR-C Status:REG S DC Y Race: C Location: [place] [address] Anesthesia Postop Eval I Sum Postop Eval Completion status Anesthesia document: Postop Eval 1 completed: Yes Anesthesia Postop Eval I Summary Anesthesia Postop Eval I Summary: Anesthesia Postop Eval I: Assessment Summary Airway patent Yes 04/07/25 10:30 [email or web address] Spontaneous unlabored Yes 04/07/25 10:30 [email or web address] respirations Mental status Asleep 04/07/25 10:30 [email or web address] nausea No 04/07/25 10:30 [email or web address] Vomiting No 04/07/25 10:30 [email or web address] Anesthesia Postop Eval I: Fluid Summary Crystalloid volume administer 500 04/07/25 10:30 [email or web address] (ml) Colloids volume administered ( ml) Blood Product volume administered (ml) Total IV fluid infused 500 04/07/25 10:30 [email or web address] Anesthesia Postop Eval I: Summary Notes Anesthesia Complication No 04/07/25 10:30 [email or web address] Anesthesia Complication Comment: Post-operative progress note Anesthesia: Postop Eval II Evaluation Mental status: Awake and Calm Pain Level: 1 nausea: No Vomiting: No Complications Anesthesia Complication: No 04/07/25 1039 <Electronically signed by Graeme vidal MD> Date _ Graeme Santillan MD Cosigner Signature: Date CC: ~ Signed [facility] Work Phone: evaluation noteNo assessment information available [facility] Work Phone: evaluation note* Diagnosis Encounter for screening mammogram for malignant neoplasm of breast Other screening mammogram [facility] Diagnosis Encounter for gynecological examination (general) (routine) without abnormal findings- Primary Encounter for screening mammogram for malignant neoplasm of breast Other screening mammogram [facility] Diagnosis Vaginal itching- Primary Pruritus of genital organs Vaginal burning Other specified symptom associated with female genital organs [facility]* Diagnosis Sore throat- Primary Acute pharyngitis [facility] Diagnosis Encounter for screening mammogram for malignant neoplasm of breast Other screening mammogram [facility]* Name Dates Details How to access health [...] tion Online using Patient Portal and 3rd [employer] Apps Indication:Nonsmoker Start:12-Dec-2021 Instruction Type:Patient Education Patient Instructions Indication:Nonsmoker Start:28-Nov-2021 Instruction Type:Provider Instructions for Treatment How to Access Health Informa tion Online using Patient Portal and 3rd [employer] Apps Indication:Nonsmoker Start:28-Nov-2021 Instruction Type:Patient Education [...] Informa tion Online using Patient Portal and [employer] Apps Indication:Body mass index (BMI) of 19.0-19.9 in adult Start:09-Jul-2023 Instruction Type:Patient Education Patient Instructions Indication:Body mass index (BMI) of 19.0-19.9 in adult Start:09-Jul-2023 Instruction Type:Provider Instructions for Treatment Patient Instructions Indication:Nonsmoker Start:12-Dec-2021 Instruction Type:Provider Instructions for Treatment How to Access Health Informa tion Online using Patient Portal and [employer] Apps Indication:Nonsmoker Start:12-Dec-2021 Instruction Type:Patient Education Patient Instructions Indication:Nonsmoker Start:28-Nov-2021 Instruction Type:Provider Instructions for Treatment How to Access Health Informa tion Online using Patient Portal and [employer] Apps Indication:Nonsmoker Start:28-Nov-2021 Instruction Type:Patient Education [...] Informa tion Online using Patient Portal and [employer] Apps Indication:Body mass index (BMI) of 19.0-19.9 in adult Start:09-Jul-2023 Instruction Type:Patient Education Patient Instructions Indication:Body mass index (BMI) of 19.0-19.9 in adult Start:09-Jul-2023 Instruction Type:Provider Instructions for Treatment Patient Instructions Indication:Nonsmoker Start:12-Dec-2021 Instruction Type:Provider Instructions for Treatment How to Access Health Informa tion Online using Patient Portal and [employer] Apps Indication:Nonsmoker Start:12-Dec-2021 Instruction Type:Patient Education Patient Instructions Indication:Nonsmoker Start:28-Nov-2021 Instruction Type:Provider Instructions for Treatment How to Access Health Informa tion Online using Patient Portal and [employer]rd [employer] Apps Indication:Nonsmoker Start:28-Nov-2021 Instruction Type:Patient Education [...] CAD Reba Mullins MD [address] [place] [address] [facility] [address] [place] [address] Referral ID Status Reason Start Date Expiration Date V isits Requested Visits Authorized [id number] Closed Auto-Generate d Referral 07/02/2021 08/01/2022 1 1 [facility] for referral (narrative)* Diagnostic Procedure Only (Routine) - Pending Review Specialty Diagnoses / Procedures Referred By Jeannie martinez Referred To Contact [facility] Diagnoses Encounter for screening mammogram for malignant neoplasm of breast Procedures SHELBY SCREENING W MICKEY SCREENING DIGITAL BREAST TOMOSYNTHESIS BI SCREENING MAMMOGRAPHY BI 2-VIEW BREAST INC CAD Reba Mullins MD [address] [place] [address] [facility] [address] [place] [address] Referral ID Status Reason Start Date Expiration Date Visits Requested Visits Authorized [id number] Pending Review Auto-Generat ed Referral 09/11/2023 1 1 [facility] for referral (narrative)* Diagnostic Procedure Only (Routine) - Closed Specialty Diagnoses / Procedures Referred By Jeannie martinez Referred To Contact [facility] Diagnoses Encounter for screening mammogram for malignant neoplasm of breast Procedures SHELBY SCREENING W MICKEY SCREENING DIGITAL BREAST TOMOSYNTHESIS BI SCREENING MAMMOGRAPHY BI 2-VIEW BREAST INC CAD Reba Mullins MD [address] [place] [address] [facility] [address] [place] [address] Referral ID Status Reason Start Date Expiration Date V isits Requested Visits Authorized [id number] Closed Auto-Generate d Referral 08/12/2022 09/11/2023 1 1 [facility] for referral (narrative)No reason for referral information availableWSelect [facility] Work Phone: Reason for visit Narrative* Diagnostic Procedure Only (Routine) - Closed Specialty Diagnoses / Procedures Referred By Jeannie martinez Referred To Contact [facility] Diagnoses Encounter for screening mammogram for malignant neoplasm of breast Procedures SHELBY SCREENING W MICKEY SCREENING BREAST DGTL MICKEY UNI/BILAT ADD ON SCREENING MAMMOGRAPHY BI 2-VIEW BREAST INC CAD Reba Mullins MD [address] [place] [address] [facility] [address] [place] [address] Referral ID Status Reason Start Date Expiration Date V isits Requested Visits Authorized [id number] Closed Auto-Generate d Referral 07/02/2021 08/01/2022 1 1 [facility] for visit Narrative* Diagnostic Procedure Only (Routine) - Closed Specialty Diagnoses / Procedures Referred By Jeannie martinez Referred To Contact [facility] Diagnoses Encounter for screening mammogram for malignant neoplasm of breast Procedures SHELBY SCREENING W MICKEY SCREENING DIGITAL BREAST TOMOSYNTHESIS BI SCREENING MAMMOGRAPHY BI 2-VIEW BREAST INC CAD Reba Mullins MD [address] [place] [address] [facility] [address] [place] [address] Referral ID Status Reason Start Date Expiration Date V isits Requested Visits Authorized [id number] Closed Auto-Generate d Referral 08/12/2022 09/11/2023 1 1 [facility] Family History No Family History Records [...] to access health informa tion online Indication:Fatigue Start:8-Aug-2017 Instruction Type:Patient Education How to access health [...] Will Yes September 24 6:02pm Power of Slot Machine Floor Person Yes September 24, 2019 6:02pm Documents on File Type Date Recorded Patient Galvanizer Expl anation Advance Directive(s) 09/26/2021 8:37 AM Advance Directive(s) 09/12/2021 3:46 PM Documents on File Type Date Recorded Patient Galvanizer Expl anation Advance Directive(s) 09/26/2021 8:37 AM Advance Directive(s) 09/12/2021 3:46 PM Advance Directive Response Recorded Date/ Time Living Will Yes September 24 6:02pm Do you have a Healthcare Power of Slot Machine Floor Person? Yes September 24, 2019 6:02pm Advance Directive Response Recorded Date/ Time Living Will Yes September 24 6:02pm Do you have a Healthcare Pow er of Slot Machine Floor Person? Yes September 24, 2019 6:02pm Do you have a Healthcare Pow er of Slot Machine Floor Person? Yes April 05, 2025 10:55am Name of Medical Power of Slot Machine Floor Person LUIS CARLOS ROY April 05, 2025 10:55am Summary Purpose Chief Complaint and Reason for Visit Chief Complaint Admit Date SCREENING December 24, 2024 12: 35pm Chief Complaint Admit Date SCREENING December 24, 2024 12: 35pm POST MENOPAUSAL STATE January 13, 2025 3:16 pm Reason for Visit Admit Date Encounter for screening colonoscopy April 07, 2025 8:45am Additional Source Comments Goals (unrecognized section and [...] or prosecute any alcohol or drug abuse patient.[facility] the event this information is protected by the Federal Confidentiality of Alcohol and Drug Abuse Patient Records regulations: The Federal rules restrict any use of the information to criminally investigate or prosecute any alcohol or drug abuse patient.[facility] the event this information is protected by the Federal Confidentiality of Alcohol and Drug Abuse Patient Records regulations: The Federal rules restrict any use of the information to criminally investigate or prosecute any alcohol or drug abuse patient.[facility] the event this information is protected by the Federal Confidentiality of Alcohol and Drug Abuse Patient Records regulations: The Federal rules restrict any use of the information to criminally investigate or prosecute any alcohol or drug abuse patient.[facility] the event this information is protected by the Federal Confidentiality of Alcohol and Drug Abuse Patient Records regulations: The Federal rules restrict any use of the information to criminally investigate or prosecute any alcohol or drug abuse patient.[facility] the event this information is protected by the Federal Confidentiality of Alcohol and Drug Abuse Patient Records regulations: The Federal rules restrict any use of the information to criminally investigate or prosecute any alcohol or drug abuse patient.[facility] the event this information is protected by the Federal Confidentiality of Alcohol and Drug Abuse Patient Records regulations: The Federal rules restrict any use of the information to criminally investigate or prosecute any alcohol or drug abuse patient.[facility] the event this information is protected by the Federal Confidentiality of Alcohol and Drug Abuse Patient Records regulations: The Federal rules restrict any use of the information to criminally investigate or prosecute any alcohol or drug abuse patient.[facility] Care Teams (unrecognized sec tion and content) Glass Bulb Machine Adjuster Relationship Specialty Start Date End Date Lianne Cheema CNP [address] [facility] [address] [place] [address] PCP - General Internal Medicine 08/20/21 Glass Bulb Machine Adjuster Relationship Specialty Start Date End Date Lianne Cheema CNP [address] [facility] [address] [place] [address] PCP - General Internal Medicine 08/20/21 Glass Bulb Machine Adjuster Relationship Specialty Start Date End Date Lianne Cheema CNP [address] [facility] [address] [place] [address] PCP - General Internal Medicine 08/20/21 Glass Bulb Machine Adjuster Relationship Specialty Start Date End Date Lianne Cheema CNP [address] [facility] [address] [place] [address] PCP - General Internal Medicine 08/20/21 Glass Bulb Machine Adjuster Relationship Specialty Start Date End Date Lianne Cheema CNP [address] [facility] [address] [place] [address] PCP - General Internal Medicine 08/20/21 Glass Bulb Machine Adjuster Relationship Specialty Start Date End Date Lianne Cheema CNP [address] [facility] [address] [place] [address] PCP - General Internal Medicine 08/20/21 Glass Bulb Machine Adjuster Relationship Specialty Start Date End Date Lianne Cheema CNP [address] [facility] [address] [place], [place] [address] PCP - General Internal Medicine 08/20/21 Team Status: Active Member Role Status Dates Madeleine Aly ASSEMBLY INSPECTOR-C Primary Care Provider Active Team Status: Inactive Member Role Status Dates Madeleine Aly ASSEMBLY INSPECTOR-C Primary Care Provider Active Start: December 24, 2024 End: December 24, 2024 Eryn Gray NP-C Attending Provider Active Start: December 24, 2024 End: December 24, 2024 Eryn Gray ASSEMBLY INSPECTOR-C Referring Provider Active Start: December 24, 2024 End: December 24, 2024 Team Status: Inactive Member Role Status Dates Madeleine Aly ASSEMBLY INSPECTOR-C Primary Care Provider Active Start: January 13, 2025 End: January 13, 2025 Madeleine Aly NP-C Attending Provider Active Start: January 13, 2025 End: January 13, 2025 Madeleine Aly NP-C Referring Provider Active Start: January 13, 2025 End: January 13, 2025 Team Status: Active Member Role/Relationship Status Dates Madeleine Aly ASSEMBLY INSPECTOR-C Primary Care Provider Active Team Status: Inactive Member Role/Relationship Status Dates Madeleine Aly NP-C Primary Care Provider Active Start: December 24, 2024 End: December 24, 2024 Eryn Gray NP-C Attending Provider Active Start: December 24, 2024 End: December 24, 2024 Eryn Gray ASSEMBLY INSPECTOR-C Referring Provider Active Start: December 24, 2024 End: December 24, 2024 Team Status: Inactive Member Role/Relationship Status Dates Madeleine Aly ASSEMBLY INSPECTOR-C Primary Care Provider Active Start: January 13, 2025 End: January 13, 2025 Madeleine Aly NP-C Attending Provider Active Start: January 13, 2025 End: January 13, 2025 Madeleine Aly NP-C Referring Provider Active Start: January 13, 2025 End: January 13, 2025 Team Status: Inactive Member Role/Relationship Status Dates SCOT Yadav Primary Care Provider Active Start: April 07, 2025 End: April 07, 2025 SCOT Yadav Referring Provider Active Start: April 07, 2025 End: April 07, 2025 Dr. Gavino Medina DO Attending Provider Active Start: April 07, 2025 End: April 07, 2025 Team Status: Active Member Role/Relationship Status Dates SCOT Yadav Primary Care Provider Active Start: April 07, 2025 SCOT Yadav Referring Provider Active Start: April 07, 2025 Dr. Gavino Medina DO Attending Provider Active Start: April 07, 2025 Dr. Gavino Medina DO Other Provider Active St art: April 07, 2025 Reason for Visit (unrecogniz ed section and content) Reason Comments Yearly Exam Reason Comments Sore Throat ST x 1 day INFORMATION SOURCE (unrecogn ized section and content) DATE CREATED AUTHOR 05/27/2023 [facility] DATE CREATED AUTHOR AUTHOR'S ORGANIZ ATION 06/30/2025 [facility] FOR RECORDS PERTAINING TO PATIENTS WHO [...] BE BASED ON THE PRIMARY CLINICAL RECORDS. [employer] provides no warranty or guarantee of the accuracy or completeness of information in this document.
--- OUTSIDE RECORDS SUMMARY | 2025-07-04 17:51 | XMS RPT_ITS | CCD ---
Author Organization [facility] Providers Care Surtass Analyst Name Role Phone Pamelaa Sejal Unavailable Eric Dejesus Unavailable Unavailable Aristides Irenea Unavailable Unavailable Unavailable Unavailable EditaAnsonen Unavailable Pamelaa RAFA, Sejal Unavailable EditaAnsonen Unavailable Eric Gayle LPN Unavailable Unavailable Unavailable Unavailable Ciesa, Lianne Unavailable Ciesa BUS INFO CONSULTANT, Sejal Primary Care Provider Ciesa BUS INFO CONSULTANT, Sejal Primary Care Provider Ciesa BUS INFO CONSULTANT, Sejal Primary Care Provider REBA MULLINS Referring Unavail able CIESA, SEJAL Primary Care Unavailable CIESA, SEJAL Primary Care Unavailable REBA MULLINS Attending Unavail able CIESA, SEJAL Primary Care Unavailable CIESA, SEJAL Primary Care Unavailable SNOW COKER Attending Unavailable Madeleine Aly CNP Unavailable Madeleine Aly CNP Unavailable Camryn Gresham LPN Unavailable Unavailable Ciesa, Lianne Unavailable Jermain ASH KIER BOILER-CMadeleine Primary Care Provider Marina ASH KIER BOILER-Eryn Henry Attending Provider Marina ASH KIER BOILER-CEryn Referring Provider Jermain ADAIR-Madeleine Henry Attending Provider Jermain ADAIR-CMadeleine Referring Provider Friend DO, Dr. Mancia Attending Provider Friend Dr. Gavino PARKER Other Provider Madeleine Aly Primary Care Unavailable Gavino Medina Attending Unavailable Madeleine Aly Referring Unavailable JermainMadeleine Referring Unavailable Jermain, Madeleine Primary Care Unavailable Jermain Madeleine Attending Unavailable Eryn Gray Attending Unavailable Eryn Gray Referring Unavailable Jermain, Madeleine Primary Care Unavailable Jermain, Madeleine Primary Care Unavailable Beata ASH KIER BOILER, Jasmin Attending Unavailable Jermain, Madeleine Referring Unavailable Jermain, Madeleine Primary Care Unavailable Gavino Medina Consulting Unavailable Gavino Medina Attending Unavailable Madeleine Aly Referring Unavailable Allergies Allergy Classification Reported Allergen(s) Allergy Type Date of Onset Reaction(s) Facility (20 sources) nickel; Translations: [Nickel] Drug Allergy 4 Rash [facility] Internal Medicine Work Phone: (8 sources) Penicillin G; Translations: [Penicillin G Sodium *PENICILLINS*] Drug Allergy [facility] Work Phone: Comment on above: rash (14 sources) Penicillins; Translations: [PENICILLINS] Allergy to substance 2 Rash [facility] Work Phone: Medications Current Medications Medication Drug Class(es) Dates Sig (Normalized) Sig (Original) ascorbic acid 1000 mg oral tablet (20 sources) Vitamin C Start: 04-09-2018 take 1 tablet by mouth once daily Ascorbic Acid (Vitamin C) (Vitamin C) 1,000 MG tablet Active 1000 mg PO DAILY April 09, 2018 12:00am Start: 04-07-2017 take 2 tablets by mo [facility] once daily Vitamin C 1000 MG Oral Tablet 2 (two) Tablet daily for 0 days Quantity: 60 {Tablet} Refills: 0 Ordered: 07-Apr-2017 Anette Lianne Start : 07-Apr-2017 Active take 1 tablet by [facility] three times daily ascorbic acid, vitamin C, (VITAMIN C) 500 mg tablet Take 500 mg by mouth three times daily. 0 Active Comment on above: Take 500 mg by mouth three times daily. 168 hr estradiol 0.42941 mg/hr transdermal system (6 sources) Estrogen Start: [...] Comment on above: Take 1 tablet by [facility] one time only for 1 dose. magnesium [...] Start: 04-09-2018 take 1 capsule by mo [facility] once daily Turmeric-Turmeric Root Extract [...] Comment on above: Take 1 tablet by [facility] twice daily. cholecalciferol 0.025 mg oral capsule [...] Inactive Start: 06-18-2019 take 1 capsule by [facility] two times weekly Vitamin D3 Super Strength 2000 UNIT Oral Capsule 1 (one) Capsule twice weekly for 0 days Quantity: 30 {Capsule} Refills: 0 Ordered: 18-Jun-2019 Sarikaantione CRAIGLianne Sarikaantione RAFALianne Start : 18-Jun-2019 Active Start: 04-22-2017 take 1 capsule by [facility] once daily Cholecalciferol (Vitamin D3) (Vitamin [...] June 23, 2024 9:35am polyethylene glycol 3350 71774 mg powder for oral solution (8 sources) [...] Range Facility Colonoscopy Reporton 025 Colonoscopy Report [facility] Medical Records Department [address] [place] [address] Colonoscopy Report MR#: [id number] Acct: [id number] Name: JUDITH LACY Rep #: [id number] : 1970 54 From: Gavino Medina DO PCP: SCOT Yadav Status:[facility] Patient Name: Judith Lacy Procedure Date: [...] individual at high risk CPT copyright 2021 [employer]. All rights reserved. The codes documented in this report are preliminary and upon accountant supervisor review may be revised to meet current compliance requirements. Gavino Medina DO 04/07/2025 10:27:15 AM This report has been signed electronically. Number of Addenda: 0 Note Initiated On: 04/07/2025 9:47 AM 04/07/25 1027 Date Gavino Medina DO Cosigner Signature: Date (if indicated) CC: ASH KIER BOILER-C Madeleine Aly; Gavino Medina DO Date Dictated: 04/07/25946 Date Transcribed: Senior Oracle Dba: ELDER Signed [facility] MR/POSTOP.[facility] Medical Records Department [address] [place] [address] Anesthesia Postop Eval I 04/07/25 1029 MR#: [id number] Acct: [id number] Name: JUDITH LACY Rep #: [id number] : 1970 54 From: David Ross PCP: SCOT Yadav Status:REG SDC Y Race: C Location: [place] [address] Anesthesia: Postop Eval I Current Vital Signs [...] David Chadwick Signature: Date CC: Signed Normal [facility] MR/RLBEOFFI9bl 04-07-2025 MR/POSTOPAN2 [facility] Medical Records Department [address] [place] [address] Anesthesia Postop Eval II 04/07/25 103 MR#: [id number] Acct: [id number] Name: JUDITH LACY Rep #: [id number] : 1970 54 From: Graeme Santillan MD PCP: SCOT Yadav Status:REG [facility] [place] Race: C Location: [place] [address] Anesthesia Postop Eval I Sum Postop Eval [...] MD Cosigner Signature: Date CC: Signed Normal [facility] Bone density reportOrdered B y: José Miguel Khanss on 01-14-2025 Study report Skeletal system DXA [facility] Imaging Services [address] [place], [place] [address] Dexa Bone Density Study MR#: [id number] Acct: [id number] Name: JUDITH LACY Rep #: [id number] : 1970 F 54 From: Sydnee Calero MD PCP: SCOT Yadav Status: REG C LI Study:Dexa Bone Density Study Date of Exam: 01/13/25 Exam# [id number] Ordering Dr: Elaine Aly PROCEDURE: DEXA BONE [...] is a trademark of the [employer]'s [place] for Metabolic Bone Disease, World Health Organization (WHO) Collaborating [place]. 1-Major Osteoporotic Fracture: Clinical Spine, Forearm, Hip [...] 3. Additional description as above. Reading Location: [id number] CC: SCOT Aly ~ Senior Oracle Dba: Signed [facility] Dexa Bone Density Studyon Dexa Bone Density Study [facility] Imaging Services [address] [place] [id number] Dexa Bone Density Study MR#: [id number] Acct: [id number] Name: JUDITH LACY Rep #: [id number] : 1970 F 54 From: José Miguel Calero MD PCP: SCOT Yadav Status: REG CLI Study: Dexa Bone Density Study Date of Exam: 01/13/25 Exam# [id number] Ordering Dr: Madeleine Aly PROCEDURE: DEXA BONE [...] of the [employer] [place] for Metabolic Bone Disease, World Health Organization (WHO) Collaborating [place]. 1-Major Osteoporotic Fracture: Clinical Spine, Forearm, Hip [...] 3. Additional description as above. Reading Location: [id number] CC: SCOT Aly Senior Oracle Dba: Signed Normal [facility] Breast imaging reportOrdered By: Terrence Moreno on 12-29-2024 Study report [facility] Imaging Services [address] [place], [place] [address] SCRN MAMM (CAD)W/MICKEY BILAT MR#: [id number] Acct: [id number] Name: JUDITH LACY Rep #: [id number] : 1970 F 54 From: Magan Moreno MD PCP: SCOT Yadav Status: REG C Study:SCRN MAMM (CAD)W/MICKEY BILAT Date of Exa m: 12/24/24 Exam# [id number] Ordering Dr: Eryn Gray EXAM: SCRN MAMM [...] be mailed to the patient. Reading Location: [facility] CC: SCOT Gray; SCOT Aly ~ Senior Oracle Dba: Signed [facility] SCRN MAMM (CAD)W/MICKEY BILATo n 12-24-2024 SCRN MAMM (CAD)W/MICKEY BILAT [facility] Imaging Services [address] [place], [place] [address] SCRN MAMM (CAD)W/MICKEY BILAT MR#: [id number] Acct: [id number] Name: JUDITH LACY Rep #: [id number] : 1970 F 54 From: Terrence sandhu MD PCP: SCOT Yadav Status: REG CLI Study: SCRN MAMM (CAD)W/MICKEY BILAT Date of Exam: 12/14 10/09 Exam# [id number] Ordering Dr: Eryn Gray EXAM: SCRN MAMM [...] be mailed to the patient. Reading Location: [place] [address] CC: SCOT Gray; SCOT Aly Senior Oracle Dba: Signed Normal [facility] CALCIFEDIOL ([id number])Ordered B y: Sheet Metal Shop Supervisor on 07-09-2023 25-hydroxyvitamin D [Mass/Vol] 72.5 ng/mL Normal 30.0-100.0 [facility]; [facility] Work Phone: Comment on above: Vitamin D deficiency has been defined by the [place] of[place] and an Endocrine Society practice guideline as alevel of serum 25-OH vitamin D less than 20 ng/mL (1,2).The Endocrine Society went on to further define vitamin Dinsufficiency as a level between 21 and 29 ng/mL (2).1. IOM ([place] [employer]). 2010. Dietary reference intakes for calcium and D. [place]: The National Academies Press.2. Kash MF, Donya QUINTEROS, Miranda LLOYD, et al. Evaluation, treatment, and prevention of vitamin D deficiency: an Endocrine Society clinical practice guideline. JCEM. 2010; 96(7):1911-30. PATIENT WAS FASTINGP ERFORMED BY: CB [facility] Ebylcx1700 [address]Dublin [place] [id number] CBC, PLATELETS & AUT DIFF (7 1970)Ordered By: Sheet Metal Shop Supervisor on 07-09-2023 Basophils (Bld) [#/Vol] 0.1 10*3/uL Normal 0.0-0.2 [facility]; [facility] Work Phone: Comment on above: PATIENT WAS FASTINGP ERFORMED BY: [facility] Qnsvna6958 [address]Dublin [place] [id number] Basophils/100 WBC (Bld) 1 % Normal [facility]; [facility] Work Phone: Comment on above: PATIENT WAS FASTINGP ERFORMED BY: [facility] Umlwmg5092 [address]Dublin [place] [id number] Eosinophils (Bld) [#/Vol] 0.1 10*3/uL Normal 0.0-0.4 [facility]; [facility] Work Phone: Comment on above: PATIENT WAS FASTINGP ERFORMED BY: [facility] Acjmru2767 [address] RoadDublin [place] [id number] Eosinophils/100 WBC (Bld) 2 % Normal [facility]; [facility] Work Phone: Comment on above: PATIENT WAS FASTINGP ERFORMED BY: CB [facility] Cnszxd8276 [address]Dublin [place] [id number] Erythrocyte distribution width (RBC) [Ratio] 12.1 % Normal 11.7-15.4 [facility]; [facility] Work Phone: Comment on above: PATIENT WAS FASTINGP ERFORMED BY: CB [facility] Buseep8574 [address]Dublin [place] [id number] Hematocrit (Bld) [Volume fraction] 43.3 % Normal 34.0-46.6 [facility]; [facility] Work Phone: Comment on above: PATIENT WAS FASTINGP ERFORMED BY: ARDEN Wolfgang Edouard[address] [facility] [id number] Hemoglobin (Bld) [Mass/Vol] 14.7 g/dL Normal 11.1-15.9 [facility]; [facility] Work Phone: Comment on above: PATIENT WAS FASTINGP ERFORMED BY: [place] [id number] [facility] [id number] Immature granulocytes (Bld) [#/Vol] 0.0 10*3/uL Normal 0.0-0.1 [facility]; [facility] Work Phone: Comment on above: PATIENT WAS FASTINGP ERFORMED BY: [place] [id number] [facility] [id number] Immature granulocytes/100 WBC (Bld) 0 % Normal [facility]; [facility] Work Phone: Comment on above: PATIENT WAS FASTINGP ERFORMED BY: [place] [id number] [facility] [id number] Lymphocytes (Bld) [#/Vol] 1.6 10*3/uL Normal 0.7-3.1 [facility]; [facility] Work Phone: Comment on above: PATIENT WAS FASTINGP ERFORMED BY: [place] [id number] [facility] [id number] Lymphocytes/100 WBC (Bld) 38 % Normal [facility]; [facility] Work Phone: Comment on above: PATIENT WAS FASTINGP ERFORMED BY: LabMcLaren Flint[address] [facility] [id number] MCH (RBC) [Entitic mass] 31.4 pg Normal 26.6-33.0 [facility]; [facility] Work Phone: Comment on above: PATIENT WAS FASTINGP ERFORMED BY: LabElizabeth Ville [id number] [facility] [id number] MCHC (RBC) [Mass/Vol] 33.9 g/dL Normal 31.5-35.7 [facility]; [facility] Work Phone: Comment on above: PATIENT WAS FASTINGP ERFORMED BY: ARDEN Wolfgang Edouard[address] [facility] [id number] MCV (RBC) [Entitic vol] 93 fL Normal 79-97 [facility]; [facility] Work Phone: Comment on above: PATIENT WAS FASTINGP ERFORMED BY: ARDEN Michaelmomo Ddlecn1625 [facility] [id number] Monocytes (Bld) [#/Vol] 0.2 10*3/uL Normal 0.1-0.9 [facility]; [facility] Work Phone: Comment on above: PATIENT WAS FASTINGP ERFORMED BY: ARDEN Carballolin[address] [facility] [id number] Monocytes/100 WBC (Bld) 5 % Normal [facility]; [facility] Work Phone: Comment on above: PATIENT WAS FASTINGP ERFORMED BY: ARDEN Michaelmomo CarballoOxxxny14[address] [facility] [id number] Neutrophils (Bld) [#/Vol] 2.3 10*3/uL Normal 1.4-7.0 [facility]; [facility] Work Phone: Comment on above: PATIENT WAS FASTINGP ERFORMED BY: ARDEN Lab[facility] Movqsi[address] [facility] [id number] Neutrophils/100 WBC (Bld) 54 % Normal [facility]; [facility] Work Phone: Comment on above: PATIENT WAS FASTINGP ERFORMED BY: AREDN Labcoabdi Tbtgsb[address] [facility]in [place] [id number] Platelets (Bld) [#/Vol] 250 10*3/uL Normal 150-450 [facility]; [facility] Work Phone: Comment on above: PATIENT WAS FASTINGP ERFORMED BY: ARDEN [facility] Mssnzn4400 [address]Dublin [place] [id number] RBC (Bld) [#/Vol] 4.68 10*6/uL Normal 3.77-5.28 Compr [email or web address]] Internal Medicine; [facility] Work Phone: Comment on above: PATIENT WAS FASTINGP ERFORMED BY: ARDEN [facility] Mxbpke9668 [address] RoadDublin [place] [id number] WBC (Bld) [#/Vol] 4.3 10*3/uL Normal 3.4-10.8 Compre [facility]; [facility] Work Phone: Comment on above: PATIENT WAS FASTINGP ERFORMED BY: ARDEN [facility] Iagnus0421 [address] RoadDublin [place] [id number] LIPID PANEL (31959)Ordered B y: Sheet Metal Shop Supervisor on 07-09-2023 Cholesterol [Mass/Vol] 180 mg/dL Normal 100-199 [facility]; [facility] Work Phone: Comment on above: PATIENT WAS FASTINGP ERFORMED BY: ARDEN [facility] Ikgsop0772 [address] RoadDublin [place] [id number] Cholesterol in HDL [Mass/Vol] 73 mg/dL Normal [facility]; [facility] Work Phone: Comment on above: PATIENT WAS FASTINGP ERFORMED BY: ARDEN Labmomo CarballoUgkogp2128 [address] RoadDublin [place] [id number] Triglyceride [Mass/Vol] 42 mg/dL Normal 0-149 [facility]; [facility] Work Phone: Comment on above: PATIENT WAS FASTINGP ERFORMED BY: ARDEN [facility] Wobvyu3335 [address] RoadDublin [place] [id number] LIPID PANEL (91386) 9 mg/dL Normal 5-40 [facility]; [facility] Work Phone: Comment on above: PATIENT WAS FASTINGP ERFORMED BY: ARDEN [facility] Wkzten7709 [address] RoadDublin [place] [id number] LIPID PANEL (24060) 98 mg/dL Normal 0-99 [facility]; [facility] Work Phone: Comment on above: PATIENT WAS FASTINGP ERFORMED BY: [facility] Nnbkhg1465 [address] RoadDublin [place] [id number] LIPID PANEL (36696) 1.3 {ratio} Normal 0.0-3.2 [facility]; [facility] Work Phone: Comment on above: LDL/HDL Ratio Men Wo men 1/2 Avg.Risk 1.0 1.5 Avg.Risk 3.6 3.2 2X Avg.Risk 6.2 5.0 3X Avg.Risk 8.0 6.1 PATIENT WAS FASTINGP ERFORMED BY: [facility] Ueovns6257 [address]Dublin [place] [id number] METABOLIC PANEL, COMPREHENSI VE (72448)Ordered By: Sheet Metal Shop Supervisor on 07-09-2023 Albumin [Mass/Vol] 4.9 g/dL Normal 3.8-4.9 [facility]; [facility] Work Phone: Comment on above: PATIENT WAS FASTINGP ERFORMED BY: [facility] Mtmdpz2053 [address] RoadDublin [place] [id number] Albumin/Globulin [Mass ratio] 1.9 {ratio} Normal 1.2-2.2 [facility]; [facility] Work Phone: Comment on above: PATIENT WAS FASTINGP ERFORMED BY: [facility] Vhnqsw0422 [address] RoadDublin [place] [id number] ALP [Catalytic activity/Vol] 59 U/L Normal 44-121 [facility]; [facility] Work Phone: Comment on above: PATIENT WAS FASTINGP ERFORMED BY: [facility] Zwbdej1479 [address] RoadDublin [place] [id number] ALT [Catalytic activity/Vol] 23 U/L Normal 0-32 [facility]; [facility] Work Phone: Comment on above: PATIENT WAS FASTINGP ERFORMED BY: [facility] Jefstn4236 [address] RoadDublin [place] [id number] AST [Catalytic activity/Vol] 22 U/L Normal 0-40 [facility]; [facility] Work Phone: Comment on above: PATIENT WAS FASTINGP ERFORMED BY: [facility] Mlkuow7660 [address]Dublin [place] [id number] Bilirubin [Mass/Vol] 0.9 mg/dL Normal 0.0-1.2 [facility]; [facility] Work Phone: Comment on above: PATIENT WAS FASTINGP ERFORMED BY: [facility] Xzuqwd5945 [address] Roadblin [place] [id number] Calcium [Mass/Vol] 9.9 mg/dL Normal 8.7-10.2 [facility]; [facility] Work Phone: Comment on above: PATIENT WAS FASTINGP ERFORMED BY: [facility] Oyxiyj6737 [address] RoadDublin [place] [id number] Chloride [Moles/Vol] 101 mmol/L Normal 96-106 [facility]; [facility] Work Phone: Comment on above: PATIENT WAS FASTINGP ERFORMED BY: LabMcL[facility] Flint6[address] RoadUnc Health [facility] Ridge - Valdesein [place] [id number] CO2 [Moles/Vol] 27 mmol/L Normal 20-29 Comprehen sive [facility]; [facility] Work Phone: Comment on above: PATIENT WAS FASTINGP ERFORMED BY: [facility]st. [facility] Lzyxsh8[address] [facility]bl[facility] [place] [id number] Creatinine [Mass/Vol] 0.86 mg/dL Normal 0.57-1.00 [facility]; [facility] Work Phone: Comment on above: PATIENT WAS FASTINGP ERFORMED BY: [facility] Bqupho7368 [address] [facility] [place] [id number] GFR/1.73 sq M.predicted among non-blacks MDRD (S/P/Bld) [Vol rate/Area] 82 mL/min/{1.73_m2} Normal Comprehensiv e [facility] Medicine; [facility] Work Phone: Comment on above: PATIENT WAS FASTINGP ERFORMED BY: [facility] Fsxwtk1043 [address] RoadDublin [place] [id number] Globulin (S) [Mass/Vol] 2.6 g/dL Normal 1.5-4.5 [facility]; [facility] Work Phone: Comment on above: PATIENT WAS FASTINGP ERFORMED BY: ARDEN Labcoabdi Uillfh6651 [address] RoadDublin [place] [id number] Glucose [Mass/Vol] 87 mg/dL Normal 70-99 [facility]; [facility] Work Phone: Comment on above: PATIENT WAS FASTINGP ERFORMED BY: CB [facility] Uuzbwh6440 [address]Dublin [place] [id number] Potassium [Moles/Vol] 4.5 mmol/L Normal 3.5-5.2 [facility]; [facility] Work Phone: Comment on above: PATIENT WAS FASTINGP ERFORMED BY: ARDEN [facility] Ikglaq2109 [address] RoadDublin [place] [id number] Protein [Mass/Vol] 7.5 g/dL Normal 6.0-8.5 [facility]; [facility] Work Phone: Comment on above: PATIENT WAS FASTINGP ERFORMED BY: ARDEN [facility] Ovzmel2999 [address] RoadDublin [place] [id number] Sodium [Moles/Vol] 142 mmol/L Normal 134-144 [facility]; [facility] Work Phone: Comment on above: PATIENT WAS FASTINGP ERFORMED BY: [facility] Tbospo4642 [address]Dublin [place] [id number] Urea nitrogen [Mass/Vol] 13 mg/dL Normal 6-24 [facility]; [facility] Work Phone: Comment on above: PATIENT WAS FASTINGP ERFORMED BY: [facility] Oblvfb5349 [address] RoadDublin [place] [id number] Urea nitrogen/Creatini ne [Mass ratio] 15 mg/mg Normal 9-23 [facility]; [facility] Work Phone: Comment on above: PATIENT WAS FASTINGP ERFORMED BY: [facility] Obzyzt8803 [address] RoadDublin [place] [id number] TSH (THYROID STIMULATING HOR BETTINA) ([id number])Ordered By: Sheet Metal [employer] Supervisor on 07-09-2023 TSH Qn 2.200 {uIU/mL} Normal 0.450-4.500 Comprehen sive [facility]; [facility] Work Phone: Comment on above: PATIENT WAS FASTINGP ERFORMED BY: ARDEN [facility] Cmusut7016 [address] RoadDublin [place] [id number] URINALYSIS ([id number])Ordered By : [employer] Supervisor on 07-09-2023 Appearance (U) Clear Normal Comprehens meghann [facility]; [facility] Work Phone: Comment on above: PATIENT WAS FASTINGP ERFORMED BY: ARDEN [facility] Sqzkjy3735 [address]Dublin [place] [id number] Bilirubin Ql (U) Negative Normal Comprehe nsive [facility]; [facility] Work Phone: Comment on above: PATIENT WAS FASTINGP ERFORMED BY: ARDEN Labcoabdi CarballoNgcaka5595 [address] RoadDublin [place] [id number] Color (U) Yellow Normal [facility]; [facility] Work Phone: Comment on above: PATIENT WAS FASTINGP ERFORMED BY: ARDEN [facility] Ycucvs3449 [address] RoadDublin [place] [id number] Glucose Ql (U) Negative Normal Comprehens me[facility]ann [facility]; [facility] Work Phone: Comment on above: PATIENT WAS FASTINGP ERFORMED BY: ARDEN Labcoabdi CarballoAcvhbs9510 [address] RoadDublin [place] [id number] Hemoglobin Ql (U) Negative Normal Compreh ensive [facility]; [facility] Work Phone: Comment on above: PATIENT WAS FASTINGP ERFORMED BY: ARDEN [facility] Uahgld6281 [address]Dublin [place] [id number] Ketones Ql (U) Negative Normal Comprehens me[facility]ann [facility]; [facility] Work Phone: Comment on above: PATIENT WAS FASTINGP ERFORMED BY: ARDEN [facility] Tbumzq0754 [address] RoadDublin [place] [id number] Leukocyte esterase Test strip Ql (U) Negative Normal [facility]; [facility] Work Phone: Comment on above: PATIENT WAS FASTINGP ERFORMED BY: ARDEN Edouard6370 [address] RoadDublin [place] [id number] Microscopic observation LM Nom (Urine sed) MICNIP Normal [facility]; [facility] Work Phone: Comment on above: Microscopic not hakan cated and not performed. PATIENT WAS FASTINGP ERFORMED BY: ARDEN Wolfgang Edouard6[address]ublin [place] [id number] Nitrite Ql (U) Negative Normal Comprehens meghann [facility]; [facility] Work Phone: Comment on above: PATIENT WAS FASTINGP ERFORMED BY: ARDEN Wolfgang Edouard6[address] [place] [id number] pH (U) 7.0 [pH] Normal 5.0-7.5 [facility]; [facility] Work Phone: Comment on above: PATIENT WAS FASTINGP ERFORMED BY: ARDEN Wolfgang Edouard[address] Road[address] [place] [id number] Protein Ql (U) Negative Normal Comprehens meghann [facility]; [facility] Work Phone: Comment on above: PATIENT WAS FASTINGP ERFORMED BY: ARDEN Wolfgang Edouard[address] [facility] [place] [id number] Specific gravity (U) [Rel density] 1.009 1 Normal 1.005-1.030 [facility]; [facility] Work Phone: Comment on above: PATIENT WAS FASTINGP ERFORMED BY: ARDEN Carballolin[address] RoadDublin [place] [id number] Urobilinogen (U) [Mass/Vol] 0.2 mg/dL Normal 0.2-1.0 [facility]; [facility] Work Phone: Comment on above: PATIENT WAS FASTINGP ERFORMED BY: ARDEN Carballolin[address]ublin [place] [id number] VITAMIN B12 AND FOLATES ([id number])Ordered By: Sheet Metal Shop Supervisor on 07-09-2023 Cobalamin (Vitamin B12) [Mass/Vol] 679 pg/mL Normal 232-1245 [facility]; [facility] Work Phone: Comment on above: PATIENT WAS FASTINGP ERFORMED BY: [facility] Fhdjhs8877 [facility] [id number] Folate [Mass/Vol] ng/mL Normal Compreh ensive Internal Medicine; [facility] Work Phone: Comment on above: A serum folate ever ntration of less than 3.1 ng/mL isconsidered to represent clinical deficiency. PATIENT WAS FASTINGP ERFORMED BY: [facility] Vwbpvo0709 [facility] [id number] [facility]23-2023 [facility] ID: [id number] Author: Coordinator, Mammography Service: ? Author Type: Physician Type: Letter Filed: 05/26/2023 11:35 PM Note Text: May 23, 2023 PID: [id number] Judith MunozTrinity Lacy [address] [place] [address] Dear Ms. Lacy, We are pleased to [...] report will be kept on file at [facility] as part of your permanent medical record and are available for your continuing care. Thank you for allowing us to help in meeting your health care needs. Sincerely, Dr. Wilson Interpreting Radiologist [facility] (Normal over [address]) [address] [facility] SHELBY SCREENING W TOMOon 05-22 SHELBY SCREENING W MICKEY * * *Final Report* * * DATE OF EXAM: May 22 2023 10:18AM MAE 0582 - SHELBY SCREENING W MICKEY / PROCEDURE REASON: Encounter for screening mammogram for malignant neoplasm of breast * * * * Physician Interpretation * * * * RESULT: #[id number] - SHELBY SCREENING W MICKEY BILATERAL DIGITAL [...] exams dated: 04/11/2022 mammogram, 01/26/2021 mammogram - [facility], 06/28/2019 mammogram, and 06/01/2018 mammogram - [facility]. The tissue of both breasts is heterogeneously dense. This may lower the sensitivity of mammography. No significant masses, calcifications, or other findings are seen in either breast. There has been no significant interval change. IMPRESSION: NEGATIVE There is no mammographic evidence of malignancy. A 1 year screening mammogram is recommended. Demetris wong/penmary:05/23/2023 08:59:29 Hi Ranger Operator(s): RT Galina(R)(M), [facility] letter sent: Normal over 40 Mammogram BI-RADS: [...] Health, Family Medicine, and Medical/Surgical Oncology, the [facility] has carefully reviewed the data and reached [...] their providers when to stop screening mammograms. Senior [employer] Transcribe Date/Time: May 22 2023 9:52A Dictated by: DEMETRIS WILSON MD This examination was interpreted and the report reviewed and electronically signed by: DEMETRIS WILSON MD on May 23 2023 8:59AM EST [id number] Normal [facility] ic CNOVon 02-20-2023 CNOV Office Visit (UCWSTR ) BAMBIJUDITH Jane ([id number]) 1970 F Date Time Provider Department 02/20/23 7:45 AM GEOVANY RAMIREZ [facility] During your visit today, we recorded the [...] Diagnosis:Sore throat [J02.9] Order(s):STREP A MOLECULAR (POC) [[id number]] Order #: [id number]. #:[id number] Prescriptions as of 02/20/2023 - acyclovir [...] 02/20/2023 Noted Resolved Advanced maternal age in [EHT1292] 07/25/2012 08/21/2015 History of herpes genitalis [Z86.19] [...] Status:Closed by GEOVANY RAMIREZ on 02/20/[address] [facility] STREP A MOLECULAR (POC)on Procedural Control Valid [facility] Strep A (POCT) Negative Negative [facility] CNOVon 08-12-2022 CNOV Office Visit (OBGYWM ) JUDITH LACY ([id number]) 1970 F Date Time Provider Department 08/12/22 1:20 PM REBA MULLINS OBJOSE During your visit today, we recorded the following information about you: Blood pressure Weight 104/64 49.4 kg eRba Nelson MD 08/12/2022 1:49 PM Signed Application Programmer Analyst offered: Patient declines. 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 Normal [facility] CNOVon 07-22-2022 CNOV Office Visit (UCWSTR ) JUDITH LACY ([id number]) 1970 F Date Time Provider Department 07/22/22 10:45 AM SNOW COKER During your visit today, we recorded the following information about you: Temperature Pulse Respiration Blood pressure 97.7 degrees 75/minute 20/minute 100/64 Weight 50.7 kg Snow Coker APRN.CNP 07/22/2022 10:58 AM Signed Subjective The history is provided by the patient. No services manager was used. HPI Judith Lacy is a [...] have confirmed and edited as necessary, the [facility] Review of Systems Constitutional: Negative for chills [...] List As (more content not included)... Normal [facility] SHELBY SCREENING W TOMOon 04-11 [facility] ic Basophil percentageon 2021 Bilirubin [Mass/Vol] 0.80 mg/dL 0.20-1.00 [facility] Work Phone: Comment on above: For patients on eltr ombopag therapy, use of Dimension Corea TBIL is not recommended. Chloride [Moles/Vol] 105 mmol/L 98-107 [facility] Work Phone: Cholesterol [Mass/Vol] 148 mg/dL <200 [facility] Work Phone: Comment on above: <200 mg/dL Desirable 200-240 mg/dL Borderline >240 mg/dL High Risk Glucose [Mass/Vol] 87 mg/dL 74-106 [facility] Work Phone: Potassium [Moles/Vol] 4.1 mmol/L 3.5-5.1 [facility] Work Phone: Protein [Mass/Vol] 6.8 g/dL 6.4-8.2 [facility] Work Phone: Sodium [Moles/Vol] 140 mmol/L 136-145 [facility] Work Phone: Triglyceride [Mass/Vol] 47 mg/dL [facility] Work Phone: Comment on above: The drugs N-Acetylcy steine and Metamizole may falsely depress this assay.Serum Triglycerides Reference Interval Normal <150 mg/dL Borderline high 150 - 199 mg/dL High 200 - 499 mg/dL Very High > or = 500 mg/dL WBC (Bld) [#/Vol] 4.3 10*3/uL 4.4-11.0 [facility] Work Phone: Blood erythrocytes count (nu mber/volume)on 12-05-2021 RBC (Bld) [#/Vol] 4.15 10*6/uL 4.2-5.4 [facility]: Blood hemoglobin measurement (mass/volume)on 12-05-2021 Hemoglobin (Bld) [Mass/Vol] 13.6 g/dL 12.0-15.0 [facility] Work Phone: Blood platelet mean volumeon 12-05-2021 Platelet mean volume (Bld) [Entitic vol] 10.8 fL 6.2-12.0 [facility] Work Phone: Determination of erythrocyte mean corpuscular volume (MCV)on 12-05-2021 MCV (RBC) [Entitic vol] 92.8 fL 81-99 [facility] Work Phone: Hematocrit Auto (Bld) [Volum e fraction]on 12-05-2021 Hematocrit (Bld) [Volume fraction] 38.5 % 37-47 [facility] Work Phone: Laboratory - Chemistry and C hemistry - challengeon 12-05-2021 ALP [Catalytic activity/Vol] 47 U/L 45-117 [facility] Work Phone: ALT [Catalytic activity/Vol] 25 U/L 13-56 [facility] Work Phone: CO2 [Moles/Vol] 32.0 mmol/L 21.0-32.0 [facility] Work Phone: Globulin (S) [Mass/Vol] 3.1 g/dL 2.2-4.2 [facility] Work Phone: Urea nitrogen/Creatini ne [Mass ratio] 14.0 mg/mg 10-20 [facility] Work Phone: Laboratory - Hematology and Cell countson 12-05-2021 Erythrocyte distribution width (RBC) [Entitic vol] 42.5 fL 35.1-43.9 [facility] Work Phone: Erythrocyte distribution width (RBC) [Ratio] 12.4 % 11.6-14.6 [facility] Work Phone: MCH (RBC) [Entitic mass] 32.8 pg 27.0-32.0 [facility] Work Phone: MCHC Auto (RBC) [Mass/Vol]on 12-05-2021 MCHC (RBC) [Mass/Vol] 35.3 g/dL 32-36 [facility] Work Phone: No Panel Informationon 12-05 Estimated GFR (MDRD) Amer 111 mL/min >60 [facility] Work Phone: Comment on above: GFR Calc Estimated GFR (MDRD) Non-Af Amer 92 mL/min >60 [facility] Work Phone: Comment on above: Non- GFR Calc Thyroid Stimulating Hormone (TSH) 2.09 uIU/mL 0.358-3.74 [facility] Work Phone: Vitamin D 25-Hydroxy 71.7 ng/mL [facility] Work Phone: Comment on above: Vitamin D 25(OH) Sta tus Range Deficiency <20 ng/mL (50nmol/L) Insufficiency 20 - 30 ng/mL (50 - 75 nmol/L) Sufficiency 30 - 100 ng/mL (75 - 250 nmol/L) Toxicity >100 ng/mL (>250 nmol/L) Platelets bldon 12-05-2021 Platelets (Bld) [#/Vol] 230 10*3/uL 150-450 [facility] Work Phone: Serum or plasma albumin karlie urement (mass/volume)on 12-05-2021 Albumin [Mass/Vol] 3.7 g/dL 3.2-5.0 [facility] Work Phone: Serum or plasma albumin/glob ulin mass ratioon 12-05-2021 Albumin/Globulin [Mass ratio] 1.2 {ratio} 0.9-2.4 [facility] Work Phone: Serum or plasma calcium karlie urement (mass/volume)on 12-05-2021 Calcium [Mass/Vol] 9.2 mg/dL 8.5-10.1 [facility] Work Phone: Serum or plasma cholesterol in HDL measurement (mass/volume)on 12-05-2021 Cholesterol in HDL [Mass/Vol] 68 mg/dL [facility] Work Phone: Comment on above: The drugs N-Acetylcy steine and Metamizole may falsely depress this assay. Reference Range HDL <40 mg/dL Low HDL Cholesterol HDL >or= 60 mg/dL High HDL Cholesterol Serum or plasma cholesterol in VLDL measurement (mass/volume)on 12-05-2021 Cholesterol in VLDL [Mass/Vol] 9 mg/dL 5-40 [facility] Work Phone: Serum or plasma creatinine m easurement (mass/volume)on 12-05-2021 Creatinine [Mass/Vol] 0.71 mg/dL 0.55-1.02 [facility] Work Phone: Comment on above: The validity of the calculated GFR & GFRAA in patients over 70 years has not been determined. Clinical correlation is essential. Serum or plasma low density lipoprotein (LDL) cholesterol measurement (mass/volume)on 12-05-2021 Cholesterol in LDL [Mass/Vol] 71 mg/dL 0-130 [facility] Work Phone: Serum or plasma urea nitroge n measurement (mass/volume)on 12-05-2021 Urea nitrogen [Mass/Vol] 10 mg/dL 7-18 [facility] Work Phone: Thin prep Papanicolaou smear with manual screeningon 12-05-2021 Thin prep Papanicolaou smear with manual screening 18 U/L 15-37 [facility] Work Phone: Thin prep Papanicolaou smear with manual screening 3 5-15 [facility] Work Phone: CALCIFEDIOL ([id number])Ordered B y: Sheet Metal Shop Supervisor on 06-16-2019 25-Hydroxyvitamin D2+25-Hydroxyvita min D3 [Mass/Vol] 110.0 ng/mL Abnormal 30.0-100.0 [facility] Work Phone: Comment on above: Vitamin D deficiency has been defined by the [place] of[place]icine and an Endocrine Society practice guideline as alevel of serum 25-OH vitamin D less than 20 ng/mL (1,2).The Endocrine Society went on to further define vitamin Dinsufficiency as a level between 21 and 29 ng/mL (2).1. IOM ([place] of Medicine). 2010. Dietary reference intakes for calcium and D. [place]: The National Academies Press.2. Kash MF, Donya QUINTEROS, Miranda LLOYD, et al. Evaluation, treatment, and prevention of vitamin D deficiency: an Endocrine Society clinical practice guideline. JCEM. 2010; 96(7):1911-30. PATIENT WAS FASTINGP ERFORMED BY: [employer] LabmeQuilibrium Vkmoti7[address] MyEnergyblin [place] [id number] CBC & PLATELETS (AUTO) ([id number])Ordered By: Sheet Metal Shop Supervisor on 06-16-2019 Erythrocyte distribution width (RBC) [Ratio] 13.0 % Normal 12.3-15.4 [facility] Work Phone: Comment on above: PATIENT WAS FASTINGP ERFORMED BY: [employer]tvrp Rneksw33[address] MyEnergyin [place] [id number] Hematocrit (Bld) [Volume fraction] 41.3 % Normal 34.0-46.6 [facility] Work Phone: Comment on above: PATIENT WAS FASTINGP ERFORMED BY: [employer] LabEmployee Benefit Solutionsrp Xcxpuu[address] KosherSwitch Technologiesblin [place] [id number] Hemoglobin (Bld) [Mass/Vol] 14.1 g/dL Normal 11.1-15.9 [facility] Work Phone: Comment on above: PATIENT WAS FASTINGP ERFORMED BY: LiveRe[address] Pivit LabsUnc Health Blue Ridge - Valdesein [place] [id number] MCH (RBC) [Entitic mass] 31.5 pg Normal 26.6-33.0 [facility] Work Phone: Comment on above: PATIENT WAS FASTINGP ERFORMED BY: CB [facility] Mimcwr4[address] RoadDublin [place] [id number] MCHC (RBC) [Mass/Vol] 34.1 g/dL Normal 31.5-35.7 [facility] Work Phone: Comment on above: PATIENT WAS FASTINGP ERFORMED BY: CB [facility] Oanrui0173 [address] RoadDublin [place] [id number] MCV (RBC) [Entitic vol] 92 fL Normal 79-97 [facility] Work Phone: Comment on above: PATIENT WAS FASTINGP ERFORMED BY: CB [facility] Yjnwms8925 [address] RoadDublin [place] [id number] Platelets (Bld) [#/Vol] 210 {x10E3/uL} Normal 150-450 [facility] Work Phone: Comment on above: PATIENT WAS FASTINGP ERFORMED BY: CB [facility] Unvrpo5[address] RoadDublin [place] [id number] Platelets (Bld) [#/Vol] 210 10*3/uL Normal 150-450 [facility]; [facility] Work Phone: Comment on above: PATIENT WAS FASTINGP ERFORMED BY: CB [facility] Llldpu9193 [address] RoadDublin [place] [id number] RBC (Bld) [#/Vol] 4.48 {x10E6/uL} Normal 3.77-5.28 [facility] Work Phone: Comment on above: PATIENT WAS FASTINGP ERFORMED BY: CB [facility] Cntryx3949 [address] RoadDublin [place] [id number] RBC (Bld) [#/Vol] 4.48 10*6/uL Normal 3.77-5.28 [facility] Internal [facility]; [facility] Work Phone: Comment on above: PATIENT WAS FASTINGP ERFORMED BY: CB [facility] Gjjijc1174 [address]Dublin [place] [id number] WBC (Bld) [#/Vol] 4.5 {x10E3/uL} Normal 3.4-10.8 [facility] prehensive Internal Medicine Work Phone: Comment on above: PATIENT WAS FASTINGP ERFORMED BY: ARDEN Margaretteabdi Mlgteb9375 [address] RoadDublin [place] [id number] WBC (Bld) [#/Vol] 4.5 10*3/uL Normal 3.4-10.8 [facility] Internal Medicine; [facility] Work Phone: Comment on above: PATIENT WAS FASTINGP ERFORMED BY: ARDEN LabMomo CarballoEijnnb2825 [address] RoadDublin [place] [id number] LIPID PANEL ([id number])Ordered B y: Sheet Metal Shop Supervisor on 06-16-2019 Cholesterol [Mass/Vol] 167 mg/dL Normal 100-199 [facility] Work Phone: Comment on above: PATIENT WAS FASTINGP ERFORMED BY: ARDEN Carballolin[address]Dublin [place] [id number] Cholesterol in HDL [Mass/Vol] 66 mg/dL Normal [facility] Work Phone: Comment on above: PATIENT WAS FASTINGP ERFORMED BY: ARDEN Carballolin[address] [facility] HospitalDublin [place] [id number] Cholesterol in LDL [Mass/Vol] 90 mg/dL Normal 0-99 [facility] Work Phone: Comment on above: PATIENT WAS FASTINGP ERFORMED BY: ARDEN LabMomo CarballoSgadlo[address] HospitalDublin [place] [id number] Cholesterol in LDL/Cholesterol in HDL [Mass ratio] 1.4 {ratio} Normal 0.0-3.2 [facility] Work Phone: Comment on above: LDL/HDL Ratio Men Wo men 1/2 Avg.Risk 1.0 1.5 Avg.Risk 3.6 3.2 2X Avg.Risk 6.2 5.0 3X Avg.Risk 8.0 6.1 PATIENT WAS FASTINGP ERFORMED BY: ARDEN LabMomo Pxrtdb0645 [address] RoadDublin [place] [id number] Cholesterol in VLDL [Mass/Vol] 11 mg/dL Normal 5-40 [facility] Work Phone: Comment on above: PATIENT WAS FASTINGP ERFORMED BY: ARDEN [facility] Cyvjrs1236 [address] RoadDublin [place] [id number] Triglyceride [Mass/Vol] 53 mg/dL Normal 0-149 [facility] Work Phone: Comment on above: PATIENT WAS FASTINGP ERFORMED BY: ARDEN [facility] Fodauc9567 [address] RoadDublin [place] [id number] Metabolic Panel, Comprehensi ve ([id number])Ordered By: Sheet Metal Shop Supervisor on 06-16-2019 Albumin [Mass/Vol] 4.5 g/dL Normal 3.5-5.5 [facility] Work Phone: Comment on above: PATIENT WAS FASTINGP ERFORMED BY: ARDEN [facility] Apygiu1398 [address] RoadDublin [place] [id number] Albumin/Globulin [Mass ratio] 1.9 {ratio} Normal 1.2-2.2 [facility] Work Phone: Comment on above: PATIENT WAS FASTINGP ERFORMED BY: ARDEN [facility] Gwqrxc1094 [address] RoadDublin [place] [id number] ALP [Catalytic activity/Vol] 42 [iU]/L Normal 39-117 [facility] Work Phone: Comment on above: PATIENT WAS FASTINGP ERFORMED BY: ARDEN [facility] Jomkaj8576 [address] RoadDublin [place] [id number] ALP [Catalytic activity/Vol] 42 U/L Normal 39-117 [facility]; [facility] Work Phone: Comment on above: PATIENT WAS FASTINGP ERFORMED BY: CB [facility] Mvjycj8498 [address] RoadDublin [place] [id number] ALT [Catalytic activity/Vol] 17 [iU]/L Normal 0-32 [facility] Work Phone: Comment on above: PATIENT WAS FASTINGP ERFORMED BY: CB [facility] Ktminz0870 [address] RoadDublin [place] [id number] ALT [Catalytic activity/Vol] 17 U/L Normal 0-32 [facility]; [facility] Work Phone: Comment on above: PATIENT WAS FASTINGP ERFORMED BY: ARDEN LabBrea Qogogn4012 [address] RoadDublin [place] [id number] AST [Catalytic activity/Vol] 20 [iU]/L Normal 0-40 [facility] Work Phone: Comment on above: PATIENT WAS FASTINGP ERFORMED BY: ARDEN RodriguezMad[facility] Anrpie7502 [address] RoadDublin [place] [id number] AST [Catalytic activity/Vol] 20 U/L Normal 0-40 [facility]; [facility] Work Phone: Comment on above: PATIENT WAS FASTINGP ERFORMED BY: ARDEN Pfeiffer Gkwciq3305 [address]Dublin [place] [id number] Bilirubin [Mass/Vol] 0.7 mg/dL Normal 0.0-1.2 [facility] Work Phone: Comment on above: PATIENT WAS FASTINGP ERFORMED BY: ARDEN Pfeiffer Ejpjvt08[address]bl[address] [place] [id number] Calcium [Mass/Vol] 9.0 mg/dL Normal 8.7-10.2 [facility] Work Phone: Comment on above: PATIENT WAS FASTINGP ERFORMED BY: ARDEN Pfeiffer Gmtfbb1282 [address] [place] [id number] Chloride [Moles/Vol] 102 mmol/L Normal 96-106 [facility] Work Phone: Comment on above: PATIENT WAS FASTINGP ERFORMED BY: ARDEN LabMad[facility] Apngqz5239 [address] [place] [id number] CO2 [Moles/Vol] 27 mmol/L Normal 20-29 [facility] Internal Medicine Work Phone: Comment on above: PATIENT WAS FASTINGP ERFORMED BY: ARDEN LabCo Rolahx6893 [address] RoadD[address] [place] [id number] Creatinine [Mass/Vol] 0.77 mg/dL Normal 0.57-1.00 [facility] Work Phone: Comment on above: PATIENT WAS FASTINGP ERFORMED BY: ARDEN Pfeiffer Iwnqca9[address] RoadDublin [place] [id number] GFR/1.73 sq M predicted among blacks CKD-EPI (S/P/Bld) [Vol rate/Area] 106 mL/min/1.73 Normal [facility] Work Phone: Comment on above: PATIENT WAS FASTINGP ERFORMED BY: LabMad[facility] Gnajok0269 [address] RoadDublin [place] [id number] GFR/1.73 sq M predicted among non-blacks CKD-EPI (S/P/Bld) [Vol rate/Area] 92 mL/min/1.73 Normal [facility] Work Phone: Comment on above: PATIENT WAS FASTINGP ERFORMED BY: LabSalem Memorial District HospitalZkmppv6[address] [facility]in [place] [id number] Globulin (S) [Mass/Vol] 2.4 g/dL Normal 1.5-4.5 [facility] Work Phone: Comment on above: PATIENT WAS FASTINGP ERFORMED BY: LabSalem Memorial District HospitalKzbqdt3835 [address] [facility] [id number] Glucose [Mass/Vol] 82 mg/dL Normal 65-99 [facility] Work Phone: Comment on above: PATIENT WAS FASTINGP ERFORMED BY: [facility]in6370 [facility] [id number] Potassium [Moles/Vol] 4.4 mmol/L Normal 3.5-5.2 [facility] Work Phone: Comment on above: PATIENT WAS FASTINGP ERFORMED BY: LabMad[facility] Vvdkdd5600 [address] [facility]in [place] [id number] Protein [Mass/Vol] 6.9 g/dL Normal 6.0-8.5 [facility] Work Phone: Comment on above: PATIENT WAS FASTINGP ERFORMED BY: LabMad[facility] Qrhwoq2757 [address] [facility]in [place] [id number] Sodium [Moles/Vol] 142 mmol/L Normal 134-144 [facility] Work Phone: Comment on above: PATIENT WAS FASTINGP ERFORMED BY: CB [facility] Uavqho1369 [address] RoadDublin [place] [id number] Urea nitrogen [Mass/Vol] 15 mg/dL Normal 6-24 [facility] Work Phone: Comment on above: PATIENT WAS FASTINGP ERFORMED BY: CB [facility] Ilpsxp6412 [address] RoadD[address] [place] [id number] Urea nitrogen/Creatini ne [Mass ratio] 19 mg/mg Normal 9-23 [facility] Work Phone: Comment on above: PATIENT WAS FASTINGP ERFORMED BY: CB [facility] Ubtkzt4329 [address] RoadDublin [place] [id number] TSH (THYROID STIMULATING HOR BETTINA) ([id number])Ordered By: Sheet Metal Shop Supervisor on 06-16-2019 TSH Qn 2.050 {uIU/mL} Normal 0.450-4.500 [facility] Internal Medicine Work Phone: Comment on above: PATIENT WAS FASTINGP ERFORMED BY: CB [facility] Deqlgz6287 [address] RoadDublin [place] [id number] CALCIFEDIOL ([id number])Ordered B y: Sheet Metal Shop Supervisor on 10-27-2017 25-Hydroxyvitamin D2+25-Hydroxyvita min D3 [Mass/Vol] 34.2 ng/mL Normal 30.0-100.0 [facility] Work Phone: Comment on above: Vitamin D deficiency has been defined by the [place] of[place]icine and an Endocrine Society practice guideline as alevel of serum 25-OH vitamin D less than 20 ng/mL (1,2).The Endocrine Society went on to further define vitamin Dinsufficiency as a level between 21 and 29 ng/mL (2).1. IOM ([place] of [employer]). 2010. Dietary reference intakes for calcium and D. [place]: The National Academies Press.2. Kash MF, Donya NC, Miranda LLOYD, et al. Evaluation, treatment, and prevention of vitamin D deficiency: an Endocrine Society clinical practice guideline. JCEM. 2010; 96(7):1911-30. PATIENT NOT FASTINGP ERFORMED BY: CB [facility] Whpflh5729 [address] RoadDublin [place] [id number] Metabolic Panel, Comprehensi ve ([id number])Ordered By: Sheet Metal Shop Supervisor on 10-27-2017 Albumin [Mass/Vol] 4.7 g/dL Normal 3.5-5.5 [facility] Work Phone: Comment on above: PATIENT NOT FASTINGP ERFORMED BY: CB [facility] Hgymvj9193 [address] RoadDublin [place] [id number] Albumin/Globulin [Mass ratio] 1.9 {ratio} Normal 1.2-2.2 [facility] Work Phone: Comment on above: PATIENT NOT FASTINGP ERFORMED BY: CB [facility] Skdcma7627 [address] RoadDublin [place] [id number] ALP [Catalytic activity/Vol] 42 [iU]/L Normal 39-117 [facility] Work Phone: Comment on above: PATIENT NOT FASTINGP ERFORMED BY: CB [facility] Isxumf2757 [address] RoadDublin [place] [id number] ALP [Catalytic activity/Vol] 42 U/L Normal 39-117 [facility]; [facility] Work Phone: Comment on above: PATIENT NOT FASTINGP ERFORMED BY: CB [facility] Kfszco7813 [address]ara RoadDublin [place] [id number] ALT [Catalytic activity/Vol] 11 [iU]/L Normal 0-32 [facility] Work Phone: Comment on above: PATIENT NOT FASTINGP ERFORMED BY: CB [facility] Aerqzq5908 [address] RoadDublin [place] [id number] ALT [Catalytic activity/Vol] 11 U/L Normal 0-32 [facility]; [facility] Work Phone: Comment on above: PATIENT NOT FASTINGP ERFORMED BY: CB [facility] Qusmzp8730 [address]ara RoadDublin [place] [id number] AST [Catalytic activity/Vol] 17 [iU]/L Normal 0-40 [facility] Work Phone: Comment on above: PATIENT NOT FASTINGP ERFORMED BY: CB [facility] Xgiqry1667 [address] RoadDublin [place] [id number] AST [Catalytic activity/Vol] 17 U/L Normal 0-40 [facility]; [facility] Work Phone: Comment on above: PATIENT NOT FASTINGP ERFORMED BY: ARDEN [facility] Qupeqr0946 [address] RoadDublin [place] [id number] Bilirubin [Mass/Vol] 0.9 mg/dL Normal 0.0-1.2 [facility] Work Phone: Comment on above: PATIENT NOT FASTINGP ERFORMED BY: CB [facility] Qxkjaw8419 [address] RoadDublin [place] [id number] Calcium [Mass/Vol] 9.3 mg/dL Normal 8.7-10.2 [facility] Work Phone: Comment on above: PATIENT NOT FASTINGP ERFORMED BY: ARDEN [facility] Glmfix5970 [address] RoadDublin [place] [id number] Chloride [Moles/Vol] 104 mmol/L Normal 96-106 [facility] Work Phone: Comment on above: PATIENT NOT FASTINGP ERFORMED BY: ARDEN [facility] Rrwnyv6406 [address] RoadDublin [place] [id number] CO2 [Moles/Vol] 24 mmol/L Normal 18-29 [facility] Internal Medicine Work Phone: Comment on above: PATIENT NOT FASTINGP ERFORMED BY: ARDEN [facility] Domdfi7341 [address] RoadDublin [place] [id number] Creatinine [Mass/Vol] 0.79 mg/dL Normal 0.57-1.00 [facility] Work Phone: Comment on above: PATIENT NOT FASTINGP ERFORMED BY: CB [facility] Kmaaai9328 [address] RoadDublin [place] [id number] GFR/1.73 sq M predicted among blacks CKD-EPI (S/P/Bld) [Vol rate/Area] 105 mL/min/1.73 Normal [facility] Work Phone: Comment on above: PATIENT NOT FASTINGP ERFORMED BY: CB [facility] Hfiaze1757 [address] RoadDublin [place] [id number] GFR/1.73 sq M predicted among non-blacks CKD-EPI (S/P/Bld) [Vol rate/Area] 91 mL/min/1.73 Normal [facility] Work Phone: Comment on above: PATIENT NOT FASTINGP ERFORMED BY: CB [facility] Yazuno4048 [address] RoadDublin [place] [id number] Globulin (S) [Mass/Vol] 2.5 g/dL Normal 1.5-4.5 [facility] Work Phone: Comment on above: PATIENT NOT FASTINGP ERFORMED BY: CB [facility] Fdofut7149 [address] RoadDublin [place] [id number] Glucose [Mass/Vol] 87 mg/dL Normal 65-99 [facility] Work Phone: Comment on above: PATIENT NOT FASTINGP ERFORMED BY: CB [facility] Ybknwu8539 [address] RoadDublin [place] [id number] Potassium [Moles/Vol] 4.0 mmol/L Normal 3.5-5.2 [facility] Work Phone: Comment on above: PATIENT NOT FASTINGP ERFORMED BY: CB [facility] Khoqys5526 [address] RoadDublin [place] [id number] Protein [Mass/Vol] 7.2 g/dL Normal 6.0-8.5 [facility] Work Phone: Comment on above: PATIENT NOT FASTINGP ERFORMED BY: CB [facility] Qodjgj1392 [address] RoadDublin [place] [id number] Sodium [Moles/Vol] 142 mmol/L Normal 134-144 [facility] Work Phone: Comment on above: PATIENT NOT FASTINGP ERFORMED BY: CB [facility] Eueqiy6838 [address] RoadDublin [place] [id number] Urea nitrogen [Mass/Vol] 11 mg/dL Normal 6-24 [facility] Work Phone: Comment on above: PATIENT NOT FASTINGP ERFORMED BY: CB [facility] Nwxvgb4546 [address] RoadDublin [place] [id number] Urea nitrogen/Creatini ne [Mass ratio] 14 mg/mg Normal 9-23 [facility] Work Phone: Comment on above: PATIENT NOT FASTINGP ERFORMED BY: ARDEN [facility] Romowg5367 [address] RoadDublin [place] [id number] FSH AND LH ([id number])Ordered By : Sheet Metal Shop Supervisor on 04-22-2017 Follitropin Qn 9.0 m[IU]/mL Normal Comprehe nsive Internal Medicine Work Phone: Comment on above: Adult Female: Follic ular phase 3.5 - 12.5 Ovulation phase 4.7 - 21.5 Luteal phase 1.7 - 7.7 Postmenopausal 25.8 - 134.8 PATIENT NOT FASTINGP ERFORMED BY: ARDEN LabMomo CarballoVfdnvx2873 [address] RoadDublin [place] [id number] Lutropin Qn 4.9 m[IU]/mL Normal Comprehensi ve Internal Medicine Work Phone: Comment on above: Adult Female: Follic ular phase 2.4 - 12.6 Ovulation phase 14.0 - 95.6 Luteal phase 1.0 - 11.4 Postmenopausal 7.7 - 58.5 PATIENT NOT FASTINGP ERFORMED BY: ARDEN Lab[facility] Nkrrrr3209 [address]Dublin [place] [id number] HEPATIC FUNCTION PANEL ([id number] [id number])Ordered By: Sheet Metal Shop Supervisor on 04-22-2017 Albumin [Mass/Vol] 4.9 g/dL Normal 3.5-5.5 [facility] Work Phone: Comment on above: PATIENT NOT FASTINGP ERFORMED BY: ARDEN [facility] Qjqtlh1336 [address] RoadDublin [place] [id number] ALP [Catalytic activity/Vol] 43 [iU]/L Normal 39-117 [facility] Work Phone: Comment on above: PATIENT NOT FASTINGP ERFORMED BY: ARDEN [facility] Bqvhve0770 [address] RoadDublin [place] [id number] ALP [Catalytic activity/Vol] 43 U/L Normal 39-117 [facility]; [facility] Work Phone: Comment on above: PATIENT NOT FASTINGP ERFORMED BY: ARDEN [facility] Ozflsv5663 [address] RoadDublin [place] [id number] ALT [Catalytic activity/Vol] 20 [iU]/L Normal 0-32 [facility] Work Phone: Comment on above: PATIENT NOT FASTINGP ERFORMED BY: CB [facility] Cznfit7981 [address] RoadDublin [place] [id number] ALT [Catalytic activity/Vol] 20 U/L Normal 0-32 [facility]; [facility] Work Phone: Comment on above: PATIENT NOT FASTINGP ERFORMED BY: CB [facility] Rxeyfx0349 [address] RoadDublin [place] [id number] AST [Catalytic activity/Vol] 23 [iU]/L Normal 0-40 [facility] Work Phone: Comment on above: PATIENT NOT FASTINGP ERFORMED BY: CB [facility] Gltusa6289 [address] RoadDublin [place] [id number] AST [Catalytic activity/Vol] 23 U/L Normal 0-40 [facility]; [facility] Work Phone: Comment on above: PATIENT NOT FASTINGP ERFORMED BY: CB [facility] Swonwd3723 [address] RoadDublin [place] [id number] Bilirubin [Mass/Vol] 0.9 mg/dL Normal 0.0-1.2 [facility] Work Phone: Comment on above: PATIENT NOT FASTINGP ERFORMED BY: CB [facility] Xwbgam3843 [address] RoadDublin [place] [id number] Bilirubin.direct [Mass/Vol] 0.21 mg/dL Normal 0.00-0.40 [facility] Work Phone: Comment on above: PATIENT NOT FASTINGP ERFORMED BY: CB [facility] Xjwsrp4858 [address] RoadDublin [place] [id number] Protein [Mass/Vol] 7.5 g/dL Normal 6.0-8.5 [facility] Work Phone: Comment on above: PATIENT NOT FASTINGP ERFORMED BY: CB [facility] Qgrqji7722 [address] RoadDublin [place] [id number] AMMONIA ([id number])Ordered By: Ian ystem Fashion Consultant Selling on 04-07-2017 Ammonia (P) [Mass/Vol] 37 ug/dL Normal 19-87 [facility] Work Phone: Comment on above: PATIENT WAS FASTINGP ERFORMED BY: ARDEN [employer] Cwskgs7780 [facility] [id number] CALCIFEDIOL (03127)Ordered B y: Sheet Metal Shop Supervisor on 04-07-2017 25-Hydroxyvitamin D2+25-Hydroxyvita min D3 [Mass/Vol] 34.6 ng/mL Normal 30.0-100.0 [facility] Work Phone: Comment on above: Vitamin D deficiency has been defined by the [place] [facility] and an Endocrine Society practice guideline as alevel of serum 25-OH vitamin D less than 20 ng/mL (1,2).The Endocrine Society went on to further define vitamin Dinsufficiency as a level between 21 and 29 ng/mL (2).1. IOM ([place] of Medicine). 2010. Dietary reference intakes for calcium and D. [place]: The National Academies Press.2. Kash MF, Donya QUINTEROS, Miranda LLOYD, et al. Evaluation, treatment, and prevention of vitamin D deficiency: an Endocrine Society clinical practice guideline. JCEM. 2010; 96(7):1911-30. PATIENT WAS FASTINGP ERFORMED BY: ARDEN Vastrm6370 [facility] [id number] CBC, Platelets & Auto Diff ( [id number])Ordered By: Sheet Metal Shop Supervisor on 04-07-2017 Basophils (Bld) [#/Vol] 0.0 {x10E3/uL} Normal 0.0-0.2 [facility] Work Phone: Comment on above: PATIENT WAS FASTINGP ERFORMED BY: [employer] Zvtboc4728 [address] [facility]in [place] [id number] Basophils (Bld) [#/Vol] 0.0 10*3/uL Normal 0.0-0.2 [facility]; [facility] Work Phone: Comment on above: PATIENT WAS FASTINGP ERFORMED BY: zePASS70 [facility] [id number] Basophils/100 WBC (Bld) 0 % Normal [facility] Work Phone: Comment on above: PATIENT WAS FASTINGP ERFORMED BY: [facility] Eoikvc2341 [address] RoadDublin [place] [id number] Eosinophils (Bld) [#/Vol] 0.1 {x10E3/uL} Normal 0.0-0.4 [facility] Work Phone: Comment on above: PATIENT WAS FASTINGP ERFORMED BY: CB [facility] Dduzct7484 [address] RoadDublin [place] [id number] Eosinophils (Bld) [#/Vol] 0.1 10*3/uL Normal 0.0-0.4 [facility]; [facility] Work Phone: Comment on above: PATIENT WAS FASTINGP ERFORMED BY: [facility] Nbcssm7998 [address] RoadDublin [place] [id number] Eosinophils/100 WBC (Bld) 2 % Normal [facility] Work Phone: Comment on above: PATIENT WAS FASTINGP ERFORMED BY: [facility] Hgxwbv8168 [address] [facility]in [place] [id number] Erythrocyte distribution width (RBC) [Ratio] 12.8 % Normal 12.3-15.4 [facility] Work Phone: Comment on above: PATIENT WAS FASTINGP ERFORMED BY: [facility] Ptsyoc6745 [address] [facility]in [place] [id number] Hematocrit (Bld) [Volume fraction] 41.5 % Normal 34.0-46.6 [facility] Work Phone: Comment on above: PATIENT WAS FASTINGP ERFORMED BY: [facility] Kqtniy3945 [address] RoadDublin [place] [id number] Hemoglobin (Bld) [Mass/Vol] 14.0 g/dL Normal 11.1-15.9 [facility] Work Phone: Comment on above: PATIENT WAS FASTINGP ERFORMED BY: [facility] Fyqnjz8108 [address] RoadDublin [place] [id number] Immature granulocytes (Bld) [#/Vol] 0.0 {x10E3/uL} Normal 0.0-0.1 [facility] Work Phone: Comment on above: PATIENT WAS FASTINGP ERFORMED BY: [facility] Rcvvfa3954 [address] RoadDublin [place] [id number] Immature granulocytes (Bld) [#/Vol] 0.0 10*3/uL Normal 0.0-0.1 [facility]; [facility] Work Phone: Comment on above: PATIENT WAS FASTINGP ERFORMED BY: [facility] Tegtid1452 [address] RoadDublin [place] [id number] Immature granulocytes/100 WBC (Bld) 0 % Normal [facility] Work Phone: Comment on above: PATIENT WAS FASTINGP ERFORMED BY: [facility] Dbxmji5355 [address] RoadDublin [place] [id number] Lymphocytes (Bld) [#/Vol] 1.4 {x10E3/uL} Normal 0.7-3.1 [facility] Work Phone: Comment on above: PATIENT WAS FASTINGP ERFORMED BY: [facility]6370 [address]Dublin [place] [id number] Lymphocytes (Bld) [#/Vol] 1.4 10*3/uL Normal 0.7-3.1 [facility]; [facility] Work Phone: Comment on above: PATIENT WAS FASTINGP ERFORMED BY: [facility] Vjfipg3960 J[address] RoadDublin [place] [id number] Lymphocytes/100 WBC (Bld) 23 % Normal [facility] Work Phone: Comment on above: PATIENT WAS FASTINGP ERFORMED BY: [facility] Uqfaqi6504 [address] RoadDublin [place] [id number] MCH (RBC) [Entitic mass] 31.9 pg Normal 26.6-33.0 [facility] Work Phone: Comment on above: PATIENT WAS FASTINGP ERFORMED BY: [facility] Vvpxvj9462 [address] RoadDublin [place] [id number] MCHC (RBC) [Mass/Vol] 33.7 g/dL Normal 31.5-35.7 [facility] Work Phone: Comment on above: PATIENT WAS FASTINGP ERFORMED BY: ARDEN [facility] Eztifv4304 [address] RoadDublin [place] [id number] MCV (RBC) [Entitic vol] 95 fL Normal 79-97 [facility] Work Phone: Comment on above: PATIENT WAS FASTINGP ERFORMED BY: [facility] Kgvife4580 [address] RoadDublin [place] [id number] Monocytes (Bld) [#/Vol] 0.2 {x10E3/uL} Normal 0.1-0.9 [facility] Work Phone: Comment on above: PATIENT WAS FASTINGP ERFORMED BY: [facility] Vbqqot7377 [address] RoadDublin [place] [id number] Monocytes (Bld) [#/Vol] 0.2 10*3/uL Normal 0.1-0.9 [facility]; [facility] Work Phone: Comment on above: PATIENT WAS FASTINGP ERFORMED BY: [facility] Asvxoh8861 [address] RoadDublin [place] [id number] Monocytes/100 WBC (Bld) 4 % Normal [facility] Work Phone: Comment on above: PATIENT WAS FASTINGP ERFORMED BY: [facility] Kgtngy7769 [address] RoadDublin [place] [id number] Neutrophils (Bld) [#/Vol] 4.1 {x10E3/uL} Normal 1.4-7.0 [facility] Work Phone: Comment on above: PATIENT WAS FASTINGP ERFORMED BY: [facility] Fqzmwn8522 [address] RoadDublin [place] [id number] Neutrophils (Bld) [#/Vol] 4.1 10*3/uL Normal 1.4-7.0 [facility]; [facility] Work Phone: Comment on above: PATIENT WAS FASTINGP ERFORMED BY: [facility] Hbiqzs4908 [address] RoadDublin [place] [id number] Neutrophils/100 WBC (Bld) 71 % Normal [facility] Work Phone: Comment on above: PATIENT WAS FASTINGP ERFORMED BY: ARDEN Edouard6370 [address] Howardin [place] [id number] Platelets (Bld) [#/Vol] 254 {x10E3/uL} Normal 150-379 [facility] Work Phone: Comment on above: PATIENT WAS FASTINGP ERFORMED BY: ARDEN [facility] Tokyaj3473 [address] [facility]in [place] [id number] Platelets (Bld) [#/Vol] 254 10*3/uL Normal 150-379 [facility]; [facility] Work Phone: Comment on above: PATIENT WAS FASTINGP ERFORMED BY: ARDEN Margarette Adbnup0148 Jara JannyWakeMed [facility] [id number] RBC (Bld) [#/Vol] 4.39 {x10E6/uL} Normal 3.77-5.28 [facility] Internal Medicine Work Phone: Comment on above: PATIENT WAS FASTINGP ERFORMED BY: ARDEN [facility] Dkkjyb0125 [facility] [id number] RBC (Bld) [#/Vol] 4.39 10*6/uL Normal 3.77-5.28 [facility]; [facility] Work Phone: Comment on above: PATIENT WAS FASTINGP ERFORMED BY: [facility] Fcbztk1327 [facility] [id number] WBC (Bld) [#/Vol] 5.8 {x10E3/uL} Normal 3.4-10.8 [facility] Internal Medicine Work Phone: Comment on above: PATIENT WAS FASTINGP ERFORMED BY: [facility] Yffmla7441 [address] [facility]in [place] [id number] WBC (Bld) [#/Vol] 5.8 10*3/uL Normal 3.4-10.8 [facility] Internal Medicine; [facility] Work Phone: Comment on above: PATIENT WAS FASTINGP ERFORMED BY: ARDEN [facility] Pfglto6841 [address] RoadDublin [place] [id number] Ferritin (32231)Ordered By: Sheet Metal Shop Supervisor on 04-07-2017 Ferritin [Mass/Vol] 31 ng/mL Normal 15-150 [facility] Work Phone: Comment on above: PATIENT WAS FASTINGP ERFORMED BY: CB [facility] Legeiz3057 [address] RoadDublin [place] [id number] Iron (71200)Ordered By: Syst em Fashion Consultant Selling on 04-07-2017 Iron [Mass/Vol] 105 ug/dL Normal 27-159 [facility] Internal Medicine Work Phone: Comment on above: PATIENT WAS FASTINGP ERFORMED BY: ARDEN [facility] Ewjxyv3752 [address] RoadDublin [place] [id number] Lipid Panel ([id number])Ordered B y: Sheet Metal Shop Supervisor on 04-07-2017 Cholesterol [Mass/Vol] 151 mg/dL Normal 100-199 [facility] Work Phone: Comment on above: PATIENT WAS FASTINGP ERFORMED BY: ARDEN [facility] Aqrjxn7440 [address] RoadDublin [place] [id number] Cholesterol in HDL [Mass/Vol] 52 mg/dL Normal [facility] Work Phone: Comment on above: PATIENT WAS FASTINGP ERFORMED BY: ARDEN [facility] Xhhhmw9937 [address] RoadDublin [place] [id number] Cholesterol in LDL [Mass/Vol] 88 mg/dL Normal 0-99 [facility] Work Phone: Comment on above: PATIENT WAS FASTINGP ERFORMED BY: CB [facility] Brwluj0763 [address] RoadDublin [place] [id number] Cholesterol in LDL/Cholesterol in HDL [Mass ratio] 1.7 {ratio_units} Normal 0.0-3.2 [facility] Work Phone: Comment on above: LDL/HDL Ratio Men Wo men 1/2 Avg.Risk 1.0 1.5 Avg.Risk 3.6 3.2 2X Avg.Risk 6.2 5.0 3X Avg.Risk 8.0 6.1 PATIENT WAS FASTINGP ERFORMED BY: ARDEN Carballolin6370 [address] RoadDublin [place] [id number] Cholesterol in VLDL [Mass/Vol] 11 mg/dL Normal 5-40 [facility] Work Phone: Comment on above: PATIENT WAS FASTINGP ERFORMED BY: ARDEN Edouard6370 [address] [facility] [place] [id number] Triglyceride [Mass/Vol] 55 mg/dL Normal 0-149 [facility] Work Phone: Comment on above: PATIENT WAS FASTINGP ERFORMED BY: ARDEN Edouard6370 [address] [facility] [place] [id number] Metabolic Panel, Comprehensi ve (93743)Ordered By: Sheet Metal Shop Supervisor on 04-07-2017 Albumin [Mass/Vol] 4.6 g/dL Normal 3.5-5.5 [facility] Work Phone: Comment on above: PATIENT WAS FASTINGP ERFORMED BY: ARDEN Edouard6370 [address] [facility] [id number] Albumin/Globulin [Mass ratio] 1.8 {ratio} Normal 1.2-2.2 [facility] Work Phone: Comment on above: PATIENT WAS FASTINGP ERFORMED BY: ARDEN Carballolin6370 [address] [facility] [place] [id number] ALP [Catalytic activity/Vol] 33 [iU]/L Abnormal 39-117 [facility] Work Phone: Comment on above: PATIENT WAS FASTINGP ERFORMED BY: ARDEN Carballolin6370 [address] [facility] [place] [id number] ALP [Catalytic activity/Vol] 33 U/L Abnormal 39-117 [facility]; [facility] Work Phone: Comment on above: PATIENT WAS FASTINGP ERFORMED BY: ARDEN Carballolin6370 [address] [facility] [place] [id number] ALT [Catalytic activity/Vol] 57 [iU]/L Abnormal 0-32 [facility] Work Phone: Comment on above: PATIENT WAS FASTINGP ERFORMED BY: ARDEN Carballolin6370 [address] RoadDublin [place] [id number] ALT [Catalytic activity/Vol] 57 U/L Abnormal 0-32 [facility]; [facility] Work Phone: Comment on above: PATIENT WAS FASTINGP ERFORMED BY: [facility] Tkamlh8691 [address] RoadDublin [place] [id number] AST [Catalytic activity/Vol] 40 [iU]/L Normal 0-40 [facility] Work Phone: Comment on above: PATIENT WAS FASTINGP ERFORMED BY: [facility] Dehjdr0451 [address] RoadDublin [place] [id number] AST [Catalytic activity/Vol] 40 U/L Normal 0-40 [facility]; [facility] Work Phone: Comment on above: PATIENT WAS FASTINGP ERFORMED BY: [facility] Rmpeey9094 [address] RoadDublin [place] [id number] Bilirubin [Mass/Vol] 0.7 mg/dL Normal 0.0-1.2 [facility] Work Phone: Comment on above: PATIENT WAS FASTINGP ERFORMED BY: [facility] Zvwrnx9702 [address] RoadDublin [place] [id number] Calcium [Mass/Vol] 9.9 mg/dL Normal 8.7-10.2 [facility] Work Phone: Comment on above: PATIENT WAS FASTINGP ERFORMED BY: [facility] Qdqqjs8025 [address] RoadDublin [place] [id number] Chloride [Moles/Vol] 100 mmol/L Normal 96-106 [facility] Work Phone: Comment on above: PATIENT WAS FASTINGP ERFORMED BY: [facility] Kaszpo1698 [address] RoadDublin [place] [id number] CO2 [Moles/Vol] 24 mmol/L Normal 18-29 [facility] Internal Medicine Work Phone: Comment on above: PATIENT WAS FASTINGP ERFORMED BY: [facility] Bbaxub7722 [address] RoadDublin [place] [id number] Creatinine [Mass/Vol] 0.84 mg/dL Normal 0.57-1.00 [facility] Work Phone: Comment on above: PATIENT WAS FASTINGP ERFORMED BY: ARDEN [facility] Ttibwo8905 Jara Pivit Labsblin [place] [id number] GFR/1.73 sq M predicted among blacks CKD-EPI (S/P/Bld) [Vol rate/Area] 97 mL/min/1.73 Normal [facility] Work Phone: Comment on above: PATIENT WAS FASTINGP ERFORMED BY: [facility]6[address]bl[address] [place] [id number] GFR/1.73 sq M predicted among non-blacks CKD-EPI (S/P/Bld) [Vol rate/Area] 84 mL/min/1.73 Normal [facility] Work Phone: Comment on above: PATIENT WAS FASTINGP ERFORMED BY: [facility] Zwutfy0992 [address] Pivit LabsW[facility]Med [facility] [id number] Globulin (S) [Mass/Vol] 2.5 g/dL Normal 1.5-4.5 [facility] Work Phone: Comment on above: PATIENT WAS FASTINGP ERFORMED BY: [facility]6370 [address] [facility] [id number] Glucose [Mass/Vol] 82 mg/dL Normal 65-99 [facility] Work Phone: Comment on above: PATIENT WAS FASTINGP ERFORMED BY: [facility]6370 [facility] [id number] Potassium [Moles/Vol] 4.5 mmol/L Normal 3.5-5.2 [facility] Work Phone: Comment on above: PATIENT WAS FASTINGP ERFORMED BY: [facility]6370 [address] [facility] [id number] Protein [Mass/Vol] 7.1 g/dL Normal 6.0-8.5 [facility] Work Phone: Comment on above: PATIENT WAS FASTINGP ERFORMED BY: [facility]6370 [address] [facility] [id number] Sodium [Moles/Vol] 142 mmol/L Normal 134-144 [facility] Work Phone: Comment on above: PATIENT WAS FASTINGP ERFORMED BY: [facility] Jtivdu6983 [facility] [id number] Urea nitrogen [Mass/Vol] 9 mg/dL Normal 6- [facility] Work Phone: Comment on above: PATIENT WAS FASTINGP ERFORMED BY: CB [facility] Ejenwm6653 [facility] [id number] Urea nitrogen/Creatini ne [Mass ratio] 11 mg/mg Normal 9- [facility] Work Phone: Comment on above: PATIENT WAS FASTINGP ERFORMED BY: [facility] Ooomev5548 [facility] [id number] TSH ([id number])Ordered By: Ese munoz Fashion Consultant Selling on 04-07-2017 TSH Qn 1.370 {uIU/mL} Normal 0.450-4.500 [facility] Internal Medicine Work Phone: Comment on above: PATIENT WAS FASTINGP ERFORMED BY: [facility] Fibrae2832 [facility] [id number] Vital Signs Date Time Vital Sign Value Performing Clinician Facility 04-07-2025 10:39-0400 Body temperature 97.7 [degF] Madeleine Aly ASH KIER BOILER-C Work Phone: [facility] 04-07-2025 10:39-0400 Diastolic blood pressure 62 mm[Hg] Madeleine Aly ASH KIER BOILER-C Work Phone: [facility] 04-07-2025 10:39-0400 Heart rate 59 /min Madeleine Aly ASH KIER BOILER-C Work Phone: [facility] 04-07-2025 10:39-0400 Respiratory rate 16 /min Madeleine Aly ASH KIER BOILER-C Work Phone: [facility] 04-07-2025 10:39-0400 SaO2% (BldA) [Mass fraction] 100 % Madeleine Aly ASH KIER BOILER-C Work Phone: [facility] 04-07-2025 10:39-0400 Systolic blood pressure 94 mm[Hg] Madeleine Aly ASH KIER BOILER-C Work Phone: [facility] 04-07-2025 09:14-0400 Body height 157.48 cm Madeleine Aly ASH KIER BOILER-C Work Phone: [facility] 04-07-2025 09:14-0400 Body mass index (BMI) [Ratio] 22.6 kg/m2 Madeleine Aly ASH KIER BOILER-C Work Phone: [facility] 04-07-2025 09:14-0400 Body weight 56.24 kg Madeleine Aly ASH KIER BOILER-C Work Phone: [facility] 07-09-2023 10:50-0400 Body height 157.48 cm [...] 97.3 [degF] Geovany Ramirez MD Work Phone: [facility] 02-20-2023 07:46-0400 Body weight 51.44 kg Geovany Ramirez MD Work Phone: [facility] 02-20-2023 07:46-0400 Diastolic blood pressure 78 mm[Hg] Geovany Ramirez MD Work Phone: [facility] 02-20-2023 07:46-0400 Heart rate 58 /min Geovany Ramirez MD Work Phone: [facility] 02-20-2023 07:46-0400 Respiratory rate 18 /min Geovany Ramriez MD Work Phone: [facility] 02-20-2023 07:46-0400 SaO2% (BldA) [Mass fraction] 99 % Geovany Ramirez MD Work Phone: [facility] 02-20-2023 07:46-0400 Systolic blood pressure 110 mm[Hg] Geovany Ramirez MD Work Phone: [facility] 08-12-2022 13:06-0500 Body weight 49.44 kg Reba Quick MD Work Phone: [facility] 08-12-2022 13:06-0500 Diastolic blood pressure 64 mm[Hg] Reba Quick MD Work Phone: [facility] 08-12-2022 13:06-0500 Systolic blood pressure 104 mm[Hg] Reba Quick MD Work Phone: [facility] 12-12-2021 08:08-0400 Body height 157.48 cm Eric [...] (Body Mass Index) 19.78 kg/m2 Lianne Cheema [facility] Internal Medicine Work Phone: 06-15-2019 11:05-0400 BMI (Body Mass Index) 19.94 kg/m2 Eric Gayle LPN [facility] Work Phone: 06-15-2019 11:05-0400 Body Temperature 97.9 [degF] Eric Gayle LPN [facility] Work Phone: Comment on above: Method: Temporal 06-15-2019 11:05-0400 Body weight 49.05 kg Lianne Cheema [facility] Internal Medicine Work Phone: 06-15-2019 11:05-0400 Body [...] (Body Surface Area) 1.47 m2 Lianne Cheema [facility] Internal Medicine Work Phone: 06-15-2019 11:05-0400 BSA (Body Surface Area) 1.48 m2 Eric Gayle LPN [facility] Internal Medicine Work Phone: 06-15-2019 11:05-0400 Height [...] (BldA) [Mass fraction] 99 % Eric Gayle MENTAL HEALTH NURSE [facility]; [facility] Work Phone: Comment on above: Room air 10-27-2017 10:15-0500 BMI (Body Mass Index) 19.78 kg/m2 Marsha Slarb MENTAL HEALTH NURSE [facility] Work Phone: 10-27-2017 10:15-0500 Body weight 49.05 kg Marsha Slarb MENTAL HEALTH NURSE [facility] Work Phone: 10-27-2017 10:15-0500 BP Diastolic 72 mm[Hg] Marsha Slarb MENTAL HEALTH NURSE [facility] Work Phone: Comment on above: Patient Position: Sitting; Cuff Location : Left Arm; Cuff Size: Standard 10-27-2017 10:15-0500 BP Systolic 106 mm[Hg] Marsha Slarb MENTAL HEALTH NURSE [facility] Work Phone: Comment on above: Patient Position: Sitting; Cuff Location : Left Arm; Cuff Size: Standard 10-27-2017 10:15-0500 BSA (Body Surface Area) 1.47 m2 Marsha Slarb MENTAL HEALTH NURSE [facility] Work Phone: 10-27-2017 10:15-0500 Height 157.48 cm Marsha Slarb MENTAL HEALTH NURSE [facility] Work Phone: 10-27-2017 10:15-0500 Pulse (Heart Rate) 61 /min Marsha Anilrb MENTAL HEALTH NURSE [facility] Work Phone: Comment on above: Pattern: Regular 10-27-2017 10:15-0500 Pulse Oximetry 98 % Lianne Baummichaelareina [facility] Work Phone: Comment on above: Room air 10-27-2017 10:15-0500 Respiratory Rate 17 /min Marsha Irene MENTAL HEALTH NURSE [facility] Work Phone: Comment on above: Pattern: Unlabored 10-27-2017 10:15-0500 SaO2% (BldA) [Mass fraction] 98 % Marsha Marb MENTAL HEALTH NURSE [facility]; [facility] Work Phone: Comment on above: Room air 04-22-2017 08:42-0400 BMI (Body Mass Index) 19.62 kg/m2 Marsha Marb MENTAL HEALTH NURSE [facility] Work Phone: 04-22-2017 08:42-0400 Body Temperature 97.8 [degF] Marsha Slarb MENTAL HEALTH NURSE [facility] Work Phone: 04-22-2017 08:42-0400 Body weight 48.65 kg Marsha Anilrb MENTAL HEALTH NURSE [facility] Work Phone: 04-22-2017 08:42-0400 BP Diastolic 72 mm[Hg] Marsha Slarb MENTAL HEALTH NURSE [facility] Work Phone: Comment on above: Patient Position: Sitting; Cuff Location : Left Arm; Cuff Size: Standard 04-22-2017 08:42-0400 BP Systolic 110 mm[Hg] Marsha Slarb MENTAL HEALTH NURSE [facility] Work Phone: Comment on above: Patient Position: Sitting; Cuff Location : Left Arm; Cuff Size: Standard 04-22-2017 08:42-0400 BSA (Body Surface Area) 1.47 m2 Marsha Slarb MENTAL HEALTH NURSE [facility] Work Phone: 04-22-2017 08:42-0400 Height 157.48 cm Marsha Irene MENTAL HEALTH NURSE [facility] Work Phone: 04-22-2017 08:42-0400 Pulse (Heart Rate) 66 /min Marsha Marb MENTAL HEALTH NURSE [facility] Work Phone: Comment on above: Pattern: Regular 04-22-2017 08:42-0400 Pulse Oximetry 99 % Lianne Cheema [facility] Work Phone: Comment on above: Room air 04-22-2017 08:42-0400 Respiratory Rate 15 /min Marsha Irene MENTAL HEALTH NURSE [facility] Work Phone: Comment on above: Pattern: Unlabored 04-22-2017 08:42-0400 SaO2% (BldA) [Mass fraction] 99 % Marsha Marb MENTAL HEALTH NURSE [facility]; [facility] Work Phone: Comment on above: Room air 04-07-2017 10:45-0400 BMI (Body Mass Index) 19.39 kg/m2 Marsha Marb MENTAL HEALTH NURSE [facility] Work Phone: 04-07-2017 10:45-0400 Body Temperature 97.6 [degF] Marsha Slarb MENTAL HEALTH NURSE [facility] Work Phone: 04-07-2017 10:45-0400 Body weight 48.08 kg Marsha Marb MENTAL HEALTH NURSE [facility] Work Phone: 04-07-2017 10:45-0400 BP Diastolic 68 mm[Hg] Marsha Slarb MENTAL HEALTH NURSE [facility] Work Phone: Comment on above: Patient Position: Sitting; Cuff Location : Left Arm; Cuff Size: Standard 04-07-2017 10:45-0400 BP Systolic 110 mm[Hg] Marsha Anilrb MENTAL HEALTH NURSE [facility] Work Phone: Comment on above: Patient Position: Sitting; Cuff Location : Left Arm; Cuff Size: Standard 04-07-2017 10:45-0400 BSA (Body Surface Area) 1.46 m2 Marsha Slarb MENTAL HEALTH NURSE [facility] Work Phone: 04-07-2017 10:45-0400 Height 157.48 cm Marsha Irene MENTAL HEALTH NURSE [facility] Work Phone: 04-07-2017 10:45-0400 Pulse (Heart Rate) 56 /min Marsha Irene MENTAL HEALTH NURSE [facility] Work Phone: Comment [...] Facility Start: 07-04-2025 ambulatory Madeleine Aly Facility :[facility] Start: 04-07-2025 Non-patient / Non-visit Gavino Lam nd DO -[facility] Start: 04-07-2025 End: 04-07-2025 Admission to same day surgery center Gavino Medina DO -Endoscopy Work Phone: Start: 04-07-2025 End: 04-07-2025 ambulatory Madeleine Aly [employer]C Work Phone: -Endoscopy Start: 01-13-2025 End: 01-13-2025 ambulatory Madeleine Aly [employer]ER-C Work Phone: [facility] Work Phone: Start: 01-13-2025 End: 01-13-2025 Patient encounter procedure Madeleine Aly [employer]ER-C -Outpatient Bone Densitometry Work Phone: Start: 01-13-2025 End: 01-13-2025 ambulatory Madeleine Aly Facility:[facility] Start: 12-24-2024 End: 12-24-2024 ambulatory Madeleine Aly [employer]ER-C Work Phone: [facility] Work Phone: Start: 12-24-2024 End: 12-24-2024 Patient encounter procedure Eryn Gray [employer]ER-C -Outpatient Breast Imaging Work Phone: Start: 12-24-2024 End: 12-24-2024 ambulatory Eryn Gray Facility:[facility] Start: 07-09-2023 End: 07-09-2023 Office outpatient visit 15 minutes Madeleine Aly BUS INFO CONSULTANT Work Phone: [facility] Start: 05-23-2023 Documentation procedure Mammog kate Coordinator [facility] Start: 05-23-2023 Letter encounter Mammography Coordinator [facility] Department Start: 05-22-2023 End: 05-22-2023 ambulatory REBA QUICK Facility:[facility] Start: 05-22-2023 End: 05-22-2023 Subsequent hospital visit by physician Screen Mammo [facility] Comment on above: Encounter for screen ing mammogram for malignant neoplasm of breast [Z12.31] Start: 02-20-2023 End: 02-20-2023 ambulatory SEJAL PAMELAA Facility:[facility] Start: 02-20-2023 End: 02-20-2023 Patient encounter procedure Geovany Ramirez MD Work Phone: [facility] Comment on above: Sore throat (Primary Dx) Start: 02-13-2023 ambulatory Reba Quick MD Work Phone: OB/Gynecology Comment on above: Yeast infection Start: 08-12-2022 End: 08-12-2022 ambulatory REBA QUICK Facility:[facility] Start: 08-12-2022 End: 08-12-2022 Patient encounter [...] Start: 07-22-2022 End: 07-22-2022 ambulatory SEJAL CIESA Facility:[facility] Start: 04-11-2022 Documentation procedure Mammog kate Coordinator [facility] Start: 04-11-2022 Letter encounter Mammography Coordinator [facility] Department Start: 04-11-2022 End: 04-11-2022 Subsequent hospital visit by physician Screen Mammo [facility] Comment on above: Encounter for screen ing mammogram for malignant neoplasm of breast [Z12.31] Start: 12-12-2021 End: 12-12-2021 Office outpatient visit 10 minutes Lianne Cheema Work Phone: [facility] Start: 12-05-2021 End: 12-05-2021 Patient encounter procedure [facility] Start: 11-28-2021 End: 11-28-2021 Periodic preventive [...] End: 06-15-2019 Patient encounter status Madeleine Jermain BUS INFO CONSULTANT Work Phone: [facility] Start: 06-15-2019 [...] Work Phone: Patient encounter status Eric Irwin MENTAL HEALTH NURSE [facility]; [facility] Work Phone: Patient encounter status Camryn Gresham MENTAL HEALTH NURSE [facility]; [facility] Work Phone: Physical examination Eric Gayle LPN [facility]; [facility] Work Phone: Physical examination Eric Gayle LPN [facility]; [facility] Work Phone: Physical examination Camryn Gresham LPN [facility]; [facility] Work Phone: Procedures Date Procedure Procedure Detail Performing Clinician Start: 04-07-2025 Colonoscopy Madeleine yu [employer]ER[employer]C Work Phone: Start: 01-13-2025 Dual energy X-ray absorptiometry Madeleine Aly [employer]ER-C Work Phone: Start: 12-24-2024 Screening mammography C malika Aly [employer] BOILER-C Work Phone: Start: 05-22-2023 Screening digital br east tomosynthesis bi Reba Quick MD Work Phone: Start: 02-20-2023 STREP A MOLECULAR (POC) Geovany Ramirez MD Work Phone: Start: 04-11-2022 SHELBY SCREENING W MICKEY Fish MD Work Phone: Start: 04-11-2022 Mammography Screen [facility]st [facility] Start: 09-26-2021 Colonoscopy Screen [facility] Start: 09-24-2019 End: 09-24-2019 Emergency Department Summary Comments: See Note; NOTES: [facility] Medical Records Department [address] [place] [address] Emergency Department Summary 09/24/19 1639 MR#: [id number] Acct: [id number] Name: JUDITH LACY Rep #: [id number] : 1970 48 From: Luis Carlos Vasquez [...] and vomiting This note was generated with [employer] dictation software. It may contain incorrect words, [...] problems, contact your Primary Care Provider. Call [employer] ([phone]) or report to the closest Emergency Room. Call 911 if necessary. 09/24/19 4027 <Electronically signed by Luis Carlos Vasquez DO> Date Luis Carlos Vasquez DO Cosigner Signature (If Indicated): Date CC: SCOT Cheema BUS INFO CONSULTANT Work Phone: Start: 04-16-2018 End: 04-16-2018 Operative Report Comments: See Note; NOTES: [facility] Medical Records Department [address] [facility] [address] Operative Report 04/16/18 1624 MR#: [id number] Acct: [id number] Name: JUDITH LACY Rep #: [id number] : 1970 47 From: Magda Finn MD PCP: Lianne Cheema NP Status: [facility] Location: [facility] Report of Operation Date of Procedure: 04/16/18 Pre-Operative Diagnosis: Stress urinary incontinence Post-Operative Diagnosis: same Surgery/Procedure Performed:: Tension free retropubic midurethral sling with Brando mesh Description of Surgical Findings:: Normal vagina and bladder and uretral meatus pearl stringer: Reba Nelson Type of Anesthesia:: General Anesthesiologist: [...] Date Magda Finn MD CC: Lianne Cheema ASH KIER BOILER; Reba Nelson MD; Magda Finn MD Signed Lianne Cheema Start: 04-16-2018 End: 04-16-2018 Operative Report Comments: See Note; NOTES: [facility] Medical Records Department [address] [place] [address] Operative Report 04/16/18 1356 MR#: [id number] Acct: [id number] Name: JUDITH LACY Rep #: [id number] : 1970 47 From: Reba Nelson MD PCP: Lianne Cheema NP Status: REG SDC Y Location: [place] [address] Operative Report Date of Procedure: 04/16/18 Surgeon: Dr. Reba Nelson Broadcast Operations Manager: None Preop diagnosis: AUB Post op diagnosis: [...] Date Reba Nelson MD CC: Lianne Cheema ASH KIER BOILER; Reba Nelson MD Signed Lianne Cheema Start: 04-16-2018 End: 04-16-2018 Discharge Instruction Comments: See Note; NOTES: [facility] Medical Records Department [address] [place] [address] Instructions for Home/Discharge Instructions 04/16/18 1354 MR#: [id number] Acct: [id number] Name: JUDITH LACY Rep #: [id number] : 1970 47 From: Reba Nelson MD [...] Date Reba Nelson MD CC: Lianne Cheema ASH KIER BOILER Lianne Cheema Bunionectomy Eric Dejesus Comment on [...] Detail Author Start: 04-27-2025 Urine microalbumin profile [facility] Start: [facility]-07-[facility] Start: 09-26-2024 Colonoscopy COLONOSCOPY [facility] Start: 09-26-2024 COLORECTAL CANCER SCREENING COLORECTAL CANCER SCREENING [facility] Start: 06-28-2024 HPV TESTING HPV TESTING [facility] Start: 06-28-2024 PAP TESTING PAP TESTING [facility] Start: 05-22-2024 Mammography Mammogram Screening [facility] Start: 07-09-2023 Procedure Education Eprescribe d prescriptions (G8553) [facility]; [facility] Work Phone: Start: 07-09-2023 Provider Instruction s for Treatment [facility]; [facility] Work Phone: Start: 07-09-2023 Cyanocobalamin vitam in b-12 VITAMIN B12 AND FOLATES (57854) [facility]; [facility] Work Phone: Start: 07-09-2023 25 hydroxy includes fractions if performed CALCIFEDIOL (79359) [facility]; [facility] Work Phone: Start: 07-09-2023 Urinalysis qual/semiquant except immunoassays URINALYSIS (99217) [facility]; [facility] Work Phone: Start: 07-09-2023 Lipid panel LIPID PANEL (65932) [facility]; [facility] Work Phone: Start: 07-09-2023 Assay of thyroid stimulating hormone tsh TSH (THYROID STIMULATING HORMONE) (67302) [facility]; [facility] Work Phone: Start: 07-09-2023 Blood count complete auto&auto difrntl wbc CBC, PLATELETS & AUT DIFF (80644) [facility]; [facility] Work Phone: Start: 07-09-2023 Comprehensive metabo lic panel METABOLIC PANEL, COMPREHENSIVE (77123) [facility]; [facility] Work Phone: Start: 05-16-2023 Covid-19 Vaccine ( season) Covid-19 Vaccine ( season) [facility] Start: 05-16-2023 Influenza vaccination [facility] Start: 04-11-2023 Mammography MAMMOGRAM [facility] Start: 09-15-2022 DEPRESSION ASSESSMENT DEPRESSION ASS ESSMENT [facility] Start: 05-16-2022 Influenza vaccination INFLUENZA (#1) [facility] Start: 12-12-2021 Procedure Education Eprescribe d prescriptions (G8553) [facility]; [facility] Work Phone: Start: 12-12-2021 Provider Instruction s for Treatment Follow up in 6 months put pt on list to call for future [facility]; [facility] Work Phone: Start: 11-28-2021 25 hydroxy includes fractions if performed CALCIFEDIOL (84990) [facility]; [facility] Work Phone: Comment on above: 12-05 Start: 11-28-2021 Blood count complete automated CBC & PLATELETS (AUTO) (95001) [facility]; [facility] Work Phone: Comment on above: 12-05 Start: 11-28-2021 Assay of thyroid stimulating hormone tsh TSH (THYROID STIMULATING HORMONE) (41602) [facility]; [facility] Work Phone: Comment on above: 12-05 Start: 11-28-2021 Lipid panel LIPID PANEL (29530) [facility] Internal [facility]; [facility] Work Phone: Comment on above: 12-05- Start: 11-28-2021 Comprehensive metabo lic panel Metabolic Panel, Comprehensive (14122) [facility]; [facility] Work Phone: Comment on above: 12-05 Start: 11-28-2021 Procedure Education Eprescribe d prescriptions (G8553) [facility]; [facility] Work Phone: Start: 11-28-2021 Provider Instruction s for Treatment [facility]; [facility] Work Phone: Start: 11-25-2021 SHINGRIX VACCINE (1 of 2) SHINGRIX VACCINE (1 of 2) [facility] Start: 09-15-2021 DEPRESSION ASSESSMENT DEPRESSION ASS ESSMENT [facility] Start: 06-20-2021 COVID-19 VACCINE (3 - Booster for Moderna series) COVID-19 VACCINE (3 - Booster for Moderna series) [facility] Start: 03-15-2021 COVID-19 VACCINE (3 - Booster for Moderna series) COVID-19 VACCINE (3 - Booster for Moderna series) [facility] Start: 03-15-2021 Covid-19 Vaccine (3 - Moderna series) Covid-19 Vaccine (3 - Moderna series) [facility] Start: 12-14-2019 Procedure Education Eprescribe d prescriptions (G8553) [facility]; [facility] Work Phone: Start: 12-14-2019 Provider Instruction s for Treatment [facility]; [facility] Work Phone: Start: 06-16-2019 25 hydroxy includes fractions if performed CALCIFEDIOL (31818) [facility] Work Phone: Start: 06-16-2019 Comprehensive metabo lic panel Metabolic Panel, Comprehensive (87696) [facility] Work Phone: Start: 06-16-2019 TSH Qn TSH (THYROID STIMULATING HORMONE) (16842) [facility] Work Phone: Start: 06-16-2019 Blood count complete automated CBC & PLATELETS (AUTO) (67633) [facility] Work Phone: Start: 06-16-2019 Lipid panel LIPID PANEL (75351) [facility] Work Phone: Start: 06-16-2019 25 hydroxy includes fractions if performed CALCIFEDIOL (33235) [facility] Work Phone: Start: 06-16-2019 Blood count complete automated CBC & PLATELETS (AUTO) (36023) [facility] Work Phone: Start: 06-16-2019 Comprehensive metabo lic panel Metabolic Panel, Comprehensive (76680) [facility] Work Phone: Start: 06-16-2019 Lipid panel LIPID PANEL (11144) [facility] Work Phone: Start: 06-16-2019 TSH Qn TSH (THYROID STIMULATING HORMONE) (35439) [facility] Work Phone: Start: 06-15-2019 [...] Start: 04-07-2017 Urinalysis qual/semiquant except immunoassays URINALYSIS (48676) [facility] Work Phone: Start: 11-25-2016 COLOGUARD (FIT-DNA) COLOGUARD (FIT-D NA) [facility] Start: 11-25-[address] COLONOGRAPHY [facility] Start: 11-25-2016 DIABETES SCREEN DIABETES SCREEN [facility] Start: 11-25-2016 Diabetes Screening Diabetes Screenin g [facility] Start: 11-25-2016 FECAL OCCULT BLOOD FECAL OCCULT BLOO D [facility] Start: 11-25-2016 Lipid 1996 panel - S omaira or Plasma Lipid Screening [facility] Start: 11-25-2016 LIPID SCREEN LIPID SCREEN [facility] Start: 11-25-2016 SIGMOIDOSCOPY SIGMOIDOSCOPY [facility] Start: 11-25-1989 HEPATITIS C SCREENING HEPATITIS C SC SALMA [facility] Start: 1983 Adult depression screening assessment DEPRESSION SCREENING [facility] Start: 1970 HEPATITIS B (1 of 3 - 3-dose series) HEPATITIS B (1 of 3 - 3-dose series) [facility] Start: 1970 Hepatitis B Vaccine (1 of 3 - 3-dose series) Hepatitis B Vaccine (1 of 3 - 3-dose series) [facility] End: 09-11-2023 SHELBY SCREENING W MICEKY SHELBY SCREENING W MICKEY Radiology Routine Encounter for screening mammogram for malignant neoplasm of breast 1 Occurrences starting 08/12/2022 until 09/11/2023 [facility] Work Phone: Comment on above: 1 Occurrences starti ng 08/12/2022 until 09/11/2023 [facility] Work Phone: [facility]; [facility] Work Phone: [facility] Immunizations Immunization Date Immunization Notes Care Provider Patty herndon 08-01-2020 influenza virus vaccine, unspecified formulation Mammography Coordinator [facility] 06-27-2018 influenza, injectabl e, quadrivalent, contains preservative Screen [facility] 07-31-2017 influenza, injectabl e, quadrivalent, contains preservative Screen [facility] Work Phone: 07-26-2016 influenza, injectabl e, quadrivalent, contains preservative Screen [facility] Work Phone: 06-13-2015 influenza, injectabl e, quadrivalent, contains preservative Screen [facility] 04-27-2015 tetanus toxoid, reduced diphtheria toxoid, and acellular pertussis vaccine, adsorbed Screen [facility] 02-04-2013 tetanus toxoid, reduced diphtheria toxoid, and acellular pertussis vaccine, adsorbed Screen [facility] Work Phone: 07-25-2012 influenza virus vaccine, unspecified formulation Screen [facility] Work Phone: Payers Date Payer Category Payer Self-pay [id number] 2024 Unknown [id number] 2018 Unknown 2018 Unknown [id number] 2018 Unknown MMO MMO [employer] [id number] 2018-Present [phone] [address] [place] [address] PPO [id number] 2016 Unknown [id number] Unknown [id number] Unknown [id number] Unknown [id number] Unknown [id number] Unknown [id number] Social History Date Type Detail Facility Alcohol use: Alcohol use: [facility] Work Phone: Start: 02-20-2023 End: 05-22-2023 Exercise Exercise [facility] Associate [employer] Of [employer] al Medicine Work Phone: Comment on above: [...] Work Phone: Start: 09-24-2019 Tobacco smoking status MIIS Unknown if ever smoked [facility] Work Phone: Start: 04-09-2018 Non-smoker [facility] Start: 1970 Sex Assigned At Female [facility] Start: 07-25-2012 End: 04-05-2025 Tobacco smoking status NHIS Never smoked tobacco [facility] Work Phone: Start: 07-25-2012 End: 02-04-2013 Tobacco use and exposure Smokeless tobacco non-user [facility] Work Phone: Start: 10-08-2021 End: 02-20-2023 Alcohol intake Current non-drinker of alcohol (finding) [facility] Start: 1970 Sex Assigned At Not on file [facility] Start: 03-23-2022 End: 07-22-2022 Exposure to SARS-CoV-2 (event) Not sure [facility] Start: 02-20-2023 End: 05-22-2023 Tobacco use panel [facility] National Score (1-100), lower number is lower risk 52 [facility] Start: 12-30-2024 Sex Female (finding) [facility] NEGATED: Highlighted row Not [facility] Medical Equipment Procedure Code Equipment Code Equipment Origin al Text Equipment Identifier Dates SLING,VAG,JESSICA A DESARA FDA Start: 04-16-2018 SLING,VAG,JESSICA A DESARA FDA Start: 04-16-2018 SLING,VAG,JESSICA A DESARA FDA Start: 04-16-2018 SLING,VAG,JESSICA A DESARA FDA Start: 04-16-2018 Goals Date Patient Goal Desired Activity /State Mental Status Date Assessment Result Facility 04-07-2025 Cognitive function Voice/Name [facility] Work Phone: Clinical Notes 06-28-2015 to 04-07-2025 Note Date & Type Note Facility 04-07-2025 Consult note [facility] 04-07-2025 History and physical note Note Date/Time April 07, 2025 8:59am [facility] Medical Records Department [address] [place] [address] History & Physical Exam 04/07/25 0857 MR#: [id number] Acct: [id number] Name: JUDITH LACY Rep #:[id number] : 1970 54 From: Gavino Medina DO PCP: SILVESTRE YadavC Status:REG S DC Location: [place] [address] HPI - General General Date of Admission: [...] why she is coming backin 3 years. 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 Constitutional Constitutional: Denies fatigue, fever(s), poor [...] CC: SCOT Aly; Gavino Medina DO~ Signed [facility] Work Phone: [phone] Evaluation note* Diagnosis Onset Date Resolution Status Admit Date Encounter for screening colonoscopy acute April 07, 2025 8:45am [facility] Work Phone: [phone] Consult note [facility] Medical Records Department [address] [place] [address] Anesthesia Postop Eval I 04/07/25 1029 MR#: [id number] Acct: [id number] Name: JUDITH LACY Rep #:[id number] : 1970 54 From: David Ross PCP: SILVESTRE YadavC Status:REG S DC Y Race: C Location: [place] [address] Anesthesia: Postop Eval I Current Vital Signs [...] Ross Cosignapollo Signature: Date CC: ~ Signed [facility]07-24-2025 Procedure note [facility] Medical Records Department [address] [place] [address] Operative Report - CC Letter MR#: [id number] Acct: [id number] Name: JUDITH LACY Rep #:[id number] : [...] Gavino Ruggiero Signature: Date (if indicated) CC: ASH KIER BOILERHermelindo Aly; Gavino Medina DO ~ Date Dictated: 04/07/25 0947 Date Transcribed: Senior Oracle Dba: RF Signed [facility]07-24-2025 Procedure note [facility] Medical Records Department [address] [facility] [address] Colonoscopy Report MR#: [id number] Acct: [id number] Name: JUDITH LACY Rep #:[id number] : [...] individual at high risk CPT copyright 2021 [employer]. All rights reserved. The codes documented in this report are preliminary and upon accountant supervisor review may be revised to meet current compliance requirements. Gavino Medina DO 04/07/2025 10:27:15 AM This report has been signed electronically. Number of Addenda: 0 Note Initiated On: 04/07/2025 9:47 AM 04/07/25 1027 Date _ Gavino Velazquezigner Signature: Date (if indicated) CC: GIOVANY-Elaine Aly; Gavino Medina, ~ Date Dictated: 04/07/25946 Date Transcribed: Senior [employer] Dba: RF Signed [facility]07-24-2025 Consult note [facility] Medical Records Department [address] [facility] [place] [address] Pre-Anesthesia Evaluation 04/07/25957 MR#: [id number] Acct: [id number] Name: JUDITH LACY Rep #:[id number] : 1970 54 From: Graeme mendes MD PCP: SCOT Yadav Status:REG S DC Y Race: C Location: [place] [address] ASA Classification* ASA Classification ASA Classification: 2 [...] Procedure(s): COLONOSCOPY Anesthesia History Anesthesia History - bottom steep tender: Anesthesia History - bottom steep tender Hx Hospitalization No 04/05/25 10:55 Any Problems [...] take am of surgery PONV PONV - bottom steep tender: PONV - bottom steep tender Female Yes 04/05/25 10:55 HX of Motion [...] 04/07/25 09:14 Respiratory Assessment Respiratory Assessment - bottom steep tender: Respiratory Tract Infection Hx - bottom steep tender Hx Respiratory Tract Infection No 04/05/25 10:55 STOP Sleep Apnea STOP Sleep Apnea - bottom steep tender: STOP Sleep Apnea - bottom steep tender Hx Hypertension No 04/05/25 10:55 Hx Sleep [...] Tobacco Use History Tobacco Use History - bottom steep tender: Tobacco Use History - bottom steep tender Tobacco Use Smoking Status Never smoker 04/05/25 10:55 Hx Tobacco Use No 04/05/25 10:55 Years Smoking Packs Smoked per Day Smoking Cessation Date was within the last 15 years Hx Smoking Cessation Date Hx Smoking Cessation Counseling Hematologic Medial History Hematologic Hx - bottom steep tender: 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 04/07/25 0959 young MIRANDA> Date _ Desyicarmen Santillan MD Cosigner Signature: Date CC: ~ Signed [facility]07-24-2025 History and physical note [facility] Medical Records Department [address] [place] [address] History & Physical Exam 04/07/25 0857 MR#: [id number] Acct: [id number] Name: JUDITH LACY Rep #:[id number] : 1970 54 From: Gavino Medina DO PCP: SCOT Yadav Status:[facility] Location: [place] [address] HPI - General General Date of Admission: [...] why she is coming backin 3 years. 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 Lacy, We are pleased to [...] report will be kept on file at [facility] as part of your permanent medical record and are available for your continuing care. Thank you for allowing us to help in meeting your health care needs. Sincerely, Dr. Wilson Interpreting Radiologist [facility] (Normal over 40) documented in this encounterUniversity Hospitals [facility] Center09-07-2023 NoteHNO ID: [id number] Author: Aristides Herrera, Mammo Tech Service: ? [...] BY: Berenice Mojica May 22, 2023 9:50 [facility]09-07-2023 History of Present illness Narrative* Aristdies Herrera Mammo Tech - 05/22/2023 9:50 AM [...] 22, 2023 9:50 AM documented in this encounterUniversity Hospitals Port[facility] Center06-08-2023 NoteHNO ID: [id number] Author: Geovany Ramirez MD Service: ? Author [...] with lozenges, gargles, and analgesia. Geovany Ramirez [facility]06-08-2023 History of Present illness Narrative* Geovany Ramirez [...] analgesia. Geovany Ramirez MD documented in this encounterUniversity Hospitals Portage [facility] Center06-01-2023 Miscellaneous Notes* Telephone Encounter - Ginna Dong MD - 02/13/2023 9:31 AM EDT Diflucan sent in. If symptoms persist or worsen needs appointment thanks documented in this encounterUniversity Hospitals Portage [facility] Center11-28-2022 NoteHNO ID: [id number] Author: Reba Quick MD Service: ? Author Type: Physician Type: Progress Notes Filed: 08/12/2022 1:49 PM Note Text: Application Programmer Analyst offered: Patient declines. Lorena is a 51 [...] L2 SAB2 IAB0 Ectopic0 Multiple0 Live Births2 Oil Painter History LMP: 03/24/2018, Ablation Age at Menarche: Age at First : Age at Menopause: Oil Painter History Comments: Sexual Activity: Yes; Male Contraception: [...] external genitalia normal, normal Bartholin's glands, urethra, Lykens's glands, no vulvar lesions, no cervical lesions, [...] year or sooner as needed Reba Nelson [facility]11-28-2022 History of Present illness Narrative* Reba Quick MD - 08/12/2022 1:05 PM EST Application Programmer Analyst offered: Patient declines. 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 Pharmacy updated. Rosie Smyth RN * Telephone Encounter - Reba Quick MD - 08/05/2022 8:09 AM EST What pharmacy? * Telephone Encounter - Ana Capellan LPN - 08/05/2022 7:40 AM EST Please see pt's mychart message and advise. Ana Capellan LPN documented in this encounterUniversity Hospitals Portage Medical Center11-07-2022 NoteHNO ID: [id number] Author: Snow Coker APRN.BUS INFO CONSULTANT Service: ? Author Type: Nurse Practitioner Type: Progress Notes Filed: 07/22/2022 10:58 AM Note Text: Subjective The history is provided by the patient. No services manager was used. HPI Judith Lacy is a [...] have confirmed and edited as necessary, the [facility] Review of Systems Constitutional: Negative for chills [...] detail warranting prompt ER evaluation. Snow Coker APRN.[facility]FASt. Charles [facility]07-28-2022 Miscellaneous Notes* Letter - Mammography Coordinator - 04/11/2022 8:21 AM EDT April 11, 2022 PID: [id number] Judith Lacy [address] [place] [address] Dear Ms. Lacy, We are pleased to [...] report will be kept on file at [facility] as part of your permanent medical record and are available for your continuing care. Thank you for allowing us to help in meeting your health care needs. Sincerely, Dr. Restrepo Interpreting Radiologist [facility] (Normal over 40) documented in this encounterUniversity Hospitals Portage Medical Center07-28-2022 History of Present illness Narrative* RT Ricardo(R) [...] 11, 2022 7:48 AM documented in this encounterUniversity Hospitals Portage [facility] Center10-14-2015 History of Past illness Narrative* Problem Noted [...] of this encounter (statuses as of 04/12/2022) [facility] History of Past illness Narrative* Problem Noted [...] of this encounter (statuses as of 04/13/2022) [facility] History of Past illness Narrative* Problem Noted [...] of this encounter (statuses as of 08/05/2022) [facility] History of Past illness Narrative* Problem Noted [...] of this encounter (statuses as of 08/12/2022) [facility] History of Past illness Narrative* Problem Noted [...] of this encounter (statuses as of 02/13/2023) [facility] History of Past illness Narrative* Problem Noted [...] of this encounter (statuses as of 02/20/2023) [facility] History of Past illness Narrative* Problem Noted [...] of this encounter (statuses as of 05/27/2023) [facility] History of Past illness Narrative* Problem Noted [...] of this encounter (statuses as of 07/20/2023) [facility] note Author Graeme gipson [facility] Note Date/Time April 07, 2025 9:59 am [facility] Medical Records Department [address] [place] [address] Pre-Anesthesia Evaluation 04/07/25 0958 MR#: [id number] Acct: [id number] Name: JUDITH LACY Rep #:[id number] : 1970 54 From: Graeme mendes MD PCP: Madeleine Aly ASH KIER BOILER-C Status:REG S DC Y Race: C Location: [place] [address] ASA Classification* ASA Classification ASA Classification: 2 [...] Procedure(s): COLONOSCOPY Anesthesia History Anesthesia History - bottom steep tender: Anesthesia History - bottom steep tender Hx Hospitalization No 04/05/25 10:55 Any Problems [...] take am of surgery PONV PONV - bottom steep tender: PONV - bottom steep tender Female Yes 04/05/25 10:55 HX of Motion [...] 04/07/25 09:14 Respiratory Assessment Respiratory Assessment - bottom steep tender: Respiratory Tract Infection Hx - bottom steep tender Hx Respiratory Tract Infection No 04/05/25 10:55 STOP Sleep Apnea STOP Sleep Apnea - bottom steep tender: STOP Sleep Apnea - bottom steep tender Hx Hypertension No 04/05/25 10:55 Hx Sleep [...] Tobacco Use History Tobacco Use History - bottom steep tender: Tobacco Use History - bottom steep tender Tobacco Use Smoking Status Never smoker 04/05/25 10:55 Hx Tobacco Use No 04/05/25 10:55 Years Smoking Packs Smoked per Day Smoking Cessation Date was within the last 15 years Hx Smoking Cessation Date Hx Smoking Cessation Counseling Hematologic Medial History Hematologic Hx - bottom steep tender: 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 04/07/25 0959 <Electronically signed by Graeme vidal MD> Date _ Graeme Santillan MD Cosigner Signature: Date CC: ~ Signed [facility] Work Phone: Consult note Author David Ross [facility] Note Date/Time April 07, 2025 10:[address] [place] [address] Medical Records Department [address] [place] [address] Anesthesia Postop Eval I 04/07/25 1029 MR#: [id number] Acct: [id number] Name: JUDITH LACY Rep #:[id number] : 1970 54 From: David Ross PCP: Madeleine Aly NP-Elaine Status:REG S DC Y Race: C Location: [place] [address] Anesthesia: Postop Eval I Current Vital Signs [...] David Chadwick Signature: Date CC: ~ Signed [facility] Work Phone: Consult note Author Graeme gipson [facility] Note Date/Time April 07, 2025 11:0 9am [facility] Medical Records Department [address] [place] [address] Anesthesia Postop Eval II 04/07/25 1039 MR#: [id number] Acct: [id number] Name: JUDITH LACY Rep #:[id number] : 1970 54 From: Graeme mendes MD PCP: Madeleine Aly ASH KIER BOILER-C Status:REG S DC Y Race: C Location: [place] [address] Anesthesia Postop Eval I Sum Postop Eval [...] MD Cosigner Signature: Date CC: ~ Signed [facility] Work Phone: evaluation noteNo assessment information available [facility] Work Phone: evaluation note* Diagnosis Encounter for screening mammogram for malignant neoplasm of breast Other screening mammogram documented in this encounter [facility]* Diagnosis Encounter for gynecological examination (general) (routine) without abnormal findings- Primary Encounter for screening mammogram for malignant neoplasm of breast Other screening mammogram documented in this encounter [facility]* Diagnosis Vaginal itching- Primary Pruritus of genital organs Vaginal burning Other specified symptom associated with female genital organs documented in this encounter [facility]* Diagnosis Sore throat- Primary Acute pharyngitis documented in this encounter [facility]* Diagnosis Encounter for screening mammogram for malignant neoplasm of breast Other screening mammogram documented in this encounter [facility] CenterInstructions* Name Dates Details How to access health [...] tion Online using Patient Portal and [employer]rd [employer] Apps Indication:Nonsmoker Start:12-Dec-2021 Instruction Type:Patient Education Patient Instructions Indication:Nonsmoker Start:28-Nov-2021 Instruction Type:Provider Instructions for Treatment How to Access Health Informa tion Online using Patient Portal and [employer]rd [employer] Apps Indication:Nonsmoker Start:28-Nov-2021 Instruction Type:Patient Education [...] Informa tion Online using Patient Portal and [employer] Apps Indication:Body mass index (BMI) of 19.0-19.9 in adult Start:09-Jul-2023 Instruction Type:Patient Education Patient Instructions Indication:Body mass index (BMI) of 19.0-19.9 in adult Start:09-Jul-2023 Instruction Type:Provider Instructions for Treatment Patient Instructions Indication:Nonsmoker Start:12-Dec-2021 Instruction Type:Provider Instructions for Treatment How to Access Health Informa tion Online using Patient Portal and [employer] Apps Indication:Nonsmoker Start:12-Dec-2021 Instruction Type:Patient Education Patient Instructions Indication:Nonsmoker Start:28-Nov-2021 Instruction Type:Provider Instructions for Treatment How to Access Health Informa tion Online using Patient Portal and [employer] Apps Indication:Nonsmoker Start:28-Nov-2021 Instruction Type:Patient Education [...] Informa tion Online using Patient Portal and [employer] Apps Indication:Body mass index (BMI) of 19.0-19.9 in adult Start:09-Jul-2023 Instruction Type:Patient Education Patient Instructions Indication:Body mass index (BMI) of 19.0-19.9 in adult Start:09-Jul-2023 Instruction Type:Provider Instructions for Treatment Patient Instructions Indication:Nonsmoker Start:12-Dec-2021 Instruction Type:Provider Instructions for Treatment How to Access Health Informa tion Online using Patient Portal and [employer] Apps Indication:Nonsmoker Start:12-Dec-2021 Instruction Type:Patient Education Patient Instructions Indication:Nonsmoker Start:28-Nov-2021 Instruction Type:Provider Instructions for Treatment How to Access Health Informa tion Online using Patient Portal and [employer]rd [employer] Apps Indication:Nonsmoker Start:28-Nov-2021 Instruction Type:Patient Education [...] CAD Reba Mullins MD [address] [place] [address] [facility] [address] [place] [address] Referral ID Status Reason Start Date Expiration Date V isits Requested Visits Authorized [id number] Closed Auto-Generate d Referral 07/02/2021 08/01/2022 1 1 [facility] for referral (narrative)* Diagnostic Procedure Only (Routine) - Pending Review Specialty Diagnoses / Procedures Referred By Jeannie martinez Referred To Contact [facility] Diagnoses Encounter for screening mammogram for malignant neoplasm of breast Procedures SHELBY SCREENING W MICKEY SCREENING DIGITAL BREAST TOMOSYNTHESIS BI SCREENING MAMMOGRAPHY BI 2-VIEW BREAST INC CAD Reba Mullins MD [address] [place] [address] [facility] [address] [place] [address] Referral ID Status Reason Start Date Expiration Date Visits Requested Visits Authorized [id number] Pending Review Auto-Generat ed Referral 09/11/2023 1 1 [facility] for referral (narrative)* Diagnostic Procedure Only (Routine) - Closed Specialty Diagnoses / Procedures Referred By Jeannie martinez Referred To Contact [facility] Diagnoses Encounter for screening mammogram for malignant neoplasm of breast Procedures SHELBY SCREENING W MICKEY SCREENING DIGITAL BREAST TOMOSYNTHESIS BI SCREENING MAMMOGRAPHY BI 2-VIEW BREAST INC CAD Reba Mullins MD [address] [place] [address] [facility] [address] [place] [address] Referral ID Status Reason Start Date Expiration Date V isits Requested Visits Authorized [id number] Closed Auto-Generate d Referral 08/12/2022 09/11/2023 1 1 [facility] for referral (narrative)No reason for referral information availableWOhio [facility] Work Phone: Reason for visit Narrative* Diagnostic Procedure Only (Routine) - Closed Specialty Diagnoses / Procedures Referred By Jeannie martinez Referred To Contact [facility] Diagnoses Encounter for screening mammogram for malignant neoplasm of breast Procedures SHELBY SCREENING W MICKEY SCREENING BREAST DGTL MICKEY UNI/BILAT ADD ON SCREENING MAMMOGRAPHY BI 2-VIEW BREAST INC CAD Reba Mullins MD [address] [place] [address] [facility] [address] [place] [address] Referral ID Status Reason Start Date Expiration Date V isits Requested Visits Authorized [id number] Closed Auto-Generate d Referral 07/02/2021 08/01/2022 1 1 [facility] for visit Narrative* Diagnostic Procedure Only (Routine) - Closed Specialty Diagnoses / Procedures Referred By Jeannie martinez Referred To Contact [facility] Diagnoses Encounter for screening mammogram for malignant neoplasm of breast Procedures SHELBY SCREENING W MICKEY SCREENING DIGITAL BREAST TOMOSYNTHESIS BI SCREENING MAMMOGRAPHY BI 2-VIEW BREAST INC CAD Reba Mullins MD [address] [place] [address] [facility] [address] [place] [address] Referral ID Status Reason Start Date Expiration Date V isits Requested Visits Authorized [id number] Closed Auto-Generate d Referral 08/12/2022 09/11/2023 1 1 [facility] Family History No Family History Records FoundUnknown [...] Will Yes September 24 6:02pm Power of Compliance Intern Yes September 24, 2019 6:02pm Documents on File Type Date Recorded Patient Patient Registration Manager Expl anation Advance Directive(s) 09/26/2021 8:37 AM Advance Directive(s) 09/12/2021 3:46 PM Documents on File Type Date Recorded Patient Patient Registration Manager Expl anation Advance Directive(s) 09/26/2021 8:37 AM Advance Directive(s) 09/12/2021 3:46 PM Advance Directive Response Recorded Date/ Time Living Will Yes September 24 6:02pm Do you have a Healthcare Power of Compliance Intern? Yes September 24, 2019 6:02pm Advance Directive Response Recorded Date/ Time Living Will Yes September 24 6:02pm Do you have a Healthcare Pow er of Compliance Intern? Yes September 24, 2019 6:02pm Do you have a Healthcare Pow er of Compliance Intern? Yes April 05, 2025 10:55am Name of Medical Power of Compliance Intern LUIS CARLOS ROY April 05, 2025 10:55am [...] or prosecute any alcohol or drug abuse patient.[facility] Center[facility] the event this information is protected by the Federal Confidentiality of Alcohol and Drug Abuse Patient Records regulations: The Federal rules restrict any use of the information to criminally investigate or prosecute any alcohol or drug abuse patient.[facility] Center[facility] the event this information is protected by the Federal Confidentiality of Alcohol and Drug Abuse Patient Records regulations: The Federal rules restrict any use of the information to criminally investigate or prosecute any alcohol or drug abuse patient.[facility] the event this information is protected by the Federal Confidentiality of Alcohol and Drug Abuse Patient Records regulations: The Federal rules restrict any use of the information to criminally investigate or prosecute any alcohol or drug abuse patient.[facility] CenterIn the event this information is protected by the Federal Confidentiality of Alcohol and Drug Abuse Patient Records regulations: The Federal rules restrict any use of the information to criminally investigate or prosecute any alcohol or drug abuse patient.[facility] CenterIn the event this information is protected by the Federal Confidentiality of Alcohol and Drug Abuse Patient Records regulations: The Federal rules restrict any use of the information to criminally investigate or prosecute any alcohol or drug abuse patient.[facility] CenterIn the event this information is protected by the Federal Confidentiality of Alcohol and Drug Abuse Patient Records regulations: The Federal rules restrict any use of the information to criminally investigate or prosecute any alcohol or drug abuse patient.[facility] CenterIn the event this information is protected by the Federal Confidentiality of Alcohol and Drug Abuse Patient Records regulations: The Federal rules restrict any use of the information to criminally investigate or prosecute any alcohol or drug abuse patient.[facility] Care Teams (unrecognized sec tion and content) [employer] Analyst Relationship Specialty Start Date End Date Lianne Cheema CNP [address] [facility] [address] [place] [address] PCP - General Internal Medicine 08/20/21 [employer]urt[employer] Analyst Relationship Specialty Start Date End Date Lianne Cheema CNP [address] [facility] [address] [place] [address] PCP - General Internal Medicine 08/20/21 [employer]urtass Analyst Relationship Specialty Start Date End Date Lianne Cheema CNP [address] [facility] [address] [place] [address] PCP - General Internal Medicine 08/20/21 [employer]urtass Analyst Relationship Specialty Start Date End Date Lianne Cheema CNP [address] [facility] [address] [place] [address] PCP - General Internal Medicine 08/20/21 [employer]urtass Analyst Relationship Specialty Start Date End Date Lianne Cheema CNP [address] [facility] [address] [place] [address] PCP - General Internal Medicine 08/20/21 [employer]urtass Analyst Relationship Specialty Start Date End Date Lianne Cheema CNP [address] [facility] [address] [place] [address] PCP - General Internal Medicine 08/20/21 [employer]urtass Analyst Relationship Specialty Start Date End Date Lianne Cheema CNP [address] [facility] [address] [place], [place] [id number] PCP - General Internal Medicine 08/20/21 Team Status: Active Member Role Status Dates Madeleine Aly ASH KIER BOILER-C Primary Care Provider Active Team Status: Inactive Member Role Status Dates Madeleine Aly ASH KIER BOILER-C Primary Care Provider Active Start: December 24, 2024 End: December 24, 2024 Eryn Gray NP-C Attending Provider Active Start: December 24, 2024 End: December 24, 2024 Eryn Gray ASH KIER BOILER-C Referring Provider Active Start: December 24, 2024 End: December 24, 2024 Team Status: Inactive Member Role Status Dates Madeleine Aly ASH KIER BOILER-C Primary Care Provider Active Start: January 13, 2025 End: January 13, 2025 Madeleine Aly NP-C Attending Provider Active Start: January 13, 2025 End: January 13, 2025 Madeleine Aly NP-C Referring Provider Active Start: January 13, 2025 End: January 13, 2025 Team Status: Active Member Role/Relationship Status Dates Madeleine Aly ASH KIER BOILER-C Primary Care Provider Active Team Status: Inactive Member Role/Relationship Status Dates Madeleine Aly NP-C Primary Care Provider Active Start: December 24, 2024 End: December 24, 2024 Eryn Gray NP-C Attending Provider Active Start: December 24, 2024 End: December 24, 2024 Eryn Gray ASH KIER BOILER-C Referring Provider Active Start: December 24, 2024 End: December 24, 2024 Team Status: Inactive Member Role/Relationship Status Dates Madeleine Aly ASH KIER BOILER-C Primary Care Provider Active Start: January 13, [...] section and content) DATE CREATED AUTHOR 05/27/2023 [facility] DATE CREATED AUTHOR AUTHOR'S ORGANIZ ATION 06/30/2025 [facility] FOR RECORDS PERTAINING TO PATIENTS WHO [...] BE BASED ON THE PRIMARY CLINICAL RECORDS. [employer] provides no warranty or guarantee of the accuracy or completeness of information in this document.
== END | disposition home or self-care (01) ==
PROVIDERS: PCP Nurse Practitioner Family; Referring Provider Nurse Practitioner Women's Health; Visit Provider Nurse Practitioner Women's Health
DX: N89.8 Other specified noninflammatory disorders of vagina (principal)
CPT/HCPCS: 87070; 87205